=== PATIENT | male | born 1960 | race Caucasian/White ===

== ENCOUNTER 2018-03-21 20:40 | Emergency (ER) | payer OTHER ==
[2018-03-21 20:50] VITALS: TEMP 97.9
[2018-03-21] MEDS ORDERED: SODIUM CHLORIDE 0.9% 1,000 ML IV STA (20:59)
[2018-03-21] MEDS ORDERED: DILTIAZEM DRIP BOLUS FROM BAG 1 MG SOLN IV ONE ×3 (21:00→23:59)
[2018-03-21] MEDS ORDERED: DILTIAZEM 50 MG in SODIUM CHLORIDE 0.9% 40 ML IV SCH (21:00)
--- NOTE | 2018-03-21 21:02 | ED ---
Dizziness HPI - General Chief Complaint: Dizziness Stated Complaint: syncope Time Seen by Provider: 03/21/18 20:58 Source: patient, RN notes reviewed, old records reviewed Mode of arrival: wheelchair Limitations: no limitations - History of Present Illness Initial Comments: This is a 57-year-old male to the ER for evaluation with syncopal event. Syncopal event occurred around lunch today. Patient states he has no history of A. fib and has heart rate uncontrolled for the most part every day. Patient is on blood thinners, warfarin. He's been taking all medications as prescribed. Patient states he was walking into the grocery store on the ground did hit left-sided his head. He denies significant headache, patient states falls weakness by bystander he is refusing occasionally felt fine continued to stay becomes the ER for evaluation currently. Denies any other trauma or injury MD Complaint: dizziness, lightheadedness -: hour(s) (7) Timing: sudden onset History of Same: Yes History of Trauma: Yes (Patient did land on left side of his body, also left side of his had) Improves With: medication Worsens With: nothing Associated Symptoms: denies other symptoms - Related Data Home Medications Medication Instructions Recorded Confirmed Acetaminophen Tab [Tylenol] 1,000 mg PO DAILY 03/21/18 03/21/18 Oz Pure(Unknown) 1 tab PO DAILY 03/21/18 03/21/18 Aspirin [[place] Aspirin EC] 81 mg PO DAILY 03/21/18 03/21/18 Digoxin (Unknown) 1 tab PO DAILY 03/21/18 03/21/18 Magnesium (Unknown) 1 tab PO DAILY 03/21/18 03/21/18 Vitamin C (Unknown) 1 tab PO DAILY 03/21/18 03/21/18 Warfarin [Coumadin] 1.25 mg PO DAILY 03/21/18 03/21/18 Allergies Allergy/AdvReac Type Severity Reaction Status Date / Time Iodinated Contrast- Oral and AdvReac Unknown Unknown Verified 03/21/18 21:15 IV Dye Review of Systems ROS Statement: Those systems with pertinent positive or pertinent negative responses have been documented in the HPI. ROS Other: All systems not noted in ROS Statement are negative. Past Medical History Past Medical History: Atrial Fibrillation, Hypertension History of Any Multi-Drug Resistant Organisms: None Reported Past Surgical History: AICD Past Psychological History: No Psychological Hx Reported Smoking Status: Former smoker Past Alcohol Use History: None Reported Past Drug Use History: None Reported General Exam Limitations: no limitations General appearance: alert, in no apparent distress Head exam: Present: atraumatic, normocephalic, normal inspection Eye exam: Present: normal appearance, PERRL, EOMI. Absent: scleral icterus, conjunctival injection, periorbital swelling ENT exam: Present: normal exam, mucous membranes moist Neck exam: Present: normal inspection. Absent: tenderness, meningismus, lymphadenopathy Respiratory exam: Present: normal lung sounds bilaterally. Absent: respiratory distress, wheezes, rales, rhonchi, stridor Cardiovascular Exam: Present: normal rhythm, tachycardia, irregular rhythm, normal heart sounds. Absent: systolic murmur, diastolic murmur, rubs, gallop, clicks GI/Abdominal exam: Present: soft, normal bowel sounds. Absent: distended, tenderness, guarding, rebound, rigid Extremities exam: Present: normal inspection, full ROM, normal capillary refill. Absent: tenderness, pedal edema, joint swelling, calf tenderness Back exam: Present: normal inspection Neurological exam: Present: alert, oriented X3, CN II-XII intact Psychiatric exam: Present: normal affect, normal mood Skin exam: Present: warm, dry, intact, normal color. Absent: rash Course Vital Signs 03/21/18 03/21/18 03/21/18 20:47 21:03 21:10 Temperature 97.9 F Pulse Rate 94 142 H 135 H Respiratory 18 30 H 8 L Rate Blood Pressure 124/68 125/96 O2 Sat by Pulse 98 93 L Oximetry 03/21/18 03/21/18 03/21/18 21:20 21:30 21:40 Temperature Pulse Rate 134 H 123 H 122 H Respiratory 31 H 32 H 30 H Rate Blood Pressure 125/96 125/96 106/80 O2 Sat by Pulse 92 L 94 L 95 Oximetry 03/21/18 03/21/18 21:50 23:19 Temperature Pulse Rate 112 H 105 H Respiratory 18 Rate Blood Pressure 100/89 O2 Sat by Pulse 93 L Oximetry - Reevaluation(s) Reevaluation #1: 03/21/18 23:31 Medical record is reviewed Reevaluation #2: 03/21/18 23:31 Patient showing improvement heart rate, no significant shortness of breath or chest pain. No bowel pain no headaches EKG Findings - EKG Comments: EKG Findings:: EKG shows A. fib with RVR rate 134, QRS 108, QTc 492 Medical Decision Making - Medical Decision Making 57 male the ER for evaluation is presented today for evaluation regards to syncopal event, uncontrolled A. fib with RVR, patient's heart rate well controlled here in the ER patient able to ambulate without didn't difficulty or syncope. CAT scans are negative chest x-ray is normal patient can be discharged home - Lab Data Result diagrams: 03/21/18 20:59 03/21/18 20:59 Lab Results 03/21/18 03/21/18 03/21/18 Range/Units 20:59 20:59 20:59 WBC 9.4 (3.8-10.6) k/uL RBC 4.33 (4.30-5.90) m/uL Hgb 12.7 L (13.0-17.5) gm/dL Hct 41.2 (39.0-53.0) % MCV 94.9 (80.0-100.0) fL MCH 29.3 (25.0-35.0) pg MCHC 30.9 L (31.0-37.0) g/dL RDW 13.6 (11.5-15.5) % Plt Count 362 (150-450) k/uL Neutrophils % 73 % Lymphocytes % 17 % Monocytes % 8 % Eosinophils % 0 % Basophils % 1 % Neutrophils # 6.9 (1.3-7.7) k/uL Lymphocytes # 1.6 (1.0-4.8) k/uL Monocytes # 0.7 (0-1.0) k/uL Eosinophils # 0.0 (0-0.7) k/uL Basophils # 0.0 (0-0.2) k/uL Hypochromasia Moderate PT (9.0-12.0) sec INR (<1.2) APTT (22.0-30.0) sec D-Dimer (<0.60) mg/L FEU Sodium 137 (137-145) mmol/L Potassium 4.6 (3.5-5.1) mmol/L Chloride 105 (98-107) mmol/L Carbon Dioxide 24 (22-30) mmol/L Anion Gap 8 mmol/L BUN 22 H (9-20) mg/dL Creatinine 1.05 (0.66-1.25) mg/dL Est GFR (CKD-EPI)AfAm >90 (>60 ml/min/1.73 sqM) Est GFR (CKD-EPI)NonAf 78 (>60 ml/min/1.73 sqM) Glucose 100 H (74-99) mg/dL Plasma Lactic Acid Kunal (0.7-2.0) mmol/L Calcium 8.8 (8.4-10.2) mg/dL Phosphorus 5.0 H (2.5-4.5) mg/dL Magnesium 2.0 (1.6-2.3) mg/dL Total Bilirubin 1.1 (0.2-1.3) mg/dL AST 33 (17-59) U/L ALT 44 (21-72) U/L Alkaline Phosphatase 58 (38-126) U/L Total Creatine Kinase 149 (55-170) U/L CK-MB (CK-2) 3.0 H (0.0-2.4) ng/mL CK-MB (CK-2) Rel Index 2.0 Troponin I 0.018 (0.000-0.034) ng/mL Total Protein 5.9 L (6.3-8.2) g/dL Albumin 3.3 L (3.5-5.0) g/dL 03/21/18 03/21/18 Range/Units 20:59 20:59 WBC (3.8-10.6) k/uL RBC (4.30-5.90) m/uL Hgb (13.0-17.5) gm/dL Hct (39.0-53.0) % MCV (80.0-100.0) fL MCH (25.0-35.0) pg MCHC (31.0-37.0) g/dL RDW (11.5-15.5) % Plt Count (150-450) k/uL Neutrophils % % Lymphocytes % % Monocytes % % Eosinophils % % Basophils % % Neutrophils # (1.3-7.7) k/uL Lymphocytes # (1.0-4.8) k/uL Monocytes # (0-1.0) k/uL Eosinophils # (0-0.7) k/uL Basophils # (0-0.2) k/uL Hypochromasia PT 16.7 H (9.0-12.0) sec INR 1.8 H (<1.2) APTT 25.7 (22.0-30.0) sec D-Dimer 0.42 (<0.60) mg/L FEU Sodium (137-145) mmol/L Potassium (3.5-5.1) mmol/L Chloride (98-107) mmol/L Carbon Dioxide (22-30) mmol/L Anion Gap mmol/L BUN (9-20) mg/dL Creatinine (0.66-1.25) mg/dL Est GFR (CKD-EPI)AfAm (>60 ml/min/1.73 sqM) Est GFR (CKD-EPI)NonAf (>60 ml/min/1.73 sqM) Glucose (74-99) mg/dL Plasma Lactic Acid Kunal 1.4 (0.7-2.0) mmol/L Calcium (8.4-10.2) mg/dL Phosphorus (2.5-4.5) mg/dL Magnesium (1.6-2.3) mg/dL Total Bilirubin (0.2-1.3) mg/dL AST (17-59) U/L ALT (21-72) U/L Alkaline Phosphatase (38-126) U/L Total Creatine Kinase (55-170) U/L CK-MB (CK-2) (0.0-2.4) ng/mL CK-MB (CK-2) Rel Index Troponin I (0.000-0.034) ng/mL Total Protein (6.3-8.2) g/dL Albumin (3.5-5.0) g/dL - Radiology Data Radiology results: report reviewed (CT brain C-spine patient was negative for acute disease chest x-ray is negative), image reviewed Critical Care Time Critical Care Time: Yes Total Critical Care Time: 31 Disposition Clinical Impression: Atrial fibrillation with RVR, URI (upper respiratory infection), Syncope Disposition: HOME SELF-CARE Condition: Good Instructions: A-fib (Atrial Fibrillation) (ED), Syncope (ED) Is patient prescribed a controlled substance at d/c from ED?: No Referrals: Bob Doe DO [Primary Care Provider] - 1-2 days
[2018-03-21 21:25] LABS: Basophils % (A) 1 %; Eosinophils % (A) 0 %; HCT 41.2 % (39.0-53.0); HGB 12.7 gm/dL (13.0-17.5); Hypochromasia Moderate; Lymphocytes # (A) 1.6 k/uL (1.0-4.8); Lymphocytes % (A) 17 %; MCH 29.3 pg (25.0-35.0); MCHC 30.9 g/dL (31.0-37.0); MCV 94.9 fL (80.0-100.0); Monocytes # (A) 0.7 k/uL (0-1.0); Monocytes % (A) 8 %; Neutrophils # (A) 6.9 k/uL (1.3-7.7); Neutrophils % (A) 73 %; Platelet Count 362 k/uL (150-450); RBC 4.33 m/uL (4.30-5.90); RDW 13.6 % (11.5-15.5); WBC 9.4 k/uL (3.8-10.6)
[2018-03-21 21:36] LABS: ALT 44 U/L (21-72); AST 33 U/L (17-59); Albumin 3.3 g/dL (3.5-5.0); Alkaline Phosphatase 58 U/L (38-126); Anion Gap 8 mmol/L; Blood Urea Nitrogen 22 mg/dL (9-20); Calcium 8.8 mg/dL (8.4-10.2); Carbon Dioxide 24 mmol/L (22-30); Chloride 105 mmol/L (98-107); Glucose 100 mg/dL (74-99); Potassium 4.6 mmol/L (3.5-5.1); Sodium 137 mmol/L (137-145); Total Bilirubin 1.1 mg/dL (0.2-1.3); Total Protein 5.9 g/dL (6.3-8.2)
[2018-03-21 21:40] LABS: D-Dimer 0.42 mg/L FEU (<0.60); INR 1.8 (<1.2); Partial Thromboplastin Time 25.7 sec (22.0-30.0); Prothrombin Time 16.7 sec (9.0-12.0)
[2018-03-21 21:59] LABS: Troponin I 0.018 ng/mL (0.000-0.034)
--- NOTE | 2018-03-21 22:27 | CT ---
EXAMINATION TYPE: CT facial bones wo con DATE OF EXAM: 03/21/2018 COMPARISON: None HISTORY: Syncope. Left orbit swelling and bruising. CT DLP: 2832.3 mGycm Automated exposure control for dose reduction was used. TECHNIQUE: CT scan of the sinuses is performed without contrast, axial images are obtained, coronal r eformatted images are also reviewed. FINDINGS: The orbital margins are intact. There is bilateral patency of the ostiomeatal complex. Ther e is no evidence of a blowout fracture. There is no evidence of retro-orbital mass. There is mucosal thickening with fluid levels in the maxillary sinuses. The mandibular ring is intact. Temporomandibular joints appear normal. Zygomatic arches appear normal . The maxilla is intact. Nasal bone appears intact. There are dilated facial veins. There is 3 mm air bubble in the soft tissues in the right submandibul ar region that could be within a dilated vein. IMPRESSION: Maxillary sinusitis. No evidence of a fracture. Dilated veins raises the possibility of s uperior vena cava syndrome. Clinical correlation recommended.
--- NOTE | 2018-03-21 22:31 | CT ---
EXAMINATION TYPE: CT brain savi mac DATE OF EXAM: 03/21/2018 COMPARISON: None HISTORY: Syncope. CT DLP: 2832.3 mGycm Automated exposure control for dose reduction was used. TECHNIQUE: CT scan of the head and cervical spine are performed without contrast. FINDINGS: Ventricles of normal size. There is no mass effect nor midline shift. There is no sign of intracranial hemorrhage. There is mild cerebral atrophy. Calvarium is intact. Cervical vertebra have normal alignment. There is some spurring and slight narrowing at C3-4 and C6-7 . Posterior limbs are intact. There is hypertrophic facet arthropathy. Prevertebral soft tissues are not enlarged. The skull base is intact. There are dilated jugular veins. Right external jugular vein measures 2.3 cm. There is large aortic a rch and the ascending aorta measures 4.7 cm. IMPRESSION: Spondylotic changes. No fracture. Dilated veins in the neck could relate to superior vena cava obstru ction. Clinical correlation recommended. Aneurysm of the aortic arch. Mild cerebral atrophy. No acute intracranial abnormality.
[2018-03-21] MEDS ORDERED: IPRATROPIUM-ALBUTEROL 3 ML NEB INHALATION STA (22:49)
[2018-03-21] MEDS ORDERED: BENZONATATE 100 MG CAP PO STA (22:49)
--- NOTE | 2018-03-21 23:20 | XR ---
EXAMINATION TYPE: XR chest 2V DATE OF EXAM: 03/21/2018 COMPARISON: NONE HISTORY: Syncope TECHNIQUE: Frontal and lateral views of the chest are obtained. FINDINGS: Heart is enlarged. There is some coarsening of interstitial markings.. There is left axill elaina pacemaker with the lead tips in the right ventricle. There are chest leads. IMPRESSION: Cardiomegaly. No pleural effusion. Coarse lung markings without overt heart failure.
[2018-03-22 00:59] VITALS: BP 107/90; PULSE 87; RESP 18
== END 2018-03-22 01:06 | disposition home or self-care (01) ==
LOC: EC 20:40
DX: I48.91 Unspecified atrial fibrillation (principal); J06.9 Acute upper respiratory infection, unspecified; I10 Essential (primary) hypertension; Z87.891 Personal history of nicotine dependence; Z79.01 Long term (current) use of anticoagulants; Z79.82 Long term (current) use of aspirin; Z79.891 Long term (current) use of opiate analgesic; Z79.899 Other long term (current) drug therapy; Z91.041 Radiographic dye allergy status; Z95.810 Presence of automatic (implantable) cardiac defibrillator
CPT/HCPCS: 36415; 70450; 70486; 71046; 72125; 80053; 82550; 82553; 83605; 83735; 84100; 84484; 85025; 85379; 85610; 85730; 93005; 94640; 96365; 96376; 99285

== ENCOUNTER 2018-03-23 21:39 | Inpatient (IN) | payer OTHER ==
[2018-03-23] MEDS ORDERED: ASPIRIN 81 MG PO STA (22:13)
--- NOTE | 2018-03-23 22:25 | ED ---
General Adult HPI - General Chief complaint: Dizziness Stated complaint: Dizzy, Sweaty Time Seen by Provider: 03/23/18 21:57 Source: patient Mode of arrival: wheelchair Limitations: no limitations - History of Present Illness Initial comments: Sung is a 57-year-old with past medical history Most significant for recent visit orally load him to be in A. fib with RVR. IV fluids resolution of his currently discharged home with planned follow-up with his PCP and flight engineer helicopter. Patient contacted his physician, he has a follow-up visit with his flight engineer helicopter tomorrow. Patient reports that throughout the day today is progressively getting weaker and had multiple episodes of lightheadedness. Patient reports upon getting his vehicle today felt very lightheaded and like he was passed out. His friends visiting look like he wasn't doing well. He rested. He felt better. Patient also describes feeling as though he can't catch his breath when he has these episodes. - Related Data Home Medications Medication Instructions Recorded Confirmed Acetaminophen Tab [Tylenol] 1,000 mg PO DAILY PRN 03/21/18 03/23/18 Aspirin [[place] Aspirin EC] 81 mg PO DAILY 03/21/18 03/23/18 Magnesium (Unknown) 1 tab PO DAILY 03/21/18 03/23/18 Vitamin C (Unknown) 1 tab PO DAILY 03/21/18 03/23/18 Warfarin [Coumadin] 1.25 mg PO DAILY 03/21/18 03/23/18 Digoxin [Lanoxin] 125 mcg PO DAILY 03/23/18 03/23/18 Ramírez-Pure 1 tab PO DAILY 03/23/18 03/23/18 Multivitamin [Multivitamins Adult 2 tab PO DAILY 03/24/18 03/24/18 Gummies] Ubidecarenone [Co Q-10] 300 mg PO DAILY 03/24/18 03/24/18 Allergies Allergy/AdvReac Type Severity Reaction Status Date / Time Iodinated Contrast- Oral and AdvReac Unknown Unknown Verified 03/24/18 02:16 IV Dye Review of Systems ROS Statement: Those systems with pertinent positive or pertinent negative responses have been documented in the HPI. ROS Other: All systems not noted in ROS Statement are negative. Past Medical History Past Medical History: Atrial Fibrillation, Hypertension History of Any Multi-Drug Resistant Organisms: None Reported Past Surgical History: AICD Past Psychological History: No Psychological Hx Reported Smoking Status: Former smoker Past Alcohol Use History: None Reported Past Drug Use History: None Reported - Past Family History Father Family Medical History: No Reported History Mother Family Medical History: No Reported History General Exam - General Exam Comments Initial Comments: Physical Exam GENERAL: Patient is well-developed and well-nourished. Patient is nontoxic and well- hydrated and is in no distress. HENT: Normocephalic, well-healing contusion to left face EYES: PERRL, EOMI PULMONARY: Unlabored respirations. No audible rales rhonchi or wheezing was noted. CARDIOVASCULAR: Irregularly irregular tachycardic rhythm, warm and well perfused extremities ABDOMEN: Soft and nontender with normal bowel sounds. SKIN: Skin is clear with no lesions or rashes and otherwise unremarkable. : Deferred NEUROLOGIC: Patient is alert and oriented x3. Moving all extremities spontaneously MUSCULOSKELETAL: Normal extremities with adequate strength and full range of motion. No lower extremity swelling or edema. No calf tenderness. PSYCHIATRIC: Normal psychiatric evaluation. Limitations: no limitations Limitations: no limitations Course Vital Signs 03/23/18 03/24/18 21:45 00:45 Temperature 97.8 F Pulse Rate 72 110 H Respiratory 18 16 Rate Blood Pressure 115/66 113/89 O2 Sat by Pulse 97 98 Oximetry EKG Findings - EKG Comments: EKG Findings:: EKG obtained at 9:53 PM, rate is 101, narrow complex irregularly irregular tachycardia consistent with atrial fibrillation. PVCs noted. There are no acute ST elevations or depressions no evidence of acute ischemia or infarction. Medical Decision Making - Medical Decision Making The patient was seen and evaluated history was obtained from the patient and review of medical record. Patient recently seen and evaluated noted to be in A. fib with RVR but responded to treatment in the emergency department. Patient reports he's been compliant with his usual doses of digoxin and metoprolol since that time. Patient continues to have episodes of lightheadedness and feeling as though he can't catch his breath. Patient noted to be mildly tachycardic on initial evaluation. Full cardiac workup was ordered. EKG with no ischemic changes Chest x-ray was reviewed Labs were reviewed, primarily at baseline for the patient aside from an undetectable digoxin level Considering the patient's persistent tachycardia, symptomatic A. fib with RVR resulting in syncope with facial injury earlier in the week, near syncope today I will plan to admit the patient for further evaluation by cardiology. Admission orders and a consult to cardiology were placed - Lab Data Result diagrams: 03/23/18 22:06 03/23/18 22:06 Lab Results 03/23/18 03/23/18 03/23/18 Range/Units 22:06 22:06 22:06 WBC (3.8-10.6) k/uL RBC (4.30-5.90) m/uL Hgb (13.0-17.5) gm/dL Hct (39.0-53.0) % MCV (80.0-100.0) fL MCH (25.0-35.0) pg MCHC (31.0-37.0) g/dL RDW (11.5-15.5) % Plt Count (150-450) k/uL Neutrophils % % Lymphocytes % % Monocytes % % Eosinophils % % Basophils % % Neutrophils # (1.3-7.7) k/uL Lymphocytes # (1.0-4.8) k/uL Monocytes # (0-1.0) k/uL Eosinophils # (0-0.7) k/uL Basophils # (0-0.2) k/uL Hypochromasia PT 35.4 H (9.0-12.0) sec INR 3.9 H (<1.2) APTT 27.5 (22.0-30.0) sec D-Dimer 0.98 H (<0.60) mg/L FEU Sodium 135 L (137-145) mmol/L Potassium 5.0 (3.5-5.1) mmol/L Chloride 105 (98-107) mmol/L Carbon Dioxide 23 (22-30) mmol/L Anion Gap 7 mmol/L BUN 26 H (9-20) mg/dL Creatinine 1.17 (0.66-1.25) mg/dL Est GFR (CKD-EPI)AfAm 78 (>60 ml/min/1.73 sqM) Est GFR (CKD-EPI)NonAf 68 (>60 ml/min/1.73 sqM) Glucose 116 H (74-99) mg/dL Calcium 8.6 (8.4-10.2) mg/dL Magnesium 2.0 (1.6-2.3) mg/dL Total Bilirubin 1.5 H (0.2-1.3) mg/dL AST 49 (17-59) U/L ALT 56 (21-72) U/L Alkaline Phosphatase 61 (38-126) U/L Total Creatine Kinase (55-170) U/L CK-MB (CK-2) (0.0-2.4) ng/mL CK-MB (CK-2) Rel Index Troponin I (0.000-0.034) ng/mL NT-Pro-B Natriuret Pep 7930 pg/mL Total Protein 5.5 L (6.3-8.2) g/dL Albumin 3.0 L (3.5-5.0) g/dL Digoxin <0.4 ng/mL 03/23/18 03/23/18 Range/Units 22:06 22:06 WBC 9.3 (3.8-10.6) k/uL RBC 4.33 (4.30-5.90) m/uL Hgb 12.8 L (13.0-17.5) gm/dL Hct 40.8 (39.0-53.0) % MCV 94.1 (80.0-100.0) fL MCH 29.6 (25.0-35.0) pg MCHC 31.5 (31.0-37.0) g/dL RDW 14.0 (11.5-15.5) % Plt Count 352 (150-450) k/uL Neutrophils % 80 % Lymphocytes % 12 % Monocytes % 6 % Eosinophils % 0 % Basophils % 0 % Neutrophils # 7.4 (1.3-7.7) k/uL Lymphocytes # 1.1 (1.0-4.8) k/uL Monocytes # 0.6 (0-1.0) k/uL Eosinophils # 0.0 (0-0.7) k/uL Basophils # 0.0 (0-0.2) k/uL Hypochromasia Moderate PT (9.0-12.0) sec INR (<1.2) APTT (22.0-30.0) sec D-Dimer (<0.60) mg/L FEU Sodium (137-145) mmol/L Potassium (3.5-5.1) mmol/L Chloride (98-107) mmol/L Carbon Dioxide (22-30) mmol/L Anion Gap mmol/L BUN (9-20) mg/dL Creatinine (0.66-1.25) mg/dL Est GFR (CKD-EPI)AfAm (>60 ml/min/1.73 sqM) Est GFR (CKD-EPI)NonAf (>60 ml/min/1.73 sqM) Glucose (74-99) mg/dL Calcium (8.4-10.2) mg/dL Magnesium (1.6-2.3) mg/dL Total Bilirubin (0.2-1.3) mg/dL AST (17-59) U/L ALT (21-72) U/L Alkaline Phosphatase (38-126) U/L Total Creatine Kinase 283 H (55-170) U/L CK-MB (CK-2) 3.7 H (0.0-2.4) ng/mL CK-MB (CK-2) Rel Index 1.3 Troponin I 0.021 (0.000-0.034) ng/mL NT-Pro-B Natriuret Pep pg/mL Total Protein (6.3-8.2) g/dL Albumin (3.5-5.0) g/dL Digoxin ng/mL Disposition Clinical Impression: Atrial fibrillation with RVR Disposition: ADMITTED IP TO THIS HOSP
[2018-03-23 22:30] LABS: Basophils % (A) 0 %; Eosinophils % (A) 0 %; HCT 40.8 % (39.0-53.0); HGB 12.8 gm/dL (13.0-17.5); Hypochromasia Moderate; Lymphocytes # (A) 1.1 k/uL (1.0-4.8); Lymphocytes % (A) 12 %; MCH 29.6 pg (25.0-35.0); MCHC 31.5 g/dL (31.0-37.0); MCV 94.1 fL (80.0-100.0); Mean Platelet Volume 7.1; Monocytes # (A) 0.6 k/uL (0-1.0); Monocytes % (A) 6 %; Neutrophils # (A) 7.4 k/uL (1.3-7.7); Neutrophils % (A) 80 %; Platelet Count 352 k/uL (150-450); RBC 4.33 m/uL (4.30-5.90); WBC 9.3 k/uL (3.8-10.6)
--- NOTE | 2018-03-23 22:38 | XR ---
EXAMINATION TYPE: XR chest 2V DATE OF EXAM: 03/23/2018 COMPARISON: 03/21/2018 HISTORY: Atrial fibrillation TECHNIQUE: Frontal and lateral views of the chest are obtained. FINDINGS: Heart is enlarged. There is no heart failure. Lungs are clear of consolidation. There is s ome patchy mild infiltrate in the right lower lobe. There is left axillary pacemaker with the lead ti ps in the right ventricle. Bony thorax is intact. IMPRESSION: There is some minimal coarse infiltrate in the right lower lobe that is unchanged. There is improved aeration of the left lung compared to last exam. No heart failure.
[2018-03-23 22:45] LABS: INR 3.9 (<1.2); Partial Thromboplastin Time 27.5 sec (22.0-30.0); Prothrombin Time 35.4 sec (9.0-12.0)
[2018-03-23 22:47] LABS: D-Dimer 0.98 mg/L FEU (<0.60)
[2018-03-23 22:54] LABS: ALT 56 U/L (21-72); AST 49 U/L (17-59); Alkaline Phosphatase 61 U/L (38-126); Anion Gap 7 mmol/L; Blood Urea Nitrogen 26 mg/dL (9-20); Calcium 8.6 mg/dL (8.4-10.2); Carbon Dioxide 23 mmol/L (22-30); Chloride 105 mmol/L (98-107); Digoxin <0.4 ng/mL; Glucose 116 mg/dL (74-99); Sodium 135 mmol/L (137-145); Total Bilirubin 1.5 mg/dL (0.2-1.3); Total Protein 5.5 g/dL (6.3-8.2)
[2018-03-23 23:08] LABS: Creatine Kinase MB 3.7 ng/mL (0.0-2.4); Troponin I 0.021 ng/mL (0.000-0.034)
[2018-03-23] MEDS ORDERED: FAMOTIDINE 20 MG/2 ML VIAL IV STA (23:15)
[2018-03-23] MEDS ORDERED: diphenhydrAMINE 50 MG/ML 1 ML VIAL IVP STA (23:15)
[2018-03-23] MEDS ORDERED: methylPREDNISolone SOD SUCCI 125 MG/2 ML VIAL IV STA (23:15)
[2018-03-23] MEDS ORDERED: MORPHINE SULFATE 4 MG/ML SYRINGE IVP STA (23:55)
--- NOTE | 2018-03-24 00:10 | CT ---
EXAMINATION TYPE: CT chest angio for PE DATE OF EXAM: 03/24/2018 COMPARISON: None HISTORY: dizziness CT DLP: 459.7 mGycm Automated exposure control for dose reduction was used. CONTRAST: CT Chest for pulmonary embolism performed with with IV Contrast, patient injected with 85 mL of Isovu e 370. FINDINGS: There are 3-D post processed images. There is normal contrast opacification of the pulmonary arteries. I see no filling defect. There is n o mediastinal adenopathy. There are few paratracheal and mediastinal lymph nodes that measure up to 1 cm. There are no hilar masses. There is no pericardial effusion. Heart appears slightly enlarged. Th ere is small right pleural effusion. There is no evidence of aortic aneurysm. There is mild groundgla ss interstitial infiltrate in the lower lung kelly. There is mild spurring in the thoracic spine. Th ere is 30% anterior wedging of T3 vertebra. IMPRESSION: There is T3 compression fracture. This is probably old. No evidence of pulmonary embolism. Mild cardi omegaly. Small right pleural effusion. Mild interstitial pulmonary infiltrates could relate to fibrosis.
[2018-03-24] MEDS ORDERED: NALOXONE 0.4 MG/ML 1 ML VIAL IV PRN (00:45)
[2018-03-24 02:52] VITALS: BMI 30.1
[2018-03-24] MEDS ORDERED: ASPIRIN 81 MG PO SCH (09:00)
[2018-03-24] MEDS ORDERED: METOPROLOL SUCCINATE (ER) 25 MG TAB.ER.24H PO SCH (09:00)
[2018-03-24] MEDS ORDERED: DIGOXIN 125 MCG TAB PO SCH (09:00)
--- NOTE | 2018-03-24 09:58 | ECHOF ---
Referral Reason:syncope MEASUREMENTS -------- HEIGHT: 182.9 cm WEIGHT: 95.3 kg BP: 105/79 IVSd: 1.6 cm (0.6 - 1.1) LVIDd: 5.2 cm (3.9 - 5.3) LVPWd: 1.6 cm (0.6 - 1.1) IVSs: 1.7 cm LVIDs: 5.1 cm LVPWs: 1.5 cm LAESV Index (A-L): 38.31 ml/m Ao Diam: 3.4 cm (2.0 - 3.7) AV Cusp: 2.0 cm (1.5 - 2.6) MV EXCURSION: 15.965 mm (> 18.000) MV EF SLOPE: 241 mm/s (70 - 150) EPSS: 2.1 cm MV E Jaime: 0.94 m/s MV DecT: 227 ms MV A Jaime: 0.53 m/s MV E/A Ratio: 1.77 AR PHT: 262 ms RAP: 5.00 mmHg RVSP: 48.47 mmHg FINDINGS -------- Atrial fibrillation. AICD This was a technically good study. The left ventricular size is normal. There is moderate concentric left ventricular hypertrophy. T here is severe global hypokinesis of LV . Overall left ventricular systolic function is severely im paired with, an EF < 20%. The right ventricle is normal in size and function. LA is moderately dilated 34-39 ml/m2 The right atrium is normal in size. The aortic valve is trileaflet and appears structurally normal. Mild mitral regurgitation is present. Mild tricuspid regurgitation present. There is mild pulmonary hypertension. The right ventricular systolic pressure, as measured by Doppler, is 48.47mmHg. Pulmonic valve appears structurally normal. The aortic root size is normal. Normal inferior vena cava with normal inspiratory collapse consistent with estimated right atrial pre ssure of 5 mmHg. The pericardium is normal. CONCLUSIONS -------- 1. Atrial fibrillation. 2. AICD 3. This was a technically good study. 4. The left ventricular size is normal. 5. There is moderate concentric left ventricular hypertrophy. 6. There is severe global hypokinesis of LV . 7. Overall left ventricular systolic function is severely impaired with, an EF < 20%. 8. The right ventricle is normal in size and function. 9. LA is moderately dilated 34-39 ml/m2 10. The right atrium is normal in size. 11. The aortic valve is trileaflet and appears structurally normal. 12. Mild mitral regurgitation is present. 13. Mild tricuspid regurgitation present. 14. There is mild pulmonary hypertension. 15. The right ventricular systolic pressure, as measured by Doppler, is 48.47mmHg. 16. Pulmonic valve appears structurally normal. 17. The aortic root size is normal. 18. Normal inferior vena cava with normal inspiratory collapse consistent with estimated right atrial pressure of 5 mmHg. 19. The pericardium is normal. [employer]: Valentina Nuno RDCS
--- NOTE | 2018-03-24 12:00 | CONS ---
CONSULTATION CHIEF COMPLAINT: Near syncope. Sung is a 57-year-old gentleman with history of nonischemic cardiomyopathy, status post AICD, chronic atrial fibrillation, who follows with a display fabricator out of town, comes in complaining of feeling weak, lightheaded and having a near syncopal event. The patient was in the emergency room 2 days ago, having had a fall and having mild facial contusions. Patient has known chronic Afib and at last visit, his heart rate was poorly controlled. He is currently on Coumadin. INR is around 3.5. The patient has an AICD. I do not have any of his records from the other display fabricator. PAST MEDICAL HISTORY: Significant for nonischemic cardiomyopathy, status post prophylactic AICD and chronic Afib. CURRENT MEDICATIONS: Include Coumadin, Lanoxin, aspirin, Co-Q10. ALLERGIES: To IV DYE. FAMILY HISTORY: Negative for premature coronary artery disease. SOCIAL HISTORY: Negative for EtOH abuse or drug abuse. REVIEW OF SYSTEMS: HEENT: Significant for recent fall. CARDIAC: As described above. RESPIRATORY: Negative. GI: Negative. GENITOURINARY: Negative. ALLERGY: Negative. SKIN: Negative. MUSCULOSKELETAL: Negative. ENDOCRINE: Negative. DERM: Negative. CONSTITUTIONAL: Negative. ONCOLOGICAL: Negative. The rest of the system review is not relevant. PHYSICAL EXAM: Patient is comfortable at rest. Heart rate is 60 beats per minute. Blood pressure is 112/70, respiratory rate is 18. Chest exam reveals good air entry bilaterally. Heart exam reveals first and second heart sounds. No gallop. Abdomen is soft. Exam of extremities did not reveal any edema. Peripheral pulses are felt. LABS: Show that the hemoglobin is 12.8, platelet count is 350, INR is 3.9, potassium is 5, creatinine is 1. Troponin is negative at 0.021 and BNP is elevated at 7930. Digoxin is 0.4. ASSESSMENT: 1. Near syncope. 2. Atrial fibrillation with poorly controlled ventricular rate. 3. History of cardiomyopathy, status post AICD. PLAN: 1. I am going to have his device checked to make sure that patient does not have any episodes of ventricular tachycardia. 2. I am going to add a beta-shane to his current medical regimen for more optimal control of his heart rate. 3. Obtain a 2D echo to document his LV function and obtain records from his primary care physician. MMODL / IJN: [id number] /
[2018-03-24 15:02] LABS: T4, Free (Free Thyroxine) 2.15 ng/dL (0.78-2.19)
[2018-03-24] MEDS: AMIODARONE 200 MG TAB PO SCH ×2 (15:41→20:47)
--- NOTE | 2018-03-24 17:49 | P.HPIM ---
History of Present Illness This is a pleasant 57 years old male with past medical history of, atrial fibrillation status post AICD, hypertension. No presents because of dizziness and syncope. Patient passed out 2 days ago and he fell in his head to his left side of the eye. Patient kept emergency room his been evaluated and discharged home. However after discharge he felt lightheadedness and dizzy cancer who presented to the hospital. Patient has been evaluated by chemistry lab instructor already and interrogation for his AICD shows possible arrhythmia cardiology decided to monitor him overnight. On admission patient has high d-dimer. CTPA was negative for PE, mostly old T3 compression of fracture and small right pleural effusion, there is mild infiltrates in the right lower lung area but no fever no leukocytosis. On admission also his bilirubin is slightly elevated at 1.5. An third function tests are within normal limits. Sodium monthly low at 135, potassium 5. Creatinine is 1.17 Past Medical History Past Medical History: Atrial Fibrillation, Hypertension History of Any Multi-Drug Resistant Organisms: None Reported Past Surgical History: AICD Past Anesthesia/Blood Transfusion Reactions: No Reported Reaction Type of Cardiac Device: AICD Device Placement Date:: 2016 Past Psychological History: No Psychological Hx Reported Smoking Status: Former smoker Past Alcohol Use History: None Reported Past Drug Use History: None Reported - Past Family History Father Family Medical History: No Reported History Mother Family Medical History: No Reported History Medications and Allergies Home Medications Medication Instructions Recorded Confirmed Type Acetaminophen Tab [Tylenol] 1,000 mg PO DAILY PRN 03/21/18 03/23/18 History Aspirin [[place] Aspirin EC] 81 mg PO DAILY 03/21/18 03/23/18 History Magnesium (Unknown) 1 tab PO DAILY 03/21/18 03/23/18 History Vitamin C (Unknown) 1 tab PO DAILY 03/21/18 03/23/18 History Warfarin [Coumadin] 1.25 mg PO DAILY 03/21/18 03/23/18 History Digoxin [Lanoxin] 125 mcg PO DAILY 03/23/18 03/23/18 History Ramírez-Pure 1 tab PO DAILY 03/23/18 03/23/18 History Multivitamin [Multivitamins Adult 2 tab PO DAILY 03/24/18 03/24/18 History Gummies] Ubidecarenone [Co Q-10] 300 mg PO DAILY 03/24/18 03/24/18 History Allergies Allergy/AdvReac Type Severity Reaction Status Date / Time Iodinated Contrast- Oral and AdvReac Unknown Unknown Verified 03/24/18 02:16 IV Dye Physical Exam Vitals: Vital Signs Temp Pulse Pulse Resp BP BP Pulse Ox 03/24/18 15:57 98.0 F 81 18 112/69 97 03/24/18 11:25 97.7 F 58 L 18 115/83 95 03/24/18 07:00 97.6 F 57 L 18 105/79 95 03/24/18 03:14 18 03/24/18 02:18 98.1 F 68 18 124/66 94 L 03/24/18 00:45 110 H 16 113/89 98 03/23/18 21:45 97.8 F 72 18 115/66 97 Intake and Output 03/24/18 03/24/18 03/24/18 06:59 14:59 22:59 Intake Total 118 240 Balance 118 240 Intake: Oral 118 240 Other: Voiding Method Toilet # Voids 1 1 Weight 95.3 kg Results CBC & Chem 7: 03/23/18 22:06 03/23/18 22:06 Labs: Abnormal Lab Results - Last 24 Hours (Table) 03/23/18 03/23/18 03/23/18 Range/Units 22:06 22:06 22:06 Hgb (13.0-17.5) gm/dL PT 35.4 H (9.0-12.0) sec INR 3.9 H (<1.2) D-Dimer 0.98 H (<0.60) mg/L FEU Sodium 135 L (137-145) mmol/L BUN 26 H (9-20) mg/dL Glucose 116 H (74-99) mg/dL Total Bilirubin 1.5 H (0.2-1.3) mg/dL Total Creatine Kinase 283 H (55-170) U/L CK-MB (CK-2) 3.7 H (0.0-2.4) ng/mL Total Protein 5.5 L (6.3-8.2) g/dL Albumin 3.0 L (3.5-5.0) g/dL 03/23/18 Range/Units 22:06 Hgb 12.8 L (13.0-17.5) gm/dL PT (9.0-12.0) sec INR (<1.2) D-Dimer (<0.60) mg/L FEU Sodium (137-145) mmol/L BUN (9-20) mg/dL Glucose (74-99) mg/dL Total Bilirubin (0.2-1.3) mg/dL Total Creatine Kinase (55-170) U/L CK-MB (CK-2) (0.0-2.4) ng/mL Total Protein (6.3-8.2) g/dL Albumin (3.5-5.0) g/dL Thrombosis Risk Factor Assmnt - Choose All That Apply Each Factor Represents 1 point: Age 41-60 years Thrombosis Risk Factor Assessment Total Risk Factor Score: 1 Thrombosis Risk Factor Assessment Level: Low Risk Assessment and Plan Assessment: Syncope Cardiac arrhythmia noticed on AICD interrogation Mildly elevated bilirubin atrial fibrillation status post AICD Essential hypertension Plan: This is a pleasant 57 years old male who presents because of syncope. Possible arrhythmia of the heart. Patient has been evaluated by chemistry lab instructor and added amiodarone and Toprol medication adjusted. The abdomen is markedly elevated with stents monitoring. Labs and medication were resumed. Continue same treatment. Continue with symptomatic treatment. Resume home medication. Monitor lytes and vitals. DVT and GI prophylaxis. Further recommendationsof the clinical course of the patient DVT prophylaxis: Subcutaneous heparin GI Prophylaxis: Pepcid Prognosis is guarded
--- NOTE | 2018-03-24 19:26 | CT ---
EXAMINATION TYPE: CT brain savi villaseñor con DATE OF EXAM: 03/24/2018 COMPARISON: 03/21/2018 HISTORY: Syncopal episode, head injury. Neck pain No adverse change compared to last exam. CT DLP: 1339.9 mGycm Automated exposure control for dose reduction was used. TECHNIQUE: CT scan of the head and cervical spine are performed without contrast. FINDINGS: There is some cerebral cortical atrophy. There is no mass effect nor midline shift. There is no sign of intracranial hemorrhage. There is small mucus retention cyst in the posterior left max illary sinus. Calvarium appears intact. The cervical vertebra have fairly normal alignment. There is mild narrowing of the disc spaces at C3- 4 and C6-7 with spur formation. There is minor facet arthropathy in the cervical spine. The skull bas e is intact. IMPRESSION: Mild cerebral atrophy. No acute intracranial abnormality. Mild spondylotic changes in the cervical spine. No fracture seen.
[2018-03-24] MEDS: HEPARIN SODIUM,PORCINE 5,000 UNIT/ML 1 ML VIAL SQ SCH (20:12)
[2018-03-24] MEDS: FAMOTIDINE 20 MG/2 ML VIAL IV SCH (20:12)
[2018-03-24 23:06] LABS: Glucose,Whole Blood 118 mg/dL (75-99)
[2018-03-24 23:55] LABS: ALT 72 U/L (21-72); AST 51 U/L (17-59); Alkaline Phosphatase 56 U/L (38-126); Anion Gap 7 mmol/L; Blood Urea Nitrogen 32 mg/dL (9-20); Calcium 8.9 mg/dL (8.4-10.2); Carbon Dioxide 23 mmol/L (22-30); Chloride 104 mmol/L (98-107); Glucose 113 mg/dL (74-99); Phosphorus 4.5 mg/dL (2.5-4.5); Potassium 5.1 mmol/L (3.5-5.1); Sodium 134 mmol/L (137-145); Total Bilirubin 0.9 mg/dL (0.2-1.3); Total Protein 5.4 g/dL (6.3-8.2)
[2018-03-24 23:58] LABS: Basophils % (A) 0 %; Eosinophils % (A) 0 %; HCT 40.5 % (39.0-53.0); HGB 12.7 gm/dL (13.0-17.5); Hypochromasia Slight; Lymphocytes # (A) 1.5 k/uL (1.0-4.8); Lymphocytes % (A) 10 %; MCH 29.3 pg (25.0-35.0); MCHC 31.2 g/dL (31.0-37.0); MCV 93.7 fL (80.0-100.0); Mean Platelet Volume 7.2; Monocytes % (A) 7 %; Neutrophils # (A) 11.5 k/uL (1.3-7.7); Neutrophils % (A) 81 %; Platelet Count 349 k/uL (150-450); RBC 4.32 m/uL (4.30-5.90); RDW 14.1 % (11.5-15.5); WBC 14.3 k/uL (3.8-10.6)
[2018-03-25 00:03] LABS: INR 4.3 (<1.2)
[2018-03-25] MEDS: MAGNESIUM SULFATE-D5W PMX 1 GM in DEXTROSE/WATER 1 100ML.BAG IVPB SCH ×2 (02:08→03:11)
[2018-03-25 05:17] LABS: Basophils % (A) 0 %; Eosinophils # (A) 0.1 k/uL (0-0.7); Eosinophils % (A) 0 %; HCT 42.9 % (39.0-53.0); HGB 12.9 gm/dL (13.0-17.5); Hypochromasia Moderate; Lymphocytes # (A) 2.1 k/uL (1.0-4.8); Lymphocytes % (A) 16 %; MCH 28.9 pg (25.0-35.0); MCV 96.3 fL (80.0-100.0); Mean Platelet Volume 6.9; Monocytes # (A) 0.9 k/uL (0-1.0); Monocytes % (A) 7 %; Neutrophils # (A) 10.2 k/uL (1.3-7.7); Neutrophils % (A) 76 %; Platelet Count 380 k/uL (150-450); RBC 4.46 m/uL (4.30-5.90); RDW 14.2 % (11.5-15.5); WBC 13.5 k/uL (3.8-10.6)
[2018-03-25 05:33] LABS: Albumin 3.1 g/dL (3.5-5.0); Calcium 8.7 mg/dL (8.4-10.2); Magnesium 2.6 mg/dL (1.6-2.3); Phosphorus 4.8 mg/dL (2.5-4.5); Potassium 5.5 mmol/L (3.5-5.1); Total Bilirubin 1.1 mg/dL (0.2-1.3); Total Protein 5.6 g/dL (6.3-8.2)
[2018-03-25 05:42] LABS: INR 4.9 (<1.2); Prothrombin Time 44.2 sec (9.0-12.0)
--- NOTE | 2018-03-25 07:46 | PN ---
PROGRESS NOTE Mr. Valero is a 57-year-old male with known history of chronic persistent atrial fibrillation, history of severe nonischemic cardiomyopathy, status post ICD implantation who presented with symptoms of dizziness and was seen by Dr. Self yesterday and late that night had an episode of ventricular tachycardia and syncopal episode with laceration of his scalp. Reviewing the records from [facility] in August 2017, he was admitted with a super therapeutic INR and the notes documented the chi has been noncompliant. Patient had a syncopal episode recently and another one yesterday and before the admission, he felt quite weak and tired but did not have full syncope. He is in atrial fibrillation with rapid ventricular response. On presentation, he is on medication included digoxin and Coumadin. It is unclear to me if he was on other medication, although as noted his medical records report noncompliance. Patient denies any chest pain. He has dyspnea on exertion. He has some peripheral edema. He has been having cough. He denies any nausea or vomiting. He did not feel any discharge from the device yet. Interrogation of the device yesterday prior to the event revealed ventricular tachycardia. MEDICATION: At this time included aspirin, Coumadin was on hold, 0.15 mg daily, and he was started yesterday on metoprolol succinate 25 mg daily. PHYSICAL EXAMINATION: Blood pressure 115/90 with a heart rate in the 120s. Lungs with crackles bilaterally. Heart irregular regular, S1, S2. No S3 with systolic murmur, no diastolic murmur, no rub. ABDOMEN: Soft, obese, nontender. EXTREMITIES: +1 edema bilaterally. LAB DATA: Revealed an INR of 4.9, hemoglobin 12.9, potassium 5.5, BUN and creatinine of 34 and 1.08. Chest x-ray showed no overt infiltrate. He had an echocardiogram which showed severely impaired left ventricle systolic function with no significant valvular disease and a PA pressure of 48 mmHg. IMPRESSION: 1. Syncopal episode with recurrent ventricular tachycardia. 2. Atrial fibrillation with rapid ventricular response. 3. Supratherapeutic INR. 4. Severe nonischemic cardiomyopathy. 5. History of noncompliance according to the records. RECOMMENDATION: From the cardiac standpoint, I have discussed with the patient the importance of taking his amiodarone which he declined earlier. He will be taking amiodarone 40 mg twice a day. I will increase the dose of his beta shane to 50 mg twice a day. I will add lisinopril, IV, Lasix and Aldactone. Will follow his renal function. Depending on his progress, further recommendation will be made. KHAI / GAMAL: [id number] /
[2018-03-25] MEDS: HEPARIN SODIUM,PORCINE 5,000 UNIT/ML 1 ML VIAL SQ SCH ×2 (08:52→21:27)
[2018-03-25] MEDS: AMIODARONE 200 MG TAB PO SCH ×2 (08:52→21:21)
[2018-03-25] MEDS: FAMOTIDINE 20 MG/2 ML VIAL IV SCH (08:53)
[2018-03-25] MEDS: FUROSEMIDE 10 MG/ML 2 ML VIAL IV SCH ×2 (08:53→21:28)
[2018-03-25] MEDS: METOPROLOL SUCCINATE (ER) 50 MG TAB.ER.24H PO SCH ×2 (08:53→22:22)
[2018-03-25] MEDS ORDERED: SPIRONOLACTONE 25 MG TAB PO SCH (09:00)
[2018-03-25] MEDS: LISINOPRIL 2.5 MG TAB PO SCH ×2 (09:34→21:21)
[2018-03-25] MEDS: ALPRAZolam 0.25 MG TAB PO SCH ×3 (10:33→22:23)
[2018-03-25] MEDS ORDERED: METOPROLOL TARTRATE 50 MG TAB PO STA (11:10)
--- NOTE | 2018-03-25 12:43 | XR ---
EXAMINATION TYPE: XR chest 1V DATE OF EXAM: 03/25/2018 COMPARISON: 03/23/2018 HISTORY: Chest pain TECHNIQUE: Single frontal view of the chest is obtained. FINDINGS: Heart is enlarged. There is no pneumothorax. No definite pleural effusion. Mild prominence of the central interstitium. There is reduced inspiration. Cardiac device noted. IMPRESSION: 1. Cardiomegaly 2. Interstitial prominence suggests interstitial pneumonitis or mild venous congestion correlate clin ically.
--- NOTE | 2018-03-25 13:53 | P.CNPUL ---
History of Present Illness Consult date: 03/25/18 Requesting physician: Shelton E Therese Reason for consult: other Chief complaint: Weak and lightheadedness almost passing out. 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 Patient was admitted this time with multiple constitutional symptoms including weakness, fatigue, lightheadedness, and near syncopal episode. Patient was seen by cardiology on consultation, and his AICD was interrogated, felt that the patient may be having episodes of ventricular tachycardia. Actually the patient was admitted to a monitor bed last night, and at one point early last evening, patient had an episode of ventricular tachycardia, and syncopal episode sustained a scalp laceration. Patient felt very weak, transferred to the ICU, already seen by cardiology again , and his medications for chronic atrial fibrillation is being adjusted, patient is extremely reluctant to follow the specific recommendation of taking amiodarone. Apparently he was noncompliant with amiodarone while he was at home. At any rate during my evaluation, patient had no pulmonary symptoms whatsoever. No cough no wheezing no shortness of breath. No chest pain no nausea no vomiting no abdominal pain no melena no hematemesis. No dysuria and no frequency no urgency. Review of Systems 14 point review of systems were obtained, please refer to pertinent positives in HPI, otherwise remaining systems are negative. Past Medical History Past Medical History: Atrial Fibrillation, Hypertension History of Any Multi-Drug Resistant Organisms: None Reported Past Surgical History: AICD Past Anesthesia/Blood Transfusion Reactions: No Reported Reaction Type of Cardiac Device: AICD Device Placement Date:: 2016 Past Psychological History: No Psychological Hx Reported Smoking Status: Former smoker Past Alcohol Use History: None Reported Past Drug Use History: None Reported - Past Family History Father Family Medical History: No Reported History Mother Family Medical History: No Reported History Medications and Allergies Home Medications Medication Instructions Recorded Confirmed Type Acetaminophen Tab [Tylenol] 1,000 mg PO DAILY PRN 03/21/18 03/23/18 History Aspirin [[place] Aspirin EC] 81 mg PO DAILY 03/21/18 03/23/18 History Magnesium (Unknown) 1 tab PO DAILY 03/21/18 03/23/18 History Vitamin C (Unknown) 1 tab PO DAILY 03/21/18 03/23/18 History Warfarin [Coumadin] 1.25 mg PO DAILY 03/21/18 03/23/18 History Digoxin [Lanoxin] 125 mcg PO DAILY 03/23/18 03/23/18 History Ramírez-Pure 1 tab PO DAILY 03/23/18 03/23/18 History Multivitamin [Multivitamins Adult 2 tab PO DAILY 03/24/18 03/24/18 History Gummies] Ubidecarenone [Co Q-10] 300 mg PO DAILY 03/24/18 03/24/18 History Allergies Allergy/AdvReac Type Severity Reaction Status Date / Time Iodinated Contrast- Oral and AdvReac Unknown Unknown Verified 03/24/18 02:16 IV Dye Physical Exam Vitals: Vital Signs Temp Pulse Pulse Pulse Resp BP BP 03/25/18 10:00 120 H 30 H 120/81 03/25/18 09:00 97.5 F L 144 H 29 H 108/80 03/25/18 08:00 123 H 22 109/97 03/25/18 07:00 146 H 20 104/93 03/25/18 06:40 123 H 20 112/97 03/25/18 06:00 120 H 20 104/83 03/25/18 05:00 123 H 9 L 115/99 03/25/18 04:00 97.0 F L 107 H 11 L 114/38 03/25/18 03:00 118 H 14 114/38 03/25/18 02:30 121 H 18 112/99 03/25/18 02:16 107 H 16 101/85 03/25/18 01:00 93 17 101/85 03/25/18 00:00 97.5 F L 126 H 18 132/115 03/24/18 23:00 97.1 F L 111 H 16 108/85 03/24/18 20:00 98.3 F 115 H 22 113/77 03/24/18 19:02 120/90 03/24/18 15:57 98.0 F 81 18 112/69 Pulse Ox 03/25/18 10:00 91 L 03/25/18 09:00 91 L 03/25/18 08:00 96 03/25/18 07:00 96 03/25/18 06:40 96 03/25/18 06:00 96 03/25/18 05:00 97 03/25/18 04:00 96 03/25/18 03:00 97 03/25/18 02:30 96 03/25/18 02:16 97 03/25/18 01:00 97 03/25/18 00:00 98 03/24/18 23:00 96 03/24/18 20:00 95 03/24/18 19:02 03/24/18 15:57 97 Intake and Output 03/24/18 03/25/18 03/25/18 22:59 06:59 14:59 Intake Total 240 200 20 Output Total 300 575 Balance 240 -100 -555 Intake: IV 200 Magnesium Sulfate-D5w Pmx 200 1 gm In Dextrose/Water 1 100ml.bag @ 100 mls/hr IVPB Q1H [facility] Rx#: [id number] Oral 240 20 Output: Urine 300 575 Other: Voiding Method Toilet Urinal Urinal Weight 110.1 kg Physical Exam: Revealed a 57-year-old white male, anxious, in no distress. Head: Atraumatic, normocephalic. HEENT:[Neck is supple.] [No neck masses.] [No thyromegaly.] [No JVD.] Chest: [Clear throughout, no crackles, no rhonchi, no wheezes.] Cardiac Exam: [Tachycardic, irregular irregular rhythm, no rubs, no murmur. No gallop. Abdomen: [Soft, nontender, no megaly, no rebound, no guarding, normal bowel sounds.] Extremities: [No clubbing, no edema, no cyanosis.] Neurological Exam: [No focal neurologic deficit.] Psychiatric: Anxious, normal mental status examination. Results - Laboratory Findings CBC and BMP: 03/25/18 04:56 03/25/18 04:56 PT/INR, D-dimer PT 44.2 sec (9.0-12.0) H 03/25/18 04:56 INR 4.9 (<1.2) H 03/25/18 04:56 D-Dimer 0.98 mg/L FEU (<0.60) H 03/23/18 22:06 Abnormal lab findings: Abnormal Labs 03/23/18 03/23/18 03/23/18 22:06 22:06 22:06 WBC Hgb MCHC Neutrophils # PT 35.4 H INR 3.9 H D-Dimer 0.98 H Sodium 135 L Potassium BUN 26 H Glucose 116 H POC Glucose (mg/dL) Phosphorus Magnesium Total Bilirubin 1.5 H AST ALT Total Creatine Kinase 283 H CK-MB (CK-2) 3.7 H Total Protein 5.5 L Albumin 3.0 L 03/23/18 03/24/18 03/24/18 22:06 22:54 22:55 WBC Hgb 12.8 L MCHC Neutrophils # PT 39.0 H INR 4.3 H D-Dimer Sodium Potassium BUN Glucose POC Glucose (mg/dL) 118 H Phosphorus Magnesium Total Bilirubin AST ALT Total Creatine Kinase CK-MB (CK-2) Total Protein Albumin 03/24/18 03/24/18 03/25/18 22:55 22:55 04:56 WBC 14.3 H Hgb 12.7 L MCHC Neutrophils # 11.5 H PT INR D-Dimer Sodium 134 L 135 L Potassium 5.5 H BUN 32 H 34 H Glucose 113 H 125 H POC Glucose (mg/dL) Phosphorus 4.8 H Magnesium 2.6 H Total Bilirubin AST 63 H ALT 84 H Total Creatine Kinase CK-MB (CK-2) Total Protein 5.4 L 5.6 L Albumin 3.0 L 3.1 L 03/25/18 03/25/18 04:56 04:56 WBC 13.5 H Hgb 12.9 L MCHC 30.0 L Neutrophils # 10.2 H PT 44.2 H INR 4.9 H D-Dimer Sodium Potassium BUN Glucose POC Glucose (mg/dL) Phosphorus Magnesium Total Bilirubin AST ALT Total Creatine Kinase CK-MB (CK-2) Total Protein Albumin - Diagnostic Findings Chest x-ray: image reviewed (Minimal interstitial prominence suggestive of mild edema.) Assessment and Plan Assessment: Impression: 1 acute syncopal episode secondary to cardiac arrhythmia, more specific secondary to ventricular tachycardia. 2 chronic ischemic cardiomyopathy and LV dysfunction, history of AICD placement. 3 mild interstitial edema 4 chronic atrial fibrillation 5 essential hypertension 6 suspect noncompliance with medications, patient is extremely reluctant to take amiodarone. Recommendation: Fully agree with the present treatment plan, not much to be added from our perspective, patient is on multiple cardiac meds is also on diuretics, will continue to follow on an as-needed basis. Time with Patient: Greater than 30
--- NOTE | 2018-03-25 18:57 | P.PN ---
Subjective Progress Note Date: 03/25/18 Principal diagnosis: Syncope Mr. Valero is a pleasant 57 years old male with past medical history of, atrial fibrillation status post AICD, hypertension. He presents because of dizziness and syncope. Patient passed out 2 days ago and he fell in his head to his left side of the eye. Patient kept emergency room his been evaluated and discharged home. However after discharge he felt lightheadedness and dizzy cancer who presented to the hospital. Patient has been evaluated by skin piler already and interrogation for his AICD shows possible arrhythmia cardiology decided to monitor him overnight. On admission patient has high d-dimer. CTPA was negative for PE, mostly old T3 compression of fracture and small right pleural effusion, there is mild infiltrates in the right lower lung area but no fever no leukocytosis. Early last evening patient had an episode of ventricular tachycardia and syncopal episode in the observation unit with a scalp laceration. Has the patient was transferred to the ICU. Patient is currently in the ICU being monitored. He is lying in bed appears to be in no acute distress. Patient states that he does not have any chest pain or palpitations. Denies having any more syncopal episodes. Denies having about pain nausea vomiting or diarrhea. No dysuria or hematuria. Objective - Vital Signs Vital signs: Vital Signs Temp 97.7 F 03/25/18 16:00 Pulse 101 H 03/25/18 17:00 Resp 25 H 03/25/18 17:00 BP 90/76 03/25/18 17:00 Pulse Ox 94 L 03/25/18 17:00 Intake & Output 03/24/18 03/25/18 03/25/18 18:59 06:59 18:59 Intake Total 358 200 20 Output Total 300 750 Balance 358 -100 -730 Weight 110.1 kg Intake: IV 200 Magnesium Sulfate-D5w Pmx 200 1 gm In Dextrose/Water 1 100ml.bag @ 100 mls/hr IVPB Q1H [facility] Rx#: [id number] Oral 358 20 Output: Urine 300 750 Other: Voiding Method Toilet Urinal Urinal # Voids 1 - Exam GENERAL EXAM GEN. APPEARANCE: alert, in no apparent distress HEAD EXAM: atraumatic, normocephalic, normal inspection EYE EXAM: No pallor or icterus ENT EXAM: normal exam, mucous membranes moist NECK EXAM: No thyromegaly or lymphadenopathy RESPIRATORY EXAM: Bilateral breath sounds positive , diminished at the lung bases CARDIOVASCULAR EXAM: Irregularly irregular GI/ABDOMINAL EXAM: soft, normal bowel sounds. Absent: distended, tenderness, guarding, rebound, rigid EXTREMITIES EXAM: normal inspection, full ROM, normal capillary refill. Absent : tenderness, pedal edema, joint swelling, calf tenderness NEUROLOGICAL EXAM: alert, oriented X3, no focal neurological deficits PSYCHIATRIC EXAM: normal affect, normal mood SKIN EXAM: warm, dry, intact, normal color. Absent: rash - Labs CBC & Chem 7: 03/25/18 04:56 03/25/18 14:17 Labs: Abnormal Lab Results - Last 24 Hours (Table) 03/24/18 03/24/18 03/24/18 Range/Units 22:54 22:55 22:55 WBC 14.3 H (3.8-10.6) k/uL Hgb 12.7 L (13.0-17.5) gm/dL MCHC (31.0-37.0) g/dL Neutrophils # 11.5 H (1.3-7.7) k/uL PT 39.0 H (9.0-12.0) sec INR 4.3 H (<1.2) Sodium (137-145) mmol/L Potassium (3.5-5.1) mmol/L BUN (9-20) mg/dL Glucose (74-99) mg/dL POC Glucose (mg/dL) 118 H (75-99) mg/dL Phosphorus (2.5-4.5) mg/dL Magnesium (1.6-2.3) mg/dL AST (17-59) U/L ALT (21-72) U/L Total Protein (6.3-8.2) g/dL Albumin (3.5-5.0) g/dL 03/24/18 03/25/18 03/25/18 Range/Units 22:55 04:56 04:56 WBC (3.8-10.6) k/uL Hgb (13.0-17.5) gm/dL MCHC (31.0-37.0) g/dL Neutrophils # (1.3-7.7) k/uL PT 44.2 H (9.0-12.0) sec INR 4.9 H (<1.2) Sodium 134 L 135 L (137-145) mmol/L Potassium 5.5 H (3.5-5.1) mmol/L BUN 32 H 34 H (9-20) mg/dL Glucose 113 H 125 H (74-99) mg/dL POC Glucose (mg/dL) (75-99) mg/dL Phosphorus 4.8 H (2.5-4.5) mg/dL Magnesium 2.6 H (1.6-2.3) mg/dL AST 63 H (17-59) U/L ALT 84 H (21-72) U/L Total Protein 5.4 L 5.6 L (6.3-8.2) g/dL Albumin 3.0 L 3.1 L (3.5-5.0) g/dL 03/25/18 03/25/18 Range/Units 04:56 14:17 WBC 13.5 H (3.8-10.6) k/uL Hgb 12.9 L (13.0-17.5) gm/dL MCHC 30.0 L (31.0-37.0) g/dL Neutrophils # 10.2 H (1.3-7.7) k/uL PT (9.0-12.0) sec INR (<1.2) Sodium (137-145) mmol/L Potassium 5.7 H (3.5-5.1) mmol/L BUN (9-20) mg/dL Glucose (74-99) mg/dL POC Glucose (mg/dL) (75-99) mg/dL Phosphorus (2.5-4.5) mg/dL Magnesium (1.6-2.3) mg/dL AST (17-59) U/L ALT (21-72) U/L Total Protein (6.3-8.2) g/dL Albumin (3.5-5.0) g/dL Assessment and Plan Assessment: ASSESSMENT Syncope continue to cardiac arrhythmia Cardiac arrhythmia noticed on AICD interrogation Mildly elevated bilirubin atrial fibrillation status post AICD Essential hypertension Plan: Patient has been restarted on amiodarone. Metoprolol dose has been increased today. His heart rate is under much better control currently. Continue the current medication regimen. Further recommendations to follow depending on the progress of the patient.
[2018-03-25] MEDS: FAMOTIDINE 20 MG TAB PO SCH (21:22)
[2018-03-26 04:54] LABS: Basophils % (A) 0 %; Eosinophils % (A) 0 %; HCT 37.2 % (39.0-53.0); HGB 11.2 gm/dL (13.0-17.5); Hypochromasia Moderate; Lymphocytes # (A) 1.7 k/uL (1.0-4.8); Lymphocytes % (A) 16 %; MCHC 30.2 g/dL (31.0-37.0); Mean Platelet Volume 6.9; Monocytes % (A) 9 %; Neutrophils # (A) 8.1 k/uL (1.3-7.7); Neutrophils % (A) 73 %; Platelet Count 300 k/uL (150-450); RBC 3.87 m/uL (4.30-5.90); RDW 14.2 % (11.5-15.5); WBC 11.1 k/uL (3.8-10.6)
[2018-03-26 05:02] LABS: INR 4.3 (<1.2); Prothrombin Time 38.2 sec (9.0-12.0)
[2018-03-26 05:09] LABS: Calcium 7.9 mg/dL (8.4-10.2); Phosphorus 4.6 mg/dL (2.5-4.5); Potassium 4.8 mmol/L (3.5-5.1)
--- NOTE | 2018-03-26 06:51 | XR ---
EXAMINATION TYPE: XR chest 1V DATE OF EXAM: 03/26/2018 HISTORY: SOB. REFERENCE: Previous study dated 03/25/2018. FINDINGS: There is a bipolar pacemaker in place on the left. There is multichamber cardiac enlargement. There is vascular congestion and mild interstitial change. I cannot exclude small, bilateral effusions. IMPRESSION: CONTINUING CHANGES OF MILD HEART FAILURE.
[2018-03-26] MEDS: HEPARIN SODIUM,PORCINE 5,000 UNIT/ML 1 ML VIAL SQ SCH (09:56)
[2018-03-26] MEDS: FAMOTIDINE 20 MG TAB PO SCH ×2 (09:57→20:24)
[2018-03-26] MEDS: ALPRAZolam 0.25 MG TAB PO SCH ×2 (10:33→18:31)
[2018-03-26] MEDS: AMIODARONE 200 MG TAB PO SCH ×2 (10:34→20:23)
[2018-03-26] MEDS: METOPROLOL SUCCINATE (ER) 50 MG TAB.ER.24H PO SCH ×2 (10:35→20:24)
--- NOTE | 2018-03-26 10:40 | P.PN ---
Subjective Progress Note Date: 03/26/18 Principal diagnosis: Recurrent episodes of ventricular tachycardia This is a 57-year-old white male with history of nonischemic cardiomyopathy, chronic atrial fibrillation, previous AICD placement, normally sees a groundsman at [facility] in [place]. Patient was admitted this time with multiple constitutional symptoms including weakness, fatigue, lightheadedness, and near syncopal episode. Patient was seen by cardiology on consultation, and his AICD was interrogated, felt that the patient may be having episodes of ventricular tachycardia. Actually the patient was admitted to a monitor bed last night, and at one point early last evening, patient had an episode of ventricular tachycardia, and syncopal episode sustained a scalp laceration. Patient felt very weak, transferred to the ICU, already seen by cardiology again , and his medications for chronic atrial fibrillation is being adjusted, patient is extremely reluctant to follow the specific recommendation of taking amiodarone. Apparently he was noncompliant with amiodarone while he was at home. At any rate during my evaluation, patient had no pulmonary symptoms whatsoever. No cough no wheezing no shortness of breath. No chest pain no nausea no vomiting no abdominal pain no melena no hematemesis. No dysuria and no frequency no urgency. Patient was reevaluated today on 03/26/2018, remains in the ICU, no major issues overnight, his blood pressure seems to be a bit low marginal, and that being addressed by cardiology. Remains in atrial fibrillation with poorly controlled rate, but no episodes of ventricular tachycardia last night. Patient feels well clinically, denies any lightheadedness, no shortness of breath, no cough, no wheezing. Labs were reviewed his INR is 4.3 CBC is relatively normal, hemoglobin is 11.2. Electrolytes and renal profile were noted BUN however is elevated and creatinine is 1.25 his baseline is around 1. Patient may have developed a mild acute kidney injury from his episode of hypotension/acute tubular necrosis. Chest x-ray continues to show cardiomegaly, and mild interstitial edema. Patient is on Lasix 20 mg by mouth twice a day. Objective - Vital Signs Vital signs: Vital Signs Temp 97.3 F L 03/26/18 08:00 Pulse 95 03/26/18 10:00 Resp 22 03/26/18 10:00 BP 82/63 03/26/18 10:00 Pulse Ox 98 03/26/18 10:00 Intake & Output 03/25/18 03/26/18 03/26/18 18:59 06:59 18:59 Intake Total 20 450 Output Total 1050 925 475 Balance -9776 -575 -041 Weight 110 kg Intake: Oral 20 450 Output: Urine 1050 925 475 Other: Voiding Method Urinal Urinal - Exam Physical Exam: Revealed a 57-year-old white male, pleasant, not anxious today, in no distress.. Head: Atraumatic, normocephalic. HEENT:[Neck is supple.] [No neck masses.] [No thyromegaly.] [No JVD.] Chest: [Minimal fine crackles at the bases, no rhonchi and no wheezes. Symmetrical chest expansion is noted. No chest wall tenderness] Cardiac Exam: [Tachycardic, irregular irregular rhythm, no rubs, no murmur. No gallop. Abdomen: [Soft, nontender, no megaly, no rebound, no guarding, normal bowel sounds.] Extremities: [No clubbing, no edema, no cyanosis.] Neurological Exam: [No focal neurologic deficit.] Psychiatric: Anxious, normal mental status examination. - Labs CBC & Chem 7: 03/26/18 04:24 03/26/18 04:20 Labs: Abnormal Lab Results - Last 24 Hours (Table) 03/25/18 03/26/18 03/26/18 Range/Units 14:17 04:20 04:20 WBC (3.8-10.6) k/uL RBC (4.30-5.90) m/uL Hgb (13.0-17.5) gm/dL Hct (39.0-53.0) % MCHC (31.0-37.0) g/dL Neutrophils # (1.3-7.7) k/uL PT 38.2 H (9.0-12.0) sec INR 4.3 H (<1.2) Sodium 134 L (137-145) mmol/L Potassium 5.7 H (3.5-5.1) mmol/L Carbon Dioxide 31 H (22-30) mmol/L BUN 34 H (9-20) mg/dL Calcium 7.9 L (8.4-10.2) mg/dL Phosphorus 4.6 H (2.5-4.5) mg/dL 03/26/18 Range/Units 04:24 WBC 11.1 H (3.8-10.6) k/uL RBC 3.87 L (4.30-5.90) m/uL Hgb 11.2 L (13.0-17.5) gm/dL Hct 37.2 L (39.0-53.0) % MCHC 30.2 L (31.0-37.0) g/dL Neutrophils # 8.1 H (1.3-7.7) k/uL PT (9.0-12.0) sec INR (<1.2) Sodium (137-145) mmol/L Potassium (3.5-5.1) mmol/L Carbon Dioxide (22-30) mmol/L BUN (9-20) mg/dL Calcium (8.4-10.2) mg/dL Phosphorus (2.5-4.5) mg/dL Assessment and Plan Assessment: Impression: 1 recurrent episodes of ventricular tachycardia in a patient with known history of chronic atrial fibrillation, and nonischemic cardiomyopathy. 2 chronic ischemic cardiomyopathy and LV dysfunction, history of AICD placement. 3 mild interstitial edema, remains on Lasix 20 mg by mouth twice a day, dose may have to be considered. 4 chronic atrial fibrillation 5 essential hypertension 6 suspect noncompliance with medications, patient is extremely reluctant to take amiodarone. 7 acute kidney injury, could be cardiorenal or could be acute tumor necrosis from hypotension at the time when he had ventricular tachycardia and syncope. Recommendation: Continue present treatment plan as per cardiology, consider transferring the patient to a monitor bed on selective today. Patient is clearly not quite ready for any discharge planning at this point. Time with Patient: Less than 30
--- NOTE | 2018-03-26 10:44 | PN ---
PROGRESS NOTE Mr. Valero is a 57-year-old male with known history of chronic persistent atrial fibrillation, history of severe nonischemic cardiomyopathy, status post ICD implant who presented with syncope and recurrent ventricular tachycardia. He is feeling much better today. His breathing is better. He is denying any chest pain. His ventricular response is under better control. He had episode of hypotension. He has no evidence of ventricular tachyarrhythmia. His urine output has been good. He has continued to be on amiodarone 400 mg twice a day, Lasix 40 mg IV twice a day. Lisinopril 2.5 mg twice a day, metoprolol succinate 50 mg twice a day. PHYSICAL EXAMINATION: Blood pressure running in the 90s with a heart rate in the 90s. Lungs with mild decrease in breath sounds. No wheezes. Heart irregularly irregularly S1, S2. No S3 with systolic murmur. No rub. ABDOMEN: Soft, nontender. Extremities with trace to 1+ edema improved compared to yesterday. Hemoglobin of 11.2, INR of 4.3, BUN and creatinine 34 and 1.25. His urine output has been good. His chest x-ray revealed improvement in his congestion. IMPRESSION: 1. Recurrent ventricular tachycardia with syncope related to ventricular tachycardia. 2. Severe nonischemic cardiomyopathy. 3. History of ICD. 4. Chronic persistent atrial fibrillation. 5. Noncompliance. 6. Episode of hypotension. RECOMMENDATIONS: At this time, I will cut down his diuretics to oral. I will decrease the dose of his ROSALVA inhibitor. We will follow his blood pressure and renal function and see if he is a candidate to add Aldactone. We will continue to hold his Coumadin at this time. I am hopeful that he will be compliant with his medical regimen. MMODL / IJN: [id number] /
--- NOTE | 2018-03-26 11:51 | P.PN ---
Subjective Progress Note Date: 03/26/18 Principal diagnosis: Syncope Mr. Valero is a pleasant 57 years old male with past medical history of, atrial fibrillation status post AICD, hypertension. He presents because of dizziness and syncope. Patient passed out 2 days ago and he fell in his head to his left side of the eye. Patient kept emergency room his been evaluated and discharged home. However after discharge he felt lightheadedness and dizzy cancer who presented to the hospital. Patient has been evaluated by customer energy specialist already and interrogation for his AICD shows possible arrhythmia cardiology decided to monitor him overnight. On admission patient has high d-dimer. CTPA was negative for PE, mostly old T3 compression of fracture and small right pleural effusion, there is mild infiltrates in the right lower lung area but no fever no leukocytosis. on 03/25/18 -Early last evening patient had an episode of ventricular tachycardia and syncopal episode in the observation unit with a scalp laceration. Has the patient was transferred to the ICU. Patient is currently in the ICU being monitored. He is lying in bed appears to be in no acute distress. Patient states that he does not have any chest pain or palpitations. Denies having any more syncopal episodes. Denies having about pain nausea vomiting or diarrhea. No dysuria or hematuria. On 03/26/18 - patient's heart rate is under better control for the past 24 hours. He had a run of 9 beats of V. tach. Patient's blood pressure has been running low. Patient denies having any dizziness or loss of consciousness or syncopal episodes. Patient denies having any chest pain or palpitations. No cough or difficulty in breathing. No abdominal pain nausea vomiting or diarrhea. No dysuria or hematuria. But he has been not able to get out of the bed as he has been feeling tired and fatigued. Objective - Vital Signs Vital signs: Vital Signs Temp 97.3 F L 03/26/18 08:00 Pulse 75 03/26/18 11:00 Resp 24 03/26/18 11:00 BP 91/74 03/26/18 11:00 Pulse Ox 98 03/26/18 11:00 Intake & Output 03/25/18 03/26/18 03/26/18 18:59 06:59 18:59 Intake Total 20 450 200 Output Total 1050 925 150 Balance -1540 -475 -275 Weight 110 kg Intake: Oral 20 450 200 Output: Urine 1050 925 475 Other: Voiding Method Urinal Urinal - Exam GENERAL EXAM GEN. APPEARANCE: alert, in no apparent distress HEAD EXAM: atraumatic, normocephalic, normal inspection EYE EXAM: No pallor or icterus ENT EXAM: normal exam, mucous membranes moist NECK EXAM: No thyromegaly or lymphadenopathy RESPIRATORY EXAM: Bilateral breath sounds positive , diminished at the lung bases CARDIOVASCULAR EXAM: Irregularly irregular GI/ABDOMINAL EXAM: soft, normal bowel sounds. Absent: distended, tenderness, guarding, rebound, rigid EXTREMITIES EXAM: normal inspection, full ROM, normal capillary refill. Absent : tenderness, pedal edema, joint swelling, calf tenderness NEUROLOGICAL EXAM: alert, oriented X3, no focal neurological deficits PSYCHIATRIC EXAM: normal affect, normal mood SKIN EXAM: warm, dry, intact, normal color. Absent: rash - Labs CBC & Chem 7: 03/26/18 04:24 03/26/18 04:20 Labs: Abnormal Lab Results - Last 24 Hours (Table) 03/25/18 03/26/18 03/26/18 Range/Units 14:17 04:20 04:20 WBC (3.8-10.6) k/uL RBC (4.30-5.90) m/uL Hgb (13.0-17.5) gm/dL Hct (39.0-53.0) % MCHC (31.0-37.0) g/dL Neutrophils # (1.3-7.7) k/uL PT 38.2 H (9.0-12.0) sec INR 4.3 H (<1.2) Sodium 134 L (137-145) mmol/L Potassium 5.7 H (3.5-5.1) mmol/L Carbon Dioxide 31 H (22-30) mmol/L BUN 34 H (9-20) mg/dL Calcium 7.9 L (8.4-10.2) mg/dL Phosphorus 4.6 H (2.5-4.5) mg/dL 03/26/18 Range/Units 04:24 WBC 11.1 H (3.8-10.6) k/uL RBC 3.87 L (4.30-5.90) m/uL Hgb 11.2 L (13.0-17.5) gm/dL Hct 37.2 L (39.0-53.0) % MCHC 30.2 L (31.0-37.0) g/dL Neutrophils # 8.1 H (1.3-7.7) k/uL PT (9.0-12.0) sec INR (<1.2) Sodium (137-145) mmol/L Potassium (3.5-5.1) mmol/L Carbon Dioxide (22-30) mmol/L BUN (9-20) mg/dL Calcium (8.4-10.2) mg/dL Phosphorus (2.5-4.5) mg/dL Assessment and Plan Assessment: ASSESSMENT Syncope continue to cardiac arrhythmia Cardiac arrhythmia noticed on AICD interrogation Mildly elevated bilirubin atrial fibrillation status post AICD Essential hypertension Plan: Patient has been restarted on amiodarone. Metoprolol dose has been increased yesterday. His heart rate is under much better control currently. Patient's blood pressure has been running on the lower side so his IV Lasix has been changed to by mouth Lasix by cardiology today. Case was discussed with Dr. Armas at the bedside - mentions that the patient has issues with compliance and has multiple admissions to other hospitals. Continue the current medication regimen. Further recommendations to follow depending on the progress of the patient.
[2018-03-26] MEDS: FUROSEMIDE 10 MG/ML 2 ML VIAL IV SCH (18:32)
[2018-03-26] MEDS: ALPRAZolam 0.25 MG TAB PO PRN (19:18)
[2018-03-26] MEDS: FUROSEMIDE 20 MG TAB PO SCH (21:10)
[2018-03-27 05:13] LABS: Basophils % (A) 0 %; Eosinophils % (A) 0 %; HCT 39.5 % (39.0-53.0); HGB 12.4 gm/dL (13.0-17.5); Hypochromasia Moderate; Lymphocytes # (A) 1.5 k/uL (1.0-4.8); Lymphocytes % (A) 14 %; MCH 29.6 pg (25.0-35.0); MCHC 31.4 g/dL (31.0-37.0); MCV 94.2 fL (80.0-100.0); Mean Platelet Volume 7.2; Monocytes # (A) 1.2 k/uL (0-1.0); Monocytes % (A) 11 %; Neutrophils % (A) 72 %; Platelet Count 287 k/uL (150-450); RBC 4.19 m/uL (4.30-5.90)
[2018-03-27 05:26] LABS: INR 3.4 (<1.2); Prothrombin Time 30.2 sec (9.0-12.0)
[2018-03-27 05:28] LABS: Phosphorus 4.1 mg/dL (2.5-4.5); Potassium 4.9 mmol/L (3.5-5.1)
--- NOTE | 2018-03-27 06:08 | XR ---
EXAMINATION TYPE: XR chest 1V DATE OF EXAM: 03/27/2018 HISTORY: SOB. REFERENCE: Previous study dated 03/26/2018. FINDINGS: There is a bipolar pacemaker in place on the left. The heart is enlarged. There continues to be some vascular congestion. There is subtle interstitial c hange. Pleural spaces appear clear. IMPRESSION: IMPROVING CHANGES OF PULMONARY EDEMA.
--- NOTE | 2018-03-27 08:56 | PN ---
PROGRESS NOTE Mr. Valero is a 57-year-old male with severe nonischemic cardiomyopathy, history of persistent chronic atrial fibrillation, who has an ICD and presented with syncope and recurrent ventricular tachycardia. He is feeling better. He is ambulating without difficulty. He is denying any chest pain. His breathing has been stable. He denies any dizziness. He continues to be on amiodarone 40 mg twice a day, Lasix 20 mg twice a day, lisinopril 2.5 mg daily, metoprolol succinate 50 mg twice a day. He ambulated yesterday and he felt well. PHYSICAL EXAMINATION: Blood pressure 117/80 with a heart rate in the 90s. LUNGS: Clear. Heart irregularly irregular, S1, S2. No S3. No rub with a systolic murmur. ABDOMEN: Soft, nontender. Extremities 1+ edema. LAB DATA: BUN and creatinine 31, 1.14. INR of 3.4. Hemoglobin 12.4. IMPRESSION: 1. Severe cardiomyopathy status post ICD implantation with recurrent ventricular tachycardia. 2. Atrial fibrillation, rate controlled. 3. History of noncompliance. RECOMMENDATION: I will increase his level of activity. We will follow his blood pressure. He will be transferred to telemetry floor. I will hold on adding the spironolactone at this time because of the prior elevation of his potassium. Follow his INR. If he remains stable, I am hoping that he will be able to be discharged home in the next 24 to 48 hours. The dose of the amiodarone can be decreased and he will follow up with his primary environmental compliance manager. MMODL / IJN: [id number] /
[2018-03-27] MEDS: AMIODARONE 200 MG TAB PO SCH ×2 (09:04→20:43)
[2018-03-27] MEDS: FAMOTIDINE 20 MG TAB PO SCH ×2 (09:04→20:43)
[2018-03-27] MEDS: FUROSEMIDE 20 MG TAB PO SCH ×2 (09:05→20:43)
[2018-03-27] MEDS: METOPROLOL SUCCINATE (ER) 50 MG TAB.ER.24H PO SCH ×2 (09:06→20:44)
[2018-03-27] MEDS: LISINOPRIL 2.5 MG TAB PO SCH ×2 (09:07→13:15)
[2018-03-27] MEDS ORDERED: POTASSIUM CHLORIDE 20 MEQ in WATER FOR INJECTION 1 100ML.BAG IVPB SCH (10:00)
[2018-03-27] MEDS: ALPRAZolam 0.25 MG TAB PO PRN ×2 (14:32→22:04)
--- NOTE | 2018-03-27 14:39 | P.PN ---
Subjective Progress Note Date: 03/27/18 Principal diagnosis: Syncope Mr. Valero is a pleasant 57 years old male with past medical history of, atrial fibrillation status post AICD, hypertension. He presents because of dizziness and syncope. Patient passed out 2 days ago and he fell in his head to his left side of the eye. Patient kept emergency room his been evaluated and discharged home. However after discharge he felt lightheadedness and dizzy cancer who presented to the hospital. Patient has been evaluated by product assembler already and interrogation for his AICD shows possible arrhythmia cardiology decided to monitor him overnight. On admission patient has high d-dimer. CTPA was negative for PE, mostly old T3 compression of fracture and small right pleural effusion, there is mild infiltrates in the right lower lung area but no fever no leukocytosis. on 03/25/18 -Early last evening patient had an episode of ventricular tachycardia and syncopal episode in the observation unit with a scalp laceration. Has the patient was transferred to the ICU. Patient is currently in the ICU being monitored. He is lying in bed appears to be in no acute distress. Patient states that he does not have any chest pain or palpitations. Denies having any more syncopal episodes. Denies having about pain nausea vomiting or diarrhea. No dysuria or hematuria. On 03/26/18 - patient's heart rate is under better control for the past 24 hours. He had a run of 9 beats of V. tach. Patient's blood pressure has been running low. Patient denies having any dizziness or loss of consciousness or syncopal episodes. Patient denies having any chest pain or palpitations. No cough or difficulty in breathing. No abdominal pain nausea vomiting or diarrhea. No dysuria or hematuria. But he has been not able to get out of the bed as he has been feeling tired and fatigued. On 03/27/2018- overnight active issues are as reported per nursing staff. Patient denies having any chest pain or dizziness. He was seen by cardiology, and is being shifted out of the ICU. Patient denies having any fevers chills or rigors. No abdominal pain nausea vomiting or diarrhea. No dysuria or hematuria. Patient's blood pressure is slowly trending up. Objective - Vital Signs Vital signs: Vital Signs Temp 98.0 F 03/27/18 10:57 Pulse 73 03/27/18 10:57 Resp 18 03/27/18 10:57 BP 118/66 03/27/18 10:57 Pulse Ox 95 03/27/18 10:57 Intake & Output 03/26/18 03/27/18 03/27/18 19:59 06:59 18:59 Intake Total 180 Output Total 225 Balance -45 Weight 107.7 kg Intake: Oral 180 Tube Feeding Output: Urine 225 Other: Voiding Method Urinal - Exam GENERAL EXAM GEN. APPEARANCE: alert, in no apparent distress HEAD EXAM: atraumatic, normocephalic, normal inspection EYE EXAM: No pallor or icterus ENT EXAM: normal exam, mucous membranes moist NECK EXAM: No thyromegaly or lymphadenopathy RESPIRATORY EXAM: Bilateral breath sounds positive , diminished at the lung bases CARDIOVASCULAR EXAM: Irregularly irregular GI/ABDOMINAL EXAM: soft, normal bowel sounds. Absent: distended, tenderness, guarding, rebound, rigid EXTREMITIES EXAM: normal inspection, full ROM, normal capillary refill. Absent : tenderness, pedal edema, joint swelling, calf tenderness NEUROLOGICAL EXAM: alert, oriented X3, no focal neurological deficits - Labs CBC & Chem 7: 03/27/18 04:24 03/27/18 04:24 Labs: Abnormal Lab Results - Last 24 Hours (Table) 03/27/18 03/27/18 03/27/18 Range/Units 04:24 04:24 04:24 WBC 11.0 H (3.8-10.6) k/uL RBC 4.19 L (4.30-5.90) m/uL Hgb 12.4 L (13.0-17.5) gm/dL Neutrophils # 8.0 H (1.3-7.7) k/uL Monocytes # 1.2 H (0-1.0) k/uL PT 30.2 H (9.0-12.0) sec INR 3.4 H (<1.2) Sodium 133 L (137-145) mmol/L BUN 31 H (9-20) mg/dL Calcium 8.0 L (8.4-10.2) mg/dL Assessment and Plan Assessment: ASSESSMENT Syncope continue to cardiac arrhythmia Cardiac arrhythmia noticed on AICD interrogation Mildly elevated bilirubin atrial fibrillation status post AICD Essential hypertension Plan: Patient has been restarted on amiodarone. Metoprolol dose has been increased Couple of days back . His heart rate is under much better control currently. Patient's blood pressure trending up slowly, better than yesterday after his IV Lasix has been changed to by mouth. He had issues with medication compliance and has multiple admissions to other hospitals. Continue the current medication regimen. Patient is being transferred out of the ICU to general medical floors today. Further recommendations to follow depending on the progress of the patient.
[2018-03-27 20:39] LABS: Glucose,Whole Blood 93 mg/dL (75-99)
[2018-03-28 07:09] LABS: Basophils % (A) 0 %; Eosinophils % (A) 0 %; HCT 38.2 % (39.0-53.0); HGB 11.9 gm/dL (13.0-17.5); Hypochromasia Moderate; Lymphocytes # (A) 1.3 k/uL (1.0-4.8); Lymphocytes % (A) 13 %; MCH 29.2 pg (25.0-35.0); MCHC 31.3 g/dL (31.0-37.0); MCV 93.4 fL (80.0-100.0); Mean Platelet Volume 6.7; Monocytes % (A) 10 %; Neutrophils # (A) 7.3 k/uL (1.3-7.7); Neutrophils % (A) 73 %; Platelet Count 262 k/uL (150-450); RBC 4.09 m/uL (4.30-5.90)
[2018-03-28 07:28] LABS: ALT 239 U/L (21-72); AST 86 U/L (17-59); Albumin 2.4 g/dL (3.5-5.0); Alkaline Phosphatase 50 U/L (38-126); Anion Gap 5 mmol/L; Blood Urea Nitrogen 26 mg/dL (9-20); Calcium 7.6 mg/dL (8.4-10.2); Carbon Dioxide 30 mmol/L (22-30); Chloride 99 mmol/L (98-107); Glucose 89 mg/dL (74-99); Potassium 4.6 mmol/L (3.5-5.1); Sodium 134 mmol/L (137-145); Total Bilirubin 1.9 mg/dL (0.2-1.3); Total Protein 4.8 g/dL (6.3-8.2)
[2018-03-28 07:30] LABS: Anion Gap 6 mmol/L; Blood Urea Nitrogen 26 mg/dL (9-20); Calcium 7.8 mg/dL (8.4-10.2); Carbon Dioxide 29 mmol/L (22-30); Chloride 98 mmol/L (98-107); Glucose 88 mg/dL (74-99); Magnesium 1.9 mg/dL (1.6-2.3); Phosphorus 3.5 mg/dL (2.5-4.5); Potassium 4.5 mmol/L (3.5-5.1); Sodium 133 mmol/L (137-145)
[2018-03-28] MEDS: METOPROLOL SUCCINATE (ER) 50 MG TAB.ER.24H PO SCH ×2 (08:32→20:10)
[2018-03-28] MEDS: FUROSEMIDE 20 MG TAB PO SCH ×2 (08:33→20:10)
[2018-03-28] MEDS: LISINOPRIL 2.5 MG TAB PO SCH (08:33)
[2018-03-28] MEDS: AMIODARONE 200 MG TAB PO SCH ×2 (08:33→20:10)
[2018-03-28] MEDS: FAMOTIDINE 20 MG TAB PO SCH ×2 (08:33→20:10)
[2018-03-28] MEDS: SPIRONOLACTONE 25 MG TAB PO SCH (08:35)
--- NOTE | 2018-03-28 08:53 | PN ---
PROGRESS NOTE Mr. Valero is a 57-year-old male who has a history of severe nonischemic cardiomyopathy, history of atrial fibrillation, who presented with syncope and episode of atrial fibrillation and ventricular tachycardia. He is feeling better today. His rate is under control. He denies any dyspnea. He denies any chest pain. He denies any palpitation. He is ambulating in the room and feeling better. His ventricular response is under better control. He is on amiodarone 400 mg twice a day, metoprolol tartrate 50 mg twice a day, Lasix 20 mg twice a day, lisinopril 2.5 mg daily. PHYSICAL EXAMINATION: Blood pressure 117/70 with the heart rate in the 80s. LUNGS: No wheezes. HEART: Irregular, irregular. S1, S2. No S3 with systolic murmur. No diastolic murmur. ABDOMEN: Soft, nontender. EXTREMITIES: No edema. LAB DATA: Lab data revealed an ALT of 239, AST of 86. BUN and creatinine 26 and 1.03, potassium 4.6. Hemoglobin of 11.9. IMPRESSION: 1. Severe nonischemic cardiomyopathy with syncope and episode of ventricular tachycardia. 2. Status post ICD implant. 3. Chronic persistent atrial fibrillation. 4. Elevation of liver function tests could be related to the amiodarone. RECOMMENDATION: I will cut down the dose of the amiodarone. I will initiate treatment with Aldactone. Increase his level of activity. Follow his INR. If his liver function tests are stable by tomorrow, I would expect he should be able to be discharged home and follow up with his primary station cleaning porter. KHAI / ELINAN: [id number] /
[2018-03-28 09:27] LABS: Prothrombin Time 26.6 sec (9.0-12.0)
--- NOTE | 2018-03-28 09:50 | P.PN ---
Subjective 57 years old male with past medical history of, atrial fibrillation status post AICD, hypertension. He presents because of dizziness and syncope. Patient passed out 2 days ago and he fell in his head to his left side of the eye. Patient kept emergency room his been evaluated and discharged home. However after discharge he felt lightheadedness and dizzy cancer who presented to the hospital. Patient has been evaluated by senior java ui developer already and interrogation for his AICD shows possible arrhythmia cardiology decided to monitor him overnight. On admission patient has high d-dimer. CTPA was negative for PE, mostly old T3 compression of fracture and small right pleural effusion, there is mild infiltrates in the right lower lung area but no fever no leukocytosis. on 03/25/18 -Early last evening patient had an episode of ventricular tachycardia and syncopal episode in the observation unit with a scalp laceration. Has the patient was transferred to the ICU. Patient is currently in the ICU being monitored. He is lying in bed appears to be in no acute distress. Patient states that he does not have any chest pain or palpitations. Denies having any more syncopal episodes. Denies having about pain nausea vomiting or diarrhea. No dysuria or hematuria. On 03/26/18 - patient's heart rate is under better control for the past 24 hours. He had a run of 9 beats of V. tach. Patient's blood pressure has been running low. Patient denies having any dizziness or loss of consciousness or syncopal episodes. Patient denies having any chest pain or palpitations. No cough or difficulty in breathing. No abdominal pain nausea vomiting or diarrhea. No dysuria or hematuria. But he has been not able to get out of the bed as he has been feeling tired and fatigued. On 03/27/2018- overnight active issues are as reported per nursing staff. Patient denies having any chest pain or dizziness. He was seen by cardiology, and is being shifted out of the ICU. Patient denies having any fevers chills or rigors. No abdominal pain nausea vomiting or diarrhea. No dysuria or hematuria. Patient's blood pressure is slowly trending up. 03/28/2018 Patient is presently on 2 L of onset will try to wean it off. Patient is presently on oral Lasix. No significant overnight events. Patient was started on Aldactone. Patient is on low-dose of lisinopril borderline blood pressure at this time. Pending chest x-ray from today Constitutional: Denied any fatigue denied any fever. Cardio vascular: denied any chest pain, palpitations Gastrointestinal denied any nausea vomiting Pulmonary: Denied any shortness of breath cough Neurologic denied any new focal deficits Objective - Vital Signs Vital signs: Vital Signs Temp 98.2 F 03/28/18 08:00 Pulse 80 03/28/18 08:00 Resp 18 03/28/18 08:00 BP 97/73 03/28/18 08:00 Pulse Ox 94 L 03/28/18 08:00 Intake & Output 03/27/18 03/28/18 03/28/18 18:59 06:59 18:59 Intake Total 180 240 240 Output Total 525 900 Balance -345 -660 240 Weight 107.7 kg 110 kg Intake: Oral 180 240 240 Output: Urine 525 900 Other: Voiding Method Urinal Urinal Urinal # Voids 1 - Exam GEN. APPEARANCE: alert, in no apparent distress HEAD EXAM: atraumatic, normocephalic, normal inspection EYE EXAM: No pallor or icterus ENT EXAM: normal exam, mucous membranes moist NECK EXAM: No thyromegaly or lymphadenopathy RESPIRATORY EXAM: Bilateral breath sounds positive , diminished at the lung bases CARDIOVASCULAR EXAM: Irregularly irregular GI/ABDOMINAL EXAM: soft, normal bowel sounds. Absent: distended, tenderness, guarding, rebound, rigid EXTREMITIES EXAM: normal inspection, full ROM, normal capillary refill. Absent : tenderness, pedal edema, joint swelling, calf tenderness NEUROLOGICAL EXAM: alert, oriented X3, no focal neurological deficits - Labs CBC & Chem 7: 03/28/18 06:32 03/28/18 06:32 Labs: Abnormal Lab Results - Last 24 Hours (Table) 03/28/18 03/28/18 03/28/18 Range/Units 06:32 06:32 06:32 RBC 4.09 L (4.30-5.90) m/uL Hgb 11.9 L (13.0-17.5) gm/dL Hct 38.2 L (39.0-53.0) % PT (9.0-12.0) sec INR (<1.2) Sodium 133 L 134 L (137-145) mmol/L BUN 26 H 26 H (9-20) mg/dL Calcium 7.8 L 7.6 L (8.4-10.2) mg/dL Total Bilirubin 1.9 H (0.2-1.3) mg/dL AST 86 H (17-59) U/L ALT 239 H (21-72) U/L Total Protein 4.8 L (6.3-8.2) g/dL Albumin 2.4 L (3.5-5.0) g/dL 03/28/18 Range/Units 08:51 RBC (4.30-5.90) m/uL Hgb (13.0-17.5) gm/dL Hct (39.0-53.0) % PT 26.6 H (9.0-12.0) sec INR 3.0 H (<1.2) Sodium (137-145) mmol/L BUN (9-20) mg/dL Calcium (8.4-10.2) mg/dL Total Bilirubin (0.2-1.3) mg/dL AST (17-59) U/L ALT (21-72) U/L Total Protein (6.3-8.2) g/dL Albumin (3.5-5.0) g/dL Assessment and Plan Plan: Syncope secondary to possible nonsustained VT patient mostly was in A. fib. Patient has an AICD in place patient is presently on amiodarone. -Congestive heart failure chronic systolic dysfunction with acute exacerbation patient is close to euvolemic and patient was switched to oral Lasix was started on lisinopril and Aldactone. Patient's ejection fraction is around 25% nonischemic cardio myopathy Cardiac arrhythmia status post AICD and frog mostly in A. fib had nonsustained VT. -Elevated liver enzymes secondary to hepatic congestion versus amiodarone affect we'll repeat liver enzymes tomorrow. atrial fibrillation presently rate controlled on amiodarone and metoprolol, patient is on Coumadin therapy can Coumadin off Coumadin yesterday. Will hold Coumadin for one more day and possibly resume it tomorrow Essential hypertension
--- NOTE | 2018-03-28 10:44 | XR ---
EXAMINATION TYPE: XR chest 1V DATE OF EXAM: 03/28/2018 COMPARISON: Prior chest x-ray 03/27/2018 HISTORY: Shortness of breath TECHNIQUE: Single frontal view of the chest is obtained. FINDINGS: Patient is rotated. Intracardiac defibrillator leads are stable, generator is in the left pectoral region. There is no evident pneumothorax or pleural effusion. Airspace disease is present in the right lower lung possibly right upper lung. Heart remains enlarged. IMPRESSION: Correlate for pneumonia versus congestive heart failure. Follow-up recommended.
[2018-03-29 05:46] LABS: Basophils % (A) 0 %; Eosinophils # (A) 0.1 k/uL (0-0.7); Eosinophils % (A) 1 %; HGB 12.3 gm/dL (13.0-17.5); Hypochromasia Moderate; Lymphocytes # (A) 1.9 k/uL (1.0-4.8); Lymphocytes % (A) 20 %; MCH 28.7 pg (25.0-35.0); MCHC 30.8 g/dL (31.0-37.0); MCV 93.2 fL (80.0-100.0); Mean Platelet Volume 6.7; Monocytes # (A) 1.1 k/uL (0-1.0); Monocytes % (A) 11 %; Neutrophils # (A) 6.5 k/uL (1.3-7.7); Neutrophils % (A) 66 %; Platelet Count 294 k/uL (150-450); RBC 4.29 m/uL (4.30-5.90); RDW 14.1 % (11.5-15.5); WBC 9.7 k/uL (3.8-10.6)
[2018-03-29 06:01] LABS: ALT 207 U/L (21-72); AST 68 U/L (17-59); Albumin 2.6 g/dL (3.5-5.0); Alkaline Phosphatase 52 U/L (38-126); Anion Gap 6 mmol/L; Blood Urea Nitrogen 27 mg/dL (9-20); Calcium 7.9 mg/dL (8.4-10.2); Carbon Dioxide 30 mmol/L (22-30); Chloride 98 mmol/L (98-107); Glucose 95 mg/dL (74-99); Phosphorus 3.3 mg/dL (2.5-4.5); Potassium 4.2 mmol/L (3.5-5.1); Sodium 134 mmol/L (137-145); Total Bilirubin 1.8 mg/dL (0.2-1.3); Total Protein 5.1 g/dL (6.3-8.2)
[2018-03-29] MEDS: METOPROLOL SUCCINATE (ER) 50 MG TAB.ER.24H PO SCH ×2 (09:01→20:54)
[2018-03-29] MEDS: FUROSEMIDE 20 MG TAB PO SCH ×2 (09:01→20:54)
[2018-03-29] MEDS: AMIODARONE 200 MG TAB PO SCH ×2 (09:01→21:00)
[2018-03-29] MEDS: LISINOPRIL 2.5 MG TAB PO SCH (09:01)
[2018-03-29] MEDS: SPIRONOLACTONE 25 MG TAB PO SCH (09:01)
[2018-03-29] MEDS: FAMOTIDINE 20 MG TAB PO SCH ×2 (09:01→20:55)
--- NOTE | 2018-03-29 09:14 | XR ---
EXAMINATION TYPE: XR chest 1V DATE OF EXAM: 03/29/2018 COMPARISON: Prior chest x-ray 03/28/2018 HISTORY: Shortness of breath TECHNIQUE: Single frontal view of the chest is obtained. FINDINGS: Heart remains enlarged, patient is rotated. Pacemaker leads are stable. No evident pneumot horax or pleural effusion. Patchy increased density present in the right lung. IMPRESSION: Correlate for pneumonia or edema, aeration appears improved.
--- NOTE | 2018-03-29 11:12 | PN ---
PROGRESS NOTE Mr. Valero is a 57-year-old male with a known history of severe nonischemic cardiomyopathy who presented with symptoms of dizziness and syncope and had ventricular tachycardia and atrial fibrillation with rapid ventricular response with symptoms of congestive heart failure. He is feeling much better at this time. He is ambulating without difficulty. He has short bursts of ventricular tachycardia. His ventricular response is controlled. He denies any nausea. He continued to be on metoprolol succinate 50 mg twice a day, spironolactone 25 mg daily, lisinopril 2.5 mg daily, furosemide 20 mg twice a day, amiodarone 200 mg twice a day. PHYSICAL EXAMINATION: Blood pressure 122/70 with the heart rate in the 60s. LUNGS: Clear. HEART: Irregular, irregular. S1, S2. No S3. No rub. ABDOMEN: Soft, nontender. EXTREMITIES: No significant edema. LAB DATA: Lab data revealed BUN and creatinine 27 and 1.04. INR of 3.0. Hemoglobin of 12.3. His AST 68, ALT of 207, trending down. IMPRESSION: 1. Severe nonischemic cardiomyopathy with episode of progressive dyspnea on presentation, improved. 2. Atrial fibrillation with rapid ventricular response, under better control. 3. Ventricular tachycardia and syncope. 4. Status post ICD implant. 5. Prior history of noncompliance. RECOMMENDATION: I will re-initiate Coumadin at 1 mg daily. Continue the rest of his medical regimen. From the cardiac standpoint, he may be able to be discharged home today. I will initiate Coumadin at 1 mg daily, but he will need to have an INR done in 48 hours. He will also need to have a re-evaluation of his liver function test next week. I have encouraged him to follow up with his primary life science taxonomist very soon. MMODL / IJN: [id number] /
[2018-03-29] MEDS: WARFARIN 1 MG TAB PO SCH (17:37)
[2018-03-29] MEDS: ALPRAZolam 0.25 MG TAB PO PRN (20:55)
[2018-03-30 06:35] LABS: INR 1.9 (<1.2); Prothrombin Time 17.1 sec (9.0-12.0)
[2018-03-30 06:47] LABS: Anion Gap 7 mmol/L; Blood Urea Nitrogen 23 mg/dL (9-20); Calcium 7.8 mg/dL (8.4-10.2); Carbon Dioxide 30 mmol/L (22-30); Chloride 99 mmol/L (98-107); Glucose 92 mg/dL (74-99); Potassium 4.2 mmol/L (3.5-5.1); Sodium 136 mmol/L (137-145)
[2018-03-30] MEDS: AMIODARONE 200 MG TAB PO SCH (08:49)
[2018-03-30] MEDS: LISINOPRIL 2.5 MG TAB PO SCH (08:50)
[2018-03-30] MEDS: SPIRONOLACTONE 25 MG TAB PO SCH (08:50)
[2018-03-30] MEDS: FUROSEMIDE 20 MG TAB PO SCH (08:50)
[2018-03-30] MEDS: METOPROLOL SUCCINATE (ER) 50 MG TAB.ER.24H PO SCH (08:50)
[2018-03-30] MEDS: FAMOTIDINE 20 MG TAB PO SCH (08:50)
--- NOTE | 2018-03-30 10:49 | PN ---
PROGRESS NOTE Mr. Valero is a 57-year-old male with history of severe nonischemic cardiomyopathy. He had persistent chronic atrial fibrillation, status post ICD implant who presented with discharge from his device and syncope. He is feeling better today. His breathing is stable. He is ambulating without difficulty. He is denying chest pain. No dizziness. No palpitation. He denies any nausea. He continued to be in atrial fibrillation with controlled ventricular response. He continues to be on amiodarone 200 mg twice a day, furosemide 20 mg twice a day, Zestril 2.5 mg daily, metoprolol succinate 50 mg twice a day, spironolactone 25 mg daily and Coumadin. PHYSICAL EXAMINATION: Blood pressure 113/70 with the heart rate in the 70s. LUNGS: No wheezes. HEART: Irregular, irregular. S1, S2. No S3 with systolic murmur. No rub. ABDOMEN: Soft, nontender. EXTREMITIES: No edema. LAB DATA: Lab data revealed an INR 1.9. BUN and creatinine 23 and 1.04. Potassium 4.2. IMPRESSION: 1. Atrial fibrillation, persistent, rate control, anticoagulated. 2. Severe nonischemic cardiomyopathy. 3. Syncope related to ventricular tachycardia. 4. Elevated liver function test, improving. 5. Status post ICD implant. 6. Prior history of noncompliance. RECOMMENDATION: From the cardiac standpoint, he is stable. I would expect he should be able to be discharged home soon and follow on a regular basis by his primary abrasive mixer helper. KHAI / GAMAL: [id number] /
[2018-03-30 15:09] VITALS: BP 97/72; RESP 16; TEMP 98
[2018-03-30 15:13] VITALS: PULSE 101
[2018-03-30] MEDS: WARFARIN 1 MG TAB PO SCH (17:43)
[2018-03-30] MEDS ORDERED: METOPROLOL SUCCINATE (ER) 25 MG TAB.ER.24H PO SCH (21:00)
--- NOTE | 2018-04-01 00:24 | P.DS ---
Providers Date of admission: 03/24/18 21:33 Expected date of discharge: 03/30/18 Attending physician: Portia Pemberton Consults: 03/24/18 00:45 Consult Physician Urgent Consulting Provider: [facility] Consult Reason/Comments: afib RVR, syncope Do you want consulting provider notified?: Yes, Notify in am 03/24/18 18:31 Consult Physician Stat Consulting Provider: Yasir Almanza Consult Reason/Comments: critical care Do you want consulting provider notified?: Yes Primary care physician: [facility] Hospital Course: Final Diagnoses: Syncope secondary to possible nonsustained VT, A. fib. Patient has an AICD, on amiodarone. -Congestive heart failure chronic systolic dysfunction with acute exacerbation , ejection fraction is around 25% ,nonischemic cardio myopathy Cardiac arrhythmia status post AICD , A. fib with RVR , nonsustained VT. -Elevated liver enzymes secondary to hepatic congestion versus amiodarone affect atrial fibrillation presently rate controlled on amiodarone and metoprolol, patient is on Coumadin therapy, dosing as per cardiology Essential hypertension Hospital course:57 years old male with past medical history of, atrial fibrillation status post AICD, hypertension. He presents because of dizziness and syncope. Patient passed out 2 days ago and he fell in his head to his left side of the eye. Patient kept emergency room his been evaluated and discharged home. However after discharge he felt lightheadedness and dizzy cancer who presented to the hospital. Patient has been evaluated by lounge car attendant already and interrogation for his AICD shows possible arrhythmia cardiology decided to monitor him overnight. On admission patient has high d-dimer. CTPA was negative for PE, mostly old T3 compression of fracture and small right pleural effusion, there is mild infiltrates in the right lower lung area but no fever no leukocytosis. on 03/25/18 -Early last evening patient had an episode of ventricular tachycardia and syncopal episode in the observation unit with a scalp laceration. Has the patient was transferred to the ICU. Patient is currently in the ICU being monitored. He is lying in bed appears to be in no acute distress. Patient states that he does not have any chest pain or palpitations. Denies having any more syncopal episodes. Denies having about pain nausea vomiting or diarrhea. No dysuria or hematuria. On 03/26/18 - patient's heart rate is under better control for the past 24 hours. He had a run of 9 beats of V. tach. Patient's blood pressure has been running low. Patient denies having any dizziness or loss of consciousness or syncopal episodes. Patient denies having any chest pain or palpitations. No cough or difficulty in breathing. No abdominal pain nausea vomiting or diarrhea. No dysuria or hematuria. But he has been not able to get out of the bed as he has been feeling tired and fatigued. On 03/27/2018- overnight active issues are as reported per nursing staff. Patient denies having any chest pain or dizziness. He was seen by cardiology, and is being shifted out of the ICU. Patient denies having any fevers chills or rigors. No abdominal pain nausea vomiting or diarrhea. No dysuria or hematuria. Patient's blood pressure is slowly trending up. 03/28/2018 Patient is presently on 2 L of onset will try to wean it off. Patient is presently on oral Lasix. No significant overnight events. Patient was started on Aldactone. Patient is on low-dose of lisinopril borderline blood pressure at this time. Pending chest x-ray from today 03/29/2018 E reports atrial fibrillation, controlled ventricular rate. he ambulated in the hallway, heart rate jumped up into the 150s, her run 6 beats of V. tach. Medications further adjusted as per cardiology. Denies chest pain , palpitations or increased shortness of breath. INR 1.9. 03/30/2018 . P cardiology for discharge. Significant clinical improvement. Patient declining home care. Patient is being discharged home in a stable condition with guarded prognosis. - Exam GEN. APPEARANCE: alert, in no apparent distress RESPIRATORY EXAM: Bilateral breath sounds positive , diminished at the lung bases CARDIOVASCULAR EXAM: Irregularly irregular GI/ABDOMINAL EXAM: soft, normal bowel sounds. Absent: distended, tenderness, guarding, rebound, rigid EXTREMITIES EXAM: normal inspection, full ROM, normal capillary refill. Absent : tenderness, pedal edema, joint swelling, calf tenderness NEUROLOGICAL EXAM: alert, oriented X3, no focal neurological deficits The impression and plan of care has been dictated as directed. : I performed a history and examination of this patient, discussed the same with the dictator. I agree with the dictator's note ,documented as a scribe. Any additional findings or plans will be noted. Time taken: 35 minutes Patient Condition at Discharge: Stable Plan - Discharge Summary New Discharge Prescriptions: New Famotidine [Pepcid] 20 mg PO Q12HR #60 tab Furosemide [Lasix] 20 mg PO BID #60 tab Lisinopril [Zestril] 2.5 mg PO DAILY #30 tab Metoprolol Succinate (ER) [Toprol XL] 75 mg PO BID #180 tab.er.24h Spironolactone [Aldactone] 25 mg PO DAILY #30 tab Warfarin [Coumadin] 1 mg PO DAILY@1800 #5 tab Amiodarone [Cordarone] 200 mg PO BID #180 tab Continue Acetaminophen Tab [Tylenol] 1,000 mg PO DAILY PRN PRN Reason: Pain Aspirin [[place] Aspirin EC] 81 mg PO DAILY Vitamin C (Unknown) 1 tab PO DAILY Magnesium (Unknown) 1 tab PO DAILY Ramírez-Pure 1 tab PO DAILY Ubidecarenone [Co Q-10] 300 mg PO DAILY Multivitamin [Multivitamins Adult Gummies] 2 tab PO DAILY Discontinued Warfarin [Coumadin] 1.25 mg PO DAILY Digoxin [Lanoxin] 125 mcg PO DAILY Discharge Medication List Acetaminophen Tab [Tylenol] 1,000 mg PO DAILY PRN 03/21/18 [History] Aspirin [[place] Aspirin EC] 81 mg PO DAILY 03/21/18 [History] Magnesium (Unknown) 1 tab PO DAILY 03/21/18 [History] Vitamin C (Unknown) 1 tab PO DAILY 03/21/18 [History] Ramírez-Pure 1 tab PO DAILY 03/23/18 [History] Multivitamin [Multivitamins Adult Gummies] 2 tab PO DAILY 03/24/18 [History] Ubidecarenone [Co Q-10] 300 mg PO DAILY 03/24/18 [History] Amiodarone [Cordarone] 200 mg PO BID #180 tab 03/30/18 [Rx] Famotidine [Pepcid] 20 mg PO Q12HR #60 tab 03/30/18 [Rx] Furosemide [Lasix] 20 mg PO BID #60 tab 03/30/18 [Rx] Lisinopril [Zestril] 2.5 mg PO DAILY #30 tab 03/30/18 [Rx] Metoprolol Succinate (ER) [Toprol XL] 75 mg PO BID #180 tab.er.24h 03/30/18 [Rx] Spironolactone [Aldactone] 25 mg PO DAILY #30 tab 03/30/18 [Rx] Warfarin [Coumadin] 1 mg PO DAILY@1800 #5 tab 03/30/18 [Rx] Follow up Appointment(s)/Referral(s): Cardiology, primary [Other] - 1 Week (Please call to schedule appointment with your primary lounge car attendant) Bob Doe DO [Primary Care Provider] - 3 Days (Spoke to utility bill collection clerk. Office will call with appointment time) Ambulatory/Diagnostic Orders: Prothrombin Time INR [LAB.AMB] Time Frame: 04/01/18, Location: None Selected Patient Instructions/Handouts: Syncope (DC) Activity/Diet/Wound Care/Special Instructions: labs-LFT's and INR in 2 days amiodarone taper RX as per Cardiology Discharge Disposition: HOME SELF-CARE
--- NOTE | 2018-04-01 00:28 | P.PN ---
Subjective Progress Note Date: 03/29/18 Progress note being dictated for Dr. Pemberton. Interval history:57 years old male with past medical history of, atrial fibrillation status post AICD, hypertension. He presents because of dizziness and syncope. Patient passed out 2 days ago and he fell in his head to his left side of the eye. Patient kept emergency room his been evaluated and discharged home. However after discharge he felt lightheadedness and dizzy cancer who presented to the hospital. Patient has been evaluated by electrical and instrument technician already and interrogation for his AICD shows possible arrhythmia cardiology decided to monitor him overnight. On admission patient has high d-dimer. CTPA was negative for PE, mostly old T3 compression of fracture and small right pleural effusion, there is mild infiltrates in the right lower lung area but no fever no leukocytosis. on 03/25/18 -Early last evening patient had an episode of ventricular tachycardia and syncopal episode in the observation unit with a scalp laceration. Has the patient was transferred to the ICU. Patient is currently in the ICU being monitored. He is lying in bed appears to be in no acute distress. Patient states that he does not have any chest pain or palpitations. Denies having any more syncopal episodes. Denies having about pain nausea vomiting or diarrhea. No dysuria or hematuria. On 03/26/18 - patient's heart rate is under better control for the past 24 hours. He had a run of 9 beats of V. tach. Patient's blood pressure has been running low. Patient denies having any dizziness or loss of consciousness or syncopal episodes. Patient denies having any chest pain or palpitations. No cough or difficulty in breathing. No abdominal pain nausea vomiting or diarrhea. No dysuria or hematuria. But he has been not able to get out of the bed as he has been feeling tired and fatigued. On 03/27/2018- overnight active issues are as reported per nursing staff. Patient denies having any chest pain or dizziness. He was seen by cardiology, and is being shifted out of the ICU. Patient denies having any fevers chills or rigors. No abdominal pain nausea vomiting or diarrhea. No dysuria or hematuria. Patient's blood pressure is slowly trending up. 03/28/2018 Patient is presently on 2 L of onset will try to wean it off. Patient is presently on oral Lasix. No significant overnight events. Patient was started on Aldactone. Patient is on low-dose of lisinopril borderline blood pressure at this time. Pending chest x-ray from today 03/29/2018 E reports atrial fibrillation, controlled ventricular rate. he ambulated in the hallway, heart rate jumped up into the 150s, her run 6 beats of V. tach. Medications further adjusted as per cardiology. Denies chest pain , palpitations or increased shortness of breath. INR 1.9. Objective - Vital Signs Vital signs: Vital Signs Temp 98.0 F 03/29/18 12:00 Pulse 94 03/29/18 12:00 Resp 18 03/29/18 12:00 BP 100/80 03/29/18 08:00 Pulse Ox 92 L 03/29/18 12:00 Intake & Output 03/28/18 03/29/18 03/29/18 18:59 06:59 18:59 Intake Total 1240 20 218 Output Total 250 300 350 Balance 990 -280 -132 Weight 108.3 kg Intake: IV 20 0.9 20 Oral 1240 218 Output: Urine 250 300 350 Other: Voiding Method Urinal Urinal Urinal # Voids 1 - Exam GEN. APPEARANCE: alert, in no apparent distress HEAD EXAM: atraumatic, normocephalic, normal inspection EYE EXAM: No pallor or icterus ENT EXAM: normal exam, mucous membranes moist NECK EXAM: No thyromegaly or lymphadenopathy RESPIRATORY EXAM: Bilateral breath sounds positive , diminished at the lung bases CARDIOVASCULAR EXAM: Irregularly irregular GI/ABDOMINAL EXAM: soft, normal bowel sounds. Absent: distended, tenderness, guarding, rebound, rigid EXTREMITIES EXAM: normal inspection, full ROM, normal capillary refill. Absent : tenderness, pedal edema, joint swelling, calf tenderness NEUROLOGICAL EXAM: alert, oriented X3, no focal neurological deficits - Labs CBC & Chem 7: 03/29/18 05:28 03/30/18 05:29 Labs: Abnormal Lab Results - Last 24 Hours (Table) 03/29/18 03/29/18 Range/Units 05:28 05:28 RBC 4.29 L (4.30-5.90) m/uL Hgb 12.3 L (13.0-17.5) gm/dL MCHC 30.8 L (31.0-37.0) g/dL Monocytes # 1.1 H (0-1.0) k/uL Sodium 134 L (137-145) mmol/L BUN 27 H (9-20) mg/dL Calcium 7.9 L (8.4-10.2) mg/dL Total Bilirubin 1.8 H (0.2-1.3) mg/dL AST 68 H (17-59) U/L ALT 207 H (21-72) U/L Total Protein 5.1 L (6.3-8.2) g/dL Albumin 2.6 L (3.5-5.0) g/dL Assessment and Plan Assessment: Syncope secondary to possible nonsustained VT, A. fib. Patient has an AICD, on amiodarone. -Congestive heart failure chronic systolic dysfunction with acute exacerbation , ejection fraction is around 25% ,nonischemic cardio myopathy Cardiac arrhythmia status post AICD , A. fib with RVR , nonsustained VT. -Elevated liver enzymes secondary to hepatic congestion versus amiodarone affect atrial fibrillation presently rate controlled on amiodarone and metoprolol, patient is on Coumadin therapy, dosing as per cardiology Essential hypertension Plan: Continue current medication regime ,monitoring and symptomatic treatment. Medication regimen further adjusted as per cardiology. Monitor overnight with discharge planning in progress for tomorrow once cleared by cardiology.. Prognosis guarded given multiple complex medical issues. The impression and plan of care has been dictated as directed. : I performed a history and examination of this patient, discussed the same with the dictator. I agree with the dictator's note ,documented as a scribe. Any additional findings or plans will be noted. Time taken: 35 minutes
== END 2018-03-30 18:54 | disposition home or self-care (01) | DRG 308 ==
LOC: EC 21:39 → 1SOBS 03-24 00:48 → OBSVTOIN 03-24 21:33 → 2SICU 03-24 21:56 → 3SCARD 03-27 10:35
PROVIDERS: ADMIT Hospitalist; ATTEND Hospitalist
PROC: 4B02XTZ Measurement of Cardiac Defibrillator, External Approach (ICD-10-PCS; principal; 2018-03-24)
DX: I47.2 Ventricular tachycardia (principal); I50.23 Acute on chronic systolic (congestive) heart failure; I42.8 Other cardiomyopathies; N17.9 Acute kidney failure, unspecified; I48.2 Chronic atrial fibrillation; I11.0 Hypertensive heart disease with heart failure; I95.9 Hypotension, unspecified; K76.1 Chronic passive congestion of liver; R55 Syncope and collapse; R79.1 Abnormal coagulation profile; S01.01XA Laceration without foreign body of scalp, initial encounter; R74.8 Abnormal levels of other serum enzymes; T46.2X5A Adverse effect of other antidysrhythmic drugs, initial encounter; Z79.01 Long term (current) use of anticoagulants; Z79.82 Long term (current) use of aspirin; Z79.899 Other long term (current) drug therapy; Z87.891 Personal history of nicotine dependence; Z95.810 Presence of automatic (implantable) cardiac defibrillator; Z91.041 Radiographic dye allergy status; Z91.128 Patient's intentional underdosing of medication regimen for other reason
CPT/HCPCS: 36415; 70450; 71045; 71046; 71275; 72125; 80048; 80053; 80162; 82550; 82553; 83735; 83880; 84100; 84132; 84439; 84443; 84484; 85025; 85379; 85610; 85730; 87070; 87205; 93005; 93306; 96374; 96375; 99285

== ENCOUNTER 2018-04-16 00:30 | Inpatient (IN) | payer OTHER ==
[2018-04-16] MEDS ORDERED: DILTIAZEM DRIP BOLUS FROM BAG 1 MG SOLN IV ONE (00:51)
[2018-04-16] MEDS ORDERED: SODIUM CHLORIDE 0.9% 1,000 ML IV ONE ×3 (00:51→08:44)
--- NOTE | 2018-04-16 01:03 | ED ---
Syncope HPI - General Chief Complaint: Syncope Stated Complaint: Syncope Time Seen by Provider: 04/16/18 00:42 Source: patient Mode of arrival: wheelchair Limitations: no limitations - History of Present Illness Initial Comments: This is a 57-year-old male with a history of atrial fibrillation, AICD who presents emergent department for a single episode at home. The patient states that he was sitting at his computer when he suddenly passed out. He states he woke up on the floor. He states he does not think that he hit his head area he denied any preceding chest pain or shortness of breath. He states he did not feel dizzy prior to the episode. He denies any nausea, vomiting, or diarrhea. No dark or bloody stools. The patient was recently admitted the hospital for syncope and found to have runs of V. tach while in the hospital. The patient was monitored and discharged home with changes to his medication. The patient has been compliant with his meds and states that he has taken them this evening. He currently denies any complaints. - Related Data Home Medications Medication Instructions Recorded Confirmed Acetaminophen Tab [Tylenol] 1,000 mg PO DAILY PRN 03/21/18 03/23/18 Aspirin [[place] Aspirin EC] 81 mg PO DAILY 03/21/18 03/23/18 Magnesium (Unknown) 1 tab PO DAILY 03/21/18 03/23/18 Vitamin C (Unknown) 1 tab PO DAILY 03/21/18 03/23/18 Ramírez-Pure 1 tab PO DAILY 03/23/18 03/23/18 Multivitamin [Multivitamins Adult 2 tab PO DAILY 03/24/18 03/24/18 Gummies] Ubidecarenone [Co Q-10] 300 mg PO DAILY 03/24/18 03/24/18 Previous Rx's Medication Instructions Recorded Amiodarone [Cordarone] 200 mg PO BID #180 tab 03/30/18 Famotidine [Pepcid] 20 mg PO Q12HR #60 tab 03/30/18 Furosemide [Lasix] 20 mg PO BID #60 tab 03/30/18 Lisinopril [Zestril] 2.5 mg PO DAILY #30 tab 03/30/18 Metoprolol Succinate (ER) [Toprol 75 mg PO BID #180 tab.er.24h 03/30/18 XL] Spironolactone [Aldactone] 25 mg PO DAILY #30 tab 03/30/18 Warfarin [Coumadin] 1 mg PO DAILY@1800 #5 tab 03/30/18 Allergies Allergy/AdvReac Type Severity Reaction Status Date / Time Iodinated Contrast- Oral and AdvReac Unknown Unknown Verified 04/16/18 00:37 IV Dye Review of Systems ROS Statement: Those systems with pertinent positive or pertinent negative responses have been documented in the HPI. ROS Other: All systems not noted in ROS Statement are negative. Past Medical History Past Medical History: Atrial Fibrillation, Hypertension History of Any Multi-Drug Resistant Organisms: None Reported Past Surgical History: AICD Past Anesthesia/Blood Transfusion Reactions: No Reported Reaction Type of Cardiac Device: AICD Device Placement Date:: 2016 Past Psychological History: No Psychological Hx Reported Smoking Status: Former smoker Past Alcohol Use History: None Reported Past Drug Use History: None Reported - Past Family History Father Family Medical History: No Reported History Mother Family Medical History: No Reported History General Exam - General Exam Comments Initial Comments: Constitutional: Awake alert Appears comfortable Head: Normocephalic, there is a very small abrasion to the forehead with dried blood adjacent to it Eyes: no conjunctival injection No scleral icterus EOMI Neck: No JVD Supple Heart: Tachycardia with irregularly irregular rhythm normal S1-S2 no murmurs Lungs: Clear to auscultation bilaterally No wheezing No rales Abdomen: Soft nondistended nontender Extremities: Mild edema to bilateral lower extremities DP pulses intact Radial pulses intact Neuro: A&Ox3 No focal neurologic deficits Psych: Appropriate mood and affect Limitations: no limitations Course Vital Signs 04/16/18 04/16/18 04/16/18 00:32 00:37 01:37 Temperature 97.7 F Pulse Rate 181 H 126 H 125 H Pulse Rate [ Loft Rigger ] Respiratory 16 20 20 Rate Blood Pressure 94/43 93/73 93/73 O2 Sat by Pulse 99 97 97 Oximetry 04/16/18 01:49 Temperature Pulse Rate Pulse Rate [ 127 H Loft Rigger ] Respiratory Rate Blood Pressure O2 Sat by Pulse Oximetry EKG Findings - EKG Comments: EKG Findings:: EKG showing atrophy relation with a rate of 143. There are some T-wave flattening laterally. Otherwise no ST segment changes. QTC is 500. Other intervals normal. There are a few PVCs.. Medical Decision Making - Medical Decision Making This is a 57-year-old male who presented for a syncopal episode. The patient was found to be in atrial fibrillation with rapid rate. He was started on Cardizem. Initially the Cardizem bolus did bring his heart rate down to the low 100s however his heart rate then increased again. He was given Lopressor with improvement. The patient will be admitted for further monitoring and workup. He did have a mild elevation in his troponin however I suspect this is secondary to his tachycardia. The patient did not complain of any chest pain emergency department. EKG did not show evidence for acute myocardial infarction. Of note the patient does have a weeping right lower extremity that is erythematous however is not warm to touch. Do not suspect infection at this time. The patient is afebrile with no leukocytosis. Dr. Harrison accepts the admission. - Lab Data Result diagrams: 04/16/18 00:13 04/16/18 00:13 Lab Results 04/16/18 04/16/18 04/16/18 Range/Units 00:13 00:13 00:13 WBC 9.2 (3.8-10.6) k/uL RBC 4.49 (4.30-5.90) m/uL Hgb 12.7 L (13.0-17.5) gm/dL Hct 42.2 (39.0-53.0) % MCV 94.0 (80.0-100.0) fL MCH 28.3 (25.0-35.0) pg MCHC 30.1 L (31.0-37.0) g/dL RDW 14.7 (11.5-15.5) % Plt Count 331 (150-450) k/uL Neutrophils % 78 % Lymphocytes % 12 % Monocytes % 8 % Eosinophils % 1 % Basophils % 0 % Neutrophils # 7.1 (1.3-7.7) k/uL Lymphocytes # 1.1 (1.0-4.8) k/uL Monocytes # 0.7 (0-1.0) k/uL Eosinophils # 0.1 (0-0.7) k/uL Basophils # 0.0 (0-0.2) k/uL Hypochromasia Moderate PT (9.0-12.0) sec INR (<1.2) APTT (22.0-30.0) sec Sodium 133 L (137-145) mmol/L Potassium 4.7 (3.5-5.1) mmol/L Chloride 98 (98-107) mmol/L Carbon Dioxide 28 (22-30) mmol/L Anion Gap 7 mmol/L BUN 25 H (9-20) mg/dL Creatinine 1.28 H (0.66-1.25) mg/dL Est GFR (CKD-EPI)AfAm 70 (>60 ml/min/1.73 sqM) Est GFR (CKD-EPI)NonAf 61 (>60 ml/min/1.73 sqM) Glucose 121 H (74-99) mg/dL Calcium 8.8 (8.4-10.2) mg/dL Magnesium 1.9 (1.6-2.3) mg/dL Total Bilirubin 2.1 H (0.2-1.3) mg/dL AST 25 (17-59) U/L ALT 41 (21-72) U/L Alkaline Phosphatase 70 (38-126) U/L CK-MB (CK-2) 2.0 (0.0-2.4) ng/mL Troponin I 0.068 H* (0.000-0.034) ng/mL NT-Pro-B Natriuret Pep pg/mL Total Protein 6.0 L (6.3-8.2) g/dL Albumin 3.3 L (3.5-5.0) g/dL TSH 6.220 H (0.465-4.680) mIU/L Free T4 2.74 H (0.78-2.19) ng/dL 04/16/18 04/16/18 Range/Units 00:13 00:13 WBC (3.8-10.6) k/uL RBC (4.30-5.90) m/uL Hgb (13.0-17.5) gm/dL Hct (39.0-53.0) % MCV (80.0-100.0) fL MCH (25.0-35.0) pg MCHC (31.0-37.0) g/dL RDW (11.5-15.5) % Plt Count (150-450) k/uL Neutrophils % % Lymphocytes % % Monocytes % % Eosinophils % % Basophils % % Neutrophils # (1.3-7.7) k/uL Lymphocytes # (1.0-4.8) k/uL Monocytes # (0-1.0) k/uL Eosinophils # (0-0.7) k/uL Basophils # (0-0.2) k/uL Hypochromasia PT 16.6 H (9.0-12.0) sec INR 1.8 H (<1.2) APTT 25.4 (22.0-30.0) sec Sodium (137-145) mmol/L Potassium (3.5-5.1) mmol/L Chloride (98-107) mmol/L Carbon Dioxide (22-30) mmol/L Anion Gap mmol/L BUN (9-20) mg/dL Creatinine (0.66-1.25) mg/dL Est GFR (CKD-EPI)AfAm (>60 ml/min/1.73 sqM) Est GFR (CKD-EPI)NonAf (>60 ml/min/1.73 sqM) Glucose (74-99) mg/dL Calcium (8.4-10.2) mg/dL Magnesium (1.6-2.3) mg/dL Total Bilirubin (0.2-1.3) mg/dL AST (17-59) U/L ALT (21-72) U/L Alkaline Phosphatase (38-126) U/L CK-MB (CK-2) (0.0-2.4) ng/mL Troponin I (0.000-0.034) ng/mL NT-Pro-B Natriuret Pep 75550 pg/mL Total Protein (6.3-8.2) g/dL Albumin (3.5-5.0) g/dL TSH (0.465-4.680) mIU/L Free T4 (0.78-2.19) ng/dL Critical Care Time Critical Care Time: Yes Total Critical Care Time: 35 Critical Care Time: Critical care time spent reviewing the patient's chart and examining the patient , coming up with the treatment plan and evaluation plan with the patient. Starting Cardizem drip and monitoring patient's heart rate improved with, intervening with other medications if necessary. Reviewing lab work and radiologic studies. Disposition Clinical Impression: Atrial fibrillation, Syncope Disposition: ADMITTED IP TO THIS HOSP Condition: Critical Referrals: Bob Doe DO [Primary Care Provider] - 1-2 days
[2018-04-16] MEDS: DILTIAZEM 50 MG in SODIUM CHLORIDE 0.9% 40 ML IV SCH ×3 (01:04→21:05)
[2018-04-16 01:07] LABS: Basophils % (A) 0 %; Eosinophils # (A) 0.1 k/uL (0-0.7); Eosinophils % (A) 1 %; HCT 42.2 % (39.0-53.0); HGB 12.7 gm/dL (13.0-17.5); Hypochromasia Moderate; Lymphocytes # (A) 1.1 k/uL (1.0-4.8); Lymphocytes % (A) 12 %; MCH 28.3 pg (25.0-35.0); MCHC 30.1 g/dL (31.0-37.0); Mean Platelet Volume 6.8; Monocytes # (A) 0.7 k/uL (0-1.0); Monocytes % (A) 8 %; Neutrophils # (A) 7.1 k/uL (1.3-7.7); Neutrophils % (A) 78 %; Platelet Count 331 k/uL (150-450); RBC 4.49 m/uL (4.30-5.90); RDW 14.7 % (11.5-15.5); WBC 9.2 k/uL (3.8-10.6)
[2018-04-16 01:15] LABS: INR 1.8 (<1.2); Partial Thromboplastin Time 25.4 sec (22.0-30.0); Prothrombin Time 16.6 sec (9.0-12.0)
[2018-04-16 01:17] LABS: Albumin 3.3 g/dL (3.5-5.0); Calcium 8.8 mg/dL (8.4-10.2); Magnesium 1.9 mg/dL (1.6-2.3); Total Bilirubin 2.1 mg/dL (0.2-1.3)
--- NOTE | 2018-04-16 01:29 | CT ---
EXAMINATION TYPE: CT brain wo con DATE OF EXAM: 04/16/2018 COMPARISON: 03/24/2018 HISTORY: fall headache CT DLP: 1079.40 mGycm Automated exposure control for dose reduction was used. FINDINGS: There is cerebral cortical atrophy. There is no mass effect nor midline shift. There is no sign of in tracranial hemorrhage. Calvarium is intact. IMPRESSION: MILD ATROPHY. NO ACUTE INTRACRANIAL ABNORMALITY. NO ADVERSE CHANGE COMPARED TO OLD EXAM.
[2018-04-16 01:41] LABS: Potassium 4.7 mmol/L (3.5-5.1)
[2018-04-16 01:43] LABS: Troponin I 0.068 ng/mL (0.000-0.034)
--- NOTE | 2018-04-16 02:11 | XR ---
EXAMINATION TYPE: XR chest 2V DATE OF EXAM: 04/16/2018 COMPARISON: 03/29/2018 HISTORY: Atrial fibrillation. Fall. TECHNIQUE: Frontal and lateral views of the chest are obtained. FINDINGS: Heart is enlarged. There is a mild patchy infiltrate in the right lower lobe. There is no heart failure. The other lung kelly are clear. There is left axillary pacemaker with the lead tips i n the right ventricle. There is no pleural effusion. Bony thorax is intact. IMPRESSION: There is new right lower lobe pneumonia compared to old exam. No heart failure. Moderate cardiomegaly.
[2018-04-16 02:20] LABS: T4, Free (Free Thyroxine) 2.74 ng/dL (0.78-2.19)
[2018-04-16] MEDS ORDERED: NALOXONE 0.4 MG/ML 1 ML VIAL IV PRN (02:33)
[2018-04-16] MEDS ORDERED: METOPROLOL TARTRATE 5 MG/5 ML VIAL IVP STA (02:37)
[2018-04-16] MEDS ORDERED: CEFEPIME 1 GM in SODIUM CHLORIDE 0.9% 50 ML IVPB STA (04:02)
[2018-04-16] MEDS ORDERED: VANCOMYCIN IV PER PHARMACY 1 EACH MISC MISCELLANE PRN (04:02)
[2018-04-16] MEDS ORDERED: SODIUM CHLORIDE 0.9% 500 ML 500 ML IV STA (04:03)
[2018-04-16] MEDS ORDERED: VANCOMYCIN 1,500 MG in SODIUM CHLORIDE 0.9% 250 ML IVPB STA (04:05)
[2018-04-16] MEDS: METOPROLOL SUCCINATE (ER) 25 MG TAB.ER.24H PO SCH ×2 (05:59→20:59)
[2018-04-16] MEDS: SODIUM CHLORIDE 0.9% 1,000 ML IV SCH ×3 (06:42→23:51)
[2018-04-16] MEDS ORDERED: SODIUM CHLORIDE 0.9% 500 ML 500 ML IV ONE (08:24)
[2018-04-16 08:37] LABS: Creatine Kinase MB 1.8 ng/mL (0.0-2.4)
[2018-04-16 08:46] LABS: Troponin I 0.084 ng/mL (0.000-0.034)
[2018-04-16] MEDS ORDERED: ASPIRIN 81 MG PO SCH (09:00)
[2018-04-16] MEDS ORDERED: AMIODARONE 200 MG TAB PO SCH (09:00)
[2018-04-16] MEDS ORDERED: DEXTROSE 50%-WATER 50 ML SYRINGE IVP ONE ×2 (11:32→23:25)
[2018-04-16 11:47] LABS: Glucose,Whole Blood 34 mg/dL (75-99)
[2018-04-16 11:47] LABS: Glucose,Whole Blood 70 mg/dL (75-99)
[2018-04-16 11:47] LABS: Glucose,Whole Blood 39 mg/dL (75-99)
[2018-04-16 12:12] LABS: Glucose,Whole Blood 72 mg/dL (75-99)
--- NOTE | 2018-04-16 12:20 | CONS ---
CONSULTATION Mr. Valero is a 57-year-old male with known history of severe nonischemic cardiomyopathy, ICD implantation, atrial fibrillation, who was recently discharged from the hospital. He presented with syncopal episode. The patient according to him was working on his computer when he passed out. He is not quite sure if he has any discharge from the devise. He has been followed at [facility] in the past and reviewing the records from prior admission, the patient has been noncompliant. He has underwent an echocardiogram on the 24 of March and that showed a severely impaired left ventricular systolic function with mild mitral and tricuspid regurgitation. An ICD wire was noted at that time. During the last visit, the patient had episode of ventricular tachycardia and documented sustained VT. In the past, he has not been compliant with his medical regimen, but according to him since his discharge, he has been taking his medication regularly. He was started on amiodarone to control his ventricular response as well as to prevent the ventricular tachycardia. The patient denies any PND or orthopnea. He has peripheral edema. He has no chest pain. He did not feel any pounding in the chest on this present admission. His coronary risk factors negative for smoking. He is a nondiabetic. His lipid profile is not available. On presentation, his medications included Lasix 20 mg twice a day, lisinopril 2.5 mg daily, spironolactone 25 mg daily, amiodarone 200 mg twice a day, Coumadin, metoprolol succinate 75 mg twice a day, and aspirin 81 mg daily. REVIEW OF SYSTEMS: RESPIRATORY SYSTEM: He had dyspnea on exertion. No recent cough or fever. GI SYSTEM: No recent GI bleeding. No peptic ulcer disease, SYSTEM: No dysuria or hematuria. NERVOUS SYSTEM: No seizure. PHYSICAL EXAMINATION: He is a 57-year-old male, alert, oriented, in no apparent distress. His blood pressure is running in the 90s and was down to the 70s earlier. HEAD: Normocephalic. EYES: Sclerae anicteric. NECK: No bruit. LUNGS: With few crackles at the bases. HEART: Irregular, irregular. S1, S2. No S3 with systolic murmur. No diastolic murmur. No rub. ABDOMEN: Soft, obese, nontender. EXTREMITIES: With edema noted and chronic skin changes and the edema is more noted on the right side. Of note, during his last admission at the time of discharge, he had no edema. LAB DATA: His lab data revealed a hemoglobin of 12.7. INR of 1.8. BUN and creatinine 25 1.28. His NT proBNP is 15,100. His TSH is 6.2 with a free T4 of 2.7. Potassium 4.7. Lactic acid of 8.4. Troponin 0.068 and 0.084. EKG revealed atrial fibrillation with left axis deviation, poor R progression, nonspecific ST-T wave changes. His chest x-ray shows possible right lower lobe pneumonia. CT scan of the head revealed mild atrophy. IMPRESSION: 1. Symptoms of syncope could be discharge from the device. The patient had prior history of ventricular tachycardia. We will interrogate the device. 2. History of severe nonischemic cardiomyopathy. 3. History of atrial fibrillation, persistent, anticoagulated. 4. Abnormal thyroid function tests could be related to the amiodarone. 5. Congestive heart failure in a patient with severe systolic dysfunction, acute on chronic. 6. Possible pneumonia. 7. Elevation of troponin representing a type 2 myocardial infarction. RECOMMENDATION: From the cardiac standpoint, I will stop the amiodarone. We will obtain echocardiogram with Doppler. Patient has been started on antibiotics. We will continue the anticoagulation. Depending on his progress, further recommendations will be made. Unfortunately, the prognosis is guarded. If he has evidence of recurrent ventricular tachycardia on the interrogation of the device, he may be a candidate for VT ablation. KHAI / GAMAL: [id number] /
[2018-04-16] MEDS: NOREPINEPHRINE 4 MG in SODIUM CHLORIDE 0.9% 250 ML IV SCH (13:00)
[2018-04-16 13:39] LABS: Appearance,Urine Cloudy (Clear); Bacteria,Urine Rare /hpf; Bilirubin,Urine 1+ (Negative); Blood,Urine Negative (Negative); Color,Urine Orange; Glucose,Urine (UA) Negative (Negative); Hyaline Casts,Urine 12 /lpf (0-2); Ketones,Urine Negative (Negative); Leukocyte Esterase,Urine Negative (Negative); Mucus,Urine Rare /hpf; Nitrite,Urine Negative (Negative); PH, Urine 5.5 (5.0-8.0); Protein,Urine 2+ (Negative); RBC,Urine 1 /hpf (0-5); Specific Gravity,Urine 1.025 (1.001-1.035); Squamous Epithelial Cell,Urine <1 /hpf (0-4); WBC,Urine 1 /hpf (0-5)
[2018-04-16 13:42] LABS: Glucose,Whole Blood 77 mg/dL (75-99)
[2018-04-16 14:14] LABS: Creatine Kinase MB 2.7 ng/mL (0.0-2.4)
[2018-04-16 14:17] LABS: Troponin I 0.107 ng/mL (0.000-0.034)
--- NOTE | 2018-04-16 15:41 | P.CNPUL ---
History of Present Illness Consult date: 04/16/18 Requesting physician: Portia Harrison Reason for consult: other (Critical care management) Chief complaint: Syncopal episode History of present illness: This is a very pleasant 57-year-old gentleman who follows with Dr. Doe as his primary care physician. He has a history of severe nonischemic cardiomyopathy with an ejection fraction less than 20% status post AICD placement, atrial fibrillation, hypertension. He follows with pricing specialist Dr. Monroe at [facility]. He had recently been admitted here earlier this same month for an episode of near syncope. He did have syncope and ventricular tachycardia while here and was seen in the intensive care unit for the same. He presented here again early this morning after waking up on the floor. He states he was sitting up at his computer and suddenly passed out. He has no idea how long he was down for. He is unsure whether he hit his head or had any other injuries. He denied any preceding chest pain, shortness breath, dizziness or lightheadedness. No pre-warning. He denies any loss of urine. Computed tomography scan of the brain revealed no acute intracranial abnormality. Chest x-ray shows some chronic changes in the right lower lobe improved compared to previous. Moderate cardiomegaly. No acute heart failure. Troponin 0.068, 0.084, 0.107. ProBNP 15,100 area TSH 6.22, T4 2 0.74. White count 9.2. Hemoglobin 12.7. INR 1.8. Creatinine 1.28. Lactic acid up from 3.0-11.6. He does have lower extremity edema with redness and weeping and possible cellulitis. He is hypotensive currently on norepinephrine at 15 mcg/ m. He's been initiated on vancomycin and cefepime. He is seen today in consultation in the intensive care unit. He is currently resting comfortably in bed. He is awake and alert in no acute distress. He denies any chest pain, palpitations lightheadedness or dizziness. He remains in atrial fibrillation with a controlled ventricular response. He is currently on a Cardizem drip at 10 mg per hour. Previously the patient had refused amiodarone based on potential side effects. He also does have a history of noncompliance prior to his previous admission. He denies any recent fever, chills or night sweats. No cough or congestion. He is maintaining good O2 saturations in the high 90s on 2 L/m per nasal cannula. He's been afebrile since admission. Review of Systems 14 point review of system was conducted. All negative other than as mentioned in the HPI. Past Medical History Past Medical History: Atrial Fibrillation, Hypertension History of Any Multi-Drug Resistant Organisms: None Reported Past Surgical History: AICD, Heart Catheterization Past Anesthesia/Blood Transfusion Reactions: No Reported Reaction Type of Cardiac Device: AICD Device Placement Date:: 2016 Past Psychological History: No Psychological Hx Reported Smoking Status: Former smoker Past Alcohol Use History: None Reported Past Drug Use History: None Reported - Past Family History Father Family Medical History: No Reported History Mother Family Medical History: No Reported History Medications and Allergies Home Medications Medication Instructions Recorded Confirmed Type Lisinopril [Zestril] 2.5 mg PO DAILY #30 tab 03/30/18 04/16/18 Rx Spironolactone [Aldactone] 25 mg PO DAILY #30 tab 03/30/18 04/16/18 Rx Warfarin [Coumadin] 1 mg PO DAILY@1800 #5 tab 03/30/18 04/16/18 Rx Amiodarone [Cordarone] 200 mg PO DIRECTED 04/16/18 04/16/18 History Digoxin [Digitek] 125 mcg PO DIRECTED 04/16/18 04/16/18 History Furosemide [Lasix] 40 mg PO DIRECTED 04/16/18 04/16/18 History Metoprolol Succinate [Toprol XL] 25 mg PO DAILY 04/16/18 04/16/18 History Metoprolol Tartrate [Lopressor] 100 mg PO DIRECTED 04/16/18 04/16/18 History Allergies Allergy/AdvReac Type Severity Reaction Status Date / Time Iodinated Contrast- Oral and AdvReac Unknown Unknown Verified 04/16/18 11:17 IV Dye Physical Exam Vitals: Vital Signs Temp Pulse Pulse Resp BP BP Pulse Ox 04/16/18 14:15 87 31 H 130/102 100 04/16/18 14:00 116 H 35 H 107/64 98 04/16/18 13:45 89 12 93/69 98 04/16/18 13:30 93 24 97/87 96 04/16/18 13:15 107 H 22 103/49 95 04/16/18 13:00 93 18 96/72 96 04/16/18 12:45 92 30 H 97/81 96 04/16/18 12:30 105 H 36 H 95/70 97 04/16/18 12:15 98 32 H 91/53 98 04/16/18 12:00 98 30 H 95/68 96 04/16/18 11:45 98 31 H 88/76 96 04/16/18 11:30 98 32 H 97 04/16/18 11:29 96.7 F L 96 18 77/42 96 04/16/18 11:26 97.9 F 117 H 40 H 04/16/18 10:50 89 18 88/70 99 04/16/18 10:40 93 26 H 51/25 99 04/16/18 10:37 96.9 F L 96 18 86/56 96 04/16/18 10:30 100 26 H 81/22 97 04/16/18 10:20 98 32 H 70/54 90 L 04/16/18 10:10 85 25 H 72/57 92 L 04/16/18 10:04 106 H 18 72/57 97 04/16/18 10:00 87 21 61/26 97 04/16/18 09:50 95 26 H 62/24 95 04/16/18 09:40 84 25 H 62/24 97 04/16/18 09:30 105 H 39 H 78/57 04/16/18 09:20 77 28 H 78/57 04/16/18 09:17 93 24 78/57 04/16/18 09:10 84 30 H 86/67 100 04/16/18 09:00 90 26 H 65/46 100 04/16/18 08:50 84 30 H 81/63 100 04/16/18 08:40 100 30 H 77/53 88 L 04/16/18 08:30 71 29 H 79/66 100 04/16/18 08:20 92 26 H 79/66 97 04/16/18 08:10 107 H 26 H 75/62 98 04/16/18 08:06 97.1 F L 87 16 63/21 04/16/18 08:00 90 92 32 H 78/27 81/63 97 04/16/18 07:50 106 H 27 H 75/30 99 04/16/18 07:40 109 H 29 H 75/30 100 04/16/18 07:30 103 H 34 H 88/75 100 04/16/18 07:20 96 30 H 88/75 99 04/16/18 07:10 101 H 28 H 80/67 80 L 04/16/18 07:00 97.8 F 114 H 32 H 83/57 98 04/16/18 06:50 105 H 26 H 83/57 99 04/16/18 06:40 116 H 13 83/57 100 04/16/18 06:30 117 H 39 H 96/26 99 18 06:20 113 H 25 H 96/26 99 04/16/18 06:10 102 H 20 78/68 99 04/16/18 06:00 98.7 F 116 H 12 99/77 100 04/16/18 05:50 103 H 17 99/77 100 04/16/18 05:40 116 H 0 L 99 04/16/18 05:30 122 H 9 L 104/79 100 04/16/18 05:20 130 H 9 L 98 04/16/18 05:10 133 H 20 104/79 100 04/16/18 05:00 128 H 32 H 96/75 96 04/16/18 04:50 122 H 22 98/66 95 04/16/18 04:42 129 H 20 98/66 96 04/16/18 04:40 133 H 37 H 98/66 82 L 04/16/18 04:30 131 H 27 H 97/74 99 04/16/18 04:20 131 H 31 H 97/74 97 04/16/18 04:10 135 H 23 97/74 96 04/16/18 04:00 122 H 0 L 50/39 96 04/16/18 03:50 131 H 23 99/61 87 L 04/16/18 03:40 134 H 36 H 81/60 94 L 04/16/18 03:30 142 H 38 H 81/60 94 L 04/16/18 03:20 135 H 20 97 04/16/18 03:10 121 H 17 108/77 95 04/16/18 03:00 133 H 22 108/77 99 04/16/18 02:50 137 H 18 108/77 90 L 04/16/18 02:40 149 H 18 108/77 99 11/24/18 02:30 147 H 30 H 108/77 04/16/18 01:49 127 H 04/16/18 01:37 125 H 20 93/73 97 04/16/18 00:37 126 H 20 93/73 97 04/16/18 00:32 97.7 F 181 H 16 94/43 99 Intake and Output 04/16/18 04/16/18 04/16/18 06:59 14:59 22:59 Intake Total 50.000 7293.75 Output Total 70 Balance 50.000 7223.75 Intake: IV 700 Sodium Chloride 0.9% 1, 700 000 ml @ 150 mls/hr IV . Q6H40M [facility] Rx#:[id number] Amount of Fluid Infused ( 4500 ml) Intake, IV Titration 50.000 2093.75 Amount Diltiazem 50 mg In Sodium 50.000 Chloride 0.9% 40 ml @ 5 MG/HR 5 mls/hr IV .Q10H [facility] Rx#:[id number] Norepinephrine 4 mg In 93.75 Sodium Chloride 0.9% 250 ml @ Titrate IV .Q0M [facility] Rx#:[id number] Sodium Chloride 0.9% 1, 1000 000 ml @ 999 mls/hr IV . Q1H1M [facility] Rx#:[id number] Sodium Chloride 0.9% 500 500 ml 500 ml @ 999 mls/hr IV .Q31M [facility] Rx#:[id number] Sodium Chloride 0.9% 500 500 ml 500 ml @ 999 mls/hr IV .Q31M [facility] Rx#:[id number] Output: Urine 70 Other: Weight 96.615 kg 96.615 kg GENERAL EXAM: Alert, comfortable in no apparent distress. On 2 L nasal cannula HEAD: Normocephalic. EYES: Normal reaction of pupils, equal size. NOSE: Clear with pink turbinates. THROAT: No erythema or exudates. NECK: No masses, no JVD. CHEST: No chest wall deformity. LUNGS: Equal air entry with crackles in the posterior bases more so on the right. Diminished. CVS: S1 and S2 normal with a systolic murmur. Irregular rhythm. ABDOMEN: No hepatosplenomegaly, normal bowel sounds, no guarding or rigidity. SPINE: No scoliosis or deformity SKIN: Redness edema and weeping of the lower extremities CENTRAL NERVOUS SYSTEM: No focal deficits, tone is normal in all 4 extremities. EXTREMITIES: There is 2-3+ peripheral edema. Chronic changes of chronic venous stasis. Redness and weeping. Results - Laboratory Findings CBC and BMP: 04/16/18 00:13 04/16/18 00:13 PT/INR, D-dimer PT 16.6 sec (9.0-12.0) H 04/16/18 00:13 INR 1.8 (<1.2) H 04/16/18 00:13 Abnormal lab findings: Abnormal Labs 04/16/18 04/16/18 04/16/18 00:13 00:13 00:13 Hgb 12.7 L MCHC 30.1 L PT INR Sodium 133 L BUN 25 H Creatinine 1.28 H Glucose 121 H POC Glucose (mg/dL) Plasma Lactic Acid Kunal Total Bilirubin 2.1 H CK-MB (CK-2) Troponin I 0.068 H* Total Protein 6.0 L Albumin 3.3 L TSH 6.220 H Free T4 2.74 H Urine Protein Urine Bilirubin Urine Bacteria Hyaline Casts Urine Mucus 04/16/18 04/16/18 04/16/18 00:13 00:15 07:35 Hgb MCHC PT 16.6 H INR 1.8 H Sodium BUN Creatinine Glucose POC Glucose (mg/dL) Plasma Lactic Acid Kunal 3.0 H* Total Bilirubin CK-MB (CK-2) Troponin I 0.084 H* Total Protein Albumin TSH Free T4 Urine Protein Urine Bilirubin Urine Bacteria Hyaline Casts Urine Mucus 04/16/18 04/16/18 04/16/18 07:35 11:30 11:31 Hgb MCHC PT INR Sodium BUN Creatinine Glucose POC Glucose (mg/dL) 34 L 39 L Plasma Lactic Acid Kunal 8.4 H* Total Bilirubin CK-MB (CK-2) Troponin I Total Protein Albumin TSH Free T4 Urine Protein Urine Bilirubin Urine Bacteria Hyaline Casts Urine Mucus 04/16/18 04/16/18 04/16/18 11:44 12:00 12:30 Hgb MCHC PT INR Sodium BUN Creatinine Glucose POC Glucose (mg/dL) 70 L 72 L Plasma Lactic Acid Kunal Total Bilirubin CK-MB (CK-2) Troponin I Total Protein Albumin TSH Free T4 Urine Protein 2+ H Urine Bilirubin 1+ H Urine Bacteria Rare H Hyaline Casts 12 H Urine Mucus Rare H 04/16/18 04/16/18 13:17 13:17 Hgb MCHC PT INR Sodium BUN Creatinine Glucose POC Glucose (mg/dL) Plasma Lactic Acid Kunal 11.6 H* Total Bilirubin CK-MB (CK-2) 2.7 H Troponin I 0.107 H* Total Protein Albumin TSH Free T4 Urine Protein Urine Bilirubin Urine Bacteria Hyaline Casts Urine Mucus - Diagnostic Findings Chest x-ray: image reviewed Assessment and Plan Assessment: Impression: #1 Syncopal episode of unclear etiology, suspect ventricular tachycardia with recent admission for the same. The patient does have severe nonischemic cardiomyopathy with ejection fraction less than 20%. Status post AICD placement. Interrogation in progress. #2 Hypotension requiring pressor support with elevated lactic acid and probable sepsis secondary to suspected lower extremity cellulitis. No clear evidence of pneumonia on the chest x-ray. No leukocytosis. #3 Mild acute renal failure, creatinine 1.25 with proteinuria. #4 Troponin leak. #5 Abnormal thyroid levels. #6 Atrial fibrillation with a rapid ventricular response. Currently on a Cardizem drip. Anticoagulant with warfarin. Current INR 1.8. #7 History of hypertension. #8 History of chronic tobacco dependence. Plan: The patient was seen and evaluated by Dr. Almanza. Chest x-ray and labs were reviewed. The patient does have some chronic changes in the right lower lobe. Doubt pneumonia. The patient may have sepsis secondary to cellulitis of the lower extremities. He is currently on vancomycin and cefepime. Infectious diseases been consulted. We'll continue with IV fluids 0.9 normal saline at 250 MLS per hour. We will attempt to wean off the norepinephrine. Blood cultures are pending. Echocardiogram pending. AICD is being interrogated. He is currently on a Cardizem drip for the atrial fibrillation with RVR. We will continue to monitor him here in the intensive care unit. We'll continue to follow and make further recommendations based on his clinical status. I, the cosigning physician, performed a history & physical examination of the patient. Lungs sounds with faint crackles in the posterior bases. Maintaining good O2 saturations in the 90s on 2 L/m per nasal cannula. I discussed the assessment and plan of care with my nurse practitioner, Makeda Nunez. I attest to the above consultation as dictated by her. Time with Patient: Greater than 30
--- NOTE | 2018-04-16 15:48 | ECHOF ---
Referral Reason:elevated trops MEASUREMENTS -------- HEIGHT: 165.1 cm WEIGHT: 81.7 kg BP: RVIDd: 3.5 cm (< 3.3) IVSd: 1.1 cm (0.6 - 1.1) LVIDd: 6.1 cm (3.9 - 5.3) LVPWd: 1.1 cm (0.6 - 1.1) IVSs: 1.1 cm LVIDs: 5.9 cm LVPWs: 1.3 cm LA Diam: 5.0 cm (2.7 - 3.8) Ao Diam: 3.0 cm (2.0 - 3.7) AV Cusp: 1.9 cm (1.5 - 2.6) LA Diam: 4.2 cm (2.7 - 3.8) MV EXCURSION: 19.566 mm (> 18.000) MV EF SLOPE: 112 mm/s (70 - 150) EPSS: 2.2 cm MV E Jaime: 0.52 m/s MV DecT: 124 ms MV A Jaime: 0.23 m/s MV E/A Ratio: 2.23 RAP: 5.00 mmHg RVSP: 25.42 mmHg FINDINGS -------- Atrial fibrillation. Pacerwire seen in RV and RA. This was a technically adequate study. The left ventricle is mildly dilated. Left ventricular wall thickness is normal. There is severe global hypokinesis of LV . Overall left ventricular systolic function is severely impaired with, an EF < 20%. The right ventricle is mildly enlarged. The right ventricular systolic function is moderately impai red. The left atrium is moderately dilated. The right atrial size is normal. There is mild aortic valve sclerosis. There is no evidence of aortic regurgitation. Mild mitral annular calcification present. Mild mitral regurgitation is present. [id number] tricuspid regurgitation present. There is no evidence of pulmonary hypertension. The right ventricular systolic pressure, as measured by Doppler, is 25.42mmHg. Trace/mild (physiologic) pulmonic regurgitation. Possible Thrombus in LV [place] Tumor/Mass/Thrombus seen in the RA. Definitively can't rule out Thro mbus, RIVERA Recommended. The aortic root size is normal. There is no pericardial effusion. CONCLUSIONS -------- 1. Atrial fibrillation. 2. Pacerwire seen in RV and RA. 3. This was a technically adequate study. 4. The left ventricle is mildly dilated. 5. There is severe global hypokinesis of LV . 6. Overall left ventricular systolic function is severely impaired with, an EF < 20%. 7. The right ventricle is mildly enlarged. 8. The right ventricular systolic function is moderately impaired. 9. The left atrium is moderately dilated. 10. The right atrial size is normal. 11. There is mild aortic valve sclerosis. 12. Mild mitral annular calcification present. 13. Mild mitral regurgitation is present. 14. Gqoa-[id number] tricuspid regurgitation present. 15. There is no evidence of pulmonary hypertension. 16. Trace/mild (physiologic) pulmonic regurgitation. 17. Possible Thrombus in LV [place] 18. Tumor/Mass/Thrombus seen in the RA. 19. Definitively can't rule out Thrombus, RIVERA Recommended. 20. The aortic root size is normal. 21. There is no pericardial effusion. SOLID TIRE TUBER MACHINE OPERATOR: Genesis Sotelo RDCS
[2018-04-16] MEDS: METHIMAZOLE 5 MG TAB PO SCH ×2 (16:21→21:00)
--- NOTE | 2018-04-16 16:56 | HP ---
HISTORY AND PHYSICAL CHIEF COMPLAINT: Passing out. HISTORY OF PRESENT ILLNESS: This 57-year-old gentleman with a past history atrial fibrillation, hypertension , AICD, history of nonischemic cardiomyopathy, being followed by in the outpatient setting, recently was admitted with syncope related to cardiac arrhythmia. The patient was medically treated. The patient improved significantly and the patient went home. Currently patient is working on the computer. Patient passed out apparently. The patient was not sure whether AICD device had discharge or not, but after admission the patient was found to have hypotension. Multiple cardiac arrhythmias were noted. The patient admitted for further evaluation and treatment. The right lower pneumonia suspected. The patient also had a TSH of 6.22 and free T4 is 2.7, indicating hyperthyroidism, possibly secondary to amiodarone. Troponin 0.107. Cardiology and pulmonology consultation in progress. Lactic acid 11.6. PAST MEDICAL HISTORY: History of atrial fibrillation, hypertension, history AICD, cardiac catheterization. MEDICATIONS: Home medications are: 1. Coumadin 1 mg. 2. Aldactone 25 mg. 3. Lopressor 100 mg p.r.n. 4. Toprol-XL 25 mg daily. 5. Zestril 2.5 mg daily. 6. Lasix 40 mg p.r.n. 7. Digitek 0.125 mg p.o. daily. 8. Cordarone 200 mg p.r.n. ALLERGIES: IODINE. FAMILY HISTORY: No history of heart disease or strokes in the family. SOCIAL HISTORY: No history of current smoking. Previous smoker. REVIEW OF SYSTEMS: ENT: No diminished hearing or vision. CARDIOVASCULAR: As mentioned earlier. RESPIRATORY: As mentioned earlier. GI: No nausea. : No dysuria. NERVOUS SYSTEM: No numbness or weakness. ALLERGY/IMMUNOLOGY: No asthma or hay fever. MUSCULOSKELETAL: As mentioned earlier. HEMATOLOGY: No history of anemia. ENDOCRINE: No history of diabetes or hypothyroidism. CONSTITUTIONAL: As mentioned earlier. DERMATOLOGY: Negative. RHEUMATOLOGY: Negative. PSYCHIATRY: As mentioned earlier. PHYSICAL EXAMINATION: Alert and oriented x3. Pulse is 116, blood pressure is 106/74, respiration 30, temperature normal, pulse ox 98 percent on nasal cannula. HEENT: Conjunctivae normal. Oral mucosa moist. Neck is no jugular venous distention. No carotid bruit. No lymph node enlargement. CARDIOVASCULAR: S1, S2 muffled. RESPIRATORY: Breath sounds diminished in the bases. A few scattered rhonchi. No crackles. ABDOMEN: Soft, nontender. No mass palpable. LEGS: No edema, no swelling. NERVOUS SYSTEM: Higher functions as mentioned. Moves all 4 limbs. No focal motor defects. LYMPHATICS: No lymphadenopathy in the neck, axillae, groin. SKIN: No ulcer, rash. LAB STUDIES: WBC 9, hemoglobin 12.7. INR is 1.8. Sodium 133, creatinine is 1.28, plasma lactic acid 11.6, troponin 0.107. ASSESSMENT: 1. Acute sepsis with possible right lower lobe pneumonia possibly gram-negative. 2. Right lower leg cellulitis. 3. Syncope possibly secondary to cardiac arrhythmia. 4. History of ventricular tachycardia and atrial fibrillation. 5. Nonischemic cardiomyopathy, ejection fraction 25% with chronic systolic dysfunction. 6. History AICD. 7. Troponin 0.107 indeterminate. 8. Hyperthyroidism could be related to amiodarone. 9. Elevated plasma lactic acid. 10.Elevated creatinine, possibly acute renal failure multifactorial. 11.Hyponatremia. 12.History of hypertension. 13.Remote history of nicotine dependence. RECOMMENDATIONS AND DISCUSSION: This 57-year-old gentleman who presented with multiple complex medical issues, will monitor the patient closely. Continue the current management and symptomatic treatment. We will monitor the patient in ICU. Continue with Levophed drip. Continue with broad- spectrum IV antibiotics. Continue the rest of medications. Cardiology consultation. Recommend cefepime and vancomycin. Follow the cultures. Will initiate home medications once the blood pressure is stabilized. Otherwise, we will continue to monitor. Prognosis guarded. further recommendations to follow. MMODL / IJN: [id number] / DILSHAD
[2018-04-16 17:09] LABS: Glucose,Whole Blood 101 mg/dL (75-99)
[2018-04-16] MEDS: WARFARIN 1 MG TAB PO SCH (18:12)
[2018-04-16 20:45] LABS: Albumin 2.8 g/dL (3.5-5.0); Calcium 7.7 mg/dL (8.4-10.2); Total Bilirubin 4.6 mg/dL (0.2-1.3); Total Protein 5.4 g/dL (6.3-8.2)
[2018-04-16] MEDS: CEFEPIME 1 GM in SODIUM CHLORIDE 0.9% 50 ML IVPB SCH (20:59)
[2018-04-16] MEDS ORDERED: VANCOMYCIN 1,500 MG in SODIUM CHLORIDE 0.9% 250 ML IVPB SCH (21:00)
[2018-04-16 21:12] LABS: Glucose,Whole Blood 151 mg/dL (75-99)
[2018-04-16 21:21] LABS: Potassium 6.1 mmol/L (3.5-5.1)
[2018-04-16 22:30] LABS: Magnesium 1.7 mg/dL (1.6-2.3); Phosphorus 7.3 mg/dL (2.5-4.5)
[2018-04-16 22:31] LABS: Potassium 6.3 mmol/L (3.5-5.1)
[2018-04-16] MEDS ORDERED: INSULIN REGULAR 100 UNIT/ML VIAL IV ONE (23:25)
[2018-04-16] MEDS ORDERED: MAGNESIUM SULFATE-D5W PMX 1 GM in DEXTROSE/WATER 1 100ML.BAG IVPB ONE (23:25)
[2018-04-17 01:43] LABS: Glucose,Whole Blood 193 mg/dL (75-99)
[2018-04-17] MEDS: NOREPINEPHRINE 4 MG in SODIUM CHLORIDE 0.9% 250 ML IV SCH ×2 (02:35→17:39)
[2018-04-17 03:24] LABS: Basophils % (A) 0 %; Eosinophils # (A) 0.1 k/uL (0-0.7); Eosinophils % (A) 1 %; HCT 41.4 % (39.0-53.0); HGB 12.2 gm/dL (13.0-17.5); Hypochromasia Marked; Lymphocytes # (A) 1.4 k/uL (1.0-4.8); Lymphocytes % (A) 9 %; MCHC 29.3 g/dL (31.0-37.0); MCV 95.6 fL (80.0-100.0); Mean Platelet Volume 7.3; Monocytes # (A) 0.6 k/uL (0-1.0); Monocytes % (A) 4 %; Neutrophils # (A) 13.1 k/uL (1.3-7.7); Neutrophils % (A) 86 %; Platelet Count 253 k/uL (150-450); RBC 4.34 m/uL (4.30-5.90); RDW 14.5 % (11.5-15.5); WBC 15.3 k/uL (3.8-10.6)
[2018-04-17 03:32] LABS: Prothrombin Time 35.8 sec (9.0-12.0)
[2018-04-17 03:36] LABS: Calcium 7.8 mg/dL (8.4-10.2); Magnesium 2.1 mg/dL (1.6-2.3); Phosphorus 6.4 mg/dL (2.5-4.5); Potassium 5.7 mmol/L (3.5-5.1)
[2018-04-17] MEDS: SODIUM CHLORIDE 0.9% 1,000 ML IV SCH ×3 (05:08→14:49)
[2018-04-17] MEDS ORDERED: SODIUM POLYSTYRENE SULFONATE 15 GM/60 ML BOTTLE PO ONE (06:58)
[2018-04-17] MEDS ORDERED: INSULIN REGULAR 100 UNIT/ML VIAL IV ONE (06:58)
[2018-04-17] MEDS ORDERED: DEXTROSE 50%-WATER 50 ML SYRINGE IVP ONE (06:58)
[2018-04-17] MEDS: DILTIAZEM 50 MG in SODIUM CHLORIDE 0.9% 40 ML IV SCH (07:05)
[2018-04-17 07:14] LABS: Glucose,Whole Blood 119 mg/dL (75-99)
--- NOTE | 2018-04-17 07:30 | XR ---
EXAMINATION TYPE: XR chest 1V portable DATE OF EXAM: 04/17/2018 HISTORY: Shortness of breath. COMPARISON: 04/16/2018 TECHNIQUE: Single view of the chest is submitted. FINDINGS: Demonstrated are scattered senescent parenchymal change. Basilar infiltrates persist. The heart is stable. Hilar and mediastinal structures are within normal limits. Degenerative changes are seen of the dorsal spine. IMPRESSION: 1. Nasal or infiltrates and/or atelectasis. Continued progress studies are advised.
--- NOTE | 2018-04-17 08:08 | CONS ---
CONSULTATION DATE OF SERVICE: 04/16/2018. REASON FOR CONSULTATION: Sepsis. HISTORY OF PRESENT ILLNESS: The patient is a 57-year-old male with a past medical history significant for ischemic cardiomyopathy with an EF of 20%. The patient was brought into the ER after apparently the patient did have a syncopal episode this morning. The patient said he was on his computer and the next thing he noticed he was on the floor. He is not aware what happened. The patient denies hitting his head or having any issues. The patient denies having any chest pain, shortness of breath, dizziness or any coughing or any fever. No incontinence of urine or stool. With the symptoms, the patient was brought to the ER, the patient was evaluated by the ER physician. He did have a CT of the brain that was negative for any bleed. Chest x-ray showed chronic changes including right lower lobe infiltrate, concern for possible pneumonia. The patient did have elevated lactic acid as well and did repeat BNP. The patient has been hypotensive requiring pressor support and has been in the ICU. The patient has been treated with cefepime and vancomycin. Infectious Disease was consulted for further recommendation regarding antibiotic therapy. The patient currently denies having any headache. Denies having any chest pain. He did have some mild cough, not bringing up sputum. The patient denies any nausea, vomiting, or any choking on the food. No abdominal pain. He did have some swelling in both in his legs with minimal redness noted to the legs currently with no blister formation or any drainage: He was started on vancomycin. Infectious Disease was consulted for further recommendation regarding antibiotic therapy. REVIEW OF SYSTEMS: Positive points have been mentioned in HPI. The rest of systems has been negative. PAST MEDICAL HISTORY: Atrial fibrillation, hypertension, ischemic cardiomyopathy with an EF of 20%, episodes of ventricular tachycardia. PAST SURGICAL HISTORY: AICD placement, heart catheterization. SOCIAL HISTORY: Remote history of smoking. No drinking or drug use. FAMILY HISTORY: No pertinent findings noticed. ALLERGIES: IODINE, IV CONTRAST DYE. MEDICATIONS: 1. Cefepime 1 g every 24 hours. 2. Diltiazem. 3. Magnesium oxide. 4. Tapazole. 5. Toprol-XL. 6. Narcan. 7. Norepinephrine. 8. Vancomycin pharmacy to dose. 9. Coumadin. EXAMINATION: Blood pressure is 99/60 with a pulse of 70, temperature 98, he is 97% on 2 L nasal cannula. GENERAL DESCRIPTION: A middle-aged male lying in bed in no distress. HEENT: Shows no pallor or scleral icterus. Oral mucosa is dry. No pharyngeal erythema or thrush. NECK: Trachea central, no thyromegaly. LUNGS: Unlabored breathing with decreased breath sounds at the bases. No wheeze or crackles. HEART: S1 and S2 regular. Regular rate and rhythm. No chest pain. ABDOMEN: No tenderness, guarding or rigidity. EXTREMITIES: Diffuse swelling and redness, more on the right leg in suprapubic area. No drainage. NEUROLOGIC: The patient is awake, alert, oriented and affect normal. LABS: Hemoglobin is 12.7, white count 8.2 with a BUN of 27, creatinine is 2.44. Admission creatinine was 1.28. DIAGNOSTIC IMPRESSION AND PLAN: Patient with hypertension, likely source is multifactorial in this patient who did have underlying ischemic cardiomyopathy with low EF. The patient's currently likely source of infection is lower extremity cellulitis. Pneumonia less likely but not entirely excluded. UA has been negative. Abdomen was soft. This patient has been admitted to the hospital with concern for possible resistant or gram-negative pathogen. PLAN: 1. Patient to be treated with antibiotic while waiting for the condition to stabilize. Cefepime 1 g every 12 in addition to the vancomycin, however, watching his kidney function closely. 2. Toni the redness on the leg. Seferino wrap from just above to below the knee. 3. We will follow on his clinical condition and culture to further adjust medication if needed. Thank you for this consultation. Will follow this patient along with you. MMODL / IJN: [id number] /
[2018-04-17] MEDS: METHIMAZOLE 5 MG TAB PO SCH ×3 (08:27→21:39)
[2018-04-17] MEDS: CEFEPIME 1 GM in SODIUM CHLORIDE 0.9% 50 ML IVPB SCH (08:27)
[2018-04-17] MEDS: METOPROLOL SUCCINATE (ER) 25 MG TAB.ER.24H PO SCH ×2 (08:44→21:39)
[2018-04-17] MEDS ORDERED: FUROSEMIDE 10 MG/ML 4 ML VIAL IV STA (09:16)
[2018-04-17 09:57] LABS: Calcium 7.8 mg/dL (8.4-10.2); Potassium 5.7 mmol/L (3.5-5.1)
--- NOTE | 2018-04-17 10:06 | PN ---
PROGRESS NOTE Mr. Valero is a 57-year-old male with known history of severe nonischemic cardiomyopathy, history of atrial fibrillation, ICD implantation who presented with a syncopal episode. He is in sinus mechanism at this time. He denies any symptoms of chest discomfort. He denies any dizziness or palpitation. He still feels weak. He is off the pressors. He has been anticoagulated. Transthoracic echocardiogram that was performed yesterday has shown an apical thrombus with a question of a mass in the right atrium. He continues to be at this time on Tapazole 5 mg 3 times a day, metoprolol succinate 50 mg twice a day, Coumadin, and he was on Cardizem drip. PHYSICAL EXAMINATION: Blood pressure running in the high 90s with a heart rate in the 70s. Lungs with decreased breath sounds bilaterally. No wheezes. HEART: Regular rate and rhythm S1, S2. No S3. No rub or gallop appreciated with a systolic murmur. ABDOMEN: Soft, nontender. Extremities: With Seferino wrapping in place with chronic skin changes and mild edema. LAB DATA: Hemoglobin 12.2, white blood cell 15.3, BUN creatinine 36 and 2.65. Plasma lactic acid down to 4.4. His INR is 4.0. His chest x-ray shows no acute infiltrate. His EKG revealed sinus mechanism. The interrogation of his device revealed episode of nonsustained ventricular tachycardia as well as atrial fibrillation with rapid ventricular response. IMPRESSION: 1. Hypertension with elevated lactic acid. The possibility of septic shock could not be excluded. 2. Known history of severe nonischemic cardiomyopathy. 3. Syncopal episode, could be related to ventricular tachycardia, although there was no shock from the device. 4. Renal failure. 5. Atrial fibrillation, back in sinus mechanism. 6. History of chronic tobacco use. 7. Status post ICD implantation. RECOMMENDATION: From the cardiac standpoint, I will continue on the present therapy. We will follow his renal function. Because of the finding on the transthoracic echocardiogram, the patient will benefit from a RIVERA. I will re-evaluate him tomorrow and depending on his breathing status, then we will proceed. I have discussed with him the rationale as well as the risks and complications. The patient is in full understanding and agreement. MMODL / IJN: [id number] /
[2018-04-17] MEDS ORDERED: FUROSEMIDE 10 MG/ML 10 ML VIAL IV STA (11:23)
[2018-04-17 11:59] LABS: Glucose,Whole Blood 87 mg/dL (75-99)
--- NOTE | 2018-04-17 13:45 | P.NPCON ---
History of Present Illness - Reason for Consult Consult date: 04/17/18 acute renal failure, hyperkalemia - Chief Complaint Syncope - History of Present Illness 57-year-old gentleman admitted to the hospital with syncope. He has an ejection fraction of 20% with AICD. Baseline creatinine is around 1.0 MG per DL. When he presented to the hospital his creatinine was 1.2 MG per DL and creeping to 2.4-2.7 MG per DL today. He was also hyperkalemic with a potassium of 6.2-6.3 and was treated medically and to dates 5.7. He was oliguric as well. Denies any nausea vomiting diarrhea no recent contrast studies. No NSAID use. He was hypotensive and admitted to ICU requiring levo fed drip. Currently on a minimal dose of levophed. Review of Systems Constitutional: Reports as per HPI Past Medical History Past Medical History: Atrial Fibrillation, Hypertension History of Any Multi-Drug Resistant Organisms: None Reported Past Surgical History: AICD, Heart Catheterization Past Anesthesia/Blood Transfusion Reactions: No Reported Reaction Type of Cardiac Device: AICD Device Placement Date:: 2016 Past Psychological History: No Psychological Hx Reported Smoking Status: Former smoker Past Alcohol Use History: None Reported Past Drug Use History: None Reported - Past Family History Father Family Medical History: No Reported History Mother Family Medical History: No Reported History Medications and Allergies Home Medications Medication Instructions Recorded Confirmed Type Lisinopril [Zestril] 2.5 mg PO DAILY #30 tab 03/30/18 04/16/18 Rx Spironolactone [Aldactone] 25 mg PO DAILY #30 tab 03/30/18 04/16/18 Rx Warfarin [Coumadin] 1 mg PO DAILY@1800 #5 tab 03/30/18 04/16/18 Rx Amiodarone [Cordarone] 200 mg PO DIRECTED 04/16/18 04/16/18 History Digoxin [Digitek] 125 mcg PO DIRECTED 04/16/18 04/16/18 History Furosemide [Lasix] 40 mg PO DIRECTED 04/16/18 04/16/18 History Metoprolol Succinate [Toprol XL] 25 mg PO DAILY 04/16/18 04/16/18 History Metoprolol Tartrate [Lopressor] 100 mg PO DIRECTED 04/16/18 04/16/18 History Allergies Allergy/AdvReac Type Severity Reaction Status Date / Time Iodinated Contrast- Oral and AdvReac Unknown Unknown Verified 04/16/18 11:17 IV Dye Physical Exam Vitals: Vital Signs Temp Pulse Pulse Resp BP Pulse Ox 04/17/18 13:15 80 17 94/67 98 04/17/18 13:00 77 19 89/66 95 04/17/18 12:45 77 19 95/62 97 04/17/18 12:30 79 22 97/67 96 04/17/18 12:15 77 19 96/74 96 04/17/18 12:00 97.5 F L 79 22 91/70 96 04/17/18 11:45 78 22 94/71 97 04/17/18 11:30 79 24 97/85 97 04/17/18 11:15 79 23 92/68 97 04/17/18 11:00 79 23 93/70 98 04/17/18 10:45 79 30 H 89/71 98 04/17/18 10:30 79 30 H 91/64 97 04/17/18 10:15 77 25 H 88/65 98 04/17/18 10:00 77 22 90/64 97 04/17/18 09:45 76 24 92/65 97 04/17/18 09:30 76 29 H 98/66 98 04/17/18 09:15 78 29 H 88/58 96 04/17/18 09:00 75 27 H 96 04/17/18 08:45 79 22 93/71 04/17/18 08:30 79 16 97/68 97 04/17/18 08:15 79 23 93/66 97 04/17/18 08:00 98.3 F 78 25 H 91/67 98 04/17/18 07:45 77 24 93/66 97 04/17/18 07:30 78 28 H 92/68 97 04/17/18 07:15 78 30 H 92/67 95 04/17/18 07:00 78 33 H 91/68 95 04/17/18 06:45 78 28 H 91/67 97 04/17/18 06:30 79 28 H 99/58 97 04/17/18 06:15 79 31 H 104/66 97 04/17/18 06:00 79 25 H 99/71 96 04/17/18 05:45 80 18 104/76 97 04/17/18 05:30 81 28 H 104/65 97 04/17/18 05:15 79 9 L 94/61 97 04/17/18 05:00 77 19 100/71 96 04/17/18 04:45 80 28 H 92/62 96 04/17/18 04:30 80 30 H 103/72 96 04/17/18 04:15 80 31 H 100/71 97 04/17/18 04:00 97.6 F 81 29 H 97/72 97 04/17/18 03:45 80 30 H 99/72 97 04/17/18 03:30 80 27 H 85/60 96 04/17/18 03:15 79 28 H 101/64 97 04/17/18 03:00 79 24 87/61 96 04/17/18 02:45 77 22 95/68 96 04/17/18 02:30 80 26 H 89/60 96 04/17/18 02:15 76 21 94/63 96 04/17/18 02:00 77 21 102/67 95 04/17/18 01:45 81 31 H 112/76 98 04/17/18 01:30 82 29 H 100/72 97 04/17/18 01:15 82 26 H 102/73 96 04/17/18 01:00 82 26 H 89/75 98 04/17/18 00:45 80 25 H 102/73 98 04/17/18 00:30 79 22 96/66 98 04/17/18 00:15 79 29 H 98/68 95 04/17/18 00:00 97.8 F 80 33 H 94/62 96 04/16/18 23:45 80 24 95/69 97 04/16/18 23:30 80 30 H 93/67 98 04/16/18 23:15 80 27 H 93/68 96 04/16/18 23:07 81 33 H 93/68 98 04/16/18 23:00 80 27 H 91/67 97 04/16/18 22:45 78 31 H 99/68 96 04/16/18 22:30 80 30 H 96/65 96 04/16/18 22:15 79 25 H 92/66 97 04/16/18 22:00 80 22 86/62 98 04/16/18 21:45 79 28 H 99/66 97 04/16/18 21:30 79 25 H 93/63 97 04/16/18 21:15 78 31 H 93/61 98 04/16/18 21:00 77 25 H 101/69 95 04/16/18 20:45 80 27 H 96/62 96 04/16/18 20:30 78 30 H 95/61 95 04/16/18 20:15 76 31 H 94/63 96 04/16/18 20:00 97.6 F 77 27 H 80/57 98 04/16/18 19:45 70 20 78/51 97 04/16/18 19:30 71 21 99/62 98 04/16/18 19:15 75 18 90/58 96 04/16/18 19:00 75 20 87/67 96 04/16/18 18:45 76 31 H 96/43 96 04/16/18 18:30 76 26 H 83/69 97 04/16/18 18:15 74 20 82/66 99 04/16/18 18:00 76 25 H 83/37 96 04/16/18 17:45 76 35 H 87/65 94 L 04/16/18 17:30 75 20 81/58 97 04/16/18 17:15 69 22 87/42 99 04/16/18 17:00 78 21 86/61 98 04/16/18 16:45 85 19 102/88 97 04/16/18 16:30 82 24 106/66 97 04/16/18 16:15 73 22 98 04/16/18 16:00 97.9 F 95 93 21 129/44 97 04/16/18 15:45 101 H 24 170/75 98 04/16/18 15:30 89 29 H 158/125 96 04/16/18 15:25 93 31 H 04/16/18 15:15 102 H 27 H 169/111 97 04/16/18 15:00 107 H 26 H 173/131 94 L 04/16/18 14:45 105 H 29 H 147/96 98 04/16/18 14:30 101 H 28 H 126/75 98 04/16/18 14:15 87 31 H 130/102 100 04/16/18 14:00 116 H 35 H 107/64 98 04/16/18 13:45 89 12 93/69 98 Intake and Output 04/16/18 04/17/18 04/17/18 22:59 06:59 14:59 Intake Total 2046.188 4894.732 9533 Output Total 42 88 290 Balance 2004.188 1285.062 965 Intake: IV 1675 1300 675 Cefepime 1 gm In Sodium 100 Chloride 0.9% 50 ml @ 100 mls/hr IVPB ONCE STA Rx# :[id number] Magnesium Sulfate-D5w Pmx 100 1 gm In Dextrose/Water 1 100ml.bag @ 100 mls/hr IVPB ONCE ONE Rx#: [id number] Sodium Chloride 0.9% 1, 1450 1200 675 000 ml @ 75 mls/hr IV . [id number] [facility] Rx#:[id number] Vancomycin 1,500 mg In 125 Sodium Chloride 0.9% 250 ml @ 125 mls/hr IVPB ONCE STA Rx#:[id number] Intake, IV Titration 132.188 73.062 100 Amount Cefepime 1 gm In Sodium 100 Chloride 0.9% 50 ml @ 100 mls/hr IVPB Q12HR [facility] Rx #:[id number] Norepinephrine 4 mg In 132.188 73.062 0 Sodium Chloride 0.9% 250 ml @ Titrate IV .Q0M [facility] Rx#:[id number] Oral 480 Tube Feeding 240 Output: Urine 42 88 290 Other: Voiding Method Indwelling Catheter Indwelling Catheter Indwelling Catheter Weight 113.5 kg Sitting in the chair no acute distress S1-S2 heard Decreased breath sounds in the bases Sacral and pedal edema Results - Lab Results Most recent lab results Calcium 7.8 mg/dL (8.4-10.2) L 04/17/18 09:29 Phosphorus 6.4 mg/dL (2.5-4.5) H 04/17/18 03:09 Magnesium 2.1 mg/dL (1.6-2.3) 04/17/18 03:09 04/17/18 03:09 04/17/18 09:29 Assessment and Plan Assessment: #1 oliguric acute kidney injury secondary to hemodynamic ATN with suspected cardiogenic shock. #2 shock on levophed #3 cardiomyopathy with the EF of 20% #4 hyperkalemia secondary to acute kidney injury and also on Aldactone and lisinopril at home #5 lactic acidosis #6 edema Plan: #1 responded to Lasix challenge of 80 mg IV push. Continue with Lasix drip of 10 ML's an hour. #2 hold janie inhibitors/Aldactone/potassium supplements. #3 treat hyperkalemia medically for now. #4 anticipate potassium and renal function to improve as his urine output is picking up. If renal function doesn't improve he might need dialysis. #5 stop IV fluids #6 wean off levophed.
--- NOTE | 2018-04-17 14:24 | P.PN ---
Subjective Progress Note Date: 04/17/18 Principal diagnosis: Recurrent episodes of syncope secondary to ventricular tachycardia and cardiomyopathy with LV dysfunction. This is a very pleasant 57-year-old gentleman who follows with Dr. Doe as his primary care physician. He has a history of severe nonischemic cardiomyopathy with an ejection fraction less than 20% status post AICD placement, atrial fibrillation, hypertension. 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 He had recently been admitted here earlier this same month for an episode of near syncope. He did have syncope and ventricular tachycardia while here and was seen in the intensive care unit for the same. He presented here again early this morning after waking up on the floor. He states he was sitting up at his computer and suddenly passed out. He has no idea how long he was down for. He is unsure whether he hit his head or had any other injuries. He denied any preceding chest pain, shortness breath, dizziness or lightheadedness. No pre-warning. He denies any loss of urine. Computed tomography scan of the brain revealed no acute intracranial abnormality. Chest x-ray shows some chronic changes in the right lower lobe improved compared to previous. Moderate cardiomegaly. No acute heart failure. Troponin 0.068, 0.084, 0.107. ProBNP 15,100 area TSH 6.22, T4 2 0.74. White count 9.2. Hemoglobin 12.7. INR 1.8. Creatinine 1.28. Lactic acid up from 3.0-11.6. He does have lower extremity edema with redness and weeping and possible cellulitis. He is hypotensive currently on norepinephrine at 15 mcg/ m. He's been initiated on vancomycin and cefepime. He is seen today in consultation in the intensive care unit. He is currently resting comfortably in bed. He is awake and alert in no acute distress. He denies any chest pain, palpitations lightheadedness or dizziness. He remains in atrial fibrillation with a controlled ventricular response. He is currently on a Cardizem drip at 10 mg per hour. Previously the patient had refused amiodarone based on potential side effects. He also does have a history of noncompliance prior to his previous admission. He denies any recent fever, chills or night sweats. No cough or congestion. He is maintaining good O2 saturations in the high 90s on 2 L/m per nasal cannula. He's been afebrile since admission. Patient was reevaluated today on 04/17/2018, remains in the intensive care unit , asymptomatic, however his labs were noted to be quite abnormal today including leukocytosis with WBC count of 15.3, INR of 4.0, potassium was 6.2 earlier and it is now 5.7, patient received Kayexalate. Renal functioning is worsening, BUN is 40 creatinine is 2.78. He was seen by nephrology for his acute kidney injury, felt to be most likely cardiorenal in nature. His BNP level was noted to be elevated. And his troponins 0.107 on presentation. Chest x-ray which I reviewed is suggestive of mild pulmonary edema, with left pleural effusion, and right basilar atelectasis. Hence I recommended a dose of Lasix to be given 1 today. Patient again has very poor LV function ejection fraction is no more than 20%. Patient is now on 4 L nasal cannula, his respiratory rate is between 16 and 24, O2 saturation is 97% on 4 L. Objective - Vital Signs Vital signs: Vital Signs Temp 97.5 F L 04/17/18 12:00 Pulse 101 H 04/17/18 14:00 Resp 21 04/17/18 14:00 BP 96/70 04/17/18 14:00 Pulse Ox 97 04/17/18 14:00 Intake & Output 04/16/18 04/17/18 04/17/18 18:59 06:59 18:59 Intake Total 8114.063 2599.937 1330 Output Total 95 110 515 Balance 8019.063 2489.937 815 Weight 96.615 kg 113.5 kg Intake: IV 1450 2225 750 Cefepime 1 gm In Sodium 100 Chloride 0.9% 50 ml @ 100 mls/hr IVPB ONCE STA Rx# :[id number] Magnesium Sulfate-D5w Pmx 100 1 gm In Dextrose/Water 1 100ml.bag @ 100 mls/hr IVPB ONCE ONE Rx#: [id number] Sodium Chloride 0.9% 1, 1450 1900 750 000 ml @ 75 mls/hr IV . [id number] [facility] Rx#:[id number] Vancomycin 1,500 mg In 125 Sodium Chloride 0.9% 250 ml @ 125 mls/hr IVPB ONCE STA Rx#:[id number] Amount of Fluid Infused ( 4500 ml) Intake, IV Titration 2164.063 134.937 100 Amount Cefepime 1 gm In Sodium 100 Chloride 0.9% 50 ml @ 100 mls/hr IVPB Q12HR [facility] Rx #:[id number] Norepinephrine 4 mg In 164.063 134.937 0 Sodium Chloride 0.9% 250 ml @ Titrate IV .Q0M [facility] Rx#:[id number] Sodium Chloride 0.9% 1, 1000 000 ml @ 999 mls/hr IV . Q1H1M [facility] Rx#:[id number] Sodium Chloride 0.9% 500 500 ml 500 ml @ 999 mls/hr IV .Q31M [facility] Rx#:[id number] Sodium Chloride 0.9% 500 500 ml 500 ml @ 999 mls/hr IV .Q31M [facility] Rx#:[id number] Oral 480 Tube Feeding 240 Output: Urine 95 110 515 Other: Voiding Method Indwelling Catheter Indwelling Catheter Indwelling Catheter - Exam GENERAL EXAM: Alert, comfortable in no apparent distress. On 2 L nasal cannula HEAD: Normocephalic. EYES: Normal reaction of pupils, equal size. NOSE: Clear with pink turbinates. THROAT: No erythema or exudates. NECK: No masses, no JVD. CHEST: No chest wall deformity. LUNGS: Equal air entry with crackles in the posterior bases more so on the right. Diminished. CVS: S1 and S2 normal with a systolic murmur. Irregular rhythm. ABDOMEN: No hepatosplenomegaly, normal bowel sounds, no guarding or rigidity. SPINE: No scoliosis or deformity SKIN: Redness edema and weeping of the lower extremities CENTRAL NERVOUS SYSTEM: No focal deficits, tone is normal in all 4 extremities. EXTREMITIES: There is 2-3+ peripheral edema. Chronic changes of chronic venous stasis. Redness and weeping. - Labs CBC & Chem 7: 04/17/18 03:09 04/17/18 09:29 Labs: Abnormal Lab Results - Last 24 Hours (Table) 04/16/18 04/16/18 04/16/18 Range/Units 13:17 17:07 17:49 WBC (3.8-10.6) k/uL Hgb (13.0-17.5) gm/dL MCHC (31.0-37.0) g/dL Neutrophils # (1.3-7.7) k/uL PT (9.0-12.0) sec INR (<1.2) Sodium (137-145) mmol/L Potassium (3.5-5.1) mmol/L Carbon Dioxide (22-30) mmol/L BUN (9-20) mg/dL Creatinine (0.66-1.25) mg/dL Glucose (74-99) mg/dL POC Glucose (mg/dL) 101 H (75-99) mg/dL Plasma Lactic Acid Kunal 10.9 H* (0.7-2.0) mmol/L Calcium (8.4-10.2) mg/dL Phosphorus (2.5-4.5) mg/dL Total Bilirubin (0.2-1.3) mg/dL AST (17-59) U/L ALT (21-72) U/L CK-MB (CK-2) 2.7 H (0.0-2.4) ng/mL Troponin I 0.107 H* (0.000-0.034) ng/mL Total Protein (6.3-8.2) g/dL Albumin (3.5-5.0) g/dL 04/16/18 04/16/18 04/16/18 Range/Units 20:12 21:10 21:59 WBC (3.8-10.6) k/uL Hgb (13.0-17.5) gm/dL MCHC (31.0-37.0) g/dL Neutrophils # (1.3-7.7) k/uL PT (9.0-12.0) sec INR (<1.2) Sodium 135 L (137-145) mmol/L Potassium 6.1 H* 6.3 H* (3.5-5.1) mmol/L Carbon Dioxide 14 L (22-30) mmol/L BUN 27 H (9-20) mg/dL Creatinine 2.44 H (0.66-1.25) mg/dL Glucose 137 H (74-99) mg/dL POC Glucose (mg/dL) 151 H (75-99) mg/dL Plasma Lactic Acid Kunal (0.7-2.0) mmol/L Calcium 7.7 L (8.4-10.2) mg/dL Phosphorus 7.3 H (2.5-4.5) mg/dL Total Bilirubin 4.6 H (0.2-1.3) mg/dL AST 5366 H (17-59) U/L ALT 3565 H (21-72) U/L CK-MB (CK-2) (0.0-2.4) ng/mL Troponin I (0.000-0.034) ng/mL Total Protein 5.4 L (6.3-8.2) g/dL Albumin 2.8 L (3.5-5.0) g/dL 04/16/18 04/16/18 04/17/18 Range/Units 23:38 23:38 01:41 WBC (3.8-10.6) k/uL Hgb (13.0-17.5) gm/dL MCHC (31.0-37.0) g/dL Neutrophils # (1.3-7.7) k/uL PT (9.0-12.0) sec INR (<1.2) Sodium (137-145) mmol/L Potassium 6.2 H* (3.5-5.1) mmol/L Carbon Dioxide (22-30) mmol/L BUN (9-20) mg/dL Creatinine (0.66-1.25) mg/dL Glucose (74-99) mg/dL POC Glucose (mg/dL) 193 H (75-99) mg/dL Plasma Lactic Acid Kunal 6.3 H* (0.7-2.0) mmol/L Calcium (8.4-10.2) mg/dL Phosphorus (2.5-4.5) mg/dL Total Bilirubin (0.2-1.3) mg/dL AST (17-59) U/L ALT (21-72) U/L CK-MB (CK-2) (0.0-2.4) ng/mL Troponin I (0.000-0.034) ng/mL Total Protein (6.3-8.2) g/dL Albumin (3.5-5.0) g/dL 04/17/18 04/17/18 04/17/18 Range/Units 03:09 03:09 03:09 WBC 15.3 H (3.8-10.6) k/uL Hgb 12.2 L (13.0-17.5) gm/dL MCHC 29.3 L (31.0-37.0) g/dL Neutrophils # 13.1 H (1.3-7.7) k/uL PT 35.8 H (9.0-12.0) sec INR 4.0 H (<1.2) Sodium 133 L (137-145) mmol/L Potassium 5.7 H (3.5-5.1) mmol/L Carbon Dioxide 18 L (22-30) mmol/L BUN 36 H (9-20) mg/dL Creatinine 2.65 H (0.66-1.25) mg/dL Glucose 152 H (74-99) mg/dL POC Glucose (mg/dL) (75-99) mg/dL Plasma Lactic Acid Kunal (0.7-2.0) mmol/L Calcium 7.8 L (8.4-10.2) mg/dL Phosphorus 6.4 H (2.5-4.5) mg/dL Total Bilirubin (0.2-1.3) mg/dL AST (17-59) U/L ALT (21-72) U/L CK-MB (CK-2) (0.0-2.4) ng/mL Troponin I (0.000-0.034) ng/mL Total Protein (6.3-8.2) g/dL Albumin (3.5-5.0) g/dL 04/17/18 04/17/18 04/17/18 Range/Units 03:09 07:13 09:29 WBC (3.8-10.6) k/uL Hgb (13.0-17.5) gm/dL MCHC (31.0-37.0) g/dL Neutrophils # (1.3-7.7) k/uL PT (9.0-12.0) sec INR (<1.2) Sodium 134 L (137-145) mmol/L Potassium 5.7 H (3.5-5.1) mmol/L Carbon Dioxide 17 L (22-30) mmol/L BUN 40 H (9-20) mg/dL Creatinine 2.78 H (0.66-1.25) mg/dL Glucose (74-99) mg/dL POC Glucose (mg/dL) 119 H (75-99) mg/dL Plasma Lactic Acid Kunal 4.4 H* (0.7-2.0) mmol/L Calcium 7.8 L (8.4-10.2) mg/dL Phosphorus (2.5-4.5) mg/dL Total Bilirubin (0.2-1.3) mg/dL AST (17-59) U/L ALT (21-72) U/L CK-MB (CK-2) (0.0-2.4) ng/mL Troponin I (0.000-0.034) ng/mL Total Protein (6.3-8.2) g/dL Albumin (3.5-5.0) g/dL 04/17/18 04/17/18 Range/Units 09:29 13:30 WBC (3.8-10.6) k/uL Hgb (13.0-17.5) gm/dL MCHC (31.0-37.0) g/dL Neutrophils # (1.3-7.7) k/uL PT (9.0-12.0) sec INR (<1.2) Sodium (137-145) mmol/L Potassium (3.5-5.1) mmol/L Carbon Dioxide (22-30) mmol/L BUN (9-20) mg/dL Creatinine (0.66-1.25) mg/dL Glucose (74-99) mg/dL POC Glucose (mg/dL) (75-99) mg/dL Plasma Lactic Acid Kunal 3.5 H* 2.6 H* (0.7-2.0) mmol/L Calcium (8.4-10.2) mg/dL Phosphorus (2.5-4.5) mg/dL Total Bilirubin (0.2-1.3) mg/dL AST (17-59) U/L ALT (21-72) U/L CK-MB (CK-2) (0.0-2.4) ng/mL Troponin I (0.000-0.034) ng/mL Total Protein (6.3-8.2) g/dL Albumin (3.5-5.0) g/dL Microbiology - Last 24 Hours (Table) 04/16/18 04:24 Blood Culture - Preliminary Blood No Growth after 24 hours 04/16/18 12:30 Urine Culture - Preliminary Urine,Catheterized Assessment and Plan Assessment: #1 Syncopal episode of unclear etiology, suspect ventricular tachycardia with recent admission for the same. The patient does have severe nonischemic cardiomyopathy with ejection fraction less than 20%. Status post AICD placement. #2 Hypotension requiring pressor support with elevated lactic acid and probable sepsis secondary to suspected lower extremity cellulitis. No clear evidence of pneumonia on the chest x-ray. No leukocytosis. Blood cultures remain negative so far, and urine cultures are pending. Remains on vancomycin and cefepime. #3 acute kidney injury, could be related to his hypotension could also be cardiorenal in nature. Exact etiology is not clear at this point. Being followed by nephrology. #4 Troponin leak. #5 Abnormal thyroid levels. #6 Atrial fibrillation with a rapid ventricular response. Currently on a Cardizem drip. Anticoagulant with warfarin. Current INR 1.8. #7 History of hypertension. #8 History of chronic tobacco dependence. Plan: Continue to monitor the patient in the ICU, continue antibiotics, monitor renal profile, levo fed if necessary, relatively is not on norepinephrine. Patient was given 1 dose of Lasix 40 mg IV push 1, and we will continue to follow. Long-term prognosis remains poor and guarded considering his recurrent episodes of ventricular tachycardia and poor LV function. Time with Patient: Less than 30
[2018-04-17] MEDS: FUROSEMIDE 250 MG in SODIUM CHLORIDE 0.9% 225 ML IVP SCH (14:44)
[2018-04-17] MEDS: WARFARIN 1 MG TAB PO SCH (17:25)
[2018-04-17 17:37] LABS: Glucose,Whole Blood 111 mg/dL (75-99)
--- NOTE | 2018-04-17 23:00 | PN ---
PROGRESS NOTE DATE OF SERVICE: 04/17/2018. HISTORY: This 57-year-old gentleman who was admitted to [facility] with complaints and features of hypotension and shortness of breath after a syncopal event, is being closely monitored. At this time the patient had features of cardiac arrhythmia as well as possible sepsis also. The patient is on pressor support at this time. The patient has nonischemic cardiomyopathy with ejection fraction less than 20T. The patient also had a AICD and also AICD interrogation. Transthoracic echo showed apical thrombosis and a questionable mass in the right atrium. The patient also had features of hypothyroidism as well. The patient also had cardiac arrhythmia on presentation. Ventricular tachycardia is a possibility. The cultures are negative so far. The patient is on IV empiric antibiotics. Nephrology and infectious are also following the patient closely. Patient is being closely monitored in the ICU at this time. The patient also had a possible leg cellulitis also. PAST MEDICAL HISTORY: Reviewed. REVIEW OF SYSTEMS: CARDIOVASCULAR: No angina. RESPIRATORY: As mentioned. GI: As mentioned. : As mentioned. NERVOUS SYSTEM: No focal deficits. CURRENT MEDICATIONS: 1. Cefepime 1 g daily. 2. Lasix drip. 3. Tapazole 5 mg p.o. t.i.d. 4. Toprol-XL 50 mg b.i.d. 5. Narcan 0.2 every 2 h p.r.n. 6. Vancomycin 2 g IV every 30 minutes. 7. Coumadin 1 mg p.o. daily. PHYSICAL EXAM: Patient is alert, oriented x3. Pulse 79, blood pressure 100/70, respirations 20, temperature normal, pulse ox 98% on 4 L. HEENT: Conjunctivae normal. Oral mucosa moist. NECK: No jugular venous distention. No lymph node enlargement. CARDIOVASCULAR: S1 and S2 muffled. LUNGS: Bilateral scattered rhonchi and crackles. ABDOMEN: Soft, obese, nontender. LEGS: Left leg cellulitis and erythema. NERVOUS SYSTEM: Diffusely weak. LABS: Sodium 132, potassium 5.7, creatinine is 2.78, otherwise WBC 15.3. Plasma lactic acid 2.6. AST 5366 and ALT is 3565 and TSH is 6.22. Other labs are noted. ASSESSMENT: 1. Acute severe sepsis with possible right lower lobe pneumonia, possibly gram- negative, with septic shock. 2. Possible right lower leg cellulitis with possible sepsis. 3. Syncope possibly secondary to cardiac arrhythmia and ventricular tachycardia. 4. Left ventricular apical thrombosis. 5. 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 6. History of ventricular tachycardia and atrial fibrillation. 7. Hyperthyroidism, possibly drug induced. 8. Nonischemic cardiomyopathy, ejection fraction 25% with chronic systolic dysfunction. 9. History of automatic implantable cardioverter defibrillator. 10.Troponin 0.106, indeterminate. 11.Elevated plasma lactic acid. 12.Elevated creatinine, possible acute renal failure multifactorial cardiorenal syndrome. 13.Hyponatremia. 14.History of hypertension. 15.Remote history of nicotine dependence. 16.Elevated LFTs, AST and ALT, possibly hepatitis multifactorial, possibly due to sepsis and hypotension. 17.Coumadin coagulopathy. RECOMMENDATIONS: This 57-year-old gentleman who presented with multiple complex medical issues, we will monitor the patient closely, continue the current management and symptomatic treatment. Otherwise continue the broad-spectrum IV antibiotics. Cultures are negative so far. Closely follow with Cardiology as well as Pulmonology. Monitor blood sugars closely. The patient is anticoagulated with INR of 4. We will continue to monitor. Overall prognosis guarded because of multiple complex medical issues. Repeat labs will be ordered. Further recommendations to follow. Once again, we will repeat the CMP as well. Acute hepatitis panel also will be sought. Further recommendations to follow. MMJASONL / ELINAN: [id number] /
[2018-04-17 23:45] LABS: Glucose,Whole Blood 94 mg/dL (75-99)
[2018-04-18] MEDS ORDERED: VANCOMYCIN 2,000 MG in SODIUM CHLORIDE 0.9% 500 ML 500 ML IVPB SCH ×2
--- NOTE | 2018-04-18 00:15 | PN ---
PROGRESS NOTE DATE OF SERVICE: 04/17/2018. REASON FOR FOLLOWUP: Sepsis with lower extremity cellulitis. INTERVAL HISTORY: The patient is currently afebrile, has been breathing comfortably. Denies significant chest pain. Occasional cough. No abdominal pain or pain to the neck area. He has more drainage on his right leg. EXAMINATION: Blood pressure is 96/84 with a pulse of 80, temperature 98, he is 98% on 3 L nasal cannula. GENERAL DESCRIPTION: A middle-aged male lying in bed in no distress. RESPIRATORY SYSTEM: Unlabored breathing. Decreased breath sounds at bases. No wheeze. HEART: S1, S2. Regular rate and rhythm. EXTREMITIES: Bilateral leg with swelling and redness, mostly marked on the right leg with some superficial ulceration but no foul smelling drainage. LABS: BUN of 14, creatinine 2.78. Blood culture has been negative so far. DIAGNOSTIC IMPRESSION AND PLAN: Patient with admission to the hospital after a syncopal episode. The patient did have significant hypotension, which is likely multifactorial in this patient who did have ischemic cardiomyopathy with low ejection fraction. Also has evidence of bilateral lower extremity cellulitis, possibly clinically MRSA. The patient did have borderline kidney function and high risk of nephrotoxicity. We will keep the patient on cefepime. Discontinue the vancomycin. Local care with Aquacel Silver dressing and an Seferino wrap to keep the swelling down. MMODL / IJN: [id number] /
[2018-04-18 05:40] LABS: Basophils % (A) 0 %; Eosinophils # (A) 0.1 k/uL (0-0.7); Eosinophils % (A) 0 %; HCT 40.9 % (39.0-53.0); HGB 12.2 gm/dL (13.0-17.5); Hypochromasia Marked; Lymphocytes % (A) 6 %; MCH 27.5 pg (25.0-35.0); MCHC 29.7 g/dL (31.0-37.0); MCV 92.4 fL (80.0-100.0); Mean Platelet Volume 7.5; Monocytes # (A) 0.9 k/uL (0-1.0); Monocytes % (A) 5 %; Neutrophils # (A) 15.4 k/uL (1.3-7.7); Neutrophils % (A) 88 %; Platelet Count 215 k/uL (150-450); RBC 4.43 m/uL (4.30-5.90); RDW 14.8 % (11.5-15.5); WBC 17.5 k/uL (3.8-10.6)
[2018-04-18 05:44] LABS: Prothrombin Time 35.5 sec (9.0-12.0)
[2018-04-18 05:54] LABS: Albumin 2.4 g/dL (3.5-5.0); Calcium 7.6 mg/dL (8.4-10.2); Magnesium 2.1 mg/dL (1.6-2.3); Potassium 4.5 mmol/L (3.5-5.1); Total Bilirubin 2.4 mg/dL (0.2-1.3); Total Protein 4.9 g/dL (6.3-8.2)
[2018-04-18 07:29] LABS: Glucose,Whole Blood 99 mg/dL (75-99)
[2018-04-18] MEDS: CEFEPIME 1 GM in SODIUM CHLORIDE 0.9% 50 ML IVPB SCH (08:14)
[2018-04-18] MEDS: METHIMAZOLE 5 MG TAB PO SCH ×3 (08:15→22:07)
[2018-04-18] MEDS: METOPROLOL SUCCINATE (ER) 25 MG TAB.ER.24H PO SCH ×2 (09:30→20:25)
--- NOTE | 2018-04-18 09:34 | P.PN ---
Subjective Progress Note Date: 04/18/18 Principal diagnosis: Recurrent episodes of syncope secondary to ventricular tachycardia and cardiomyopathy with LV dysfunction. This is a very pleasant 57-year-old gentleman who follows with Dr. Doe as his primary care physician. He has a history of severe nonischemic cardiomyopathy with an ejection fraction less than 20% status post AICD placement, atrial fibrillation, hypertension. 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 He had recently been admitted here earlier this same month for an episode of near syncope. He did have syncope and ventricular tachycardia while here and was seen in the intensive care unit for the same. He presented here again early this morning after waking up on the floor. He states he was sitting up at his computer and suddenly passed out. He has no idea how long he was down for. He is unsure whether he hit his head or had any other injuries. He denied any preceding chest pain, shortness breath, dizziness or lightheadedness. No pre-warning. He denies any loss of urine. Computed tomography scan of the brain revealed no acute intracranial abnormality. Chest x-ray shows some chronic changes in the right lower lobe improved compared to previous. Moderate cardiomegaly. No acute heart failure. Troponin 0.068, 0.084, 0.107. ProBNP 15,100 area TSH 6.22, T4 2 0.74. White count 9.2. Hemoglobin 12.7. INR 1.8. Creatinine 1.28. Lactic acid up from 3.0-11.6. He does have lower extremity edema with redness and weeping and possible cellulitis. He is hypotensive currently on norepinephrine at 15 mcg/ m. He's been initiated on vancomycin and cefepime. He is seen today in consultation in the intensive care unit. He is currently resting comfortably in bed. He is awake and alert in no acute distress. He denies any chest pain, palpitations lightheadedness or dizziness. He remains in atrial fibrillation with a controlled ventricular response. He is currently on a Cardizem drip at 10 mg per hour. Previously the patient had refused amiodarone based on potential side effects. He also does have a history of noncompliance prior to his previous admission. He denies any recent fever, chills or night sweats. No cough or congestion. He is maintaining good O2 saturations in the high 90s on 2 L/m per nasal cannula. He's been afebrile since admission. Patient was reevaluated today on 04/17/2018, remains in the intensive care unit , asymptomatic, however his labs were noted to be quite abnormal today including leukocytosis with WBC count of 15.3, INR of 4.0, potassium was 6.2 earlier and it is now 5.7, patient received Kayexalate. Renal functioning is worsening, BUN is 40 creatinine is 2.78. He was seen by nephrology for his acute kidney injury, felt to be most likely cardiorenal in nature. His BNP level was noted to be elevated. And his troponins 0.107 on presentation. Chest x-ray which I reviewed is suggestive of mild pulmonary edema, with left pleural effusion, and right basilar atelectasis. Hence I recommended a dose of Lasix to be given 1 today. Patient again has very poor LV function ejection fraction is no more than 20%. Patient is now on 4 L nasal cannula, his respiratory rate is between 16 and 24, O2 saturation is 97% on 4 L. The patient is seen today 04/18/2018 in follow-up in the intensive care unit. He is awake and alert in no acute distress. He is currently sitting up in a chair at the bedside. He denies any worsening shortness of breath, cough or congestion. No chest pain, palpitations lightheadedness or dizziness. He is maintaining O2 saturations in the upper 90s on 4 L/m nasal cannula. He is afebrile. Back in sinus rhythm. Borderline hypotension. Echocardiogram revealed severely impaired left ventricular systolic function with ejection fraction less than 20%. There is also moderately impaired right ventricular systolic function. There is a possible tumor/mass/thrombus seen in the right atrium. RIVERA is being considered. Blood and urine cultures reveal no growth to date. White count 17.5. Hemoglobin 12.2. INR 4.0. Creatinine 2.67. Lactic 1.7. AST 3559, ALT 4406. He is currently on cefepime. Remains on norepinephrine at 6 mcg/m. He is also on a Lasix drip at 10 mg per hour. Currently in a -1500 ML balance. Objective - Vital Signs Vital signs: Vital Signs Temp 98 F 04/18/18 08:00 Pulse 88 04/18/18 08:00 Resp 16 04/18/18 08:00 BP 93/78 04/18/18 08:00 Pulse Ox 98 04/18/18 08:00 Intake & Output 04/17/18 04/18/18 04/18/18 18:59 06:59 18:59 Intake Total 1482.375 550.625 127.5 Output Total 1365 1960 500 Balance 117.375 -1409.375 -372.5 Intake: IV 750 220 40 Sodium Chloride 0.9% 1, 220 40 000 ml @ 20 mls/hr IV . Q24H ANA Rx#:[id number] Sodium Chloride 0.9% 1, 750 000 ml @ 75 mls/hr IV . [id number] ANA Rx#:[id number] Intake, IV Titration 252.375 110.625 87.5 Amount Cefepime 1 gm In Sodium 100 Chloride 0.9% 50 ml @ 100 mls/hr IVPB Q12HR ANA Rx #:[id number] Furosemide 250 mg In 40 20 10 Sodium Chloride 0.9% 225 ml @ 10 MG/HR 10 mls/hr IVP .Q24H ANA Rx#: [id number] Norepinephrine 4 mg In 32.375 70.625 77.5 Sodium Chloride 0.9% 250 ml @ Titrate IV .Q0M ANA Rx#:[id number] Sodium Chloride 0.9% 1, 80 20 000 ml @ 20 mls/hr IV . Q24H ANA Rx#:[id number] Oral 480 220 Output: Urine 1365 1960 500 Other: Voiding Method Indwelling Catheter Indwelling Catheter Indwelling Catheter - Exam GENERAL EXAM: Alert, comfortable in no apparent distress. On 4 L nasal cannula HEAD: Normocephalic. EYES: Normal reaction of pupils, equal size. NOSE: Clear with pink turbinates. THROAT: No erythema or exudates. NECK: No masses, no JVD. CHEST: No chest wall deformity. LUNGS: Equal air entry with crackles in the posterior bases more so on the right. Diminished. CVS: S1 and S2 normal with a systolic murmur. Irregular rhythm. ABDOMEN: No hepatosplenomegaly, normal bowel sounds, no guarding or rigidity. SPINE: No scoliosis or deformity SKIN: Redness edema and weeping of the lower extremities CENTRAL NERVOUS SYSTEM: No focal deficits, tone is normal in all 4 extremities. EXTREMITIES: There is 2-3+ peripheral edema. Chronic changes of chronic venous stasis. Redness and weeping. - Labs CBC & Chem 7: 04/18/18 05:04 04/18/18 05:04 Labs: Abnormal Lab Results - Last 24 Hours (Table) 04/17/18 04/17/18 04/17/18 Range/Units 09:29 09:29 13:30 WBC (3.8-10.6) k/uL Hgb (13.0-17.5) gm/dL MCHC (31.0-37.0) g/dL Neutrophils # (1.3-7.7) k/uL PT (9.0-12.0) sec INR (<1.2) Sodium 134 L (137-145) mmol/L Potassium 5.7 H (3.5-5.1) mmol/L Carbon Dioxide 17 L (22-30) mmol/L BUN 40 H (9-20) mg/dL Creatinine 2.78 H (0.66-1.25) mg/dL POC Glucose (mg/dL) (75-99) mg/dL Plasma Lactic Acid Kunal 3.5 H* 2.6 H* (0.7-2.0) mmol/L Calcium 7.8 L (8.4-10.2) mg/dL Phosphorus (2.5-4.5) mg/dL Total Bilirubin (0.2-1.3) mg/dL AST (17-59) U/L ALT (21-72) U/L Total Protein (6.3-8.2) g/dL Albumin (3.5-5.0) g/dL 04/17/18 04/18/18 04/18/18 Range/Units 17:30 05:04 05:04 WBC 17.5 H (3.8-10.6) k/uL Hgb 12.2 L (13.0-17.5) gm/dL MCHC 29.7 L (31.0-37.0) g/dL Neutrophils # 15.4 H (1.3-7.7) k/uL PT (9.0-12.0) sec INR (<1.2) Sodium 134 L (137-145) mmol/L Potassium (3.5-5.1) mmol/L Carbon Dioxide (22-30) mmol/L BUN 52 H (9-20) mg/dL Creatinine 2.67 H (0.66-1.25) mg/dL POC Glucose (mg/dL) 111 H (75-99) mg/dL Plasma Lactic Acid Kunal (0.7-2.0) mmol/L Calcium 7.6 L (8.4-10.2) mg/dL Phosphorus 6.0 H (2.5-4.5) mg/dL Total Bilirubin 2.4 H (0.2-1.3) mg/dL AST 3559 H (17-59) U/L ALT 4406 H (21-72) U/L Total Protein 4.9 L (6.3-8.2) g/dL Albumin 2.4 L (3.5-5.0) g/dL 04/18/18 Range/Units 05:04 WBC (3.8-10.6) k/uL Hgb (13.0-17.5) gm/dL MCHC (31.0-37.0) g/dL Neutrophils # (1.3-7.7) k/uL PT 35.5 H (9.0-12.0) sec INR 4.0 H (<1.2) Sodium (137-145) mmol/L Potassium (3.5-5.1) mmol/L Carbon Dioxide (22-30) mmol/L BUN (9-20) mg/dL Creatinine (0.66-1.25) mg/dL POC Glucose (mg/dL) (75-99) mg/dL Plasma Lactic Acid Kunal (0.7-2.0) mmol/L Calcium (8.4-10.2) mg/dL Phosphorus (2.5-4.5) mg/dL Total Bilirubin (0.2-1.3) mg/dL AST (17-59) U/L ALT (21-72) U/L Total Protein (6.3-8.2) g/dL Albumin (3.5-5.0) g/dL Microbiology - Last 24 Hours (Table) 04/16/18 04:24 Blood Culture - Preliminary Blood No Growth after 48 hours 04/16/18 12:30 Urine Culture - Final Urine,Catheterized Assessment and Plan Assessment: Impression: #1 Syncopal episode of unclear etiology, secondary to ventricular tachycardia, no shock from device. The patient does have severe nonischemic cardiomyopathy with ejection fraction less than 20%. Status post AICD placement. #2 Hypotension requiring pressor support with elevated lactic acid and sepsis secondary to suspected lower extremity cellulitis. No clear evidence of pneumonia on the chest x-ray. No leukocytosis. #3 Mild acute renal failure, creatinine 1.25 with proteinuria. #4 Shock liver secondary to above. #5 Abnormal thyroid levels. #6 Atrial fibrillation with a rapid ventricular response. Anticoagulated with warfarin. Current INR 4.0. #7 History of hypertension. #8 History of chronic tobacco dependence. Plan: The patient was seen and evaluated by Dr. Cespedes. The patient is continued on antibiotics in the form of cefepime. The patient is continued on norepinephrine for pressor support. Currently on a Lasix drip. Remains in a negative balance. Warfarin on hold. The plan is for probable RIVERA to further investigate the right atrial thrombus/mass. We will continue to monitor him here in the intensive care unit. We'll continue to follow and make further recommendations based on his clinical status. Critical care time 36 minutes. I, the cosigning physician, performed a history & physical examination of the patient. Lungs sounds with faint crackles in the posterior bases. Maintaining good O2 saturations in the 90s on 4 L/m per nasal cannula. I discussed the assessment and plan of care with my nurse practitioner, Makeda Nunez. I attest to the above consultation as dictated by her.
--- NOTE | 2018-04-18 09:35 | P.PN ---
Subjective Patient is seen in follow-up for acute kidney injury. Renal function slightly better with creatinine at 2.67 today. Potassium level normal. Patient's currently maintained on Lasix drip at 10 mL an hour. He is currently sitting up in a chair. Denies any active chest pain or shortness of breath. Patient has systolic CHF with ejection fraction of less than 20% with mild to moderate tricuspid regurgitation. He is nonoliguric. Vital signs are stable. General: The patient appeared well nourished and normally developed. HEENT: Head exam is unremarkable. Neck is without jugular venous distension. LUNGS: Breath sounds decreased. HEART: Rate and Rhythm are regular. First and second heart sounds normal. No murmurs, rubs or gallops. ABDOMEN: Abdominal exam reveals normal bowel sounds. Non-tender and non- distended. No evidence of peritonitis. EXTREMITITES: Trace edema. Objective - Vital Signs Vital signs: Vital Signs Temp 98 F 04/18/18 08:00 Pulse 88 04/18/18 08:00 Resp 16 04/18/18 08:00 BP 93/78 04/18/18 08:00 Pulse Ox 98 04/18/18 08:00 Intake & Output 04/17/18 04/18/18 04/18/18 18:59 06:59 18:59 Intake Total 1482.375 550.625 127.5 Output Total 1365 1960 500 Balance 117.375 -1409.375 -372.5 Intake: IV 750 220 40 Sodium Chloride 0.9% 1, 220 40 000 ml @ 20 mls/hr IV . Q24H ANA Rx#:[id number] Sodium Chloride 0.9% 1, 750 000 ml @ 75 mls/hr IV . [id number] ANA Rx#:[id number] Intake, IV Titration 252.375 110.625 87.5 Amount Cefepime 1 gm In Sodium 100 Chloride 0.9% 50 ml @ 100 mls/hr IVPB Q12HR ANA Rx #:[id number] Furosemide 250 mg In 40 20 10 Sodium Chloride 0.9% 225 ml @ 10 MG/HR 10 mls/hr IVP .Q24H ANA Rx#: [id number] Norepinephrine 4 mg In 32.375 70.625 77.5 Sodium Chloride 0.9% 250 ml @ Titrate IV .Q0M ANA Rx#:[id number] Sodium Chloride 0.9% 1, 80 20 000 ml @ 20 mls/hr IV . Q24H [facility] Rx#:[id number] Oral 480 220 Output: Urine 1365 1960 500 Other: Voiding Method Indwelling Catheter Indwelling Catheter Indwelling Catheter - Labs CBC & Chem 7: 04/18/18 05:04 04/18/18 05:04 Labs: Abnormal Lab Results - Last 24 Hours (Table) 04/17/18 04/17/18 04/17/18 Range/Units 09:29 09:29 13:30 WBC (3.8-10.6) k/uL Hgb (13.0-17.5) gm/dL MCHC (31.0-37.0) g/dL Neutrophils # (1.3-7.7) k/uL PT (9.0-12.0) sec INR (<1.2) Sodium 134 L (137-145) mmol/L Potassium 5.7 H (3.5-5.1) mmol/L Carbon Dioxide 17 L (22-30) mmol/L BUN 40 H (9-20) mg/dL Creatinine 2.78 H (0.66-1.25) mg/dL POC Glucose (mg/dL) (75-99) mg/dL Plasma Lactic Acid Kunal 3.5 H* 2.6 H* (0.7-2.0) mmol/L Calcium 7.8 L (8.4-10.2) mg/dL Phosphorus (2.5-4.5) mg/dL Total Bilirubin (0.2-1.3) mg/dL AST (17-59) U/L ALT (21-72) U/L Total Protein (6.3-8.2) g/dL Albumin (3.5-5.0) g/dL 04/17/18 04/18/18 04/18/18 Range/Units 17:30 05:04 05:04 WBC 17.5 H (3.8-10.6) k/uL Hgb 12.2 L (13.0-17.5) gm/dL MCHC 29.7 L (31.0-37.0) g/dL Neutrophils # 15.4 H (1.3-7.7) k/uL PT (9.0-12.0) sec INR (<1.2) Sodium 134 L (137-145) mmol/L Potassium (3.5-5.1) mmol/L Carbon Dioxide (22-30) mmol/L BUN 52 H (9-20) mg/dL Creatinine 2.67 H (0.66-1.25) mg/dL POC Glucose (mg/dL) 111 H (75-99) mg/dL Plasma Lactic Acid Kunal (0.7-2.0) mmol/L Calcium 7.6 L (8.4-10.2) mg/dL Phosphorus 6.0 H (2.5-4.5) mg/dL Total Bilirubin 2.4 H (0.2-1.3) mg/dL AST 3559 H (17-59) U/L ALT 4406 H (21-72) U/L Total Protein 4.9 L (6.3-8.2) g/dL Albumin 2.4 L (3.5-5.0) g/dL 04/18/18 Range/Units 05:04 WBC (3.8-10.6) k/uL Hgb (13.0-17.5) gm/dL MCHC (31.0-37.0) g/dL Neutrophils # (1.3-7.7) k/uL PT 35.5 H (9.0-12.0) sec INR 4.0 H (<1.2) Sodium (137-145) mmol/L Potassium (3.5-5.1) mmol/L Carbon Dioxide (22-30) mmol/L BUN (9-20) mg/dL Creatinine (0.66-1.25) mg/dL POC Glucose (mg/dL) (75-99) mg/dL Plasma Lactic Acid Kunal (0.7-2.0) mmol/L Calcium (8.4-10.2) mg/dL Phosphorus (2.5-4.5) mg/dL Total Bilirubin (0.2-1.3) mg/dL AST (17-59) U/L ALT (21-72) U/L Total Protein (6.3-8.2) g/dL Albumin (3.5-5.0) g/dL Microbiology - Last 24 Hours (Table) 04/16/18 04:24 Blood Culture - Preliminary Blood No Growth after 48 hours 04/16/18 12:30 Urine Culture - Final Urine,Catheterized Assessment and Plan Plan: Assessment: 1. Nonoliguric acute kidney injury secondary to ATN secondary to cardiorenal syndrome. Creatinine slightly better at 2.67 today. Baseline creatinine near 1. 2. Volume overload. Improving. 3. Hypotension related to underlying cardiac status currently on 6 mics of Levophed. 4. Systolic CHF with ejection fraction of less than 20% with mild to moderate tricuspid regurgitation. 5. Hypervolemic hyponatremia. 6. Hyperkalemia secondary to acute kidney injury as well as from Aldactone and lisinopril. Improved. Plan: Maintain Lasix drip at 10 mL an hour for the next 24 hours. Add midodrine. Wean Levophed. Avoid nephrotoxins. Repeat electrolytes in the morning.
--- NOTE | 2018-04-18 10:25 | P.PN ---
Subjective Progress Note Date: 04/18/18 This is a 57-year-old gentleman with history of ischemic cardiac myopathy, status post AICD implantation who is admitted to the hospital with an episode of syncope. He had an episode of ventricular tachycardia at a rate of 210. Patient was programmed to monitor only and did not receive any therapy. Since admission patient is noted to have significant cellulitis of the legs and possible sepsis. Patient is hypotensive on Levophed. He is going in and out of flutter sinus rhythm and also fibrillation and having brief episodes of ventricular tachycardia which are nonsustained. Patient does seem to be frail and weak and mildly short of breath. His lab work showed severe elevation of the liver enzymes which are coming down. His troponin is mildly elevated. He is also has acute renal failure and is being followed by member of parliament. He is also being seen by ID specialist. Patient's echocardiogram apparently also showed a thrombus at the apex and also mass in the right atrium. Dr. Armas is planning to do RIVERA examination tomorrow. Meanwhile, we'll continue with current medical therapy. I will also discuss with [facility] to see why he was not programmed for any therapy. Objective - Vital Signs Vital signs: Vital Signs Temp 98 F 04/18/18 08:00 Pulse 78 04/18/18 10:00 Resp 14 04/18/18 10:00 BP 78/63 04/18/18 10:00 Pulse Ox 96 04/18/18 10:00 Intake & Output 04/17/18 04/18/18 04/18/18 18:59 06:59 18:59 Intake Total 1482.375 550.625 326.875 Output Total 1365 1960 1000 Balance 117.375 -1409.375 -673.125 Intake: IV 750 220 80 Sodium Chloride 0.9% 1, 220 80 000 ml @ 20 mls/hr IV . Q24H ANA Rx#:[id number] Sodium Chloride 0.9% 1, 750 000 ml @ 75 mls/hr IV . [id number] ANA Rx#:[id number] Intake, IV Titration 252.375 110.625 246.875 Amount Cefepime 1 gm In Sodium 100 Chloride 0.9% 50 ml @ 100 mls/hr IVPB DAILY ANA Rx #:[id number] Cefepime 1 gm In Sodium 100 Chloride 0.9% 50 ml @ 100 mls/hr IVPB Q12HR ANA Rx #:[id number] Furosemide 250 mg In 40 20 30 Sodium Chloride 0.9% 225 ml @ 10 MG/HR 10 mls/hr IVP .Q24H ANA Rx#: [id number] Norepinephrine 4 mg In 32.375 70.625 116.875 Sodium Chloride 0.9% 250 ml @ Titrate IV .Q0M ANA Rx#:[id number] Sodium Chloride 0.9% 1, 80 20 000 ml @ 20 mls/hr IV . Q24H ANA Rx#:[id number] Oral 480 220 Output: Urine 1365 1960 1000 Other: Voiding Method Indwelling Catheter Indwelling Catheter Indwelling Catheter - Exam GENERAL EXAM: Patient is alert and oriented and doesn't appear to be in any acute distress HEENT: Normocephalic. Normal reaction of pupils, equal size, normal range of extraocular motion. No erythema or exudates in the throat. NECK: No masses, no nuchal rigidity. CHEST: No chest wall deformity. LUNGS: Diminished breath sounds. HEART: S1 and S2 normal with no audible mumurs or gallops. Regular rhythm, femorals equal on both sides.. ABDOMEN: No hepatosplenomegaly, normal bowel sounds, no guarding or rigidity. SKIN: No rashes CENTRAL NERVOUS SYSTEM: No focal deficits. EXTREMITIES: Significant edema and signs of cellulitis involving both legs. - Labs CBC & Chem 7: 04/18/18 05:04 04/18/18 05:04 Labs: Abnormal Lab Results - Last 24 Hours (Table) 04/17/18 04/17/18 04/18/18 Range/Units 13:30 17:30 05:04 WBC 17.5 H (3.8-10.6) k/uL Hgb 12.2 L (13.0-17.5) gm/dL MCHC 29.7 L (31.0-37.0) g/dL Neutrophils # 15.4 H (1.3-7.7) k/uL PT (9.0-12.0) sec INR (<1.2) Sodium (137-145) mmol/L BUN (9-20) mg/dL Creatinine (0.66-1.25) mg/dL POC Glucose (mg/dL) 111 H (75-99) mg/dL Plasma Lactic Acid Kunal 2.6 H* (0.7-2.0) mmol/L Calcium (8.4-10.2) mg/dL Phosphorus (2.5-4.5) mg/dL Total Bilirubin (0.2-1.3) mg/dL AST (17-59) U/L ALT (21-72) U/L Total Protein (6.3-8.2) g/dL Albumin (3.5-5.0) g/dL 04/18/18 04/18/18 Range/Units 05:04 05:04 WBC (3.8-10.6) k/uL Hgb (13.0-17.5) gm/dL MCHC (31.0-37.0) g/dL Neutrophils # (1.3-7.7) k/uL PT 35.5 H (9.0-12.0) sec INR 4.0 H (<1.2) Sodium 134 L (137-145) mmol/L BUN 52 H (9-20) mg/dL Creatinine 2.67 H (0.66-1.25) mg/dL POC Glucose (mg/dL) (75-99) mg/dL Plasma Lactic Acid Kunal (0.7-2.0) mmol/L Calcium 7.6 L (8.4-10.2) mg/dL Phosphorus 6.0 H (2.5-4.5) mg/dL Total Bilirubin 2.4 H (0.2-1.3) mg/dL AST 3559 H (17-59) U/L ALT 4406 H (21-72) U/L Total Protein 4.9 L (6.3-8.2) g/dL Albumin 2.4 L (3.5-5.0) g/dL Microbiology - Last 24 Hours (Table) 04/16/18 04:24 Blood Culture - Preliminary Blood No Growth after 48 hours 04/16/18 12:30 Urine Culture - Final Urine,Catheterized Assessment and Plan (1) Ventricular tachycardia Current Visit: Yes Status: Acute Code(s): I47.2 - VENTRICULAR TACHYCARDIA SNOMED Code(s): 13986092 (2) Ischemic cardiomyopathy Current Visit: Yes Status: Acute Code(s): I25.5 - ISCHEMIC CARDIOMYOPATHY SNOMED Code(s): 192139345 (3) Sepsis Current Visit: Yes Status: Acute Code(s): A41.9 - SEPSIS, UNSPECIFIED ORGANISM SNOMED Code(s): 41611523 (4) Atrial fibrillation Current Visit: Yes Status: Acute Code(s): I48.91 - UNSPECIFIED ATRIAL FIBRILLATION SNOMED Code(s): 52760904 (5) Syncope Current Visit: Yes Status: Acute Code(s): R55 - SYNCOPE AND COLLAPSE SNOMED Code(s): 172081849 Plan: Continue supportive care, antibiotics and also vasopressors in the form of Levophed. Patient may have RIVERA examination tomorrow. We'll follow his liver enzymes and kidney function studies. Prognosis is guarded
[2018-04-18 10:58] LABS: Creatine Kinase MB 3.7 ng/mL (0.0-2.4)
[2018-04-18 11:12] LABS: Troponin I 0.046 ng/mL (0.000-0.034)
[2018-04-18] MEDS: NOREPINEPHRINE 4 MG in SODIUM CHLORIDE 0.9% 250 ML IV SCH ×2 (11:20→17:23)
[2018-04-18 11:37] LABS: Glucose,Whole Blood 93 mg/dL (75-99)
[2018-04-18] MEDS: MIDODRINE 5 MG TAB PO SCH ×2 (12:21→17:19)
[2018-04-18] MEDS: FUROSEMIDE 250 MG in SODIUM CHLORIDE 0.9% 225 ML IVP SCH (12:22)
[2018-04-18 12:34] LABS: Hepatitis A Antibody IgM Non-Reactive (Non-Reactive); Hepatitis B Core IgM Non-Reactive (Non-Reactive)
[2018-04-18] MEDS: SODIUM CHLORIDE 0.9% 1,000 ML IV SCH (15:21)
--- NOTE | 2018-04-18 16:58 | PN ---
PROGRESS NOTE DATE OF SERVICE: 04/18/2018 This 57-year-old gentleman admitted with acute severe sepsis and acute hypotension is being closely monitored. The patient is on broad-spectrum IV antibiotics. The patient also has significant right lower limb cellulitis. The patient also had cardiac arrhythmias. Patient also had possible nonischemic cardiomyopathy as well as possible left ventricular apical thrombosis and right atrial thrombosis/tumor. The patient is closely monitored in the ICU. Past medical history reviewed. REVIEW OF SYSTEMS: CARDIOVASCULAR SYSTEM: No angina, palpitations. RESPIRATORY SYSTEM: As mentioned earlier. GI: As mentioned earlier. : No dysuria or retention. NERVOUS SYSTEM: No numbness, weakness. CURRENT MEDICATIONS: Reviewed. They include: 1. Cefepime 1 gram IV daily. 2. Lasix 250 mg IV daily. 3. Tapazole 5 mg daily. 4. Toprol XL 50 mg b.i.d. 5. ProAmatine 5 mg t.i.d. 6. Narcan 0.2 p.r.n. 7. Levophed drip. PHYSICAL EXAMINATION: Patient is alert, oriented x3. Pulse is 89, blood pressure 90/60, respirations 16, temperature normal, pulse ox 97% on 4 L. HEENT: Conjunctivae normal. NECK: No jugular venous distention. CARDIOVASCULAR SYSTEM: S1, S2 muffled. RESPIRATORY SYSTEM: Breath sounds diminished at the bases. A few scattered rhonchi and crackles. ABDOMEN: Soft, obese, non-tender. LEGS: Significant cellulitis of the right leg. NERVOUS SYSTEM: Diffusely weak. LABS: WBC 17.5. INR is 4. Sodium 134, creatinine 2.67. AST is 3559, ALT is 4406. Troponin 0.046. Acute hepatitis panel is negative. ASSESSMENT: 1. Acute severe sepsis with possible right lower lobe pneumonia, possibly gram- negative, possibly with septic shock. 2. Possible right lower leg cellulitis with possible sepsis. 3. Syncope, possibly secondary to cardiac arrhythmia and ventricular tachycardia. 4. Left ventricular apical thrombus. 5. 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 6. History of ventricular tachycardia and atrial fibrillation. 7. 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 8. Nonischemic cardiomyopathy, ejection fraction 24%, with chronic systolic dysfunction. 9. History of automated implantable cardioverter defibrillator. 10.Troponin 0.106, indeterminate. 11.Elevated plasma lactic acid. 12.Increased creatinine, possibly renal failure, multifactorial cardiorenal syndrome. 13.Hyponatremia. 14.History of hypertension. 15.Remote history of nicotine dependence. 16.Elevated liver function tests, AST, ALT, possibly hepatitis, multifactorial, possibly related to sepsis and hypotension. 17.Coumadin coagulopathy. RECOMMENDATIONS AND DISCUSSION: I recommend to continue current medication, continue with the monitoring, symptomatic treatment. Otherwise, hold the Coumadin for now. Cardiology is planning a RIVERA. Continue the rest of the medications. Continue with broad-spectrum antibiotics. Guarded prognosis because of multiple complex medical issues. Further recommendations to follow. Continue with Tapazole. Closely follow with multiple consultants. The cultures are negative so far. Further recommendations to follow. MMODL / IJN: [id number] /
[2018-04-18 17:13] LABS: Glucose,Whole Blood 119 mg/dL (75-99)
[2018-04-18 18:43] LABS: Magnesium 1.9 mg/dL (1.6-2.3); Potassium 3.7 mmol/L (3.5-5.1)
[2018-04-18] MEDS: MAGNESIUM SULFATE-D5W PMX 1 GM in DEXTROSE/WATER 1 100ML.BAG IVPB SCH ×2 (18:58→20:24)
[2018-04-18] MEDS: POTASSIUM CHLORIDE ER 20 MEQ TAB.ER PO SCH ×3 (19:06→22:07)
[2018-04-18 20:31] LABS: Glucose,Whole Blood 139 mg/dL (75-99)
[2018-04-19] MEDS: NOREPINEPHRINE 4 MG in SODIUM CHLORIDE 0.9% 250 ML IV SCH ×2 (00:28→05:51)
--- NOTE | 2018-04-19 01:43 | PN ---
PROGRESS NOTE DATE OF SERVICE: 04/18/2018 REASON FOR FOLLOW UP: Bilateral lower extremity cellulitis. INTERVAL HISTORY: The patient is currently afebrile. He seems to be breathing more comfortably. Denies significant chest pain. Occasional cough. No abdominal pain. No pain to the leg area. EXAMINATION: Blood pressure 132/70 with a pulse of 90, temperature 98.4. He is 96% on 3 L nasal cannula. General description is a middle-aged male lying in bed in no distress. Respiratory system unlabored breathing with decreased breath sounds in the bases. No wheeze. Heart S1, S2. Regular rate and rhythm. ABDOMEN: Soft, no tenderness. Her legs are currently dressed up. No obvious drainage on the dressing. LABS: Hemoglobin is 12.8 with white count 17.5, BUN 52, creatinine 2.67. DIAGNOSTIC IMPRESSION AND PLAN: Patient with bilateral lower extremity cellulitis, right greater than the left with diffuse swelling and redness, possible gram-positive and gram-negative infection. Patient is currently covered with cefepime that should continue along with Aquacel silver dressing to the open wound and monitor his clinical course closely. Continue supportive care. MMODL / IJN: [id number] /
[2018-04-19 05:05] LABS: Prothrombin Time 26.5 sec (9.0-12.0)
[2018-04-19 05:06] LABS: Basophils % (A) 0 %; Eosinophils # (A) 0.1 k/uL (0-0.7); Eosinophils % (A) 1 %; HCT 42.3 % (39.0-53.0); HGB 13.4 gm/dL (13.0-17.5); Hypochromasia Moderate; Lymphocytes # (A) 1.2 k/uL (1.0-4.8); Lymphocytes % (A) 9 %; MCH 28.5 pg (25.0-35.0); MCHC 31.7 g/dL (31.0-37.0); Mean Platelet Volume 7.6; Monocytes # (A) 1.1 k/uL (0-1.0); Monocytes % (A) 9 %; Neutrophils # (A) 10.2 k/uL (1.3-7.7); Neutrophils % (A) 79 %; Platelet Count 192 k/uL (150-450); RDW 14.8 % (11.5-15.5); WBC 12.8 k/uL (3.8-10.6)
[2018-04-19 05:10] LABS: Albumin 2.5 g/dL (3.5-5.0); Calcium 7.7 mg/dL (8.4-10.2); Magnesium 2.1 mg/dL (1.6-2.3); Phosphorus 3.9 mg/dL (2.5-4.5); Total Bilirubin 2.8 mg/dL (0.2-1.3); Total Protein 5.1 g/dL (6.3-8.2)
[2018-04-19 07:03] LABS: Glucose,Whole Blood 102 mg/dL (75-99)
[2018-04-19 07:46] LABS: Glucose,Whole Blood 117 mg/dL (75-99)
[2018-04-19] MEDS: METOPROLOL SUCCINATE (ER) 25 MG TAB.ER.24H PO SCH ×2 (08:06→21:35)
[2018-04-19] MEDS: MIDODRINE 5 MG TAB PO SCH ×3 (08:06→17:27)
[2018-04-19] MEDS: METHIMAZOLE 5 MG TAB PO SCH ×3 (08:07→22:08)
[2018-04-19] MEDS: CEFEPIME 1 GM in SODIUM CHLORIDE 0.9% 50 ML IVPB SCH (08:30)
--- NOTE | 2018-04-19 08:45 | P.PN ---
Subjective Progress Note Date: 04/19/18 This is a 57-year-old gentleman with history of ischemic cardiac myopathy, status post AICD implantation who is admitted to the hospital with an episode of syncope. He had an episode of ventricular tachycardia at a rate of 210. Patient was programmed to monitor only and did not receive any therapy. Since admission patient is noted to have significant cellulitis of the legs and possible sepsis. Patient is hypotensive on Levophed. He is going in and out of flutter sinus rhythm and also fibrillation and having brief episodes of ventricular tachycardia which are nonsustained. Patient does seem to be frail and weak and mildly short of breath. His lab work showed severe elevation of the liver enzymes which are coming down. His troponin is mildly elevated. He is also has acute renal failure and is being followed by [facility] [employer]. He is also being seen by ID specialist. Patient's echocardiogram apparently also showed a thrombus at the apex and also mass in the right atrium. Dr. Armas is planning to do RIVERA examination tomorrow. Meanwhile, we'll continue with current medical therapy. I will also discuss with [facility] to see why he was not programmed for any therapy. 04/19/2018: This patient's seems to be much more stable. Denies any chest pain. Denies any shortness of breath. His urine output is good. His creatinine is improving. His liver functions are improving. He is going to have a RIVERA examination today. He still on Levophed and IV Lasix drip. Hasn't had any sustained arrhythmias. Having episodes of atrial fibrillation, short runs of nonsustained V. tach. Lungs appeared to be clear. We'll continue his current medical therapy. I will speak with a [facility] and see if he can program therapies for V. tach. That may be reasonable why that was are not programmed before. We'll may talk to his numerologist also. We'll may discontinue IV Lasix drip and start him on Lasix IV push. Objective - Vital Signs Vital signs: Vital Signs Temp 98.2 F 04/19/18 04:00 Pulse 99 04/19/18 07:30 Resp 12 04/19/18 07:30 BP 99/69 04/19/18 07:30 Pulse Ox 96 04/19/18 07:30 Intake & Output 04/18/18 04/19/18 04/19/18 18:59 06:59 18:59 Intake Total 6289.080 5657.708 20 Output Total 3710 3410 320 Balance -1728.667 -2169.292 -300 Weight 106.3 kg Intake: IV 220 240 20 Sodium Chloride 0.9% 1, 220 240 20 000 ml @ 20 mls/hr IV . Q24H ANA Rx#:[id number] Intake, IV Titration 761.333 800.708 Amount Cefepime 1 gm In Sodium 100 Chloride 0.9% 50 ml @ 100 mls/hr IVPB DAILY ANA Rx #:[id number] Furosemide 250 mg In 266.333 148.833 Sodium Chloride 0.9% 225 ml @ 10 MG/HR 10 mls/hr IVP .Q24H ANA Rx#: [id number] Magnesium Sulfate-D5w Pmx 200 1 gm In Dextrose/Water 1 100ml.bag @ 100 mls/hr IVPB Q1H ANA Rx#: [id number] Norepinephrine 4 mg In 395.000 451.875 Sodium Chloride 0.9% 250 ml @ Titrate IV .Q0M ANA Rx#:[id number] Oral 1000 200 Output: Urine 3710 3410 320 Other: Voiding Method Indwelling Catheter Indwelling Catheter - Exam GENERAL EXAM: Patient is alert and oriented and doesn't appear to be in any acute distress HEENT: Normocephalic. Normal reaction of pupils, equal size, normal range of extraocular motion. No erythema or exudates in the throat. NECK: No masses, no nuchal rigidity. CHEST: No chest wall deformity. LUNGS: Diminished breath sounds. HEART: S1 and S2 normal with no audible mumurs or gallops. Regular rhythm, femorals equal on both sides.. ABDOMEN: No hepatosplenomegaly, normal bowel sounds, no guarding or rigidity. SKIN: No rashes CENTRAL NERVOUS SYSTEM: No focal deficits. EXTREMITIES: Significant edema and signs of cellulitis involving both legs. - Labs CBC & Chem 7: 04/19/18 04:15 04/19/18 04:15 Labs: Abnormal Lab Results - Last 24 Hours (Table) 04/18/18 04/18/18 04/18/18 Range/Units 05:04 17:11 20:30 WBC (3.8-10.6) k/uL Neutrophils # (1.3-7.7) k/uL Monocytes # (0-1.0) k/uL PT (9.0-12.0) sec INR (<1.2) BUN (9-20) mg/dL Creatinine (0.66-1.25) mg/dL POC Glucose (mg/dL) 119 H 139 H (75-99) mg/dL Calcium (8.4-10.2) mg/dL Total Bilirubin (0.2-1.3) mg/dL AST (17-59) U/L ALT (21-72) U/L CK-MB (CK-2) 3.7 H (0.0-2.4) ng/mL Troponin I 0.046 H* (0.000-0.034) ng/mL Total Protein (6.3-8.2) g/dL Albumin (3.5-5.0) g/dL 04/19/18 04/19/18 04/19/18 Range/Units 04:15 04:15 04:15 WBC 12.8 H (3.8-10.6) k/uL Neutrophils # 10.2 H (1.3-7.7) k/uL Monocytes # 1.1 H (0-1.0) k/uL PT 26.5 H (9.0-12.0) sec INR 3.0 H (<1.2) BUN 51 H (9-20) mg/dL Creatinine 1.98 H (0.66-1.25) mg/dL POC Glucose (mg/dL) (75-99) mg/dL Calcium 7.7 L (8.4-10.2) mg/dL Total Bilirubin 2.8 H (0.2-1.3) mg/dL AST 1219 H (17-59) U/L ALT 3206 H (21-72) U/L CK-MB (CK-2) (0.0-2.4) ng/mL Troponin I (0.000-0.034) ng/mL Total Protein 5.1 L (6.3-8.2) g/dL Albumin 2.5 L (3.5-5.0) g/dL 04/19/18 04/19/18 Range/Units 07:02 07:44 WBC (3.8-10.6) k/uL Neutrophils # (1.3-7.7) k/uL Monocytes # (0-1.0) k/uL PT (9.0-12.0) sec INR (<1.2) BUN (9-20) mg/dL Creatinine (0.66-1.25) mg/dL POC Glucose (mg/dL) 102 H 117 H (75-99) mg/dL Calcium (8.4-10.2) mg/dL Total Bilirubin (0.2-1.3) mg/dL AST (17-59) U/L ALT (21-72) U/L CK-MB (CK-2) (0.0-2.4) ng/mL Troponin I (0.000-0.034) ng/mL Total Protein (6.3-8.2) g/dL Albumin (3.5-5.0) g/dL Microbiology - Last 24 Hours (Table) 04/16/18 04:24 Blood Culture - Preliminary Blood No Growth after 72 hours Assessment and Plan (1) Ventricular tachycardia Current Visit: Yes Status: Acute Code(s): I47.2 - VENTRICULAR TACHYCARDIA SNOMED Code(s): 85236556 (2) Ischemic cardiomyopathy Current Visit: Yes Status: Acute Code(s): I25.5 - ISCHEMIC CARDIOMYOPATHY SNOMED Code(s): 116619654 (3) Sepsis Current Visit: Yes Status: Acute Code(s): A41.9 - SEPSIS, UNSPECIFIED ORGANISM SNOMED Code(s): 05411923 (4) Atrial fibrillation Current Visit: Yes Status: Acute Code(s): I48.91 - UNSPECIFIED ATRIAL FIBRILLATION SNOMED Code(s): 29510524 (5) Syncope Current Visit: Yes Status: Acute Code(s): R55 - SYNCOPE AND COLLAPSE SNOMED Code(s): 586070258 Plan: Patient is more stable today. He is going to have a RIVERA examination. We will may speak with [facility] regarding programmed therapies for ventricular tachycardia episodes.
--- NOTE | 2018-04-19 10:07 | P.PN ---
Subjective Progress Note Date: 04/19/18 Principal diagnosis: Current episodes of syncope secondary to ventricular tachycardia and cardiomyopathy with LV dysfunction This is a very pleasant 57-year-old gentleman who follows with Dr. Doe as his primary care physician. He has a history of severe nonischemic cardiomyopathy with an ejection fraction less than 20% status post AICD placement, atrial fibrillation, hypertension. He follows with on call pharmacy technician Dr. Monroe at [facility]. He had recently been admitted here earlier this same month for an episode of near syncope. He did have syncope and ventricular tachycardia while here and was seen in the intensive care unit for the same. He presented here again early this morning after waking up on the floor. He states he was sitting up at his computer and suddenly passed out. He has no idea how long he was down for. He is unsure whether he hit his head or had any other injuries. He denied any preceding chest pain, shortness breath, dizziness or lightheadedness. No pre-warning. He denies any loss of urine. Computed tomography scan of the brain revealed no acute intracranial abnormality. Chest x-ray shows some chronic changes in the right lower lobe improved compared to previous. Moderate cardiomegaly. No acute heart failure. Troponin 0.068, 0.084, 0.107. ProBNP 15,100 area TSH 6.22, T4 2 0.74. White count 9.2. Hemoglobin 12.7. INR 1.8. Creatinine 1.28. Lactic acid up from 3.0-11.6. He does have lower extremity edema with redness and weeping and possible cellulitis. He is hypotensive currently on norepinephrine at 15 mcg/ m. He's been initiated on vancomycin and cefepime. He is seen today in consultation in the intensive care unit. He is currently resting comfortably in bed. He is awake and alert in no acute distress. He denies any chest pain, palpitations lightheadedness or dizziness. He remains in atrial fibrillation with a controlled ventricular response. He is currently on a Cardizem drip at 10 mg per hour. Previously the patient had refused amiodarone based on potential side effects. He also does have a history of noncompliance prior to his previous admission. He denies any recent fever, chills or night sweats. No cough or congestion. He is maintaining good O2 saturations in the high 90s on 2 L/m per nasal cannula. He's been afebrile since admission. Patient was reevaluated today on 04/17/2018, remains in the intensive care unit , asymptomatic, however his labs were noted to be quite abnormal today including leukocytosis with WBC count of 15.3, INR of 4.0, potassium was 6.2 earlier and it is now 5.7, patient received Kayexalate. Renal functioning is worsening, BUN is 40 creatinine is 2.78. He was seen by nephrology for his acute kidney injury, felt to be most likely cardiorenal in nature. His BNP level was noted to be elevated. And his troponins 0.107 on presentation. Chest x-ray which I reviewed is suggestive of mild pulmonary edema, with left pleural effusion, and right basilar atelectasis. Hence I recommended a dose of Lasix to be given 1 today. Patient again has very poor LV function ejection fraction is no more than 20%. Patient is now on 4 L nasal cannula, his respiratory rate is between 16 and 24, O2 saturation is 97% on 4 L. The patient is seen today 04/18/2018 in follow-up in the intensive care unit. He is awake and alert in no acute distress. He is currently sitting up in a chair at the bedside. He denies any worsening shortness of breath, cough or congestion. No chest pain, palpitations lightheadedness or dizziness. He is maintaining O2 saturations in the upper 90s on 4 L/m nasal cannula. He is afebrile. Back in sinus rhythm. Borderline hypotension. Echocardiogram revealed severely impaired left ventricular systolic function with ejection fraction less than 20%. There is also moderately impaired right ventricular systolic function. There is a possible tumor/mass/thrombus seen in the right atrium. RIVERA is being considered. Blood and urine cultures reveal no growth to date. White count 17.5. Hemoglobin 12.2. INR 4.0. Creatinine 2.67. Lactic 1.7. AST 3559, ALT 4406. He is currently on cefepime. Remains on norepinephrine at 6 mcg/m. He is also on a Lasix drip at 10 mg per hour. Currently in a -1500 ML balance. On 04/19/2018 patient seen in follow-up in the intensive care unit, he is awake and alert, sitting up in the recliner, in no acute distress. Denies any chest pain or dyspnea. Remains in Afib on monitor, a controlled rate. He is on 3 L per nasal cannula, pulse ox is 96%, maintenance IV is 0.9 at 10, Lasix at 10 mg per hour, liters if it is at 10 mics per minute. He is nonoliguric, he is producing large amount of urine, averaging 252 320 ML per hour. He is in -3800 mL fluid balance over the last 24 hours. Negative 7.2 kg in the last 48 hours. Lung sounds are positive for crackles over posterior bases. Is working on incentive spirometry. Bilateral lower extremities are covered with Seferino wrap's, and the swelling is decreasing. Afebrile. Urine and blood cultures remain negative. Objective - Vital Signs Vital signs: Vital Signs Temp 98.2 F 04/19/18 04:00 Pulse 99 04/19/18 07:30 Resp 12 04/19/18 07:30 BP 99/69 04/19/18 07:30 Pulse Ox 96 04/19/18 07:30 Intake & Output 04/18/18 04/19/18 04/19/18 18:59 06:59 18:59 Intake Total 9345.811 4226.708 20 Output Total 3710 3410 320 Balance -1728.667 -2169.292 -300 Weight 106.3 kg Intake: IV 220 240 20 Sodium Chloride 0.9% 1, 220 240 20 000 ml @ 20 mls/hr IV . Q24H [facility] Rx#:[id number] Intake, IV Titration 761.333 800.708 Amount Cefepime 1 gm In Sodium 100 Chloride 0.9% 50 ml @ 100 mls/hr IVPB DAILY [facility] Rx #:[id number] Furosemide 250 mg In 266.333 148.833 Sodium Chloride 0.9% 225 ml @ 10 MG/HR 10 mls/hr IVP .Q24H [facility] Rx#: [id number] Magnesium Sulfate-D5w Pmx 200 1 gm In Dextrose/Water 1 100ml.bag @ 100 mls/hr IVPB Q1H [facility] Rx#: [id number] Norepinephrine 4 mg In 395.000 451.875 Sodium Chloride 0.9% 250 ml @ Titrate IV .Q0M [facility] Rx#:[id number] Oral 1000 200 Output: Urine 3710 3410 320 Other: Voiding Method Indwelling Catheter Indwelling Catheter - Exam GENERAL EXAM: Alert, comfortable in no apparent distress. On 3 L nasal cannula HEAD: Normocephalic. EYES: Normal reaction of pupils, equal size. NOSE: Clear with pink turbinates. THROAT: No erythema or exudates. NECK: No masses, no JVD. CHEST: No chest wall deformity. LUNGS: Equal air entry with crackles in the posterior bases more so on the right. Diminished. CVS: S1 and S2 normal with a systolic murmur. Irregular rhythm. ABDOMEN: No hepatosplenomegaly, normal bowel sounds, no guarding or rigidity. SPINE: No scoliosis or deformity SKIN: Redness edema and weeping of the lower extremities CENTRAL NERVOUS SYSTEM: No focal deficits, tone is normal in all 4 extremities. EXTREMITIES: There is 1+ peripheral edema, bilateral lower extremities are covered with Seferino wrap's - Labs CBC & Chem 7: 04/19/18 04:15 04/19/18 04:15 Labs: Abnormal Lab Results - Last 24 Hours (Table) 04/18/18 04/18/18 04/18/18 Range/Units 05:04 17:11 20:30 WBC (3.8-10.6) k/uL Neutrophils # (1.3-7.7) k/uL Monocytes # (0-1.0) k/uL PT (9.0-12.0) sec INR (<1.2) BUN (9-20) mg/dL Creatinine (0.66-1.25) mg/dL POC Glucose (mg/dL) 119 H 139 H (75-99) mg/dL Calcium (8.4-10.2) mg/dL Total Bilirubin (0.2-1.3) mg/dL AST (17-59) U/L ALT (21-72) U/L CK-MB (CK-2) 3.7 H (0.0-2.4) ng/mL Troponin I 0.046 H* (0.000-0.034) ng/mL Total Protein (6.3-8.2) g/dL Albumin (3.5-5.0) g/dL 04/19/18 04/19/18 04/19/18 Range/Units 04:15 04:15 04:15 WBC 12.8 H (3.8-10.6) k/uL Neutrophils # 10.2 H (1.3-7.7) k/uL Monocytes # 1.1 H (0-1.0) k/uL PT 26.5 H (9.0-12.0) sec INR 3.0 H (<1.2) BUN 51 H (9-20) mg/dL Creatinine 1.98 H (0.66-1.25) mg/dL POC Glucose (mg/dL) (75-99) mg/dL Calcium 7.7 L (8.4-10.2) mg/dL Total Bilirubin 2.8 H (0.2-1.3) mg/dL AST 1219 H (17-59) U/L ALT 3206 H (21-72) U/L CK-MB (CK-2) (0.0-2.4) ng/mL Troponin I (0.000-0.034) ng/mL Total Protein 5.1 L (6.3-8.2) g/dL Albumin 2.5 L (3.5-5.0) g/dL 04/19/18 04/19/18 Range/Units 07:02 07:44 WBC (3.8-10.6) k/uL Neutrophils # (1.3-7.7) k/uL Monocytes # (0-1.0) k/uL PT (9.0-12.0) sec INR (<1.2) BUN (9-20) mg/dL Creatinine (0.66-1.25) mg/dL POC Glucose (mg/dL) 102 H 117 H (75-99) mg/dL Calcium (8.4-10.2) mg/dL Total Bilirubin (0.2-1.3) mg/dL AST (17-59) U/L ALT (21-72) U/L CK-MB (CK-2) (0.0-2.4) ng/mL Troponin I (0.000-0.034) ng/mL Total Protein (6.3-8.2) g/dL Albumin (3.5-5.0) g/dL Microbiology - Last 24 Hours (Table) 04/16/18 04:24 Blood Culture - Preliminary Blood No Growth after 72 hours Assessment and Plan Plan: Assessment: #1 Syncopal episode of unclear etiology, secondary to ventricular tachycardia, no shock from device. The patient does have severe nonischemic cardiomyopathy with ejection fraction less than 20%. Status post AICD placement. #2 Hypotension requiring pressor support with elevated lactic acid and sepsis secondary to suspected lower extremity cellulitis. No clear evidence of pneumonia on the chest x-ray. No leukocytosis. #3 Mild acute renal failure, creatinine 1.25 with proteinuria. #4 Shock liver secondary to above. #5 Abnormal thyroid levels. #6 Atrial fibrillation with a rapid ventricular response. Anticoagulated with warfarin. Current INR 4.0. #7 History of hypertension. #8 History of chronic tobacco dependence. Plan: We'll consult with nephrology whether the Lasix drip came in discontinued, renal profile is improving, patient is diuresing. Patient still remains on 10 mcg/min of Levophed, will wean that down. Denies any dyspnea or chest pain. No further recurrence of V. tach. No new chest x-ray today. Cortisol level was within normal limits. We'll continue to follow I performed a history & physical examination of the patient and discussed their management with my nurse practitioner, Svitlana Burgess. I reviewed the nurse practitioner's note and agree with the documented findings and plan of care. Lung sounds are crackles posterior bases. The findings and the impression was discussed with the patient. I attest to the documentation by the nurse practitioner. Time with Patient: Greater than 30
[2018-04-19] MEDS ORDERED: MIDAZOLAM 2 MG/2 ML VIAL ONE (10:12)
[2018-04-19] MEDS ORDERED: fentaNYL (PF) 50 MCG/ML 2 ML AMP ONE (10:13)
[2018-04-19] MEDS: AMIODARONE 200 MG TAB PO SCH ×2 (11:01→20:40)
[2018-04-19] MEDS ORDERED: BENZOCAINE SPRAY 1 CAN MUCOUS MEM ONE (11:25)
[2018-04-19] MEDS ORDERED: fentaNYL (PF) 50 MCG/ML 2 ML AMP IV ONE (11:25)
[2018-04-19] MEDS ORDERED: MIDAZOLAM 2 MG/2 ML VIAL IV ONE (11:25)
[2018-04-19 12:01] LABS: Glucose,Whole Blood 113 mg/dL (75-99)
--- NOTE | 2018-04-19 12:09 | P.PN ---
Subjective Patient is seen in follow-up for acute kidney injury. Renal function improved with creatinine of 1.98 today. Potassium level normal. Patient's currently maintained on Lasix drip at 10 mL an hour. He is currently undergoing a RIVERA. Patient has systolic CHF with ejection fraction of less than 20% with mild to moderate tricuspid regurgitation. He is nonoliguric. Vital signs are stable. General: The patient appeared well nourished and normally developed. HEENT: Head exam is unremarkable. Neck is without jugular venous distension. LUNGS: Breath sounds decreased. HEART: Rate and Rhythm are regular. First and second heart sounds normal. No murmurs, rubs or gallops. ABDOMEN: Abdominal exam reveals normal bowel sounds. Non-tender and non- distended. No evidence of peritonitis. EXTREMITITES: Trace edema. Objective - Vital Signs Vital signs: Vital Signs Temp 98.2 F 04/19/18 04:00 Pulse 108 H 04/19/18 11:35 Resp 19 04/19/18 11:35 BP 96/70 04/19/18 11:35 Pulse Ox 98 04/19/18 11:35 Intake & Output 04/18/18 04/19/18 04/19/18 18:59 06:59 18:59 Intake Total 3862.940 0185.708 130 Output Total 3710 3410 2011 Balance -1728.135 -7584.292 -1882 Weight 106.3 kg Intake: IV 220 240 130 Cefepime 1 gm In Sodium 50 Chloride 0.9% 50 ml @ 100 mls/hr IVPB ONCE STA Rx# :[id number] Sodium Chloride 0.9% 1, 220 240 80 000 ml @ 20 mls/hr IV . Q24H [facility] Rx#:[id number] Intake, IV Titration 761.333 800.708 Amount Cefepime 1 gm In Sodium 100 Chloride 0.9% 50 ml @ 100 mls/hr IVPB DAILY ANA Rx #:[id number] Furosemide 250 mg In 266.333 148.833 Sodium Chloride 0.9% 225 ml @ 10 MG/HR 10 mls/hr IVP .Q24H ANA Rx#: [id number] Magnesium Sulfate-D5w Pmx 200 1 gm In Dextrose/Water 1 100ml.bag @ 100 mls/hr IVPB Q1H A[facility] Rx#: [id number] Norepinephrine 4 mg In 395.000 451.875 Sodium Chloride 0.9% 250 ml @ Titrate IV .Q0M [facility] Rx#:[id number] Oral 1000 200 Output: Urine 3710 3410 2012 Other: Voiding Method Indwelling Catheter Indwelling Catheter Indwelling Catheter - Labs CBC & Chem 7: 04/19/18 04:15 04/19/18 04:15 Labs: Abnormal Lab Results - Last 24 Hours (Table) 04/18/18 04/18/18 04/19/18 Range/Units 17:11 20:30 04:15 WBC 12.8 H (3.8-10.6) k/uL Neutrophils # 10.2 H (1.3-7.7) k/uL Monocytes # 1.1 H (0-1.0) k/uL PT (9.0-12.0) sec INR (<1.2) BUN (9-20) mg/dL Creatinine (0.66-1.25) mg/dL POC Glucose (mg/dL) 119 H 139 H (75-99) mg/dL Calcium (8.4-10.2) mg/dL Total Bilirubin (0.2-1.3) mg/dL AST (17-59) U/L ALT (21-72) U/L Total Protein (6.3-8.2) g/dL Albumin (3.5-5.0) g/dL 04/19/18 04/19/18 04/19/18 Range/Units 04:15 04:15 07:02 WBC (3.8-10.6) k/uL Neutrophils # (1.3-7.7) k/uL Monocytes # (0-1.0) k/uL PT 26.5 H (9.0-12.0) sec INR 3.0 H (<1.2) BUN 51 H (9-20) mg/dL Creatinine 1.98 H (0.66-1.25) mg/dL POC Glucose (mg/dL) 102 H (75-99) mg/dL Calcium 7.7 L (8.4-10.2) mg/dL Total Bilirubin 2.8 H (0.2-1.3) mg/dL AST 1219 H (17-59) U/L ALT 3206 H (21-72) U/L Total Protein 5.1 L (6.3-8.2) g/dL Albumin 2.5 L (3.5-5.0) g/dL 04/19/18 04/19/18 Range/Units 07:44 11:58 WBC (3.8-10.6) k/uL Neutrophils # (1.3-7.7) k/uL Monocytes # (0-1.0) k/uL PT (9.0-12.0) sec INR (<1.2) BUN (9-20) mg/dL Creatinine (0.66-1.25) mg/dL POC Glucose (mg/dL) 117 H 113 H (75-99) mg/dL Calcium (8.4-10.2) mg/dL Total Bilirubin (0.2-1.3) mg/dL AST (17-59) U/L ALT (21-72) U/L Total Protein (6.3-8.2) g/dL Albumin (3.5-5.0) g/dL Microbiology - Last 24 Hours (Table) 04/16/18 04:24 Blood Culture - Preliminary Blood No Growth after 72 hours Assessment and Plan Plan: Assessment: 1. Nonoliguric acute kidney injury secondary to ATN secondary to cardiorenal syndrome. Creatinine down to 1.98 today. Baseline creatinine near 1. 2. Volume overload. Improving. 3. Hypotension related to underlying cardiac status. Currently on 3 mics of Levophed. 4. Systolic CHF with ejection fraction of less than 20% with mild to moderate tricuspid regurgitation. 5. Hypervolemic hyponatremia. Better. 6. Hyperkalemia secondary to acute kidney injury as well as from Aldactone and lisinopril. Improved. Plan: Discontinue Lasix drip. Start IV push Lasix 40 mg 3 times daily. Maintain midodrine. Wean Levophed. Avoid nephrotoxins. Repeat electrolytes in the morning. Follow-up RIVERA.
--- NOTE | 2018-04-19 12:53 | ECHOT ---
TRANSESOPHAGEAL ECHOCARDIOGRAM TRANSESOPHAGEAL ECHOCARDIOGRAM: INDICATION: Evaluation left atrium as well as the right atrium. PROCEDURE: After explaining the procedure to the patient, his blood pressure, heart rate, O2 saturation was monitored. His throat was sprayed with Cetacaine. He received 2 mg intravenous Versed, 25 mg intravenous fentanyl. The probe was introduced into the esophagus without difficulty. Images were obtained. Following that, the probe was removed. There was no immediate complication. FINDINGS: The left atrial size is dilated. Left ventricular size is dilated with severe global hypokinesis, estimated ejection fraction 20%. The aortic valve, mitral valve and tricuspid valve appears to be normal. Descending thoracic aorta appears to be normal wire was noted in the right ventricle. There was a question of an apical thrombus in the left ventricle. There was no evidence of mass in the right atrium. No pericardial effusion was noted. Doppler bubble study after a bubble study revealed no evidence of shunting across the interatrial septum. Doppler pulse wave and color Doppler obtained and revealed a mild to moderate mitral with mild tricuspid regurgitation. There was no shunting by color Doppler study. CONCLUSION: 1. Biatrial enlargement with spontaneous contrast in the left atrium with normal appearance of the left atrial appendage. 2. Dilated left ventricle with severe global hypokinesis. 3. Possible thrombus in the left ventricular apex. 4. Wire was noted in the right atrium and right ventricle. 5. Mild to moderate mitral with mild tricuspid regurgitation. 6. No evidence of shunting across the interatrial septum. 7. Normal appearance of the descending thoracic aorta. MMODL / IJN: [id number] /
[2018-04-19 17:15] LABS: Glucose,Whole Blood 157 mg/dL (75-99)
[2018-04-19] MEDS: FUROSEMIDE 250 MG in SODIUM CHLORIDE 0.9% 225 ML IVP SCH (17:21)
[2018-04-19] MEDS: SODIUM CHLORIDE 0.9% 1,000 ML IV SCH ×2 (17:27→17:28)
--- NOTE | 2018-04-19 19:29 | PN ---
PROGRESS NOTE DATE OF SERVICE: 04/19/2018 This 57-year-old gentleman was admitted with acute severe sepsis with possible right lower lobe pneumonia, possibly gram-negative, also had right leg cellulitis also. The patient is closely monitored. Patient continues to be hypotensive. Patient is on pressor support. Multiple consultants are following the patient closely including Infectious Disease and as well as Pulmonary also. No chest pain. No palpitations. No fever. A RIVERA was done because of concerns of thrombus which showed bilateral biatrial enlargement and dilated LV with severe global hypokinesia, possible thrombus in the left ventricular apex. The patient had patient being closely monitored at this time. PAST MEDICAL HISTORY: Reviewed. REVIEW OF SYSTEMS: CARDIOVASCULAR: No angina. RESPIRATORY: As mentioned. GI: As mentioned. : No dysuria. NERVOUS SYSTEM: No numbness and weakness. CURRENT MEDICATIONS: Reviewed and include: 1. Cordarone 200 mg p.o. b.i.d. 3. Lasix 20 mg. 4. Insulin drip at 10 mg/hour. 5. Tapazole 5 mg t.i.d. 6. Toprol-XL 50 mg b.i.d. 7. Midodrine 5 mg a.c. t.i.d. 8. Narcan 0.2 q.2h p.r.n. 9. Levophed drip at 30 mcg. 10.IV fluids. PHYSICAL EXAMINATION: Alert and oriented x3. Pulse is 106. Blood pressure 90/70, respirations 12, temperature is normal, pulse ox 96% on room air. HEENT: Conjunctivae normal. Oral mucosa moist. Neck is no jugular venous distention. No carotid bruit. No lymph node enlargement. CARDIOVASCULAR: S1, S2 muffled. RESPIRATORY: Breath sounds diminished at the bases. Scattered rhonchi and crackles. ABDOMEN: Soft, nontender. No mass palpable. LEGS: Bilateral leg edema. NERVOUS SYSTEM: No focal deficits. LAB STUDIES: WBC 6.8, hemoglobin 13.4, INR 3, creatinine is 1.98. Accu-Cheks are noted. Cultures are negative so far. ASSESSMENT: 1. History of severe sepsis with possible right lower lobe pneumonia or right lower leg cellulitis with gram-negative organisms with septic shock. 2. Syncope possibly secondary to cardiac arrhythmia and ventricular tachycardia. 3. Left ventricular apical thrombus, status post RIVERA. 4. Coumadin monitoring and mild coagulopathy. 5. History of ventricular tachycardia and atrial fibrillation previously. 6. Hyperthyroidism, possibly drug induced. 7. Nonischemic cardiomyopathy history with ejection fraction 25% with chronic systolic dysfunction. 8. History of AICD. 9. Troponin 0.016, indeterminate. 10.Elevated plasma lactic acid. 11.Increased creatinine with possible renal failure multifactorial cardiorenal syndrome. 12.Hyponatremia. 13.History of hypertension. 14.Remote history of nicotine dependence. 15.Elevated LFTs with AST and ALT, possibly hepatitis multifactorial, possibly related to sepsis and hypotension. 16.Coumadin coagulopathy, improved. 17.FULL CODE. RECOMMENDATIONS AND DISCUSSION: Continue current management, continue symptomatic treatment. Continue broad- spectrum IV antibiotics. Continue with support. Cardiology and Pulmonology input appreciated. Otherwise, prognosis guarded because of multiple complex medical issues and further recommendations to follow. MMODL / ELINAN: [id number] / DILSHAD
[2018-04-19] MEDS: FUROSEMIDE 10 MG/ML 4 ML VIAL IV SCH (20:40)
--- NOTE | 2018-04-20 00:02 | PN ---
PROGRESS NOTE DATE OF SERVICE: 04/19/2018. REASON FOR FOLLOW UP: Bilateral lower extremity cellulitis. INTERVAL HISTORY: The patient is afebrile. He was noted to be slightly hypertensive after RIVERA and did require to be started back on the Levophed. The patient denies having any chest pain or shortness of breath. Occasional cough. No abdominal pain and no pain to the leg area. EXAMINATION: Blood pressure 105/73, pulse 108, temperature 98. He is 95% on room air. General description is a middle-aged male lying in bed in no distress. Respiratory system: Unlabored breathing with decreased breath sounds in the bases. No wheeze. Heart S1, S2. Regular rate and rhythm. ABDOMEN: Soft, no tenderness. Legs are currently wrapped up. No obvious drainage on the dressing. LABS: Hemoglobin 13.4, white count of 12.8 with a BUN of 51, creatinine 1.98. Blood culture has been negative so far. Urine is negative. DIAGNOSTIC IMPRESSION AND PLAN: Patient with mild left lower extremity cellulitis. The patient is currently covered with cefepime, Rocephin, adjusted to his kidney function. We will continue to monitor the patient closely. Local care to continue with Aquacel Silver dressing. Continue supportive care. MMODL / IJN: [id number] /
[2018-04-20 05:19] LABS: INR 2.3 (<1.2)
[2018-04-20 05:25] LABS: Albumin 2.1 g/dL (3.5-5.0); Calcium 7.5 mg/dL (8.4-10.2); HCT 41.2 % (39.0-53.0); HGB 12.4 gm/dL (13.0-17.5); Hypochromasia Marked; MCH 27.3 pg (25.0-35.0); Magnesium 1.8 mg/dL (1.6-2.3); Mean Platelet Volume 7.3; Phosphorus 3.3 mg/dL (2.5-4.5); Platelet Count 152 k/uL (150-450); Potassium 3.6 mmol/L (3.5-5.1); RBC 4.53 m/uL (4.30-5.90); RDW 14.8 % (11.5-15.5); Total Bilirubin 2.6 mg/dL (0.2-1.3); Total Protein 4.4 g/dL (6.3-8.2); WBC 9.5 k/uL (3.8-10.6)
[2018-04-20] MEDS ORDERED: Magnesium Replacement Protocol 1 EACH MISC MISCELLANE PRN (05:44)
[2018-04-20] MEDS ORDERED: Potassium Replacement Protocol 1 EACH MISC MISCELLANE PRN (05:47)
[2018-04-20] MEDS: MAGNESIUM SULFATE-D5W PMX 1 GM in DEXTROSE/WATER 1 100ML.BAG IVPB SCH ×2 (05:57→07:15)
[2018-04-20] MEDS ORDERED: POTASSIUM CHLORIDE ER 20 MEQ TAB.ER PO SCH (06:00)
[2018-04-20] MEDS: NOREPINEPHRINE 4 MG in SODIUM CHLORIDE 0.9% 250 ML IV SCH (06:03)
[2018-04-20 07:17] LABS: Band Neutrophils % 4 %; Eosinophils # (M) 0.19 k/uL (0-0.7); Lymphocytes # (M) 1.43 k/uL (1.0-4.8); Monocytes # (M) 1.24 k/uL (0-1.0); Neutrophils % (M) 68 %; Nucleated Red Blood Cells 0 /100 WBC (0-0); Total Cells Counted 200
[2018-04-20 07:18] LABS: Polychromasia Present
[2018-04-20 07:19] LABS: Target Cells Present
[2018-04-20 07:20] LABS: Anisocytosis (M) Present; Large Platelets Present
[2018-04-20 07:21] LABS: Ovalocytes Present; Poikilocytosis (M) Present
[2018-04-20] MEDS ORDERED: BENZOCAINE/MENTHOL LOZENG 1 EACH LOZENGE MUCOUS MEM PRN (08:07)
--- NOTE | 2018-04-20 08:51 | P.PN ---
Subjective Progress Note Date: 04/20/18 Principal diagnosis: Sepsis, cellulitis, syncope Pulmonary/critical care progress note dated 04/20/2018 This is a 57-year-old male who was admitted with a diagnosis of syncope. The syncope was thought to be possibly related to ventricular tachycardia. He does have an AICD placed. It is not discharge. He has a history of cardiomyopathy with an ejection fraction of 20%. In addition, he had hypotension thought to be related to underlying sepsis from cellulitis. He did have an elevated lactic acid. In addition, he has a history of renal insufficiency, shock liver atrial fibrillation hypertension and chronic tobacco dependence. In addition, he has a history of hypothyroidism. His cortisol level was adequate. The patient was off of norepinephrine but was started back on 1 g of norepinephrine this morning by the nurse. It is running at 1 mcg/m. He is getting a saline IV at 20 mL an hour and is also on nasal O2 at 3 L. The patient feels okay. Still a little somnolent and lethargic but he does arouse appropriately. The patient obviously cannot leave the ICU still being on the norepinephrine. I did have the nurse increase the midodrine from 5 mg 3 times a day to 10 mg a times a day. Microbiologic studies remained negative. Objective - Vital Signs Vital signs: Vital Signs Temp 98.2 F 04/20/18 04:00 Pulse 102 H 04/20/18 07:00 Resp 12 04/20/18 07:00 BP 89/76 04/20/18 07:00 Pulse Ox 100 04/20/18 06:15 Intake & Output 04/19/18 04/20/18 04/20/18 18:59 06:59 18:59 Intake Total 659.926 3971.375 20 Output Total 3662 2495 110 Balance -3236.375 -70.625 -90 Weight 101.5 kg Intake: IV 270 240 20 Cefepime 1 gm In Sodium 50 Chloride 0.9% 50 ml @ 100 mls/hr IVPB ONCE [facility] Rx# :[id number] Sodium Chloride 0.9% 1, 220 240 20 000 ml @ 20 mls/hr IV . Q24H [facility] Rx#:[id number] Intake, IV Titration 155.625 194.375 Amount Magnesium Sulfate-D5w Pmx 100 1 gm In Dextrose/Water 1 100ml.bag @ 100 mls/hr IVPB Q1H [facility] Rx#: [id number] Norepinephrine 4 mg In 155.625 94.375 Sodium Chloride 0.9% 250 ml @ Titrate IV .Q0M [facility] Rx#:[id number] Oral 1989 Output: Urine 3662 2495 110 Other: Voiding Method Indwelling Catheter Indwelling Catheter - Exam No acute distress, oriented 3. The patient remains on nasal O2 at 3 L. HEENT examination is grossly unremarkable. Mucous membranes are moist. No oral lesions. Neck supple. Full range of motion. No adenopathy thyromegaly or neck vein distention. Cardiovascular examination reveals irregular rhythm and rate. S1-S2 normal. No S3 or S4. No discernible murmur noted. Heart sounds are distant. Lungs reveal mostly clear breath sounds. Breath sounds are equal bilaterally. A few scattered rhonchi and crackles are appreciated. No wheezes. Abdomen soft bowel sounds are heard. No masses or tenderness. Extremities are intact. The legs are wrapped and cannot be visualized. No cyanosis or clubbing. There is edema. Skin is without rash or lesion. Neurologic examination is brief but nonfocal. - Labs CBC & Chem 7: 04/20/18 04:46 04/20/18 04:46 Labs: Abnormal Lab Results - Last 24 Hours (Table) 04/19/18 04/19/18 04/20/18 Range/Units 11:58 17:14 04:46 Hgb 12.4 L (13.0-17.5) gm/dL MCHC 30.0 L (31.0-37.0) g/dL Monocytes # (Manual) 1.24 H (0-1.0) k/uL PT (9.0-12.0) sec INR (<1.2) Chloride (98-107) mmol/L Carbon Dioxide (22-30) mmol/L BUN (9-20) mg/dL Creatinine (0.66-1.25) mg/dL POC Glucose (mg/dL) 113 H 157 H (75-99) mg/dL Calcium (8.4-10.2) mg/dL Total Bilirubin (0.2-1.3) mg/dL AST (17-59) U/L ALT (21-72) U/L Total Protein (6.3-8.2) g/dL Albumin (3.5-5.0) g/dL 04/20/18 04/20/18 Range/Units 04:46 04:46 Hgb (13.0-17.5) gm/dL MCHC (31.0-37.0) g/dL Monocytes # (Manual) (0-1.0) k/uL PT 21.0 H (9.0-12.0) sec INR 2.3 H (<1.2) Chloride 97 L (98-107) mmol/L Carbon Dioxide 37 H (22-30) mmol/L BUN 44 H (9-20) mg/dL Creatinine 1.51 H (0.66-1.25) mg/dL POC Glucose (mg/dL) (75-99) mg/dL Calcium 7.5 L (8.4-10.2) mg/dL Total Bilirubin 2.6 H (0.2-1.3) mg/dL AST 365 H (17-59) U/L ALT 1775 H (21-72) U/L Total Protein 4.4 L (6.3-8.2) g/dL Albumin 2.1 L (3.5-5.0) g/dL Microbiology - Last 24 Hours (Table) 04/16/18 04:24 Blood Culture - Preliminary Blood No Growth after 96 hours Assessment and Plan Assessment: Assessment Syncope, of unclear etiology. It may relate to ventricular tachycardia although , his AICD did not discharge. History of nonischemic cardiomyopathy with ejection fraction of less than 20% Hypotension, thought to be related to underlying sepsis from cellulitis, resolved Renal failure Shock liver. Hypothyroidism Atrial fibrillation History of hypertension History of chronic tobacco dependence Plan: Plan dated 04/20/2018 The patient's Lasix drip was discontinued. The patient remains on norepinephrine at 1 mcg/m. Microbiologic studies are negative. The patient's midodrine was increased to 10 mg 3 times a day from 5 mg 3 times a day. Hopefully this will help with his persistent hypotension. His cortisol levels were adequate. I don't believe he has adrenal insufficiency. White count is 9.5, hemoglobin 12.4, hematocrit 41.2 and platelet count is 152,000. PT/INR were 21 and 2.3 respectively. Sodium and potassium are normal. CO2 97 with a CO2 of 37. Anion gap is normal. BUN is 44 and creatinine is 1.51 respectively. His calcium is 7.5, bilirubin 2.6, AST 365 and ALT 1775. The patient remains on cefepime for presumed cellulitis and sepsis. Again all cultures have been negative. Additional recommendations and suggestions are forthcoming. We'll continue to follow. Prognosis is guarded. Critical care time 33 minutes Time with Patient: Greater than 30
[2018-04-20] MEDS: METOPROLOL SUCCINATE (ER) 25 MG TAB.ER.24H PO SCH ×2 (09:43→20:14)
[2018-04-20] MEDS: CEFEPIME 1 GM in SODIUM CHLORIDE 0.9% 50 ML IVPB SCH (09:43)
[2018-04-20] MEDS: AMIODARONE 200 MG TAB PO SCH ×2 (09:43→20:14)
[2018-04-20] MEDS: MIDODRINE 5 MG TAB PO SCH ×3 (09:44→16:43)
[2018-04-20] MEDS: FUROSEMIDE 10 MG/ML 4 ML VIAL IV SCH ×2 (09:44→20:14)
[2018-04-20] MEDS: METHIMAZOLE 5 MG TAB PO SCH ×3 (09:44→20:14)
--- NOTE | 2018-04-20 10:07 | P.PN ---
Subjective Progress Note Date: 04/20/18 This is a 57-year-old gentleman with history of ischemic cardiac myopathy, status post AICD implantation who is admitted to the hospital with an episode of syncope. He had an episode of ventricular tachycardia at a rate of 210. Patient was programmed to monitor only and did not receive any therapy. Since admission patient is noted to have significant cellulitis of the legs and possible sepsis. Patient is hypotensive on Levophed. He is going in and out of flutter sinus rhythm and also fibrillation and having brief episodes of ventricular tachycardia which are nonsustained. Patient does seem to be frail and weak and mildly short of breath. His lab work showed severe elevation of the liver enzymes which are coming down. His troponin is mildly elevated. He is also has acute renal failure and is being followed by operations plant attendant. He is also being seen by ID specialist. Patient's echocardiogram apparently also showed a thrombus at the apex and also mass in the right atrium. Dr. Armas is planning to do RIVERA examination tomorrow. Meanwhile, we'll continue with current medical therapy. I will also discuss with [facility] to see why he was not programmed for any therapy. 04/19/2018: This patient's seems to be much more stable. Denies any chest pain. Denies any shortness of breath. His urine output is good. His creatinine is improving. His liver functions are improving. He is going to have a RIVERA examination today. He still on Levophed and IV Lasix drip. Hasn't had any sustained arrhythmias. Having episodes of atrial fibrillation, short runs of nonsustained V. tach. Lungs appeared to be clear. We'll continue his current medical therapy. I will speak with a [facility] [employer] and see if he can program therapies for V. tach. That may be reasonable why that was are not programmed before. We'll may talk to his lip and gate builder also. We'll may discontinue IV Lasix drip and start him on Lasix IV push. 04/20/2018: Patient is sitting up in the chair and seemed to be in no acute distress. However, his blood pressures running low and patient was initiated on Levophed. Patient continues to be atypical fibrillation with mildly rapid ventricular response. Patient is on amiodarone. Will his liver enzymes are coming down. His BUN/creatinine are improving and his urine output remains good. He is on Toprol-XL for rate control along with amiodarone. He used to be on digoxin. However, patient was having recurrent runs of V. tach. I will stay away from Lanoxin. We did reprogram the defibrillator and discussed with his lip and gate builder's office. Therapies were programmed for V. tach at 200. A new monitor done for V. tach at 160 was programmed. Patient will continue rest of the medication. Objective - Vital Signs Vital signs: Vital Signs Temp 98.2 F 04/20/18 04:00 Pulse 102 H 04/20/18 07:00 Resp 12 04/20/18 07:00 BP 89/76 04/20/18 07:00 Pulse Ox 100 04/20/18 06:15 Intake & Output 04/19/18 04/20/18 04/20/18 18:59 06:59 18:59 Intake Total 357.255 6169.375 110 Output Total 3662 2495 310 Balance -3236.375 -70.625 -200 Weight 101.5 kg Intake: IV 270 240 110 Cefepime 1 gm In Sodium 50 Chloride 0.9% 50 ml @ 100 mls/hr IVPB DAILY [facility] Rx #:[id number] Cefepime 1 gm In Sodium 50 Chloride 0.9% 50 ml @ 100 mls/hr IVPB ONCE [facility] Rx# :[id number] Sodium Chloride 0.9% 1, 220 240 60 000 ml @ 20 mls/hr IV . Q24H [facility] Rx#:[id number] Intake, IV Titration 155.625 194.375 Amount Magnesium Sulfate-D5w Pmx 100 1 gm In Dextrose/Water 1 100ml.bag @ 100 mls/hr IVPB Q1H [facility] Rx#: [id number] Norepinephrine 4 mg In 155.625 94.375 Sodium Chloride 0.9% 250 ml @ Titrate IV .Q0M [facility] Rx#:[id number] Oral 1990 Output: Urine 3662 2495 310 Other: Voiding Method Indwelling Catheter Indwelling Catheter - Exam GENERAL EXAM: Patient is alert and oriented and doesn't appear to be in any acute distress HEENT: Normocephalic. Normal reaction of pupils, equal size, normal range of extraocular motion. No erythema or exudates in the throat. NECK: No masses, no nuchal rigidity. CHEST: No chest wall deformity. LUNGS: Diminished breath sounds. HEART: S1 and S2 normal with no audible mumurs or gallops. Regular rhythm, femorals equal on both sides.. ABDOMEN: No hepatosplenomegaly, normal bowel sounds, no guarding or rigidity. SKIN: No rashes CENTRAL NERVOUS SYSTEM: No focal deficits. EXTREMITIES: Both legs are wrapped - Labs CBC & Chem 7: 04/20/18 04:46 04/20/18 04:46 Labs: Abnormal Lab Results - Last 24 Hours (Table) 04/19/18 04/19/18 04/20/18 Range/Units 11:58 17:14 04:46 Hgb 12.4 L (13.0-17.5) gm/dL MCHC 30.0 L (31.0-37.0) g/dL Monocytes # (Manual) 1.24 H (0-1.0) k/uL PT (9.0-12.0) sec INR (<1.2) Chloride (98-107) mmol/L Carbon Dioxide (22-30) mmol/L BUN (9-20) mg/dL Creatinine (0.66-1.25) mg/dL POC Glucose (mg/dL) 113 H 157 H (75-99) mg/dL Calcium (8.4-10.2) mg/dL Total Bilirubin (0.2-1.3) mg/dL AST (17-59) U/L ALT (21-72) U/L Total Protein (6.3-8.2) g/dL Albumin (3.5-5.0) g/dL 04/20/18 04/20/18 Range/Units 04:46 04:46 Hgb (13.0-17.5) gm/dL MCHC (31.0-37.0) g/dL Monocytes # (Manual) (0-1.0) k/uL PT 21.0 H (9.0-12.0) sec INR 2.3 H (<1.2) Chloride 97 L (98-107) mmol/L Carbon Dioxide 37 H (22-30) mmol/L BUN 44 H (9-20) mg/dL Creatinine 1.51 H (0.66-1.25) mg/dL POC Glucose (mg/dL) (75-99) mg/dL Calcium 7.5 L (8.4-10.2) mg/dL Total Bilirubin 2.6 H (0.2-1.3) mg/dL AST 365 H (17-59) U/L ALT 1775 H (21-72) U/L Total Protein 4.4 L (6.3-8.2) g/dL Albumin 2.1 L (3.5-5.0) g/dL Microbiology - Last 24 Hours (Table) 04/16/18 04:24 Blood Culture - Preliminary Blood No Growth after 96 hours Assessment and Plan (1) Ventricular tachycardia Current Visit: Yes Status: Acute Code(s): I47.2 - VENTRICULAR TACHYCARDIA SNOMED Code(s): 14102042 (2) Ischemic cardiomyopathy Current Visit: Yes Status: Acute Code(s): I25.5 - ISCHEMIC CARDIOMYOPATHY SNOMED Code(s): 376613222 (3) Sepsis Current Visit: Yes Status: Acute Code(s): A41.9 - SEPSIS, UNSPECIFIED ORGANISM SNOMED Code(s): 66012422 (4) Atrial fibrillation Current Visit: Yes Status: Acute Code(s): I48.91 - UNSPECIFIED ATRIAL FIBRILLATION SNOMED Code(s): 15482563 (5) Syncope Current Visit: Yes Status: Acute Code(s): R55 - SYNCOPE AND COLLAPSE SNOMED Code(s): 196839394 Plan: Patient will continue current medical therapy. We'll try to wean him off Levophed. Further recommendations depend upon the clinical course. RIVERA examination yesterday showed possible clot in the apex. No clots noted in the right atrium
--- NOTE | 2018-04-20 11:55 | P.PN ---
Subjective Patient is seen in follow-up for acute kidney injury. Renal function improved with creatinine at 1.51 today. Patient's currently maintained on Lasix 40 mg IV BID. Patient has systolic CHF with ejection fraction of less than 20% with mild to moderate tricuspid regurgitation. He is nonoliguric. Currently awake and alert. Denies chest pain or shortness of breath. Vital signs are stable. General: The patient appeared well nourished and normally developed. HEENT: Head exam is unremarkable. Neck is without jugular venous distension. LUNGS: Breath sounds decreased. HEART: Rate and Rhythm are regular. First and second heart sounds normal. No murmurs, rubs or gallops. ABDOMEN: Abdominal exam reveals normal bowel sounds. Non-tender and non- distended. No evidence of peritonitis. EXTREMITITES: Trace edema. Objective - Vital Signs Vital signs: Vital Signs Temp 98.3 F 04/20/18 08:00 Pulse 91 04/20/18 11:30 Resp 16 04/20/18 11:45 BP 87/76 04/20/18 11:30 Pulse Ox 95 04/20/18 11:30 Intake & Output 04/19/18 04/20/18 04/20/18 18:59 06:59 18:59 Intake Total 007.910 0535.375 130 Output Total 3662 2495 560 Balance -3236.375 -70.625 -430 Weight 101.5 kg Intake: IV 270 240 130 Cefepime 1 gm In Sodium 50 Chloride 0.9% 50 ml @ 100 mls/hr IVPB DAILY [facility] Rx #:[id number] Cefepime 1 gm In Sodium 50 Chloride 0.9% 50 ml @ 100 mls/hr IVPB ONCE [facility] Rx# :[id number] Sodium Chloride 0.9% 1, 220 240 80 000 ml @ 20 mls/hr IV . Q24H [facility] Rx#:[id number] Intake, IV Titration 155.625 194.375 Amount Magnesium Sulfate-D5w Pmx 100 1 gm In Dextrose/Water 1 100ml.bag @ 100 mls/hr IVPB Q1H [facility] Rx#: [id number] Norepinephrine 4 mg In 155.625 94.375 Sodium Chloride 0.9% 250 ml @ Titrate IV .Q0M [facility] Rx#:[id number] Oral 1990 Output: Urine 3662 2495 560 Other: Voiding Method Indwelling Catheter Indwelling Catheter Indwelling Catheter - Labs CBC & Chem 7: 04/20/18 04:46 04/20/18 04:46 Labs: Abnormal Lab Results - Last 24 Hours (Table) 04/19/18 04/19/18 04/20/18 Range/Units 11:58 17:14 04:46 Hgb 12.4 L (13.0-17.5) gm/dL MCHC 30.0 L (31.0-37.0) g/dL Monocytes # (Manual) 1.24 H (0-1.0) k/uL PT (9.0-12.0) sec INR (<1.2) Chloride (98-107) mmol/L Carbon Dioxide (22-30) mmol/L BUN (9-20) mg/dL Creatinine (0.66-1.25) mg/dL POC Glucose (mg/dL) 113 H 157 H (75-99) mg/dL Calcium (8.4-10.2) mg/dL Total Bilirubin (0.2-1.3) mg/dL AST (17-59) U/L ALT (21-72) U/L Total Protein (6.3-8.2) g/dL Albumin (3.5-5.0) g/dL 04/20/18 04/20/18 Range/Units 04:46 04:46 Hgb (13.0-17.5) gm/dL MCHC (31.0-37.0) g/dL Monocytes # (Manual) (0-1.0) k/uL PT 21.0 H (9.0-12.0) sec INR 2.3 H (<1.2) Chloride 97 L (98-107) mmol/L Carbon Dioxide 37 H (22-30) mmol/L BUN 44 H (9-20) mg/dL Creatinine 1.51 H (0.66-1.25) mg/dL POC Glucose (mg/dL) (75-99) mg/dL Calcium 7.5 L (8.4-10.2) mg/dL Total Bilirubin 2.6 H (0.2-1.3) mg/dL AST 365 H (17-59) U/L ALT 1775 H (21-72) U/L Total Protein 4.4 L (6.3-8.2) g/dL Albumin 2.1 L (3.5-5.0) g/dL Microbiology - Last 24 Hours (Table) 04/16/18 04:24 Blood Culture - Preliminary Blood No Growth after 96 hours Assessment and Plan Plan: Assessment: 1. Nonoliguric acute kidney injury secondary to ATN secondary to cardiorenal syndrome. Creatinine down to 1.51 today. Baseline creatinine near 1. 2. Volume overload. Improving. 3. Hypotension related to underlying cardiac status. Currently off Levophed. 4. Systolic CHF with ejection fraction of less than 20% with mild to moderate tricuspid regurgitation. 5. Hypervolemic hyponatremia. Stable. 6. Hyperkalemia secondary to acute kidney injury as well as from Aldactone and lisinopril. Improved. Now hypokalemic from diuresis. 7. Atrial fibrillation maintained on metoprolol and amiodarone. Cardiology following. 8. Possible thrombus in the left ventricular apex. Plan: Maintain Lasix 40 mg IV twice daily. Maintain midodrine. Avoid nephrotoxins. Repeat electrolytes in the morning. Potassium and magnesium replaced.
[2018-04-20] MEDS: SODIUM CHLORIDE 0.9% 1,000 ML IV SCH (12:17)
--- NOTE | 2018-04-20 22:45 | PN ---
PROGRESS NOTE DATE OF SERVICE: 04/12/2018 REASON FOR FOLLOWUP: Lower extremity cellulitis. INTERVAL HISTORY: The patient did have marginal blood pressure and has been off, now requiring low-dose pressor in the form of Levophed. The patient denies having any chest pain. Breathing has improved. Occasional cough. No abdominal pain and no pain to the leg wound. PHYSICAL EXAMINATION: Blood pressure is 91/70 with a pulse of 140, temperature 98.7. He is 100% on 2 L nasal cannula. General description is a middle-aged male up in the bed in no distress. RESPIRATORY SYSTEM: Unlabored breathing with decreased breath sounds at the base. No wheeze. HEART: S1, S2. Regular rate and rhythm. ABDOMEN: Soft. Legs are currently wrapped up. No obvious drainage on the dressing. LABS: Hemoglobin is 12.4, white count 9.5 with a BUN of 44, creatinine 1.51. DIAGNOSTIC IMPRESSION AND PLAN: Patient admitted to hospital with sepsis and did have bilateral lower extremity cellulitis, greater on the left. Patient currently is on Rocephin. That will be continued. White count has normalized. Local care to continue with an Aquacel Silver dressing along with Seferino wrap to keep the swelling down. Continue with supportive care. MMODL / IJN: [id number] /
[2018-04-21 06:05] LABS: HCT 41.7 % (39.0-53.0); HGB 12.5 gm/dL (13.0-17.5); Hypochromasia Moderate; MCH 26.9 pg (25.0-35.0); MCV 89.4 fL (80.0-100.0); Mean Platelet Volume 7.7; Platelet Count 139 k/uL (150-450); RBC 4.67 m/uL (4.30-5.90); RDW 14.9 % (11.5-15.5); WBC 10.4 k/uL (3.8-10.6)
[2018-04-21 06:06] LABS: INR 2.1 (<1.2); Prothrombin Time 19.4 sec (9.0-12.0)
[2018-04-21 06:24] LABS: Albumin 2.2 g/dL (3.5-5.0); Calcium 7.4 mg/dL (8.4-10.2); Magnesium 1.8 mg/dL (1.6-2.3); Potassium 3.7 mmol/L (3.5-5.1); Total Bilirubin 2.9 mg/dL (0.2-1.3); Total Protein 4.6 g/dL (6.3-8.2)
[2018-04-21] MEDS ORDERED: Potassium Replacement Protocol 1 EACH MISC MISCELLANE PRN (06:37)
[2018-04-21] MEDS: MAGNESIUM SULFATE-D5W PMX 1 GM in DEXTROSE/WATER 1 100ML.BAG IVPB SCH ×2 (06:47→08:48)
[2018-04-21] MEDS: MIDODRINE 5 MG TAB PO SCH ×3 (06:48→17:39)
[2018-04-21] MEDS ORDERED: POTASSIUM CHLORIDE ER 20 MEQ TAB.ER PO SCH (07:00)
[2018-04-21 07:09] LABS: Lymphocytes # (M) 0.73 k/uL (1.0-4.8); Monocytes # (M) 1.77 k/uL (0-1.0); Neutrophils % (M) 75 %; Nucleated Red Blood Cells 0 /100 WBC (0-0); Poikilocytosis (M) Present; Total Cells Counted 100
[2018-04-21] MEDS ORDERED: POTASSIUM BICARBONATE/CIT AC 20 MEQ TABLET.EFF NG-TUBE SCH (08:00)
[2018-04-21] MEDS: CEFEPIME 1 GM in SODIUM CHLORIDE 0.9% 50 ML IVPB SCH ×2 (08:49→21:19)
[2018-04-21] MEDS: METOPROLOL SUCCINATE (ER) 25 MG TAB.ER.24H PO SCH ×2 (08:49→21:28)
[2018-04-21] MEDS: FUROSEMIDE 10 MG/ML 4 ML VIAL IV SCH ×2 (08:49→21:20)
[2018-04-21] MEDS: AMIODARONE 200 MG TAB PO SCH ×2 (08:49→21:19)
[2018-04-21] MEDS: METHIMAZOLE 5 MG TAB PO SCH ×3 (08:50→21:28)
--- NOTE | 2018-04-21 09:35 | P.PN ---
Subjective Patient is seen in follow-up for acute kidney injury. Renal function improved with creatinine at 1.17 today. Patient's currently maintained on Lasix 40 mg IV BID. Patient has systolic CHF with ejection fraction of less than 20% with mild to moderate tricuspid regurgitation. He is nonoliguric. Currently awake and alert. Denies chest pain or shortness of breath. Oral intake is fair. Vital signs are stable. General: The patient appeared well nourished and normally developed. HEENT: Head exam is unremarkable. Neck is without jugular venous distension. LUNGS: Breath sounds decreased. HEART: Rate and Rhythm are regular. First and second heart sounds normal. No murmurs, rubs or gallops. ABDOMEN: Abdominal exam reveals normal bowel sounds. Non-tender and non- distended. No evidence of peritonitis. EXTREMITITES: Trace edema. Objective - Vital Signs Vital signs: Vital Signs Temp 98.2 F 04/21/18 04:00 Pulse 90 04/21/18 07:00 Resp 21 04/21/18 07:00 BP 76/64 04/21/18 07:00 Pulse Ox 100 04/21/18 07:00 Intake & Output 04/20/18 04/21/18 04/21/18 18:59 06:59 18:59 Intake Total 841.476 3092 Output Total 1270 1405 Balance -752.687 -115 Weight 104 kg Intake: IV 270 40 Cefepime 1 gm In Sodium 50 Chloride 0.9% 50 ml @ 100 mls/hr IVPB DAILY [facility] Rx #:[id number] Sodium Chloride 0.9% 1, 220 40 000 ml @ 20 mls/hr IV . Q24H [facility] Rx#:[id number] Intake, IV Titration 7.313 100 Amount Magnesium Sulfate-D5w Pmx 100 1 gm In Dextrose/Water 1 100ml.bag @ 100 mls/hr IVPB Q1H [facility] Rx#: [id number] Norepinephrine 4 mg In 7.313 Sodium Chloride 0.9% 250 ml @ Titrate IV .Q0M [facility] Rx#:[id number] Oral 240 1150 Output: Urine 1270 1405 Other: Voiding Method Indwelling Catheter Indwelling Catheter - Labs CBC & Chem 7: 04/21/18 05:10 04/21/18 05:10 Labs: Abnormal Lab Results - Last 24 Hours (Table) 11/04/21/18 04/21/18 Range/Units 05:10 05:10 05:10 Hgb 12.5 L (13.0-17.5) gm/dL MCHC 30.0 L (31.0-37.0) g/dL Plt Count 139 L (150-450) k/uL Neutrophils # (Manual) 7.80 H (1.3-7.7) k/uL Lymphocytes # (Manual) 0.73 L (1.0-4.8) k/uL Monocytes # (Manual) 1.77 H (0-1.0) k/uL PT 19.4 H (9.0-12.0) sec INR 2.1 H (<1.2) Sodium 135 L (137-145) mmol/L Chloride 97 L (98-107) mmol/L Carbon Dioxide 34 H (22-30) mmol/L BUN 39 H (9-20) mg/dL Calcium 7.4 L (8.4-10.2) mg/dL Total Bilirubin 2.9 H (0.2-1.3) mg/dL AST 165 H (17-59) U/L ALT 1238 H (21-72) U/L Total Protein 4.6 L (6.3-8.2) g/dL Albumin 2.2 L (3.5-5.0) g/dL Microbiology - Last 24 Hours (Table) 04/16/18 04:24 Blood Culture - Preliminary Blood No Growth after 120 hours Assessment and Plan Plan: Assessment: 1. Nonoliguric acute kidney injury secondary to ATN secondary to cardiorenal syndrome. Creatinine down to 1.17 today. Baseline creatinine near 1. 2. Volume overload. Improving. 3. Hypotension related to underlying cardiac status. Currently off Levophed. 4. Systolic CHF with ejection fraction of less than 20% with mild to moderate tricuspid regurgitation. 5. Hypervolemic hyponatremia. Stable. 6. Hyperkalemia secondary to acute kidney injury as well as from Aldactone and lisinopril. Improved. Now hypokalemic from diuresis. 7. Atrial fibrillation maintained on metoprolol and amiodarone. Cardiology following. 8. Possible thrombus in the left ventricular apex. Plan: Maintain Lasix 40 mg IV twice daily - can likely transition over to oral diuretics in the next 24-48 hours. Maintain midodrine. Avoid nephrotoxins. Repeat electrolytes in the morning. Potassium and magnesium replaced.
--- NOTE | 2018-04-21 09:47 | P.PN ---
Subjective Progress Note Date: 04/21/18 This is a 57-year-old gentleman with history of ischemic cardiac myopathy, status post AICD implantation who is admitted to the hospital with an episode of syncope. He had an episode of ventricular tachycardia at a rate of 210. Patient was programmed to monitor only and did not receive any therapy. Since admission patient is noted to have significant cellulitis of the legs and possible sepsis. Patient is hypotensive on Levophed. He is going in and out of flutter sinus rhythm and also fibrillation and having brief episodes of ventricular tachycardia which are nonsustained. Patient does seem to be frail and weak and mildly short of breath. His lab work showed severe elevation of the liver enzymes which are coming down. His troponin is mildly elevated. He is also has acute renal failure and is being followed by acid dumper. He is also being seen by ID specialist. Patient's echocardiogram apparently also showed a thrombus at the apex and also mass in the right atrium. Dr. Armas is planning to do RIVERA examination tomorrow. Meanwhile, we'll continue with current medical therapy. I will also discuss with [facility] to see why he was not programmed for any therapy. 04/19/2018: This patient's seems to be much more stable. Denies any chest pain. Denies any shortness of breath. His urine output is good. His creatinine is improving. His liver functions are improving. He is going to have a RIVERA examination today. He still on Levophed and IV Lasix drip. Hasn't had any sustained arrhythmias. Having episodes of atrial fibrillation, short runs of nonsustained V. tach. Lungs appeared to be clear. We'll continue his current medical therapy. I will speak with a [facility] and see if he can program therapies for V. tach. That may be reasonable why that was are not programmed before. We'll may talk to his house superintendent also. We'll may discontinue IV Lasix drip and start him on Lasix IV push. 04/20/2018: Patient is sitting up in the chair and seemed to be in no acute distress. However, his blood pressures running low and patient was initiated on Levophed. Patient continues to be atypical fibrillation with mildly rapid ventricular response. Patient is on amiodarone. Will his liver enzymes are coming down. His BUN/creatinine are improving and his urine output remains good. He is on Toprol-XL for rate control along with amiodarone. He used to be on digoxin. However, patient was having recurrent runs of V. tach. I will stay away from Lanoxin. We did reprogram the defibrillator and discussed with his house superintendent's office. Therapies were programmed for V. tach at 200. A new monitor done for V. tach at 160 was programmed. Patient will continue rest of the medication. 04/21/2018: The patient appears to more stable. In atrial fibrillation with moderately rapid ventricular response. His blood pressure is around 90 systolic. He is off Levophed. Having some difficulty with swallowing which is being evaluated. His renal functions have improved. Liver function tests are also showed improvement. Lungs appeared to be clear. Heart is irregular. We' ll continue current medical therapy and increase activity. Will transfer patient to telemetry unit. Objective - Vital Signs Vital signs: Vital Signs Temp 98.2 F 04/21/18 04:00 Pulse 90 04/21/18 07:00 Resp 21 04/21/18 07:00 BP 76/64 04/21/18 07:00 Pulse Ox 100 04/21/18 07:00 Intake & Output 04/20/18 04/21/18 04/21/18 18:59 06:59 18:59 Intake Total 340.822 0219 Output Total 1270 1405 Balance -752.687 -115 Weight 104 kg Intake: IV 270 40 Cefepime 1 gm In Sodium 50 Chloride 0.9% 50 ml @ 100 mls/hr IVPB DAILY [facility] Rx #:[id number] Sodium Chloride 0.9% 1, 220 40 000 ml @ 20 mls/hr IV . Q24H [facility] Rx#:[id number] Intake, IV Titration 7.313 100 Amount Magnesium Sulfate-D5w Pmx 100 1 gm In Dextrose/Water 1 100ml.bag @ 100 mls/hr IVPB Q1H [facility] Rx#: [id number] Norepinephrine 4 mg In 7.313 Sodium Chloride 0.9% 250 ml @ Titrate IV .Q0M [facility] Rx#:[id number] Oral 240 1150 Output: Urine 1270 1405 Other: Voiding Method Indwelling Catheter Indwelling Catheter - Exam GENERAL EXAM: Patient is alert and oriented and doesn't appear to be in any acute distress HEENT: Normocephalic. Normal reaction of pupils, equal size, normal range of extraocular motion. No erythema or exudates in the throat. NECK: No masses, no nuchal rigidity. CHEST: No chest wall deformity. LUNGS: Diminished breath sounds. HEART: S1 and S2 normal with no audible mumurs or gallops. Regular rhythm, femorals equal on both sides.. ABDOMEN: No hepatosplenomegaly, normal bowel sounds, no guarding or rigidity. SKIN: No rashes CENTRAL NERVOUS SYSTEM: No focal deficits. EXTREMITIES: Both legs are wrapped - Labs CBC & Chem 7: 04/21/18 05:10 04/21/18 05:10 Labs: Abnormal Lab Results - Last 24 Hours (Table) 04/21/18 04/21/18 04/21/18 Range/Units 05:10 05:10 05:10 Hgb 12.5 L (13.0-17.5) gm/dL MCHC 30.0 L (31.0-37.0) g/dL Plt Count 139 L (150-450) k/uL Neutrophils # (Manual) 7.80 H (1.3-7.7) k/uL Lymphocytes # (Manual) 0.73 L (1.0-4.8) k/uL Monocytes # (Manual) 1.77 H (0-1.0) k/uL PT 19.4 H (9.0-12.0) sec INR 2.1 H (<1.2) Sodium 135 L (137-145) mmol/L Chloride 97 L (98-107) mmol/L Carbon Dioxide 34 H (22-30) mmol/L BUN 39 H (9-20) mg/dL Calcium 7.4 L (8.4-10.2) mg/dL Total Bilirubin 2.9 H (0.2-1.3) mg/dL AST 165 H (17-59) U/L ALT 1238 H (21-72) U/L Total Protein 4.6 L (6.3-8.2) g/dL Albumin 2.2 L (3.5-5.0) g/dL Microbiology - Last 24 Hours (Table) 04/16/18 04:24 Blood Culture - Preliminary Blood No Growth after 120 hours Assessment and Plan (1) Ventricular tachycardia Current Visit: Yes Status: Acute Code(s): I47.2 - VENTRICULAR TACHYCARDIA SNOMED Code(s): 67790678 (2) Ischemic cardiomyopathy Current Visit: Yes Status: Acute Code(s): I25.5 - ISCHEMIC CARDIOMYOPATHY SNOMED Code(s): 837896685 (3) Sepsis Current Visit: Yes Status: Acute Code(s): A41.9 - SEPSIS, UNSPECIFIED ORGANISM SNOMED Code(s): 27863366 (4) Atrial fibrillation Current Visit: Yes Status: Acute Code(s): I48.91 - UNSPECIFIED ATRIAL FIBRILLATION SNOMED Code(s): 47291907 (5) Syncope Current Visit: Yes Status: Acute Code(s): R55 - SYNCOPE AND COLLAPSE SNOMED Code(s): 783634766 Plan: Patient shows improvement. His heart rate is in the 100s. We'll continue beta blockers and amiodarone. Blood pressure is about 80-90 systolic but patient is tolerating very well. Renal function is impaired showed improvement. Patient is being transferred to telemetry unit. Increase activity. Possible discharge within next 24-48 hours. Follow-up with his house superintendent as soon as possible.
--- NOTE | 2018-04-21 10:17 | P.PN ---
Subjective Progress Note Date: 04/21/18 Principal diagnosis: Recurrent episodes of syncope secondary to ventricular tachycardia and cardiomyopathy with LV dysfunction. This is a very pleasant 57-year-old gentleman who follows with Dr. Doe as his primary care physician. He has a history of severe nonischemic cardiomyopathy with an ejection fraction less than 20% status post AICD placement, atrial fibrillation, hypertension. He follows with apple packing header Dr. Monroe at [facility]. He had recently been admitted here earlier this same month for an episode of near syncope. He did have syncope and ventricular tachycardia while here and was seen in the intensive care unit for the same. He presented here again early this morning after waking up on the floor. He states he was sitting up at his computer and suddenly passed out. He has no idea how long he was down for. He is unsure whether he hit his head or had any other injuries. He denied any preceding chest pain, shortness breath, dizziness or lightheadedness. No pre-warning. He denies any loss of urine. Computed tomography scan of the brain revealed no acute intracranial abnormality. Chest x-ray shows some chronic changes in the right lower lobe improved compared to previous. Moderate cardiomegaly. No acute heart failure. Troponin 0.068, 0.084, 0.107. ProBNP 15,100 area TSH 6.22, T4 2 0.74. White count 9.2. Hemoglobin 12.7. INR 1.8. Creatinine 1.28. Lactic acid up from 3.0-11.6. He does have lower extremity edema with redness and weeping and possible cellulitis. He is hypotensive currently on norepinephrine at 15 mcg/ m. He's been initiated on vancomycin and cefepime. He is seen today in consultation in the intensive care unit. He is currently resting comfortably in bed. He is awake and alert in no acute distress. He denies any chest pain, palpitations lightheadedness or dizziness. He remains in atrial fibrillation with a controlled ventricular response. He is currently on a Cardizem drip at 10 mg per hour. Previously the patient had refused amiodarone based on potential side effects. He also does have a history of noncompliance prior to his previous admission. He denies any recent fever, chills or night sweats. No cough or congestion. He is maintaining good O2 saturations in the high 90s on 2 L/m per nasal cannula. He's been afebrile since admission. Patient was reevaluated today on 04/17/2018, remains in the intensive care unit , asymptomatic, however his labs were noted to be quite abnormal today including leukocytosis with WBC count of 15.3, INR of 4.0, potassium was 6.2 earlier and it is now 5.7, patient received Kayexalate. Renal functioning is worsening, BUN is 40 creatinine is 2.78. He was seen by nephrology for his acute kidney injury, felt to be most likely cardiorenal in nature. His BNP level was noted to be elevated. And his troponins 0.107 on presentation. Chest x-ray which I reviewed is suggestive of mild pulmonary edema, with left pleural effusion, and right basilar atelectasis. Hence I recommended a dose of Lasix to be given 1 today. Patient again has very poor LV function ejection fraction is no more than 20%. Patient is now on 4 L nasal cannula, his respiratory rate is between 16 and 24, O2 saturation is 97% on 4 L. The patient is seen today 04/18/2018 in follow-up in the intensive care unit. He is awake and alert in no acute distress. He is currently sitting up in a chair at the bedside. He denies any worsening shortness of breath, cough or congestion. No chest pain, palpitations lightheadedness or dizziness. He is maintaining O2 saturations in the upper 90s on 4 L/m nasal cannula. He is afebrile. Back in sinus rhythm. Borderline hypotension. Echocardiogram revealed severely impaired left ventricular systolic function with ejection fraction less than 20%. There is also moderately impaired right ventricular systolic function. There is a possible tumor/mass/thrombus seen in the right atrium. RIVERA is being considered. Blood and urine cultures reveal no growth to date. White count 17.5. Hemoglobin 12.2. INR 4.0. Creatinine 2.67. Lactic 1.7. AST 3559, ALT 4406. He is currently on cefepime. Remains on norepinephrine at 6 mcg/m. He is also on a Lasix drip at 10 mg per hour. Currently in a -1500 ML balance. On 04/19/2018 patient seen in follow-up in the intensive care unit, he is awake and alert, sitting up in the recliner, in no acute distress. Denies any chest pain or dyspnea. Remains in Afib on monitor, a controlled rate. He is on 3 L per nasal cannula, pulse ox is 96%, maintenance IV is 0.9 at 10, Lasix at 10 mg per hour, liters if it is at 10 mics per minute. He is nonoliguric, he is producing large amount of urine, averaging 252 320 ML per hour. He is in -3800 mL fluid balance over the last 24 hours. Negative 7.2 kg in the last 48 hours. Lung sounds are positive for crackles over posterior bases. Is working on incentive spirometry. Bilateral lower extremities are covered with Seferino wrap's, and the swelling is decreasing. Afebrile. Urine and blood cultures remain negative. Pulmonary/critical care progress note dated 04/20/2018 This is a 57-year-old male who was admitted with a diagnosis of syncope. The syncope was thought to be possibly related to ventricular tachycardia. He does have an AICD placed. It is not discharge. He has a history of cardiomyopathy with an ejection fraction of 20%. In addition, he had hypotension thought to be related to underlying sepsis from cellulitis. He did have an elevated lactic acid. In addition, he has a history of renal insufficiency, shock liver atrial fibrillation hypertension and chronic tobacco dependence. In addition, he has a history of hypothyroidism. His cortisol level was adequate. The patient was off of norepinephrine but was started back on 1 g of norepinephrine this morning by the nurse. It is running at 1 mcg/m. He is getting a saline IV at 20 mL an hour and is also on nasal O2 at 3 L. The patient feels okay. Still a little somnolent and lethargic but he does arouse appropriately. The patient obviously cannot leave the ICU still being on the norepinephrine. I did have the nurse increase the midodrine from 5 mg 3 times a day to 10 mg a times a day. Microbiologic studies remained negative. The patient is seen again today 04/21/2018 in follow-up in the intensive care unit. He is currently awake and alert in no acute distress. He is maintaining good O2 saturations in the 90s on 2 L/m per nasal cannula. His 0.9 normal saline at KVO 2 sites. His norepinephrine has been on for 24 hours now. Microbiology is negative. He remains in atrial fibrillation with a varying ventricular response. Remains on amiodarone and metoprolol. He denies any chest pain, palpitations lightheadedness or dizziness. White count 10.4. Hemoglobin 12.5. Platelet count 139,000. INR 2.1. Creatinine 1.17. AST 165, ALT 1238. Receiving Lasix 40 mg IV push every 12 hours. He remains in a negative balance. Objective - Vital Signs Vital signs: Vital Signs Temp 98.2 F 04/21/18 04:00 Pulse 90 04/21/18 07:00 Resp 21 04/21/18 07:00 BP 76/64 04/21/18 07:00 Pulse Ox 100 04/21/18 07:00 Intake & Output 04/20/18 04/21/18 04/21/18 18:59 06:59 18:59 Intake Total 866.128 7388 Output Total 1270 1405 Balance -752.687 -115 Weight 104 kg Intake: IV 270 40 Cefepime 1 gm In Sodium 50 Chloride 0.9% 50 ml @ 100 mls/hr IVPB DAILY ANA Rx #:[id number] Sodium Chloride 0.9% 1, 220 40 000 ml @ 20 mls/hr IV . Q24H ANA Rx#:[id number] Intake, IV Titration 7.313 100 Amount Magnesium Sulfate-D5w Pmx 100 1 gm In Dextrose/Water 1 100ml.bag @ 100 mls/hr IVPB Q1H ANA Rx#: [id number] Norepinephrine 4 mg In 7.313 Sodium Chloride 0.9% 250 ml @ Titrate IV .Q0M ANA Rx#:[id number] Oral 240 1150 Output: Urine 1270 1405 Other: Voiding Method Indwelling Catheter Indwelling Catheter - Exam GENERAL EXAM: Alert, comfortable in no apparent distress. On 2 L nasal cannula HEAD: Normocephalic. EYES: Normal reaction of pupils, equal size. NOSE: Clear with pink turbinates. THROAT: No erythema or exudates. NECK: No masses, no JVD. CHEST: No chest wall deformity. LUNGS: Equal air entry with crackles in the posterior bases more so on the right. Diminished. CVS: S1 and S2 normal with a systolic murmur. Irregular rhythm. ABDOMEN: No hepatosplenomegaly, normal bowel sounds, no guarding or rigidity. SPINE: No scoliosis or deformity SKIN: Redness edema and weeping of the lower extremities CENTRAL NERVOUS SYSTEM: No focal deficits, tone is normal in all 4 extremities. EXTREMITIES: There is 2-3+ peripheral edema. Chronic changes of chronic venous stasis. Redness and weeping. - Labs CBC & Chem 7: 04/21/18 05:10 04/21/18 05:10 Labs: Abnormal Lab Results - Last 24 Hours (Table) 04/21/18 04/21/18 04/21/18 Range/Units 05:10 05:10 05:10 Hgb 12.5 L (13.0-17.5) gm/dL MCHC 30.0 L (31.0-37.0) g/dL Plt Count 139 L (150-450) k/uL Neutrophils # (Manual) 7.80 H (1.3-7.7) k/uL Lymphocytes # (Manual) 0.73 L (1.0-4.8) k/uL Monocytes # (Manual) 1.77 H (0-1.0) k/uL PT 19.4 H (9.0-12.0) sec INR 2.1 H (<1.2) Sodium 135 L (137-145) mmol/L Chloride 97 L (98-107) mmol/L Carbon Dioxide 34 H (22-30) mmol/L BUN 39 H (9-20) mg/dL Calcium 7.4 L (8.4-10.2) mg/dL Total Bilirubin 2.9 H (0.2-1.3) mg/dL AST 165 H (17-59) U/L ALT 1238 H (21-72) U/L Total Protein 4.6 L (6.3-8.2) g/dL Albumin 2.2 L (3.5-5.0) g/dL Microbiology - Last 24 Hours (Table) 04/16/18 04:24 Blood Culture - Preliminary Blood No Growth after 120 hours Assessment and Plan Assessment: Impression: #1 Syncopal episode of unclear etiology, secondary to ventricular tachycardia, no shock from device. The patient does have severe nonischemic cardiomyopathy with ejection fraction less than 20%. Status post AICD placement. #2 Hypotension requiring pressor support with elevated lactic acid and sepsis secondary to suspected lower extremity cellulitis. No clear evidence of pneumonia on the chest x-ray. No leukocytosis. #3 Mild acute renal failure, creatinine improved to 1.17. . #4 Shock liver secondary to above. #5 Abnormal thyroid levels. #6 Atrial fibrillation with a rapid ventricular response. Anticoagulated with warfarin. Current INR 2.1. #7 History of hypertension. #8 History of chronic tobacco dependence. Plan: The patient was seen and evaluated by Dr. Cespedes. The patient is improving. Down to 2 L/m per nasal cannula. The patient is continued on antibiotics in the form of cefepime. Continue IV diuretics. Remains in a negative balance. Warfarin resumed. We will increase his activity as tolerated. We'll continue to follow and make further recommendations based on his clinical status. I, the cosigning physician, performed a history & physical examination of the patient. Lungs sounds with faint crackles in the posterior bases. Maintaining good O2 saturations in the 90s on 2 L/m per nasal cannula. I discussed the assessment and plan of care with my nurse practitioner, Makeda Nunez. I attest to the above progress note as dictated by her.
--- NOTE | 2018-04-21 12:08 | FL ---
EXAMINATION TYPE: FL barium swallow w video DATE OF EXAM: 04/21/2018 MODIFIED SWALLOW / DEGLUTITION STUDY CLINICAL HISTORY: Dysphagia. TECHNIQUE: Deglutition study is performed utilizing thin liquid barium, honey and nectar thick liqui d barium, barium thick applesauce, and barium coated cracker. A total of 1 minute 5 seconds of fluoro scopic time was utilized during procedure. 0 spot images are saved. COMPARISON: None. FINDINGS: The oral and pharyngeal phases show satisfactory initiation and propagation with all modali ties tested. Normal mastication is seen with solid modalities tested. There is no evidence of penet ration or aspiration with any modality tested. No significant pharyngeal residue was appreciated. IMPRESSION: Normal deglutition study. Please refer to speech therapist notes for further details if necessary.
[2018-04-21] MEDS: SODIUM CHLORIDE 0.9% 1,000 ML IV SCH (12:56)
[2018-04-21 14:36] LABS: Hemoglobin A1C 6.3 % (4.0-6.0)
[2018-04-21] MEDS: chlorproMAZINE 25 MG TAB PO PRN (15:48)
--- NOTE | 2018-04-21 17:53 | P.PN ---
Subjective Progress Note Date: 04/20/18 Progress note being dictated for Dr. Harrison. Interval history: This is a 57-year-old gentleman admitted with possible right lower lobe pneumonia, right lower leg cellulitis with gram-negative organisms, septic shock in a patient with history of severe sepsis, syncope, possibly secondary to cardiac arrhythmia and V. tach, left ventricular apical thrombus status post RIVERA and multiple other medical issues. Continues on midodrine. Lethargic but more alert today. Blood pressure better, Levophed weaned off. Maintained on amiodarone, Toprol-XL Telemetry atrial fibrillation with fast ventricular rate. AICD interrogated, recurrent runs of V. tach reported. Defibrillator reprogrammed/rate adjusted. LFTs, renal function improving. Maintained on cefepime and vancomycin. Cultures negative.Afebrile, normal WBC. INR 2.3. Diuresing on Lasix IV push with 24-hour I&O reflecting a negative fluid balance. Objective - Vital Signs Vital signs: Vital Signs Temp 98.3 F 04/20/18 12:00 Pulse 84 04/20/18 15:00 Resp 14 04/20/18 15:00 BP 80/68 04/20/18 15:00 Pulse Ox 100 04/20/18 15:00 Intake & Output 04/19/18 04/20/18 04/20/18 18:59 06:59 18:59 Intake Total 725.352 9708.375 457.313 Output Total 3662 2495 1035 Balance -3236.375 -70.625 -577.687 Weight 101.5 kg Intake: IV 270 240 210 Cefepime 1 gm In Sodium 50 Chloride 0.9% 50 ml @ 100 mls/hr IVPB DAILY [facility] Rx #:[id number] Cefepime 1 gm In Sodium 50 Chloride 0.9% 50 ml @ 100 mls/hr IVPB ONCE STA Rx# :[id number] Sodium Chloride 0.9% 1, 220 240 160 000 ml @ 20 mls/hr IV . Q24H ANA Rx#:[id number] Intake, IV Titration 155.625 194.375 7.313 Amount Magnesium Sulfate-D5w Pmx 100 1 gm In Dextrose/Water 1 100ml.bag @ 100 mls/hr IVPB Q1H ANA Rx#: [id number] Norepinephrine 4 mg In 155.625 94.375 7.313 Sodium Chloride 0.9% 250 ml @ Titrate IV .Q0M [facility] Rx#:[id number] Oral 1989 240 Output: Urine 3662 6495 1035 Other: Voiding Method Indwelling Catheter Indwelling Catheter Indwelling Catheter - Exam PHYSICAL EXAM: VITAL SIGNS: As above GENERAL: Sitting up in bed, no acute distress HEENT: Conjunctivae normal. eyes normal. Oral mucosa moist NECK: No JVD. No thyroid enlargement. No LNs CARDIOVASCULAR: Distant S1, S2 irregular. Tachycardic, No murmur RESPIRATION: Breath sounds diminished in the bases. Occasional scattered rhonchi and crackles. ABDOMEN: Soft, nontender . No guarding. no masses palpable. No hepatosplenomegaly.positive Bowel sounds. No guarding LEGS: Bilateral lower extremities janie-wrapped, positive edema PSYCHIATRY: Alert and oriented -3, mood and affect normal. NERVOUS SYSTEM: Cranial N 2-12 grossly normal. Moves all 4 limbs. Diffuse weakness ,No focal deficits. Skin: no rash , no lesions Joints: No active swelling. No inflammation. Lymphatic system. No LN neck axilla or groin. - Labs CBC & Chem 7: 04/21/18 05:10 04/21/18 05:10 Labs: Abnormal Lab Results - Last 24 Hours (Table) 04/19/18 04/20/18 04/20/18 Range/Units 17:14 04:46 04:46 Hgb 12.4 L (13.0-17.5) gm/dL MCHC 30.0 L (31.0-37.0) g/dL Monocytes # (Manual) 1.24 H (0-1.0) k/uL PT (9.0-12.0) sec INR (<1.2) Chloride 97 L (98-107) mmol/L Carbon Dioxide 37 H (22-30) mmol/L BUN 44 H (9-20) mg/dL Creatinine 1.51 H (0.66-1.25) mg/dL POC Glucose (mg/dL) 157 H (75-99) mg/dL Calcium 7.5 L (8.4-10.2) mg/dL Total Bilirubin 2.6 H (0.2-1.3) mg/dL AST 365 H (17-59) U/L ALT 1775 H (21-72) U/L Total Protein 4.4 L (6.3-8.2) g/dL Albumin 2.1 L (3.5-5.0) g/dL 04/20/18 Range/Units 04:46 Hgb (13.0-17.5) gm/dL MCHC (31.0-37.0) g/dL Monocytes # (Manual) (0-1.0) k/uL PT 21.0 H (9.0-12.0) sec INR 2.3 H (<1.2) Chloride (98-107) mmol/L Carbon Dioxide (22-30) mmol/L BUN (9-20) mg/dL Creatinine (0.66-1.25) mg/dL POC Glucose (mg/dL) (75-99) mg/dL Calcium (8.4-10.2) mg/dL Total Bilirubin (0.2-1.3) mg/dL AST (17-59) U/L ALT (21-72) U/L Total Protein (6.3-8.2) g/dL Albumin (3.5-5.0) g/dL Microbiology - Last 24 Hours (Table) 04/16/18 04:24 Blood Culture - Preliminary Blood No Growth after 96 hours Assessment and Plan Assessment: -Severe sepsis, possible right lower lobe pneumonia, right lower leg cellulitis with gram-negative organisms with septic shock -Syncope possibly secondary to cardiac arrhythmia, ventricular tachycardia -Left ventricular apical thrombus, status post RIVERA -Hypotension secondary to sepsis, infection, status post pressor support -Coumadin monitoring, mild coagulopathy -Hyperthyroidism, 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 Diuretics as per nephrology. Close monitoring of renal function, electrolytes with repeat labs ordered for a.m.. Follow closely with multiple consults. Prognosis guarded given multiple complex medical issues. The impression and plan of care has been dictated as directed. : I performed a history and examination of this patient, discussed the same with the dictator. I agree with the dictator's note ,documented as a scribe. Any additional findings or plans will be noted.
[2018-04-21] MEDS ORDERED: WARFARIN 1 MG TAB PO ONE (18:00)
--- NOTE | 2018-04-21 18:13 | P.PN ---
Subjective Progress Note Date: 04/21/18 Progress note being dictated for Dr. Harrison. Interval history: This is a 57-year-old gentleman admitted with possible right lower lobe pneumonia, right lower leg cellulitis with gram-negative organisms, septic shock in a patient with history of severe sepsis, syncope, possibly secondary to cardiac arrhythmia and V. tach, left ventricular apical thrombus status post RIVERA and multiple other medical issues. Continues on midodrine. Lethargic but more alert today. Blood pressure better, Levophed weaned off. Maintained on amiodarone, Toprol-XL Telemetry atrial fibrillation with fast ventricular rate. AICD interrogated, recurrent runs of V. tach reported. Defibrillator reprogrammed/rate adjusted. LFTs, renal function improving. Maintained on cefepime and vancomycin. Cultures negative.Afebrile, normal WBC. INR 2.3. Diuresing on Lasix IV push with 24-hour I&O reflecting a negative fluid balance. 04/21/18 sitting up in chair, much more alert today. Levophed remains off since yesterday. Patient now is a selective overflow. Difficulty swallowing, speech therapy consulted, and BS ordered. Complaining of hiccups. Telemetry atrial fibrillation with heart rates in the low 1 teens. Continues diuresing well on Lasix IV push with 24-hour I&O reflecting a negative fluid balance. Oxygen weaned down to 2 L nasal cannula, maintaining O2 sats in the high 90s. Maintained on IV antibiotics. Afebrile, urine and blood cultures negative. Bili 2.9, LFTs trending down. Renal function continues to improve. Review of Systems: Cardiovascular, no chest pain, no palpitations, no angina Respiratory: Short of breath, improved with 2 l nasal cannula GI: As mentioned : No dysuria Nervous system: Generalized weakness Active Medications Generic Name Dose Route Start Last Admin Trade Name Freq PRN Reason Stop Dose Admin Amiodarone HCl 200 mg 04/19/18 09:00 04/21/18 08:49 Cordarone PO 200 mg BID ANA Administration Benzocaine/Menthol 1 each 04/20/18 08:07 04/20/18 09:50 Cepacol Lozenge MUCOUS MEM 1 each Q4HR PRN Administration Sore Throat Chlorpromazine HCl 25 mg 04/21/18 15:01 11/29/18 15:48 Thorazine PO 25 mg Q6HR PRN Administration hiccups Furosemide 40 mg 04/19/18 21:00 04/21/18 08:49 Lasix IV 40 mg Q12HR ANA Administration Sodium Chloride 1,000 mls @ 20 mls/hr 04/19/18 11:45 04/21/18 12:56 Saline 0.9% IV Not Given .Q24H ANA Cefepime HCl 1 gm/ Sodium 50 mls @ 100 mls/hr 04/21/18 21:00 Chloride IVPB Q12HR ANA Methimazole 5 mg 04/16/18 16:00 04/21/18 15:48 Tapazole PO 5 mg TID ANA Administration Metoprolol Succinate 50 mg 04/17/18 09:00 04/21/18 08:49 Toprol Xl PO 50 mg BID ANA Administration Midodrine 10 mg 04/20/18 07:30 04/21/18 17:39 Proamatine PO 10 mg AC-TID ANA Administration Miscellaneous Information 1 each 04/20/18 05:44 Magnesium Per Protocol MISCELLANE DAILY PRN Per Protocol Protocol Miscellaneous Information 1 each 04/20/18 05:47 Potassium Per Protocol MISCELLANE DAILY PRN Per Protocol Protocol Naloxone HCl 0.2 mg 04/16/18 02:33 Narcan IV Q2M PRN Opioid Reversal Objective - Vital Signs Vital signs: Vital Signs Temp 98.1 F 04/21/18 16:01 Pulse 64 04/21/18 16:01 Resp 16 04/21/18 16:01 BP 90/77 04/21/18 16:01 Pulse Ox 97 04/21/18 12:04 Intake & Output 04/20/18 04/21/18 04/21/18 18:59 06:59 18:59 Intake Total 723.090 8353 910 Output Total 1270 1405 950 Balance -752.687 -115 -40 Weight 104 kg Intake: IV 270 40 50 Cefepime 1 gm In Sodium 50 50 Chloride 0.9% 50 ml @ 100 mls/hr IVPB DAILY [facility] Rx #:[id number] Sodium Chloride 0.9% 1, 220 40 000 ml @ 20 mls/hr IV . Q24H ANA Rx#:[id number] Intake, IV Titration 7.313 100 Amount Magnesium Sulfate-D5w Pmx 100 1 gm In Dextrose/Water 1 100ml.bag @ 100 mls/hr IVPB Q1H [facility] Rx#: [id number] Norepinephrine 4 mg In 7.313 Sodium Chloride 0.9% 250 ml @ Titrate IV .Q0M ANA Rx#:[id number] Oral 240 1150 860 Output: Urine 1270 1405 950 Other: Voiding Method Indwelling Catheter Indwelling Catheter Indwelling Catheter - Exam PHYSICAL EXAM: VITAL SIGNS: As above GENERAL: Sitting up in chair, no acute distress HEENT: Conjunctivae normal. eyes normal. Oral mucosa moist NECK: No JVD. No thyroid enlargement. No LNs CARDIOVASCULAR: Distant S1, S2 irregular. Tachycardic, No murmur RESPIRATION: Breath sounds diminished in the bases. Occasional scattered rhonchi and fine basilar crackles. ABDOMEN: Soft, nontender . No guarding. no masses palpable. No hepatosplenomegaly.positive Bowel sounds. No guarding LEGS: Bilateral lower extremities weeping, janie-wrapped, positive edema PSYCHIATRY: Alert and oriented -3, mood and affect normal. NERVOUS SYSTEM: Cranial N 2-12 grossly normal. Moves all 4 limbs. Diffuse weakness ,No focal deficits. Skin: no rash , no lesions - Labs CBC & Chem 7: 04/21/18 05:10 04/21/18 05:10 Labs: Abnormal Lab Results - Last 24 Hours (Table) 04/21/18 04/21/18 04/21/18 Range/Units 05:10 05:10 05:10 Hgb 12.5 L (13.0-17.5) gm/dL MCHC 30.0 L (31.0-37.0) g/dL Plt Count 139 L (150-450) k/uL Neutrophils # (Manual) 7.80 H (1.3-7.7) k/uL Lymphocytes # (Manual) 0.73 L (1.0-4.8) k/uL Monocytes # (Manual) 1.77 H (0-1.0) k/uL PT (9.0-12.0) sec INR (<1.2) Sodium 135 L (137-145) mmol/L Chloride 97 L (98-107) mmol/L Carbon Dioxide 34 H (22-30) mmol/L BUN 39 H (9-20) mg/dL Hemoglobin A1c 6.3 H (4.0-6.0) % Calcium 7.4 L (8.4-10.2) mg/dL Total Bilirubin 2.9 H (0.2-1.3) mg/dL AST 165 H (17-59) U/L ALT 1238 H (21-72) U/L Total Protein 4.6 L (6.3-8.2) g/dL Albumin 2.2 L (3.5-5.0) g/dL 04/21/18 Range/Units 05:10 Hgb (13.0-17.5) gm/dL MCHC (31.0-37.0) g/dL Plt Count (150-450) k/uL Neutrophils # (Manual) (1.3-7.7) k/uL Lymphocytes # (Manual) (1.0-4.8) k/uL Monocytes # (Manual) (0-1.0) k/uL PT 19.4 H (9.0-12.0) sec INR 2.1 H (<1.2) Sodium (137-145) mmol/L Chloride (98-107) mmol/L Carbon Dioxide (22-30) mmol/L BUN (9-20) mg/dL Hemoglobin A1c (4.0-6.0) % Calcium (8.4-10.2) mg/dL Total Bilirubin (0.2-1.3) mg/dL AST (17-59) U/L ALT (21-72) U/L Total Protein (6.3-8.2) g/dL Albumin (3.5-5.0) g/dL Microbiology - Last 24 Hours (Table) 04/16/18 04:24 Blood Culture - Preliminary Blood No Growth after 120 hours Assessment and Plan Assessment: -Severe sepsis, possible right lower lobe pneumonia, right lower leg cellulitis with gram-negative organisms with septic shock -Syncope possibly secondary to cardiac arrhythmia, ventricular tachycardia -Left ventricular apical thrombus, status post RIVERA -Hypotension secondary to sepsis, infection, status post pressor support -Coumadin monitoring, mild coagulopathy -Hyperthyroidism, 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 Continue on broad-spectrum IV antibiotics. Cleared for transfer out of ICU as per receptionist telephone operator Awaiting transfer to telemetry unit.Diuretics as per nephrology. Coumadin 1mg tonight.Close monitoring of PT/INR ,renal function , electrolytes with repeat labs ordered for a.m. Prognosis guarded given multiple complex medical issues. The impression and plan of care has been dictated as directed. : I performed a history and examination of this patient, discussed the same with the dictator. I agree with the dictator's note ,documented as a scribe. Any additional findings or plans will be noted.
--- NOTE | 2018-04-22 00:04 | PN ---
PROGRESS NOTE DATE OF SERVICE: 04/21/2018. REASON FOR FOLLOW UP: Lower extremity cellulitis. INTERVAL HISTORY: The patient is afebrile, has been breathing comfortably. Denies any chest pain or shortness of breath. Occasional cough. No abdominal pain, no diarrhea. EXAMINATION: Blood pressure is 88/66, pulse of 96, temperature 98.9. He is 97% on room air. GENERAL DESCRIPTION: A middle-aged male lying in bed in no distress. RESPIRATORY: Unlabored breathing. Clear to auscultation anteriorly. HEART: S1, S2. Regular rate and rhythm. ABDOMEN: Soft, no tenderness. The legs are currently wrapped. No obvious drainage on the dressing. DIAGNOSTIC IMPRESSION AND PLAN: Patient with bilateral lower extremity cellulitis, right greater than left. This patient will continue with cefepime. Local wound care with Aquacel Silver dressing. Continue supportive care. MMODL / IJN: [id number] /
[2018-04-22 05:57] LABS: HCT 39.2 % (39.0-53.0); HGB 12.6 gm/dL (13.0-17.5); Hypochromasia Moderate; MCH 28.8 pg (25.0-35.0); MCHC 32.1 g/dL (31.0-37.0); MCV 89.6 fL (80.0-100.0); Mean Platelet Volume 7.6; Platelet Count 123 k/uL (150-450); RBC 4.37 m/uL (4.30-5.90)
[2018-04-22 06:07] LABS: Albumin 2.2 g/dL (3.5-5.0); Calcium 7.4 mg/dL (8.4-10.2); Phosphorus 3.4 mg/dL (2.5-4.5); Potassium 3.7 mmol/L (3.5-5.1); Total Bilirubin 2.1 mg/dL (0.2-1.3); Total Protein 4.7 g/dL (6.3-8.2)
[2018-04-22 06:17] LABS: INR 1.7 (<1.2)
--- NOTE | 2018-04-22 07:13 | P.PN ---
Subjective Patient is seen in follow-up for acute kidney injury. Renal function improved since admission. Creatinine stable at 1.2 today. Patient's currently maintained on Lasix 40 mg IV BID. Patient has systolic CHF with ejection fraction of less than 20% with mild to moderate tricuspid regurgitation. He is nonoliguric. Currently awake and alert. Denies chest pain or shortness of breath. Oral intake is fair. Vital signs are stable. General: The patient appeared well nourished and normally developed. HEENT: Head exam is unremarkable. Neck is without jugular venous distension. LUNGS: Breath sounds decreased. HEART: Rate and Rhythm are regular. First and second heart sounds normal. No murmurs, rubs or gallops. ABDOMEN: Abdominal exam reveals normal bowel sounds. Non-tender and non- distended. No evidence of peritonitis. EXTREMITITES: Trace edema. Objective - Vital Signs Vital signs: Vital Signs Temp 98.4 F 04/22/18 04:00 Pulse 94 04/22/18 04:00 Resp 18 04/22/18 04:00 BP 89/67 04/22/18 04:00 Pulse Ox 97 04/22/18 04:00 Intake & Output 04/21/18 04/22/18 04/22/18 18:59 06:59 18:59 Intake Total 910 400 Output Total 950 880 Balance -40 -480 Weight 101 kg Intake: IV 50 50 Cefepime 1 gm In Sodium 50 50 Chloride 0.9% 50 ml @ 100 mls/hr IVPB DAILY [facility] Rx #:[id number] Oral 860 350 Output: Urine 950 880 Other: Voiding Method Indwelling Catheter Indwelling Catheter - Labs CBC & Chem 7: 04/22/18 05:22 04/22/18 05:22 Labs: Abnormal Lab Results - Last 24 Hours (Table) 04/21/18 04/22/18 04/22/18 Range/Units 05:10 05:22 05:22 Hgb (13.0-17.5) gm/dL Plt Count (150-450) k/uL PT 16.0 H (9.0-12.0) sec INR 1.7 H (<1.2) Sodium 133 L (137-145) mmol/L Chloride 94 L (98-107) mmol/L Carbon Dioxide 31 H (22-30) mmol/L BUN 41 H (9-20) mg/dL Glucose 102 H (74-99) mg/dL Hemoglobin A1c 6.3 H (4.0-6.0) % Calcium 7.4 L (8.4-10.2) mg/dL Total Bilirubin 2.1 H (0.2-1.3) mg/dL AST 101 H (17-59) U/L ALT 855 H (21-72) U/L Total Protein 4.7 L (6.3-8.2) g/dL Albumin 2.2 L (3.5-5.0) g/dL 04/22/18 Range/Units 05:22 Hgb 12.6 L (13.0-17.5) gm/dL Plt Count 123 L (150-450) k/uL PT (9.0-12.0) sec INR (<1.2) Sodium (137-145) mmol/L Chloride (98-107) mmol/L Carbon Dioxide (22-30) mmol/L BUN (9-20) mg/dL Glucose (74-99) mg/dL Hemoglobin A1c (4.0-6.0) % Calcium (8.4-10.2) mg/dL Total Bilirubin (0.2-1.3) mg/dL AST (17-59) U/L ALT (21-72) U/L Total Protein (6.3-8.2) g/dL Albumin (3.5-5.0) g/dL Microbiology - Last 24 Hours (Table) 04/16/18 04:24 Blood Culture - Preliminary Blood No Growth after 120 hours Assessment and Plan Plan: Assessment: 1. Nonoliguric acute kidney injury secondary to ATN secondary to cardiorenal syndrome. Creatinine improved. Creatinine stable at 1.2 today. Baseline creatinine near 1. 2. Volume overload. Improving. 3. Hypotension related to underlying cardiac status. Currently off Levophed. 4. Systolic CHF with ejection fraction of less than 20% with mild to moderate tricuspid regurgitation. 5. Hypervolemic hyponatremia. 6. Hyperkalemia secondary to acute kidney injury as well as from Aldactone and lisinopril. Improved. Now hypokalemic from diuresis. 7. Atrial fibrillation maintained on metoprolol and amiodarone. Cardiology following. 8. Possible thrombus in the left ventricular apex. Plan: Change Lasix to 40 mg orally twice daily. Maintain midodrine. Avoid nephrotoxins. Repeat electrolytes in the morning. Stable to be transferred out of the intensive care unit from nephrology standpoint. DC Wagoner catheter and monitor serial postvoid residuals for retention.
--- NOTE | 2018-04-22 08:02 | P.PN ---
Subjective Progress Note Date: 04/22/18 This is a 57-year-old gentleman with history of ischemic cardiac myopathy, status post AICD implantation who is admitted to the hospital with an episode of syncope. He had an episode of ventricular tachycardia at a rate of 210. Patient was programmed to monitor only and did not receive any therapy. Since admission patient is noted to have significant cellulitis of the legs and possible sepsis. Patient is hypotensive on Levophed. He is going in and out of flutter sinus rhythm and also fibrillation and having brief episodes of ventricular tachycardia which are nonsustained. Patient does seem to be frail and weak and mildly short of breath. His lab work showed severe elevation of the liver enzymes which are coming down. His troponin is mildly elevated. He is also has acute renal failure and is being followed by stationary equipment mechanic. He is also being seen by ID specialist. Patient's echocardiogram apparently also showed a thrombus at the apex and also mass in the right atrium. Dr. Armas is planning to do RIVERA examination tomorrow. Meanwhile, we'll continue with current medical therapy. I will also discuss with [facility] to see why he was not programmed for any therapy. 04/19/2018: This patient's seems to be much more stable. Denies any chest pain. Denies any shortness of breath. His urine output is good. His creatinine is improving. His liver functions are improving. He is going to have a RIVERA examination today. He still on Levophed and IV Lasix drip. Hasn't had any sustained arrhythmias. Having episodes of atrial fibrillation, short runs of nonsustained V. tach. Lungs appeared to be clear. We'll continue his current medical therapy. I will speak with a [facility] and see if he can program therapies for V. tach. That may be reasonable why that was are not programmed before. We'll may talk to his lockstitch front edge tape sewer also. We'll may discontinue IV Lasix drip and start him on Lasix IV push. 04/20/2018: Patient is sitting up in the chair and seemed to be in no acute distress. However, his blood pressures running low and patient was initiated on Levophed. Patient continues to be atypical fibrillation with mildly rapid ventricular response. Patient is on amiodarone. Will his liver enzymes are coming down. His BUN/creatinine are improving and his urine output remains good. He is on Toprol-XL for rate control along with amiodarone. He used to be on digoxin. However, patient was having recurrent runs of V. tach. I will stay away from Lanoxin. We did reprogram the defibrillator and discussed with his lockstitch front edge tape sewer's office. Therapies were programmed for V. tach at 200. A new monitor done for V. tach at 160 was programmed. Patient will continue rest of the medication. 04/21/2018: The patient appears to more stable. In atrial fibrillation with moderately rapid ventricular response. His blood pressure is around 90 systolic. He is off Levophed. Having some difficulty with swallowing which is being evaluated. His renal functions have improved. Liver function tests are also showed improvement. Lungs appeared to be clear. Heart is irregular. We' ll continue current medical therapy and increase activity. Will transfer patient to telemetry unit. 04/22/2018: This patient is clinically stable. He is in atrial fibrillation with the heart rate is in the 90 to 100 range. Denies any chest pain or shortness of breath. His liver function tests are improving. His kidney function test are improving. Lungs show few rales at the right base. Patient is afebrile. Patient could be transferred to telemetry unit. Possible discharge within next 24-48 hours Objective - Vital Signs Vital signs: Vital Signs Temp 98.4 F 04/22/18 04:00 Pulse 94 04/22/18 04:00 Resp 18 04/22/18 04:00 BP 89/67 04/22/18 04:00 Pulse Ox 97 04/22/18 04:00 Intake & Output 04/21/18 04/22/18 04/22/18 18:59 06:59 18:59 Intake Total 910 400 Output Total 950 880 220 Balance -40 -480 -220 Weight 101 kg Intake: IV 50 50 Cefepime 1 gm In Sodium 50 50 Chloride 0.9% 50 ml @ 100 mls/hr IVPB DAILY [facility] Rx #:[id number] Oral 860 350 Output: Urine 950 880 220 Other: Voiding Method Indwelling Catheter Indwelling Catheter - Exam GENERAL EXAM: Patient is alert and oriented and doesn't appear to be in any acute distress HEENT: Normocephalic. Normal reaction of pupils, equal size, normal range of extraocular motion. No erythema or exudates in the throat. NECK: No masses, no nuchal rigidity. CHEST: No chest wall deformity. LUNGS: Diminished breath sounds. HEART: S1 and S2 normal with no audible mumurs or gallops. Regular rhythm, femorals equal on both sides.. ABDOMEN: No hepatosplenomegaly, normal bowel sounds, no guarding or rigidity. SKIN: No rashes CENTRAL NERVOUS SYSTEM: No focal deficits. EXTREMITIES: Both legs are wrapped - Labs CBC & Chem 7: 04/22/18 05:22 04/22/18 05:22 Labs: Abnormal Lab Results - Last 24 Hours (Table) 04/21/18 04/22/18 04/22/18 Range/Units 05:10 05:22 05:22 Hgb (13.0-17.5) gm/dL Plt Count (150-450) k/uL PT 16.0 H (9.0-12.0) sec INR 1.7 H (<1.2) Sodium 133 L (137-145) mmol/L Chloride 94 L (98-107) mmol/L Carbon Dioxide 31 H (22-30) mmol/L BUN 41 H (9-20) mg/dL Glucose 102 H (74-99) mg/dL Hemoglobin A1c 6.3 H (4.0-6.0) % Calcium 7.4 L (8.4-10.2) mg/dL Total Bilirubin 2.1 H (0.2-1.3) mg/dL AST 101 H (17-59) U/L ALT 855 H (21-72) U/L Total Protein 4.7 L (6.3-8.2) g/dL Albumin 2.2 L (3.5-5.0) g/dL 04/22/18 Range/Units 05:22 Hgb 12.6 L (13.0-17.5) gm/dL Plt Count 123 L (150-450) k/uL PT (9.0-12.0) sec INR (<1.2) Sodium (137-145) mmol/L Chloride (98-107) mmol/L Carbon Dioxide (22-30) mmol/L BUN (9-20) mg/dL Glucose (74-99) mg/dL Hemoglobin A1c (4.0-6.0) % Calcium (8.4-10.2) mg/dL Total Bilirubin (0.2-1.3) mg/dL AST (17-59) U/L ALT (21-72) U/L Total Protein (6.3-8.2) g/dL Albumin (3.5-5.0) g/dL Microbiology - Last 24 Hours (Table) 04/16/18 04:24 Blood Culture - Final Blood No Growth after 144 hours Assessment and Plan (1) Ventricular tachycardia Current Visit: Yes Status: Acute Code(s): I47.2 - VENTRICULAR TACHYCARDIA SNOMED Code(s): 91779626 (2) Ischemic cardiomyopathy Current Visit: Yes Status: Acute Code(s): I25.5 - ISCHEMIC CARDIOMYOPATHY SNOMED Code(s): 814380298 (3) Sepsis Current Visit: Yes Status: Acute Code(s): A41.9 - SEPSIS, UNSPECIFIED ORGANISM SNOMED Code(s): 77121287 (4) Atrial fibrillation Current Visit: Yes Status: Acute Code(s): I48.91 - UNSPECIFIED ATRIAL FIBRILLATION SNOMED Code(s): 83172247 (5) Syncope Current Visit: Yes Status: Acute Code(s): R55 - SYNCOPE AND COLLAPSE SNOMED Code(s): 204840445 Plan: Continue current medical therapy. Discontinue Wagoner. Transferred to telemetry unit and increase activity as tolerated
[2018-04-22] MEDS: CEFEPIME 1 GM in SODIUM CHLORIDE 0.9% 50 ML IVPB SCH ×2 (09:29→21:51)
[2018-04-22] MEDS: FUROSEMIDE 40 MG TAB PO SCH ×2 (09:30→16:45)
[2018-04-22] MEDS: MIDODRINE 5 MG TAB PO SCH ×3 (09:30→16:45)
[2018-04-22] MEDS: METOPROLOL SUCCINATE (ER) 25 MG TAB.ER.24H PO SCH ×2 (09:30→21:51)
[2018-04-22] MEDS: AMIODARONE 200 MG TAB PO SCH ×2 (09:30→21:51)
[2018-04-22] MEDS: METHIMAZOLE 5 MG TAB PO SCH ×3 (09:30→22:13)
--- NOTE | 2018-04-22 09:37 | P.PN ---
Subjective Progress Note Date: 04/22/18 Principal diagnosis: Current episodes of syncope secondary to ventricular tachycardia and cardiomyopathy with LV dysfunction This is a very pleasant 57-year-old gentleman who follows with Dr. Doe as his primary care physician. He has a history of severe nonischemic cardiomyopathy with an ejection fraction less than 20% status post AICD placement, atrial fibrillation, hypertension. He follows with watch repair technician Dr. Monroe at [facility]. He had recently been admitted here earlier this same month for an episode of near syncope. He did have syncope and ventricular tachycardia while here and was seen in the intensive care unit for the same. He presented here again early this morning after waking up on the floor. He states he was sitting up at his computer and suddenly passed out. He has no idea how long he was down for. He is unsure whether he hit his head or had any other injuries. He denied any preceding chest pain, shortness breath, dizziness or lightheadedness. No pre-warning. He denies any loss of urine. Computed tomography scan of the brain revealed no acute intracranial abnormality. Chest x-ray shows some chronic changes in the right lower lobe improved compared to previous. Moderate cardiomegaly. No acute heart failure. Troponin 0.068, 0.084, 0.107. ProBNP 15,100 area TSH 6.22, T4 2 0.74. White count 9.2. Hemoglobin 12.7. INR 1.8. Creatinine 1.28. Lactic acid up from 3.0-11.6. He does have lower extremity edema with redness and weeping and possible cellulitis. He is hypotensive currently on norepinephrine at 15 mcg/ m. He's been initiated on vancomycin and cefepime. He is seen today in consultation in the intensive care unit. He is currently resting comfortably in bed. He is awake and alert in no acute distress. He denies any chest pain, palpitations lightheadedness or dizziness. He remains in atrial fibrillation with a controlled ventricular response. He is currently on a Cardizem drip at 10 mg per hour. Previously the patient had refused amiodarone based on potential side effects. He also does have a history of noncompliance prior to his previous admission. He denies any recent fever, chills or night sweats. No cough or congestion. He is maintaining good O2 saturations in the high 90s on 2 L/m per nasal cannula. He's been afebrile since admission. Patient was reevaluated today on 04/17/2018, remains in the intensive care unit , asymptomatic, however his labs were noted to be quite abnormal today including leukocytosis with WBC count of 15.3, INR of 4.0, potassium was 6.2 earlier and it is now 5.7, patient received Kayexalate. Renal functioning is worsening, BUN is 40 creatinine is 2.78. He was seen by nephrology for his acute kidney injury, felt to be most likely cardiorenal in nature. His BNP level was noted to be elevated. And his troponins 0.107 on presentation. Chest x-ray which I reviewed is suggestive of mild pulmonary edema, with left pleural effusion, and right basilar atelectasis. Hence I recommended a dose of Lasix to be given 1 today. Patient again has very poor LV function ejection fraction is no more than 20%. Patient is now on 4 L nasal cannula, his respiratory rate is between 16 and 24, O2 saturation is 97% on 4 L. The patient is seen today 04/18/2018 in follow-up in the intensive care unit. He is awake and alert in no acute distress. He is currently sitting up in a chair at the bedside. He denies any worsening shortness of breath, cough or congestion. No chest pain, palpitations lightheadedness or dizziness. He is maintaining O2 saturations in the upper 90s on 4 L/m nasal cannula. He is afebrile. Back in sinus rhythm. Borderline hypotension. Echocardiogram revealed severely impaired left ventricular systolic function with ejection fraction less than 20%. There is also moderately impaired right ventricular systolic function. There is a possible tumor/mass/thrombus seen in the right atrium. RIVERA is being considered. Blood and urine cultures reveal no growth to date. White count 17.5. Hemoglobin 12.2. INR 4.0. Creatinine 2.67. Lactic 1.7. AST 3559, ALT 4406. He is currently on cefepime. Remains on norepinephrine at 6 mcg/m. He is also on a Lasix drip at 10 mg per hour. Currently in a -1500 ML balance. On 04/19/2018 patient seen in follow-up in the intensive care unit, he is awake and alert, sitting up in the recliner, in no acute distress. Denies any chest pain or dyspnea. Remains in Afib on monitor, a controlled rate. He is on 3 L per nasal cannula, pulse ox is 96%, maintenance IV is 0.9 at 10, Lasix at 10 mg per hour, liters if it is at 10 mics per minute. He is nonoliguric, he is producing large amount of urine, averaging 252 320 ML per hour. He is in -3800 mL fluid balance over the last 24 hours. Negative 7.2 kg in the last 48 hours. Lung sounds are positive for crackles over posterior bases. Is working on incentive spirometry. Bilateral lower extremities are covered with Seferino wrap's, and the swelling is decreasing. Afebrile. Urine and blood cultures remain negative. On 04/22/2018 patient seen in follow-up in the intensive care unit. Awake and alert, oriented 3, no acute distress. Lung sounds are clear to auscultation, pulse ox on 3 L per nasal cannula is 97%, afebrile, hemodynamically stable. Patient is a selective care overflow. Remains in atrial fibrillation, with a controlled rate. Patient is are even and nonlabored, no specific complaints, patient is nonoliguric, he is tolerating oral diet, urine and blood cultures are negative. Chest x-rays today. Today's labs have been reviewed, the WBCs 10.0, hemoglobin is 12.6, INR is 1.7, sodium is 133, potassium 3.7, chloride is 94, CO2 is 31, BUN is 41 and creatinine 1.20. He continues on oral Lasix, he is on cefepime. No fever no chills. Objective - Vital Signs Vital signs: Vital Signs Temp 98.4 F 04/22/18 04:00 Pulse 94 04/22/18 04:00 Resp 18 04/22/18 04:00 BP 89/67 04/22/18 04:00 Pulse Ox 97 04/22/18 08:38 Intake & Output 04/21/18 04/22/18 04/22/18 18:59 06:59 18:59 Intake Total 910 400 Output Total 950 880 220 Balance -40 -480 -220 Weight 101 kg Intake: IV 50 50 Cefepime 1 gm In Sodium 50 50 Chloride 0.9% 50 ml @ 100 mls/hr IVPB DAILY [facility] Rx #:[id number] Oral 860 350 Output: Urine 950 880 220 Other: Voiding Method Indwelling Catheter Indwelling Catheter - Exam GENERAL EXAM: Alert, comfortable in no apparent distress. On 3 L nasal cannula HEAD: Normocephalic. EYES: Normal reaction of pupils, equal size. NOSE: Clear with pink turbinates. THROAT: No erythema or exudates. NECK: No masses, no JVD. CHEST: No chest wall deformity. LUNGS: Equal air entry with no crackles in the posterior bases more so on the right. Diminished. CVS: S1 and S2 normal with a systolic murmur. Irregular rhythm. ABDOMEN: No hepatosplenomegaly, normal bowel sounds, no guarding or rigidity. SPINE: No scoliosis or deformity SKIN: Redness edema and weeping of the lower extremities CENTRAL NERVOUS SYSTEM: No focal deficits, tone is normal in all 4 extremities. EXTREMITIES: There is 1+ peripheral edema, bilateral lower extremities are covered with Seferino wrap's. Patient is noted to have left upper extremity edema - Labs CBC & Chem 7: 04/22/18 05:22 04/22/18 05:22 Labs: Abnormal Lab Results - Last 24 Hours (Table) 04/21/18 04/22/18 04/22/18 Range/Units 05:10 05:22 05:22 Hgb (13.0-17.5) gm/dL Plt Count (150-450) k/uL PT 16.0 H (9.0-12.0) sec INR 1.7 H (<1.2) Sodium 133 L (137-145) mmol/L Chloride 94 L (98-107) mmol/L Carbon Dioxide 31 H (22-30) mmol/L BUN 41 H (9-20) mg/dL Glucose 102 H (74-99) mg/dL Hemoglobin A1c 6.3 H (4.0-6.0) % Calcium 7.4 L (8.4-10.2) mg/dL Total Bilirubin 2.1 H (0.2-1.3) mg/dL AST 101 H (17-59) U/L ALT 855 H (21-72) U/L Total Protein 4.7 L (6.3-8.2) g/dL Albumin 2.2 L (3.5-5.0) g/dL 04/22/18 Range/Units 05:22 Hgb 12.6 L (13.0-17.5) gm/dL Plt Count 123 L (150-450) k/uL PT (9.0-12.0) sec INR (<1.2) Sodium (137-145) mmol/L Chloride (98-107) mmol/L Carbon Dioxide (22-30) mmol/L BUN (9-20) mg/dL Glucose (74-99) mg/dL Hemoglobin A1c (4.0-6.0) % Calcium (8.4-10.2) mg/dL Total Bilirubin (0.2-1.3) mg/dL AST (17-59) U/L ALT (21-72) U/L Total Protein (6.3-8.2) g/dL Albumin (3.5-5.0) g/dL Microbiology - Last 24 Hours (Table) 04/16/18 04:24 Blood Culture - Final Blood No Growth after 144 hours Assessment and Plan Plan: Assessment: #1 Syncopal episode of unclear etiology, secondary to ventricular tachycardia, no shock from device. The patient does have severe nonischemic cardiomyopathy with ejection fraction less than 20%. Status post AICD placement. #2 Hypotension requiring pressor support with elevated lactic acid and sepsis secondary to suspected lower extremity cellulitis. No clear evidence of pneumonia on the chest x-ray. No leukocytosis. #3 Mild acute renal failure, creatinine 1.25 with proteinuria. #4 Shock liver secondary to above. #5 Abnormal thyroid levels. #6 Atrial fibrillation with a rapid ventricular response. Anticoagulated with warfarin. Current INR 4.0. #7 History of hypertension. #8 History of chronic tobacco dependence. #9 bilateral lower extremity cellulitis Plan: Continue with oral diuretics, no worsening dyspnea, no chest pain. HemoDynamically patient remains stable, he is nonoliguric, afebrile. Continue the cefepime for 1 more day for the cellulitis in bilateral lower extremities, cultures been negative, no difficulty breathing, no chest congestion, no cough, no wheezing. We'll obtain ultrasound of the left upper extremity to rule out DVT. Patient is a selective overflow I performed a history & physical examination of the patient and discussed their management with my nurse practitioner, Svitlana Burgess. I reviewed the nurse practitioner's note and agree with the documented findings and plan of care. Lung sounds are clear. The findings and the impression was discussed with the patient. I attest to the documentation by the nurse practitioner. Time with Patient: Less than 30
[2018-04-22] MEDS ORDERED: DIGOXIN 250 MCG/ML 2 ML AMP IVP ONE (12:29)
[2018-04-22] MEDS: SODIUM CHLORIDE 0.9% 1,000 ML IV SCH (12:45)
[2018-04-22] MEDS: chlorproMAZINE 25 MG TAB PO PRN (19:22)
--- NOTE | 2018-04-22 19:41 | PN ---
PROGRESS NOTE DATE OF SERVICE: 04/22/2018 This 57-year-old gentleman who was admitted with severe sepsis also had syncope. Patient also had left ventricular apical thrombus. The patient was hypotensive. Patient is on broad-spectrum IV antibiotics. He is also being treated for sepsis on an empiric basis. The patient is off pressor support at this time. Patient is being closely monitored at this time. Past medical history reviewed. REVIEW OF SYSTEMS: CARDIOVASCULAR SYSTEM: As mentioned earlier. RESPIRATORY SYSTEM: No cough, hemoptysis. GI: No nausea, vomiting. : No dysuria or retention. NERVOUS SYSTEM: No numbness, weakness.. ALLERGY/IMMUNOLOGY: As mentioned earlier. CURRENT MEDICATIONS: Reviewed. They include: 1. Cordarone 240 mg p.o. b.i.d. 2. Cepacol. 3. Cefepime 1 gram b.i.d. 4. Thorazine 25 mg q.6 p.r.n. 5. Lasix 40 mg b.i.d. 6. Tapazole 5 mg p.o. t.i.d. 7. Toprol-XL 50 mg b.i.d. 8. Midodrine 10 mg before meals t.i.d. 9. Replacement protocol. 10.Narcan p.r.n. PHYSICAL EXAMINATION: Patient is alert, oriented x3. Pulse is 94, blood pressure 89/67, respiration 18, temperature 98.4, pulse ox 97% on 3 L. HEENT: Conjunctivae normal. Oral mucosa moist. NECK: No jugular venous distention. No carotid bruit. No lymph node enlargement. CARDIOVASCULAR SYSTEM: S1, S2 muffled. RESPIRATORY SYSTEM: Breath sounds diminished at the bases. No rhonchi. No crackles. ABDOMEN: Soft, non-tender. No mass palpable. LEGS: No edema. No swelling. NERVOUS SYSTEM: Higher functions as mentioned earlier. Moves all 4 limbs. Labs at this time show WBC 10, hemoglobin 12.6. INR 1.7. ASSESSMENT: 1. Severe sepsis, possible right lower lobe pneumonia, lower leg cellulitis, status post gram-negative organisms with septic shock. Cultures are negative so far. 2. Syncope, possibly secondary to cardiac arrhythmia, possible ventricular tachycardia. 3. Left ventricular apical thrombus, status post transesophageal echocardiogram. 4. Hypotension secondary to sepsis infection, status post pressor support. 5. Coumadin monitoring, mild coagulopathy. 6. 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 7. Nonischemic cardiomyopathy with history of ejection fraction less than 20% with chronic systolic dysfunction. 8. Automated implantable cardioverter defibrillator reprogrammed. 9. Troponin 0.016, indeterminate. 10.Acute renal failure, multifactorial, secondary to acute tubular necrosis, cardiorenal syndrome. 11.Elevated liver function tests, possibly hepatitis, multifactorial, possibly related to both hypotension and sepsis. 12.Remote history of nicotine dependence. 13.Hypervolemic hyponatremia, stable. RECOMMENDATIONS AND DISCUSSION: I recommend to continue current medication, continue symptomatic treatment. Otherwise at this time I would recommend continuing the current medications. Continue symptomatic treatment. Repeat labs. LFTs are improving at this time. Blood pressure is still low. I would recommend 8 a.m. cortisol. Otherwise, I would follow the patient closely. Creatinine is much improved. Continue the rest of the medications. Closely follow with Cardiology. Guarded prognosis. Further recommendations to follow. KHAI / ELINAN: [id number] /
--- NOTE | 2018-04-22 23:32 | PN ---
PROGRESS NOTE DATE OF SERVICE: 04/22/2018. REASON FOR FOLLOWUP: Lower extremity cellulitis. INTERVAL HISTORY: The patient is afebrile. Has been breathing comfortably. Denies significant chest pain. Occasional cough. No abdominal pain. No no pain to the leg area. EXAMINATION: Blood pressure 90/81 with a pulse of 80, temperature 98.4. He is 98% on 3 L nasal cannula. GENERAL DESCRIPTION: A middle-aged male lying in bed in no distress. RESPIRATORY SYSTEM: Unlabored breathing. Clear to auscultation anteriorly. HEART: S1, S2. Regular rate and rhythm. ABDOMEN: Soft, no tenderness. EXTREMITIES: Legs are currently wrapped up with not much drainage on the dressing. LABS: Hemoglobin is 12.7, white count 10.0 with a BUN of 41, creatinine 1.20. DIAGNOSTIC IMPRESSION AND PLAN: Patient with bilateral lower extremity cellulitis, right greater than left. The patient is currently covered with cefepime. Local care to continue with Aquacel silver dressing. He is afebrile and white count has normalized. Continue supportive care. MMODL / IJN: [id number] /
[2018-04-23 06:35] LABS: Basophils % (A) 0 %; Eosinophils # (A) 0.2 k/uL (0-0.7); Eosinophils % (A) 2 %; HCT 39.2 % (39.0-53.0); HGB 12.5 gm/dL (13.0-17.5); Hypochromasia Moderate; INR 1.8 (<1.2); Lymphocytes # (A) 1.1 k/uL (1.0-4.8); Lymphocytes % (A) 12 %; MCH 28.4 pg (25.0-35.0); MCHC 31.9 g/dL (31.0-37.0); MCV 89.1 fL (80.0-100.0); Mean Platelet Volume 8.2; Monocytes # (A) 1.1 k/uL (0-1.0); Monocytes % (A) 12 %; Neutrophils # (A) 6.8 k/uL (1.3-7.7); Neutrophils % (A) 72 %; Platelet Count 121 k/uL (150-450); Prothrombin Time 16.3 sec (9.0-12.0); RDW 15.1 % (11.5-15.5); WBC 9.5 k/uL (3.8-10.6)
[2018-04-23 06:44] LABS: Albumin 2.3 g/dL (3.5-5.0); Calcium 7.1 mg/dL (8.4-10.2); Total Bilirubin 2.3 mg/dL (0.2-1.3); Total Protein 4.8 g/dL (6.3-8.2)
[2018-04-23 07:07] LABS: Magnesium 1.9 mg/dL (1.6-2.3); Phosphorus 3.6 mg/dL (2.5-4.5); Potassium 4.4 mmol/L (3.5-5.1)
[2018-04-23] MEDS: AMIODARONE 200 MG TAB PO SCH ×2 (09:58→20:32)
[2018-04-23] MEDS: CEFEPIME 1 GM in SODIUM CHLORIDE 0.9% 50 ML IVPB SCH ×2 (09:58→21:33)
[2018-04-23] MEDS: MIDODRINE 5 MG TAB PO SCH ×3 (09:58→18:13)
[2018-04-23] MEDS: METOPROLOL SUCCINATE (ER) 25 MG TAB.ER.24H PO SCH ×2 (09:59→20:31)
[2018-04-23] MEDS: FUROSEMIDE 40 MG TAB PO SCH (09:59)
[2018-04-23] MEDS: METHIMAZOLE 5 MG TAB PO SCH ×3 (09:59→21:33)
--- NOTE | 2018-04-23 10:42 | P.PN ---
Subjective Progress Note Date: 04/23/18 Principal diagnosis: Current episodes of syncope secondary to ventricular tachycardia and cardiomyopathy with LV dysfunction This is a very pleasant 57-year-old gentleman who follows with Dr. Doe as his primary care physician. He has a history of severe nonischemic cardiomyopathy with an ejection fraction less than 20% status post AICD placement, atrial fibrillation, hypertension. 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 He had recently been admitted here earlier this same month for an episode of near syncope. He did have syncope and ventricular tachycardia while here and was seen in the intensive care unit for the same. He presented here again early this morning after waking up on the floor. He states he was sitting up at his computer and suddenly passed out. He has no idea how long he was down for. He is unsure whether he hit his head or had any other injuries. He denied any preceding chest pain, shortness breath, dizziness or lightheadedness. No pre-warning. He denies any loss of urine. Computed tomography scan of the brain revealed no acute intracranial abnormality. Chest x-ray shows some chronic changes in the right lower lobe improved compared to previous. Moderate cardiomegaly. No acute heart failure. Troponin 0.068, 0.084, 0.107. ProBNP 15,100 area TSH 6.22, T4 2 0.74. White count 9.2. Hemoglobin 12.7. INR 1.8. Creatinine 1.28. Lactic acid up from 3.0-11.6. He does have lower extremity edema with redness and weeping and possible cellulitis. He is hypotensive currently on norepinephrine at 15 mcg/ m. He's been initiated on vancomycin and cefepime. He is seen today in consultation in the intensive care unit. He is currently resting comfortably in bed. He is awake and alert in no acute distress. He denies any chest pain, palpitations lightheadedness or dizziness. He remains in atrial fibrillation with a controlled ventricular response. He is currently on a Cardizem drip at 10 mg per hour. Previously the patient had refused amiodarone based on potential side effects. He also does have a history of noncompliance prior to his previous admission. He denies any recent fever, chills or night sweats. No cough or congestion. He is maintaining good O2 saturations in the high 90s on 2 L/m per nasal cannula. He's been afebrile since admission. Patient was reevaluated today on 04/17/2018, remains in the intensive care unit , asymptomatic, however his labs were noted to be quite abnormal today including leukocytosis with WBC count of 15.3, INR of 4.0, potassium was 6.2 earlier and it is now 5.7, patient received Kayexalate. Renal functioning is worsening, BUN is 40 creatinine is 2.78. He was seen by nephrology for his acute kidney injury, felt to be most likely cardiorenal in nature. His BNP level was noted to be elevated. And his troponins 0.107 on presentation. Chest x-ray which I reviewed is suggestive of mild pulmonary edema, with left pleural effusion, and right basilar atelectasis. Hence I recommended a dose of Lasix to be given 1 today. Patient again has very poor LV function ejection fraction is no more than 20%. Patient is now on 4 L nasal cannula, his respiratory rate is between 16 and 24, O2 saturation is 97% on 4 L. The patient is seen today 04/18/2018 in follow-up in the intensive care unit. He is awake and alert in no acute distress. He is currently sitting up in a chair at the bedside. He denies any worsening shortness of breath, cough or congestion. No chest pain, palpitations lightheadedness or dizziness. He is maintaining O2 saturations in the upper 90s on 4 L/m nasal cannula. He is afebrile. Back in sinus rhythm. Borderline hypotension. Echocardiogram revealed severely impaired left ventricular systolic function with ejection fraction less than 20%. There is also moderately impaired right ventricular systolic function. There is a possible tumor/mass/thrombus seen in the right atrium. RIVERA is being considered. Blood and urine cultures reveal no growth to date. White count 17.5. Hemoglobin 12.2. INR 4.0. Creatinine 2.67. Lactic 1.7. AST 3559, ALT 4406. He is currently on cefepime. Remains on norepinephrine at 6 mcg/m. He is also on a Lasix drip at 10 mg per hour. Currently in a -1500 ML balance. On 04/19/2018 patient seen in follow-up in the intensive care unit, he is awake and alert, sitting up in the recliner, in no acute distress. Denies any chest pain or dyspnea. Remains in Afib on monitor, a controlled rate. He is on 3 L per nasal cannula, pulse ox is 96%, maintenance IV is 0.9 at 10, Lasix at 10 mg per hour, liters if it is at 10 mics per minute. He is nonoliguric, he is producing large amount of urine, averaging 252 320 ML per hour. He is in -3800 mL fluid balance over the last 24 hours. Negative 7.2 kg in the last 48 hours. Lung sounds are positive for crackles over posterior bases. Is working on incentive spirometry. Bilateral lower extremities are covered with Seferino wrap's, and the swelling is decreasing. Afebrile. Urine and blood cultures remain negative. On 04/22/2018 patient seen in follow-up in the intensive care unit. Awake and alert, oriented 3, no acute distress. Lung sounds are clear to auscultation, pulse ox on 3 L per nasal cannula is 97%, afebrile, hemodynamically stable. Patient is a selective care overflow. Remains in atrial fibrillation, with a controlled rate. Patient is are even and nonlabored, no specific complaints, patient is nonoliguric, he is tolerating oral diet, urine and blood cultures are negative. Chest x-rays today. Today's labs have been reviewed, the WBCs 10.0, hemoglobin is 12.6, INR is 1.7, sodium is 133, potassium 3.7, chloride is 94, CO2 is 31, BUN is 41 and creatinine 1.20. He continues on oral Lasix, he is on cefepime. No fever no chills. On 04/23/2018 patient seen in follow-up in the intensive care unit, he is awaiting a bed for selective care unit. Overnight patient did not have any acute events, vital signs are stable, currently on 3 L per nasal cannula his pulse ox is 98%, no fever, no chills, A. fib with a controlled rate on the monitor. No IVs. Ultrasound remain negative. Lung sounds are clear to auscultation. Today's labs have been reviewed, WBCs 9.5, hemoglobin is 12.5, INR is 1.8, sodium is 131, potassium is 4.4, chloride is 93, CO2 is 31, B1 is 39 , creatinine is 1.18, liver enzymes are improving. Objective - Vital Signs Vital signs: Vital Signs Temp 98.2 F 04/23/18 04:00 Pulse 97 04/23/18 04:00 Resp 17 04/23/18 04:00 BP 89/78 04/23/18 04:00 Pulse Ox 98 04/23/18 04:00 Intake & Output 04/22/18 04/23/18 04/23/18 18:59 06:59 18:59 Intake Total 100 150 Output Total 1120 750 Balance -1020 -600 Weight 101 kg 102.6 kg Intake: IV 100 Cefepime 1 gm In Sodium 100 Chloride 0.9% 50 ml @ 100 mls/hr IVPB DAILY ANA Rx #:[id number] Intake, IV Titration 50 Amount Cefepime 1 gm In Sodium 50 Chloride 0.9% 50 ml @ 100 mls/hr IVPB Q12HR ANA Rx #:[id number] Oral 100 Output: Urine 1120 750 Other: Voiding Method Indwelling Catheter Indwelling Catheter - Exam GENERAL EXAM: Alert, comfortable in no apparent distress. On 3 L nasal cannula HEAD: Normocephalic. EYES: Normal reaction of pupils, equal size. NOSE: Clear with pink turbinates. THROAT: No erythema or exudates. NECK: No masses, no JVD. CHEST: No chest wall deformity. LUNGS: Equal air entry with no crackles in the posterior bases more so on the right. Diminished. CVS: S1 and S2 normal with a systolic murmur. Irregular rhythm. ABDOMEN: No hepatosplenomegaly, normal bowel sounds, no guarding or rigidity. SPINE: No scoliosis or deformity SKIN: Redness edema and weeping of the lower extremities CENTRAL NERVOUS SYSTEM: No focal deficits, tone is normal in all 4 extremities. EXTREMITIES: There is 1+ peripheral edema, bilateral lower extremities are covered with Seferino wrap's. Patient is noted to have left upper extremity edema - Labs CBC & Chem 7: 04/23/18 05:13 04/23/18 05:13 Labs: Abnormal Lab Results - Last 24 Hours (Table) 04/23/18 04/23/18 04/23/18 Range/Units 05:13 05:13 05:13 Hgb 12.5 L (13.0-17.5) gm/dL Plt Count 121 L (150-450) k/uL Monocytes # 1.1 H (0-1.0) k/uL PT 16.3 H (9.0-12.0) sec INR 1.8 H (<1.2) Sodium 131 L (137-145) mmol/L Chloride 93 L (98-107) mmol/L Carbon Dioxide 31 H (22-30) mmol/L BUN 39 H (9-20) mg/dL Calcium 7.1 L (8.4-10.2) mg/dL Total Bilirubin 2.3 H (0.2-1.3) mg/dL AST 79 H (17-59) U/L ALT 606 H (21-72) U/L Total Protein 4.8 L (6.3-8.2) g/dL Albumin 2.3 L (3.5-5.0) g/dL Microbiology - Last 24 Hours (Table) 04/16/18 04:24 Blood Culture - Final Blood No Growth after 144 hours Assessment and Plan Plan: Assessment: #1 Syncopal episode of unclear etiology, secondary to ventricular tachycardia, no shock from device. The patient does have severe nonischemic cardiomyopathy with ejection fraction less than 20%. Status post AICD placement. #2 Hypotension requiring pressor support with elevated lactic acid and sepsis secondary to suspected lower extremity cellulitis. No clear evidence of pneumonia on the chest x-ray. No leukocytosis. #3 Mild acute renal failure, creatinine 1.25 with proteinuria. #4 Shock liver secondary to above. #5 Abnormal thyroid levels. #6 Atrial fibrillation with a rapid ventricular response. Anticoagulated with warfarin. Current INR 4.0. #7 History of hypertension. #8 History of chronic tobacco dependence. #9 bilateral lower extremity cellulitis Plan: Patient remains afebrile, cultures are negative, patient has received 7 days of IV cefepime, and he service is following. From pulmonary perspective patient is not complaining of any dyspnea, no chest pain. There has been no recurrence of arrhythmia, patient is atrial fibrillation on the monitor with a controlled rate. His INR today is 1.8, patient is maintaining negative fluid balance, remains on oral diuretics. From SPECT patient can be downgraded to medical surgical floor with remote telemetry. I performed a history & physical examination of the patient and discussed their management with my nurse practitioner, Svitlana Burgess. I reviewed the nurse practitioner's note and agree with the documented findings and plan of care. Lung sounds are clear. The findings and the impression was discussed with the patient. I attest to the documentation by the nurse practitioner. Time with Patient: Less than 30
[2018-04-23] MEDS: chlorproMAZINE 25 MG TAB PO PRN ×2 (11:51→20:32)
[2018-04-23] MEDS: SODIUM CHLORIDE 0.9% 1,000 ML IV SCH (11:57)
--- NOTE | 2018-04-23 16:23 | P.PN ---
Subjective Progress Note Date: 04/23/18 Principal diagnosis: Patient is seen in follow-up for acute kidney injury. Renal function improved since admission. Creatinine stable at 1.18 today. Patient's currently maintained on Lasix 40 mg IV BID, urine output is 1800 mL. Patient has systolic CHF with ejection fraction of less than 20% with mild to moderate tricuspid regurgitation. He is nonoliguric. He remains on oxygen. Denies any dizziness chest pain. Appetite is good Currently awake and alert. Denies chest pain or shortness of breath. Oral intake is fair. . He is known with atrial fibrillation, cardiomyopathy, ejection fractions 20% on a recent echocardiogram on 04/19/2018 AICD, heart catheterization. Objective - Vital Signs Vital signs: Vital Signs Temp 98.7 F 04/23/18 15:00 Pulse 113 H 04/23/18 15:00 Resp 20 04/23/18 15:00 BP 95/74 04/23/18 15:00 Pulse Ox 98 04/23/18 04:00 Intake & Output 04/22/18 04/23/18 04/23/18 18:59 06:59 18:59 Intake Total 100 150 Output Total 1120 750 400 Balance -1020 -600 -400 Weight 101 kg 102.6 kg Intake: IV 100 Cefepime 1 gm In Sodium 100 Chloride 0.9% 50 ml @ 100 mls/hr IVPB DAILY ANA Rx #:[id number] Intake, IV Titration 50 Amount Cefepime 1 gm In Sodium 50 Chloride 0.9% 50 ml @ 100 mls/hr IVPB Q12HR ANA Rx #:[id number] Oral 100 Output: Urine 1120 750 400 Other: Voiding Method Indwelling Catheter Indwelling Catheter Vital signs are stable. General: The patient appeared well nourished and normally developed. HEENT: Head exam is unremarkable, he has jugular venous distension about 7 cm. LUNGS: Breath sounds decreased. Bilateral fine crackles HEART: Rate and Rhythm are irregular with atrial fibrillation No murmurs, rubs or gallops. ABDOMEN: Abdominal exam reveals normal bowel sounds. Non-tender and non- distended. No evidence of peritonitis. EXTREMITITES: Mild edema edema Neurologically awake alert oriented - Labs CBC & Chem 7: 04/23/18 05:13 04/23/18 05:13 Labs: Abnormal Lab Results - Last 24 Hours (Table) 04/23/18 04/23/18 04/23/18 Range/Units 05:13 05:13 05:13 Hgb 12.5 L (13.0-17.5) gm/dL Plt Count 121 L (150-450) k/uL Monocytes # 1.1 H (0-1.0) k/uL PT 16.3 H (9.0-12.0) sec INR 1.8 H (<1.2) Sodium 131 L (137-145) mmol/L Chloride 93 L (98-107) mmol/L Carbon Dioxide 31 H (22-30) mmol/L BUN 39 H (9-20) mg/dL Calcium 7.1 L (8.4-10.2) mg/dL Total Bilirubin 2.3 H (0.2-1.3) mg/dL AST 79 H (17-59) U/L ALT 606 H (21-72) U/L Total Protein 4.8 L (6.3-8.2) g/dL Albumin 2.3 L (3.5-5.0) g/dL Assessment and Plan Assessment: 1. Acute kidney injury, secondary to cardiorenal syndrome, cardiomyopathy ejection fraction 20%. Responding to IV Lasix 40 twice a day but urine output was 1800 mL. 2. Mild hyponatremia secondary to diuretics sodium is 131 down from 137. 3. Significant edema 3. Atrial fibrillation. 4. Mild anemia hemoglobin is 12.5. Plan- 1. Will increase Lasix to 80 twice a day and see how he responds with his sodium and his creatinine.
[2018-04-23] MEDS: FUROSEMIDE 10 MG/ML 10 ML VIAL IV SCH (20:32)
--- NOTE | 2018-04-24 00:14 | PN ---
PROGRESS NOTE DATE OF SERVICE: 04/23/2018 This 57-year-old gentleman who was admitted with severe sepsis and right lung pneumonia also had right leg cellulitis. The patient is being closely monitored. Patient has syncope. Patient has multiple cardiac arrhythmias also, left ventricular apical thrombus also noted. Multiple consultants are following the patient closely. PAST MEDICAL HISTORY: Reviewed. REVIEW OF SYSTEMS: Cardiovascular systems: S1, S2. Respirations: As mentioned earlier. GI mentioned: As mentioned earlier. : No dysuria. CURRENT MEDICATIONS ARE: Reviewed and include: 1. Cordarone 400 mg p.o. b.i.d. 2. Cepacol one application. 3. Cefepime 1 g IV b.i.d. 4. Thorazine 25 mcg q.6h. 5. Lasix 80 mg IV b.i.d. 6. Tapazole 5 mg a.c. t.i.d. 7. Toprol-XL 50 mg b.i.d. 8. Primatene 10 mg a.c. t.i.d. replacement protocol. PHYSICAL EXAMINATION: Alert and oriented x2. Pulse is 113, blood pressure 95/70, respiration 20, temperature 98.7, pulse ox 98% on 3 L. HEENT is conjunctivae normal. Oral mucosa moist. Neck is no jugular venous distention. No carotid bruit. No lymph node enlargement. CARDIOVASCULAR SYSTEM: S1, S2 muffled. RESPIRATORY SYSTEM: Breath sounds diminished at the bases. Scattered rhonchi and crackles. ABDOMEN: Soft, nontender. No mass palpable. Legs: No edema. No swelling. NERVOUS SYSTEM: Higher functions as mentioned earlier. Moves all four extremities. No focal motor or sensory deficits. Lymphatics: No lymph nodes palpable in the neck, axillae or groin. Skin: No ulcer, rash or bleeding. LABS: WBC 9.2, hemoglobin 12.5, and platelets 721. INR is 1.8. Sodium is 131. The calcium is 7.1. Total bilirubin is 2.3 and AST is 79, ALT is 606 and cortisol is 18. ASSESSMENT: 1. Severe sepsis, possible right pneumonia, right lower leg cellulitis, possibly gram- negative organs with septic shock. Cultures negative so far. 2. Syncope possibly secondary to cardiac arrhythmias, possible ventricular tachycardia. 3. Left ventricular thrombus, status post RIVERA. 4. Hypotension secondary to sepsis and infection status post pressor support. 5. Coumadin monitoring, mild coagulopathy. 6. Hyperthyroidism, possibly drug induced. 7. Nonischemic cardiomyopathy, ejection fraction less than 20% with chronic systolic dysfunction. 8. AICD reprogrammed. 9. Troponin 0.16 indeterminate. 10.Acute renal failure multifactorial secondary to acute tubular necrosis, cardiorenal syndrome. 11.Elevated liver functions, possibly acute hepatitis, multifactorial possibly related to both hypotension and sepsis. 12.Remote history of nicotine dependence. 13.Hypovolemic hypernatremia, stable. 14.FULL CODE. RECOMMENDATIONS AND DISCUSSION: This 57-year-old gentleman presented with multiple complex medical issues as mentioned earlier, we recommend to continue current medications, management and symptomatic treatment. Otherwise at this time I recommend repeat labs tomorrow and closely follow. Continue with antibiotics. Once again the cultures were checked which are negative so far. Continue the rest of the medications. Guarded prognosis. Further recommendations to follow. MMODL / IJN: [id number] /
--- NOTE | 2018-04-24 01:50 | CONS ---
CONSULTATION This patient has a history of severe ischemic cardiomyopathy, status post AICD placement, history of atrial fibrillation and hypertension. The patient had recurrent episodes of ventricular tachycardia. The patient subsequently was admitted to the hospital. The patient received IV amiodarone. He now remains in atrial fibrillation with a rate of 80 to 90 beats per minute. At present patient denies any chest pain or discomfort. He is lying comfortably in bed. Heart rate is 90 to 100 per minute, blood pressure is 90/78 mmHg. Patient is not symptomatic from that. The patient is afebrile. HEART: First and second heart sounds are normal. LUNGS: Clinically clear to auscultation and percussion. Electrolytes are normal. Creatinine is 1.14. Platelet count is 121,000. ASSESSMENT AND PLAN: This patient has a severe nonischemic cardiomyopathy, history of recurrent ventricular tachycardia which are now controlled with amiodarone. We will continue the current treatment. In view of the patient's labile INR and the patient being on amiodarone, we will consider to start the patient on Eliquis 5 mg b.i.d. MMODL / IJN: [id number] /
[2018-04-24] MEDS: MIDODRINE 5 MG TAB PO SCH ×3 (08:30→17:18)
[2018-04-24] MEDS: FUROSEMIDE 10 MG/ML 10 ML VIAL IV SCH ×2 (08:30→22:22)
[2018-04-24] MEDS: CEFEPIME 1 GM in SODIUM CHLORIDE 0.9% 50 ML IVPB SCH ×2 (08:30→20:23)
[2018-04-24] MEDS: AMIODARONE 200 MG TAB PO SCH ×2 (08:31→20:20)
[2018-04-24] MEDS: METHIMAZOLE 5 MG TAB PO SCH ×2 (08:31→17:18)
[2018-04-24 09:29] LABS: Calcium 7.3 mg/dL (8.4-10.2); HCT 39.8 % (39.0-53.0); HGB 12.2 gm/dL (13.0-17.5); Hypochromasia Moderate; MCH 27.2 pg (25.0-35.0); MCHC 30.6 g/dL (31.0-37.0); MCV 88.7 fL (80.0-100.0); Mean Platelet Volume 7.4; Platelet Count 132 k/uL (150-450); Potassium 3.7 mmol/L (3.5-5.1); Prothrombin Time 17.8 sec (9.0-12.0); RBC 4.48 m/uL (4.30-5.90); RDW 15.1 % (11.5-15.5)
[2018-04-24] MEDS: HYDROCORTISONE 20 MG TAB PO SCH (10:17)
[2018-04-24] MEDS: METOPROLOL SUCCINATE (ER) 25 MG TAB.ER.24H PO SCH ×2 (10:17→20:20)
--- NOTE | 2018-04-24 11:00 | PN ---
PROGRESS NOTE DATE OF SERVICE: April 24, 2018. This is a 57-year-old male who has a history of syncope. The syncope was thought to be related to underlying ventricular tachycardia. The patient has an AICD in place, but apparently it did not discharge. He has a severe cardiomyopathy with ejection fraction of less than 20%. The patient also presented with hypotension. He was thought to possibly have sepsis from his underlying cellulitis. He did have elevated lactic acid. There also may be a component of adrenal insufficiency. His cortisol level was only 18. He also has a history of acute renal failure, shock liver, thyroid dysfunction, atrial fibrillation with RVR, hypertension, history of chronic tobacco dependence, and bilateral lower extremity cellulitis. Currently, Mr. Valero is on 3 L nasal cannula. He is getting a 0.9 IV at 20 mL an hour. He has been weaned off the norepinephrine. The patient was apparently going to be discharged to a floor bed, but there was no beds available. His cortisol level was 18. We have maximized his midodrine at 10 mg 3 times a day. We are going to go ahead and start him empirically on Cortef at 20 mg in the a.m. and 10 mg in the p.m. I will see how he responds. Blood pressures been hanging right around low-to-mid 80s systolic. With that though, he is awake and alert. He otherwise is feeling well. Denies any pain, shortness of breath, difficulty breathing, coughing, wheezing, or phlegm production. Current vital signs are reviewed. Temperature is 98.3, heart rate 97, respiratory 16, blood pressure 97/74, mean 81. 3 L saturation is 100%. His blood pressures have ranged as low as 73 systolic. Appears in no acute distress. Awake and alert. HEENT examination is grossly unremarkable. Mucous membranes are moist. No oral lesions. Nasal O2 in place. Neck is supple. Full range of motion. No adenopathy or thyromegaly. Neck veins are flat. Cardiovascular examination reveals regular rhythm and rate. Heart sounds are distant. Soft systolic murmur is heard. S1, S2 normal. Lungs reveal mostly clear breath sounds. A few scattered rhonchi. No wheezes or crackles. Abdomen is soft. Bowel sounds are heard. Extremities are intact. Legs are wrapped. Skin without rash. Neurologic examination is brief but nonfocal. LABS: Reviewed. White count 10, hemoglobin 12.2, hematocrit 39.8, platelet count 132,000. PT/INR were 17.8 and 2.0 respectively. Sodium 133, potassium 3.7, chloride 92, CO2 34, anion gap is 7, BUN and creatinine were 32, 1.10. His labs are reviewed. His most recent AST is 79 and ALT is 606. These have both come down very nicely over the last couple of days. Microbiologic studies have been negative. The patient has not had a chest x-ray. ASSESSMENT: 1. Syncope, of unclear etiology. It may be related to underlying ventricular tachycardia, although the patient did not receive a discharge from his AICD. The patient does have a history of severe nonischemic cardiomyopathy. 2. Cardiomyopathy, with an ejection fraction of less than 20%. 3. Hypotension, which may relate to underlying sepsis, and/or cardiomyopathy. The hypotension appears to be chronic in nature. 4. Renal failure. 5. Shock liver. 6. Thyroid dysfunction. 7. Atrial fibrillation with RVR. 8. History of hypertension. 9. History of chronic tobacco dependence. 10.Bilateral lower extremity cellulitis with possible underlying sepsis. 11.Rule out adrenal insufficiency. PLAN: The patient potentially could be discharged out of the unit today. He has been weaned off the norepinephrine. His microbiologic studies are negative. The patient's INR is 2. Because of a cortisol level of 18, the patient was started empirically on Cortef 20 in the morning, 10 in the evening. He is maximized on midodrine 10 mg 3 times a day. He remains on Maxipime per my partner, which was started a few days back. No additional recommendations are made. We will continue to follow. Prognosis is guarded. Additional recommendations and suggestions are forthcoming. Critical care time is 33 minutes. MMODL / IJN: [id number] /
[2018-04-24] MEDS: SODIUM CHLORIDE 0.9% 1,000 ML IV SCH (12:17)
--- NOTE | 2018-04-24 14:06 | P.PN ---
Subjective Progress Note Date: 04/24/18 Principal diagnosis: Patient is seen in follow-up for acute kidney injury. Renal function improved since admission. Creatinine stable at 1.18 yesterday . Patient's currently maintained on Lasix 40 mg IV BID, urine output is 1800 mL. Patient has systolic CHF with ejection fraction of less than 20% with mild to moderate tricuspid regurgitation. He is nonoliguric. He remains on oxygen. Denies any dizziness chest pain. Appetite is good Currently awake and alert. Denies chest pain or shortness of breath. Oral intake is fair. I increase his IV Lasix yesterday to 80 mg twice a day to see if his edema can be reduced without compromising his renal function. His urine output has not increased significantly is in the 1.8-1.9 L over the last 2 days. His Wagoner catheter was discontinued and therefore it may not been accurate urinary output documentation . He is known with atrial fibrillation, cardiomyopathy, ejection fractions 20% on a recent echocardiogram on 04/19/2018 AICD, heart catheterization. Objective - Vital Signs Vital signs: Vital Signs Temp 98.3 F 04/24/18 07:00 Pulse 97 04/24/18 07:00 Resp 16 04/24/18 07:00 BP 97/74 04/24/18 07:00 Pulse Ox 100 04/24/18 07:00 Intake & Output 04/23/18 04/24/18 04/24/18 18:59 06:59 18:59 Intake Total 340 Output Total 650 1325 1125 Balance -650 -985 -1125 Intake: IV 50 Cefepime 1 gm In Sodium 50 Chloride 0.9% 50 ml @ 100 mls/hr IVPB ONCE STA Rx# :[id number] Oral 50 Tube Feeding 240 Output: Urine 650 1325 1125 Other: Voiding Method Indwelling Catheter Urinal Urinal On examination is awake alert oriented comfortable. He says he was able to walk without any difficulties no dizziness. HEENT exam no JVP neck is supple no facial asymmetry Lungs are clear to auscultation good air entry bilaterally Heart sounds are unremarkable no murmur rub gallop Abdomen soft nontender Extremity exam was 2-3+ edema of the thighs. His arms also have significant edema Neurologically awake alert oriented - Labs CBC & Chem 7: 04/24/18 08:57 04/24/18 08:57 Labs: Abnormal Lab Results - Last 24 Hours (Table) 04/24/18 04/24/18 04/24/18 Range/Units 08:57 08:57 08:57 Hgb 12.2 L (13.0-17.5) gm/dL MCHC 30.6 L (31.0-37.0) g/dL Plt Count 132 L (150-450) k/uL PT 17.8 H (9.0-12.0) sec INR 2.0 H (<1.2) Sodium 133 L (137-145) mmol/L Chloride 92 L (98-107) mmol/L Carbon Dioxide 34 H (22-30) mmol/L BUN 32 H (9-20) mg/dL Glucose 143 H (74-99) mg/dL Calcium 7.3 L (8.4-10.2) mg/dL Assessment and Plan Assessment: 1. Acute kidney injury, secondary to cardiorenal syndrome, cardiomyopathy ejection fraction 20%. Responding to IV Lasix 40 twice a day but urine output was 1800 mL. Lasix was increased to 80 IV every 12 dated 04/23/2018, urine output is about the same that patient feels he is making more urine. His Wagoner catheter has been discontinued intake and output chart may not be accurate. We will go by the weight. 2. Mild hyponatremia secondary to diuretics, sodium improved to 133 with increase Lasix dose. 3. Significant edema 3. Atrial fibrillation. 4. Mild anemia hemoglobin is 12.5. Plan- 1. Will continue Lasix to 80 twice a day and see how he responds with his sodium and his creatinine.
--- NOTE | 2018-04-24 14:52 | PN ---
PROGRESS NOTE This patient has a history of cardiomyopathy. Patient was admitted with syncope and recurrent of ventricular tachycardia. The patient remains in atrial fibrillation with a rate of 90-100 per minute. He is comfortable. Denies any shortness of breath. He has been ambulating in the room. Blood pressure is 97/74 mmHg. First and second heart sounds are heard. Lungs are clinically clear to auscultation and percussion. Patient's INR is 2.0, hemoglobin is 12.2. Electrolytes are normal creatinine is 1.1. We will continue the current medications. MMODL / IJN: [id number] /
[2018-04-24] MEDS ORDERED: WARFARIN 5 MG TAB PO ONE (18:00)
--- NOTE | 2018-04-24 18:16 | PN ---
PROGRESS NOTE DATE OF SERVICE: 04/24/2018 This 57-year-old gentleman admitted with multiple issues including severe sepsis, pneumonia, cellulitis, also had tachycardia. The patient also is being closely monitored in ICU at this time. Multiple consultants are following the patient including Cardiology, Pulmonology, and Nephrology. The patient has history of nonischemic cardiomyopathy. The patient has been planned to be started on Eliquis at this time. PAST MEDICAL HISTORY: Reviewed. REVIEW OF SYSTEMS: CARDIOVASCULAR: As mentioned. RESPIRATORY: As mentioned. GI: No nausea. : No dysuria. NERVOUS SYSTEM: As mentioned earlier. MEDICATIONS: Reviewed and include: 1. Cordarone 400 mg p.o. b.i.d. 2. Cepacol p.r.n. 3. Cefepime. 4. Thorazine 25 mg q.6h p.r.n. 5. Lasix 80 mg IV b.i.d. 6. Cortef 20 mg. 7. Cortef 10 mg q.h.s. 8. Tapazole 5 mg p.o. t.i.d. 9. Toprol-XL 50 mg p.o. b.i.d. 10.ProAmatine 10 mg t.i.d. 11.Narcan p.r.n. PHYSICAL EXAM: Patient is alert, oriented x3. Pulse is 97, blood pressure 97/74, respiration 16, temperature 98.2, pulse ox 100 percent on 3 L. HEENT: Conjunctivae normal. NECK: No jugular venous distention. CARDIOVASCULAR: S1, S2. RESPIRATORY: Breath sounds diminished in the bases. A few scattered rhonchi and crackles. ABDOMEN: Soft, nontender. LEGS: Right leg cellulitis. NERVOUS SYSTEM: No focal deficits. LABS: WBC 10, hemoglobin 12.2, INR is 2. Sodium is 133. ASSESSMENT: 1. Severe sepsis, possible right side pneumonia and also possibly gram-negative, also right lower cellulitis with septic shock. Cultures are negative so far. 2. Syncope possibly secondary to cardiac arrhythmia, possible ventricular tachycardia. 3. Left ventricular thrombus, status post RIVERA. 4. Hypotension secondary to sepsis and infection, status post pressor support. 5. Coumadin monitoring and mild coagulopathy. 6. Hyperthyroidism possibly drug induced. 7. Nonischemic cardiomyopathy. Ejection fraction less than 20% with chronic systolic dysfunction. 8. Automated implantable cardioverter defibrillator reprogrammed. 9. Troponin 0.16 indeterminate. 10.Acute renal failure multifactorial secondary to acute tubular necrosis, cardiorenal syndrome. 11.Elevated LFTs, possible acute hepatitis multifactorial, possibly related to both hypotension and sepsis. 12.Remote history of nicotine dependence. 13.Hypervolemic hyponatremia, stable. 14.FULL CODE. RECOMMENDATIONS AND DISCUSSION: I recommend to continue current management, continue monitoring and symptomatic treatment. We will monitor the patient closely. Continue with current medications. Continue the antibiotics. Prognosis guarded because of multiple complex medical issues. See orders for details. MMODL / IJN: [id number] /
--- NOTE | 2018-04-24 18:46 | P.CONS ---
History of Present Illness - Reason for Consult Consult date: 04/24/18 Dysphagia Requesting physician: Portia Harrison - Chief Complaint Syncope - History of Present Illness 57-year-old male with multiple medical comorbidities including atrial fibrillation, nonischemic cardiomyopathy status post recent AICD placement, hypertension and cellulitis who presented to the hospital for evaluation after an episode of passing out. The patient is currently in the ICU receiving medical therapy and has complained of dysphagia which has made it difficult for him to eat predominantly solid foods. The patient this is not a new complaint and he is been suffering with intermittent dysphagia for approximately 1 year since having a RIVERA with the cardiology service 1 year ago. The patient reports that the dysphagia is predominantly to solids and has occurred on and off during this time. However during his hospitalization he has had increasing symptoms. He is currently tolerating a full liquid diet. He denies any prior episodes of food impaction. He denies any investigation with upper endoscopy in the past. He had a video swallowing evaluation which was essentially negative with no deficits found. The patient was also found to have elevated liver enzymes during his hospitalization likely secondary to hypotension with both a hepatocellular and a cholestatic pattern which have continued to improve during his hospitalization. He had an acute viral hepatitis panel which was found to be negative. Review of Systems REVIEW OF SYSTEMS: CARDIO: Denies any chest pain or palpitations. PULMONARY: Denies any shortness of breath or wheezing. GENITOURINARY: No dysuria or hematuria. MUSCULOSKELETAL: No weakness reported. SKIN: Denies any new rashes or lesions, jaundice or pallor. PSYCHIATRIC: Denies any depression or anxiety. NEUROLOGY: Denies headache, denies any new focal deficits. EARS: No tinnitus, discharge or new hearing loss. NOSE: No discharge or congestion. EYES: No pain in eyes or change in vision. CONSTITUTIONAL: No recent weight loss. No fever, chills, night sweats. Past Medical History Past Medical History: Atrial Fibrillation, Hypertension History of Any Multi-Drug Resistant Organisms: None Reported Past Surgical History: AICD, Heart Catheterization Past Anesthesia/Blood Transfusion Reactions: No Reported Reaction Type of Cardiac Device: AICD Device Placement Date:: 2016 Past Psychological History: No Psychological Hx Reported Smoking Status: Former smoker Past Alcohol Use History: None Reported Past Drug Use History: None Reported - Past Family History Father Family Medical History: No Reported History Mother Family Medical History: No Reported History Medications and Allergies Home Medications Medication Instructions Recorded Confirmed Type Lisinopril [Zestril] 2.5 mg PO DAILY #30 tab 03/30/18 04/16/18 Rx Spironolactone [Aldactone] 25 mg PO DAILY #30 tab 03/30/18 04/16/18 Rx Warfarin [Coumadin] 1 mg PO DAILY@1800 #5 tab 03/30/18 04/16/18 Rx Amiodarone [Cordarone] 200 mg PO DIRECTED 04/16/18 04/16/18 History Digoxin [Digitek] 125 mcg PO DIRECTED 04/16/18 04/16/18 History Furosemide [Lasix] 40 mg PO DIRECTED 04/16/18 04/16/18 History Metoprolol Succinate [Toprol XL] 25 mg PO DAILY 04/16/18 04/16/18 History Metoprolol Tartrate [Lopressor] 100 mg PO DIRECTED 04/16/18 04/16/18 History Allergies Allergy/AdvReac Type Severity Reaction Status Date / Time Iodinated Contrast- Oral and AdvReac Unknown Unknown Verified 04/16/18 11:17 IV Dye Physical Exam Vitals: Vital Signs Temp Pulse Resp BP Pulse Ox 04/24/18 15:00 98.3 F 135 H 16 90/79 96 04/24/18 07:00 98.3 F 97 16 97/74 100 04/24/18 00:00 84 12 04/23/18 23:00 98.1 F 84 12 73/62 99 04/23/18 20:38 98.5 F 110 H 12 90/63 99 Intake and Output 04/24/18 04/24/18 04/24/18 06:59 14:59 22:59 Intake Total 500 Output Total 525 1125 Balance -525 -625 Intake: Oral 500 Output: Urine 525 1125 Other: Voiding Method Urinal Urinal Urinal On physical examination, patient appears comfortable in no apparent distress. HEAD: Normocephalic, atraumatic. EYES: No scleral icterus. No conjunctival injection. MOUTH: No lesions, tongue midline. NECK: Trachea midline, no gross abnormalities. CHEST: Clear to auscultation with no wheezing or rhonchi appreciated. HEART: Irregularly irregular. ABDOMEN: Soft, obese. Bowel sounds are positive. No organomegaly. No guarding or rigidity. EXTREMITIES: Bilateral pedal edema. SKIN: No rashes, no jaundice. NEUROLOGIC: Alert and oriented x3. No focal deficits. Results CBC & Chem 7: 04/24/18 08:57 04/24/18 16:20 Labs: Abnormal Lab Results - Last 24 Hours (Table) 04/24/18 04/24/18 04/24/18 Range/Units 08:57 08:57 08:57 Hgb 12.2 L (13.0-17.5) gm/dL MCHC 30.6 L (31.0-37.0) g/dL Plt Count 132 L (150-450) k/uL PT 17.8 H (9.0-12.0) sec INR 2.0 H (<1.2) Sodium 133 L (137-145) mmol/L Chloride 92 L (98-107) mmol/L Carbon Dioxide 34 H (22-30) mmol/L BUN 32 H (9-20) mg/dL Glucose 143 H (74-99) mg/dL Calcium 7.3 L (8.4-10.2) mg/dL Assessment and Plan (1) Dysphagia Narrative/Plan: Solid food dysphagia of one year duration, unknown etiology, may was represent esophagitis, stricture, motility disorder or other etiology. Current Visit: Yes Status: Acute Code(s): R13.10 - DYSPHAGIA, UNSPECIFIED SNOMED Code(s): 12204849 (2) Elevated liver enzymes Narrative/Plan: Improved since presentation, likely secondary to ischemic hepatitis and are currently trending down. Viral hepatitis panel was negative. Current Visit: Yes Status: Acute Code(s): R74.8 - ABNORMAL LEVELS OF OTHER SERUM ENZYMES SNOMED Code(s): 654050176 (3) Atrial fibrillation Current Visit: Yes Status: Acute Code(s): I48.91 - UNSPECIFIED ATRIAL FIBRILLATION SNOMED Code(s): 21093296 (4) Sepsis Current Visit: Yes Status: Acute Code(s): A41.9 - SEPSIS, UNSPECIFIED ORGANISM SNOMED Code(s): 73347624 Plan: Supportive care Currently on full liquid diet, diet as tolerated Zantac twice a day added Video swallow reviewed Patient offered an upper endoscopy, however given current anticoagulation he would be at high risk for any stricture dilation if this was found or other intervention in addition his multiple cardiac comorbidities make him high risk for anesthesia which has been explained to him at length and at this time he would like to defer upper endoscopy Thank you for allowing us to participate in the care of this patient, we will continue to follow
[2018-04-24] MEDS: HYDROCORTISONE 10 MG TAB PO SCH (22:22)
[2018-04-24] MEDS: FAMOTIDINE 20 MG/2 ML VIAL IV SCH (22:22)
--- NOTE | 2018-04-24 22:58 | PN ---
PROGRESS NOTE DATE OF SERVICE: 04/24/2018. REASON FOR FOLLOWUP: Bilateral lower extremity cellulitis. INTERVAL HISTORY: The patient is currently afebrile. He is breathing more comfortably. Denies having any chest pain or shortness of breath. No cough. No abdominal pain. No pain in the leg area. EXAMINATION: Blood pressure 107/72 with a pulse of 135, temperature 98.1. General description is a middle-aged male lying in bed in no distress. Respiratory system, unlabored breathing. Clear to auscultation anteriorly. Heart S1, S2. Regular rate and rhythm. The legs are currently wrapped with drainage on the dressing. LABS: Hemoglobin 12.1, white count 10.0 with a BUN of 32, creatinine 1.10. DIAGNOSTIC IMPRESSION AND PLAN: Patient with bilateral with cellulitis, right greater than left. At this time the patient is to continue with cefepime to which the patient has clinically responded. Local care to continue with Aquacel Silver dressing. Continue with supportive care. MMODL / IJN: [id number] /
[2018-04-25] MEDS: METHIMAZOLE 5 MG TAB PO SCH ×4 (01:11→21:34)
[2018-04-25] MEDS: FUROSEMIDE 10 MG/ML 10 ML VIAL IV SCH ×2 (08:58→21:34)
--- NOTE | 2018-04-25 09:16 | P.PN ---
Subjective Progress Note Date: 04/25/18 Principal diagnosis: dysphagia 57-year-old gentleman admitted with acute sepsis pneumonia cellulitis history of atrial fibrillation maintained on warfarin reevaluated today in regards to dysphagiaand elevated liver enzymes. Esophagram ordered today. Still reports a globus sensation in posterior pharynx region when consuming liquids or solids. Denies emesis hematemesis medical easy or melena. INR pending yesterday 2.0. CMP pending LFTs improved yesterday to TB 2.3. AST 79. ALT 606. AP 70. Objective - Vital Signs Vital signs: Vital Signs Temp 98.3 F 04/25/18 03:51 Pulse 96 04/25/18 03:51 Resp 18 04/25/18 03:51 BP 101/57 04/25/18 03:51 Pulse Ox 96 04/25/18 03:51 Intake & Output 04/24/18 04/25/18 04/25/18 18:59 06:59 18:59 Intake Total 500 240 Output Total 1125 Balance -625 240 Weight 106.5 kg Intake: Oral 500 240 Output: Urine 1125 Other: Voiding Method Urinal Urinal - Exam General appearance: The patient is alert, oriented, in no acute distress. HET: Head is normocephalic and atraumatic. Pupils are equal and reactive. Oropharynx is clear without lesions. Neck: Supple without lymphadenopathy. Trachea midline. Heart: S1 S2. Lungs: slight diminishment in bilateral pieces.No crackles or wheezes are heard. Abdomen: Soft, nontender, nondistended with bowel sounds. No peritoneal signs. No palpable organomegaly or masses. Extremities: Normal skin color and turgor. No cyanosis, rash, ulceration, clubbing, or edema. Radial and pedal pulses are 2/4 bilaterally. Neurological: No focal deficits. Strength and sensation are grossly intact. - Labs CBC & Chem 7: 04/24/18 08:57 04/24/18 16:20 Labs: Abnormal Lab Results - Last 24 Hours (Table) 04/24/18 04/24/18 04/24/18 Range/Units 08:57 08:57 08:57 Hgb 12.2 L (13.0-17.5) gm/dL MCHC 30.6 L (31.0-37.0) g/dL Plt Count 132 L (150-450) k/uL PT 17.8 H (9.0-12.0) sec INR 2.0 H (<1.2) Sodium 133 L (137-145) mmol/L Chloride 92 L (98-107) mmol/L Carbon Dioxide 34 H (22-30) mmol/L BUN 32 H (9-20) mg/dL Glucose 143 H (74-99) mg/dL Calcium 7.3 L (8.4-10.2) mg/dL Assessment and Plan (1) Dysphagia Narrative/Plan: persistent dysphagia predominantly with solids etiology unclear possible stricture disease possible motility disorder. Current Visit: Yes Status: Acute Code(s): R13.10 - DYSPHAGIA, UNSPECIFIED SNOMED Code(s): 74999686 (2) Elevated liver enzymes Narrative/Plan: likely secondary to ischemic hepatitis improving. Current Visit: Yes Status: Acute Code(s): R74.8 - ABNORMAL LEVELS OF OTHER SERUM ENZYMES SNOMED Code(s): 587515293 (3) Warfarin-induced coagulopathy Current Visit: Yes Status: Acute Code(s): D68.32 - HEMORRHAGIC DISORD D/T EXTRINSIC CIRCULATING ANTICOAGULANTS; T45.515A - ADVERSE EFFECT OF ANTICOAGULANTS, INITIAL ENCOUNTER SNOMED Code(s): 01478076 (4) Sepsis Current Visit: Yes Status: Acute Code(s): A41.9 - SEPSIS, UNSPECIFIED ORGANISM SNOMED Code(s): 01659247 (5) Atrial fibrillation Current Visit: Yes Status: Acute Code(s): I48.91 - UNSPECIFIED ATRIAL FIBRILLATION SNOMED Code(s): 52281570 Plan: 1. Patient is hesitant about proceeding with endoscopic exam. Will review esophagram results further recommendations forthcoming. We'll continue to follow. Assessment and plan a care discussed with Dr. Self
[2018-04-25] MEDS: METOPROLOL SUCCINATE (ER) 25 MG TAB.ER.24H PO SCH ×2 (09:21→21:33)
[2018-04-25] MEDS: AMIODARONE 200 MG TAB PO SCH ×2 (09:22→21:33)
[2018-04-25] MEDS: HYDROCORTISONE 20 MG TAB PO SCH (09:23)
[2018-04-25] MEDS: MIDODRINE 5 MG TAB PO SCH ×3 (09:26→16:44)
[2018-04-25] MEDS ORDERED: DIGOXIN 250 MCG/ML 2 ML AMP IVP ONE (09:30)
[2018-04-25] MEDS: FAMOTIDINE 20 MG/2 ML VIAL IV SCH ×2 (09:31→21:33)
[2018-04-25] MEDS: CEFEPIME 1 GM in SODIUM CHLORIDE 0.9% 50 ML IVPB SCH ×2 (09:38→21:43)
--- NOTE | 2018-04-25 09:47 | P.PN ---
Subjective Progress Note Date: 04/25/18 This is a 57-year-old gentleman with history of ischemic cardiac myopathy, status post AICD implantation who is admitted to the hospital with an episode of syncope. He had an episode of ventricular tachycardia at a rate of 210. Patient was programmed to monitor only and did not receive any therapy. Since admission patient is noted to have significant cellulitis of the legs and possible sepsis. Patient is hypotensive on Levophed. He is going in and out of flutter sinus rhythm and also fibrillation and having brief episodes of ventricular tachycardia which are nonsustained. Patient does seem to be frail and weak and mildly short of breath. His lab work showed severe elevation of the liver enzymes which are coming down. His troponin is mildly elevated. He is also has acute renal failure and is being followed by echocardiography tech. He is also being seen by ID specialist. Patient's echocardiogram apparently also showed a thrombus at the apex and also mass in the right atrium. Dr. Armas is planning to do RIVERA examination tomorrow. Meanwhile, we'll continue with current medical therapy. I will also discuss with [facility] to see why he was not programmed for any therapy. 04/19/2018: This patient's seems to be much more stable. Denies any chest pain. Denies any shortness of breath. His urine output is good. His creatinine is improving. His liver functions are improving. He is going to have a RIVERA examination today. He still on Levophed and IV Lasix drip. Hasn't had any sustained arrhythmias. Having episodes of atrial fibrillation, short runs of nonsustained V. tach. Lungs appeared to be clear. We'll continue his current medical therapy. I will speak with a [facility] [facility] [employer] and see if he can program therapies for V. tach. That may be reasonable why that was are not programmed before. We'll may talk to his industrial maintenance repairer also. We'll may discontinue IV Lasix drip and start him on Lasix IV push. 04/25/2018 04/20/2018: Patient is sitting up in the chair and seemed to be in no acute distress. However, his blood pressures running low and patient was initiated on Levophed. Patient continues to be atypical fibrillation with mildly rapid ventricular response. Patient is on amiodarone. Will his liver enzymes are coming down. His BUN/creatinine are improving and his urine output remains good. He is on Toprol-XL for rate control along with amiodarone. He used to be on digoxin. However, patient was having recurrent runs of V. tach. I will stay away from Lanoxin. We did reprogram the defibrillator and discussed with his industrial maintenance repairer's office. Therapies were programmed for V. tach at 200. A new monitor done for V. tach at 160 was programmed. Patient will continue rest of the medication. 04/21/2018: The patient appears to more stable. In atrial fibrillation with moderately rapid ventricular response. His blood pressure is around 90 systolic. He is off Levophed. Having some difficulty with swallowing which is being evaluated. His renal functions have improved. Liver function tests are also showed improvement. Lungs appeared to be clear. Heart is irregular. We' ll continue current medical therapy and increase activity. Will transfer patient to telemetry unit. 04/22/2018: This patient is clinically stable. He is in atrial fibrillation with the heart rate is in the 90 to 100 range. Denies any chest pain or shortness of breath. His liver function tests are improving. His kidney function test are improving. Lungs show few rales at the right base. Patient is afebrile. Patient could be transferred to telemetry unit. Possible discharge within next 24-48 hours 04/25/2018: This patient is admitted to the hospital for syncope and evidence of sustained ventricular tachycardia. Patient also has evidence of cellulitis. He also had evidence of liver enzyme elevations from ischemic episode and renal failure. His renal function is improving creatinine is within normal limits. Patient is much better. Patient is having some difficulty swallowing which is being evaluated. He is in atrial fibrillation with relatively fast ventricular response. Would add a small dose of Lanoxin and, 0.125 mg daily. Patient will have a Lanoxin level drawn in 3 days. Otherwise patient seemed to be clinically stable. Patient will continue current medical therapy. Objective - Vital Signs Vital signs: Vital Signs Temp 98.3 F 04/25/18 03:51 Pulse 96 04/25/18 03:51 Resp 18 04/25/18 03:51 BP 101/57 04/25/18 03:51 Pulse Ox 96 04/25/18 03:51 Intake & Output 04/24/18 04/25/18 04/25/18 18:59 06:59 18:59 Intake Total 500 240 Output Total 1125 Balance -625 240 Weight 106.5 kg Intake: Oral 500 240 Output: Urine 1125 Other: Voiding Method Urinal Urinal - Exam GENERAL EXAM: Patient is alert and oriented and doesn't appear to be in any acute distress HEENT: Normocephalic. Normal reaction of pupils, equal size, normal range of extraocular motion. No erythema or exudates in the throat. NECK: No masses, no nuchal rigidity. CHEST: No chest wall deformity. LUNGS: Diminished breath sounds. HEART: S1 and S2 normal with no audible mumurs or gallops. Regular rhythm, femorals equal on both sides.. ABDOMEN: No hepatosplenomegaly, normal bowel sounds, no guarding or rigidity. SKIN: No rashes CENTRAL NERVOUS SYSTEM: No focal deficits. EXTREMITIES: Both legs are wrapped - Labs CBC & Chem 7: 04/24/18 08:57 04/24/18 16:20 Assessment and Plan (1) Ventricular tachycardia Current Visit: Yes Status: Acute Code(s): I47.2 - VENTRICULAR TACHYCARDIA SNOMED Code(s): 45353176 (2) Ischemic cardiomyopathy Current Visit: Yes Status: Acute Code(s): I25.5 - ISCHEMIC CARDIOMYOPATHY SNOMED Code(s): 795405235 (3) Sepsis Current Visit: Yes Status: Acute Code(s): A41.9 - SEPSIS, UNSPECIFIED ORGANISM SNOMED Code(s): 67299799 (4) Atrial fibrillation Current Visit: Yes Status: Acute Code(s): I48.91 - UNSPECIFIED ATRIAL FIBRILLATION SNOMED Code(s): 80150284 (5) Syncope Current Visit: Yes Status: Acute Code(s): R55 - SYNCOPE AND COLLAPSE SNOMED Code(s): 268008469 Plan: Patient seemed to be overall stable from Cardec standpoint except patient still has atrial fibrillation with relatively rapid ventricular response. Patient is still on amiodarone and beta shane. I'm going to add a small dose of digoxin and get a digoxin level III days. He is being also evaluated for swallowing difficulties.
[2018-04-25] MEDS: chlorproMAZINE 25 MG TAB PO PRN ×2 (10:47→23:36)
[2018-04-25 10:55] LABS: HCT 41.3 % (39.0-53.0); Hypochromasia Slight; MCH 27.7 pg (25.0-35.0); MCHC 31.4 g/dL (31.0-37.0); Platelet Count 185 k/uL (150-450); RBC 4.69 m/uL (4.30-5.90); RDW 15.6 % (11.5-15.5); WBC 13.4 k/uL (3.8-10.6)
--- NOTE | 2018-04-25 10:59 | P.PN ---
Subjective Progress Note Date: 04/25/18 Principal diagnosis: Current episodes of syncope secondary to ventricular tachycardia and cardiomyopathy with LV dysfunction This is a very pleasant 57-year-old gentleman who follows with Dr. Doe as his primary care physician. He has a history of severe nonischemic cardiomyopathy with an ejection fraction less than 20% status post AICD placement, atrial fibrillation, hypertension. He follows with admin dir Dr. Monroe at [facility]. He had recently been admitted here earlier this same month for an episode of near syncope. He did have syncope and ventricular tachycardia while here and was seen in the intensive care unit for the same. He presented here again early this morning after waking up on the floor. He states he was sitting up at his computer and suddenly passed out. He has no idea how long he was down for. He is unsure whether he hit his head or had any other injuries. He denied any preceding chest pain, shortness breath, dizziness or lightheadedness. No pre-warning. He denies any loss of urine. Computed tomography scan of the brain revealed no acute intracranial abnormality. Chest x-ray shows some chronic changes in the right lower lobe improved compared to previous. Moderate cardiomegaly. No acute heart failure. Troponin 0.068, 0.084, 0.107. ProBNP 15,100 area TSH 6.22, T4 2 0.74. White count 9.2. Hemoglobin 12.7. INR 1.8. Creatinine 1.28. Lactic acid up from 3.0-11.6. He does have lower extremity edema with redness and weeping and possible cellulitis. He is hypotensive currently on norepinephrine at 15 mcg/ m. He's been initiated on vancomycin and cefepime. He is seen today in consultation in the intensive care unit. He is currently resting comfortably in bed. He is awake and alert in no acute distress. He denies any chest pain, palpitations lightheadedness or dizziness. He remains in atrial fibrillation with a controlled ventricular response. He is currently on a Cardizem drip at 10 mg per hour. Previously the patient had refused amiodarone based on potential side effects. He also does have a history of noncompliance prior to his previous admission. He denies any recent fever, chills or night sweats. No cough or congestion. He is maintaining good O2 saturations in the high 90s on 2 L/m per nasal cannula. He's been afebrile since admission. Patient was reevaluated today on 04/17/2018, remains in the intensive care unit , asymptomatic, however his labs were noted to be quite abnormal today including leukocytosis with WBC count of 15.3, INR of 4.0, potassium was 6.2 earlier and it is now 5.7, patient received Kayexalate. Renal functioning is worsening, BUN is 40 creatinine is 2.78. He was seen by nephrology for his acute kidney injury, felt to be most likely cardiorenal in nature. His BNP level was noted to be elevated. And his troponins 0.107 on presentation. Chest x-ray which I reviewed is suggestive of mild pulmonary edema, with left pleural effusion, and right basilar atelectasis. Hence I recommended a dose of Lasix to be given 1 today. Patient again has very poor LV function ejection fraction is no more than 20%. Patient is now on 4 L nasal cannula, his respiratory rate is between 16 and 24, O2 saturation is 97% on 4 L. The patient is seen today 04/18/2018 in follow-up in the intensive care unit. He is awake and alert in no acute distress. He is currently sitting up in a chair at the bedside. He denies any worsening shortness of breath, cough or congestion. No chest pain, palpitations lightheadedness or dizziness. He is maintaining O2 saturations in the upper 90s on 4 L/m nasal cannula. He is afebrile. Back in sinus rhythm. Borderline hypotension. Echocardiogram revealed severely impaired left ventricular systolic function with ejection fraction less than 20%. There is also moderately impaired right ventricular systolic function. There is a possible tumor/mass/thrombus seen in the right atrium. RIVERA is being considered. Blood and urine cultures reveal no growth to date. White count 17.5. Hemoglobin 12.2. INR 4.0. Creatinine 2.67. Lactic 1.7. AST 3559, ALT 4406. He is currently on cefepime. Remains on norepinephrine at 6 mcg/m. He is also on a Lasix drip at 10 mg per hour. Currently in a -1500 ML balance. On 04/19/2018 patient seen in follow-up in the intensive care unit, he is awake and alert, sitting up in the recliner, in no acute distress. Denies any chest pain or dyspnea. Remains in Afib on monitor, a controlled rate. He is on 3 L per nasal cannula, pulse ox is 96%, maintenance IV is 0.9 at 10, Lasix at 10 mg per hour, liters if it is at 10 mics per minute. He is nonoliguric, he is producing large amount of urine, averaging 252 320 ML per hour. He is in -3800 mL fluid balance over the last 24 hours. Negative 7.2 kg in the last 48 hours. Lung sounds are positive for crackles over posterior bases. Is working on incentive spirometry. Bilateral lower extremities are covered with Seferino wrap's, and the swelling is decreasing. Afebrile. Urine and blood cultures remain negative. On 04/22/2018 patient seen in follow-up in the intensive care unit. Awake and alert, oriented 3, no acute distress. Lung sounds are clear to auscultation, pulse ox on 3 L per nasal cannula is 97%, afebrile, hemodynamically stable. Patient is a selective care overflow. Remains in atrial fibrillation, with a controlled rate. Patient is are even and nonlabored, no specific complaints, patient is nonoliguric, he is tolerating oral diet, urine and blood cultures are negative. Chest x-rays today. Today's labs have been reviewed, the WBCs 10.0, hemoglobin is 12.6, INR is 1.7, sodium is 133, potassium 3.7, chloride is 94, CO2 is 31, BUN is 41 and creatinine 1.20. He continues on oral Lasix, he is on cefepime. No fever no chills. On 04/23/2018 patient seen in follow-up in the intensive care unit, he is awaiting a bed for selective care unit. Overnight patient did not have any acute events, vital signs are stable, currently on 3 L per nasal cannula his pulse ox is 98%, no fever, no chills, A. fib with a controlled rate on the monitor. No IVs. Ultrasound remain negative. Lung sounds are clear to auscultation. Today's labs have been reviewed, WBCs 9.5, hemoglobin is 12.5, INR is 1.8, sodium is 131, potassium is 4.4, chloride is 93, CO2 is 31, B1 is 39 , creatinine is 1.18, liver enzymes are improving. On 04/25/2018 patient seen in follow-up in the intensive care unit, he is awake and alert, in no acute distress, room air pulse ox is 98%, patient means in atrial fibrillation, and the rate is tachycardic, ranging from 120-140 BPM, there are some paced beats, possibly override pacing beats. Patient is afebrile , bilateral lower extremities are less swollen, less red, patient remains on antibiotic coverage including cefepime. No cough, no chest congestion, no fever or chills, bloody urine cultures remained negative. Cardiology is following, and patient is on oral amiodarone, and digoxin was added today for rate control. Patient is having some swallowing difficulty, and GI service is following and patient is scheduled for an esophagram today. Otherwise clinically he remains stable, labs have been reviewed, potassium only was done, and is 3.9 today, we'll repeat the rest of the blood work today. Yesterday patient's INR was therapeutic at 2.0. Patient is in negative fluid balance, he remains on Lasix 80 mg IV every 12 hours per nephrology. Off levo fed. Maintenance IV fluids 0.9 normal saline at a rate of 20 ML per hour. Patient is on Toprol-XL 50 mg twice daily. Objective - Vital Signs Vital signs: Vital Signs Temp 98.2 F 04/25/18 08:00 Pulse 107 H 04/25/18 08:00 Resp 17 04/25/18 08:00 BP 101/78 04/25/18 08:00 Pulse Ox 98 04/25/18 08:00 Intake & Output 04/24/18 04/25/18 04/25/18 18:59 06:59 18:59 Intake Total 500 240 Output Total 1125 Balance -625 240 Weight 106.5 kg Intake: Oral 500 240 Output: Urine 1125 Other: Voiding Method Urinal Urinal - Exam GENERAL EXAM: Alert, comfortable in no apparent distress. On room air HEAD: Normocephalic. EYES: Normal reaction of pupils, equal size. NOSE: Clear with pink turbinates. THROAT: No erythema or exudates. NECK: No masses, no JVD. CHEST: No chest wall deformity. LUNGS: Equal air entry with a few bibasilar crackles in the posterior bases more so on the right. Diminished. CVS: S1 and S2 normal with a systolic murmur. Irregular rhythm. ABDOMEN: No hepatosplenomegaly, normal bowel sounds, no guarding or rigidity. SPINE: No scoliosis or deformity SKIN: Redness edema and weeping of the lower extremities CENTRAL NERVOUS SYSTEM: No focal deficits, tone is normal in all 4 extremities. EXTREMITIES: There is 1+ peripheral edema, bilateral lower extremities are covered with Seferino wrap's. Patient is noted to have left upper extremity edema - Labs CBC & Chem 7: 04/24/18 08:57 04/24/18 16:20 Assessment and Plan Plan: Assessment: #1 Syncopal episode of unclear etiology, secondary to ventricular tachycardia, no shock from device. The patient does have severe nonischemic cardiomyopathy with ejection fraction less than 20%. Status post AICD placement. #2 Hypotension requiring pressor support with elevated lactic acid and sepsis secondary to suspected lower extremity cellulitis. No clear evidence of pneumonia on the chest x-ray. No leukocytosis. #3 Possible intracardiac thrombus, patient is status post RIVERA which showed possible thrombus in the left ventricular apex #4 Mild acute renal failure, creatinine 1.25 with proteinuria, improving #5 Shock liver secondary to above, improving #6 Abnormal thyroid levels, on methimazole #7 Atrial fibrillation with a rapid ventricular response. Anticoagulated with warfarin. Current INR 2.0. #8 History of hypertension. #9 History of chronic tobacco dependence. #10 bilateral lower extremity cellulitis, with local wound treatments and cefepime Plan: Continue current plan of treatment, will obtain repeat labs today, patient denies any dyspnea or chest pain, remains in A. fib and the rate is still poorly controlled, cardiology is following, patient is on beta blockers, oral amiodarone, and digoxin has been started. Coumadin for anticoagulation, sounds are positive for a few bibasilar crackles. Antibiotics per ID service recommendation, patient remains on cefepime for bilateral extremity cellulitis. We'll continue to follow. I performed a history & physical examination of the patient and discussed their management with my nurse practitioner, Svitlana Burgess. I reviewed the nurse practitioner's note and agree with the documented findings and plan of care. Lung sounds are bibasilar crackles. The findings and the impression was discussed with the patient. I attest to the documentation by the nurse practitioner. Time with Patient: Less than 30
[2018-04-25 11:07] LABS: Albumin 2.5 g/dL (3.5-5.0); Calcium 7.7 mg/dL (8.4-10.2); Potassium 3.6 mmol/L (3.5-5.1); Total Protein 5.4 g/dL (6.3-8.2)
[2018-04-25 11:14] LABS: INR 2.2 (<1.2)
[2018-04-25] MEDS ORDERED: Potassium Replacement Protocol 1 EACH MISC MISCELLANE PRN (11:52)
[2018-04-25] MEDS: POTASSIUM BICARBONATE/CIT AC 20 MEQ TABLET.EFF NG-TUBE SCH ×2 (12:51→13:37)
--- NOTE | 2018-04-25 18:17 | PN ---
PROGRESS NOTE DATE OF SERVICE: 04/25/2018 This 57-year-old gentleman who was admitted with multiple medical issues including severe sepsis with right-sided pneumonia. Patient also had right leg cellulitis also. The patient also had syncope. Patient also had left ventricular thrombus status post RIVERA. Currently patient is on Coumadin of 5 mg. 5 mg of Coumadin was given yesterday. INR is 2.2 today. Cardiology is following the patient closely. The AST/ALT has improved much. Creatinine is 1.31 today. PAST MEDICAL HISTORY: Reviewed. REVIEW OF SYSTEMS: CARDIOVASCULAR: No angina of palpitations. Respiration: As mentioned earlier. GI as mentioned earlier. no dysuria. CURRENT MEDICATIONS ARE: 1. Cordarone 400 mg p.o. b.i.d. 2. Cepacol q.4h p.r.n. 3. Cefepime 1 gm b.i.d. 4. Thorazine 25 mg q.6h p.r.n. 5. Lanoxin 125 mcg p.o. 6. Pepcid 20 mg b.i.d. 7. Lasix 80 mg b.i.d. 8. Cortef 20 mg p.o. daily. 9. Cortef 10 mg q.h.s. 10.Tapazole 5 mg p.o. t.i.d. 11.Toprol-XL 50 mg p.o. b.i.d. 12.Midodrine 10 mg a.c. t.i.d. 13.Magnesium, potassium replacement protocols. PHYSICAL EXAM: Patient is alert, oriented x3. Pulse is 108, blood pressure 129/92, respiration 18, temperature 98.6, pulse ox 98% on room air. HEENT: Conjunctivae normal. Oral mucosa moist. Neck is no jugular venous distention. No carotid bruit. No lymph node enlargement. Cardiovascular: S1, S2. Respirations: Breath sounds diminished in the bases. No rhonchi. No crackles. ABDOMEN: Soft, nontender. Legs no edema. No swelling. NERVOUS SYSTEM: No focal deficits. LAB: WGC 13.4. INR is 2.2. Sodium is 131 and total bilirubin is 2. AST is 49, ALT is 405, which is showing diminished trends. ASSESSMENT: 1. Severe sepsis, possible right sided pneumonia possibly gram-negative right lower lobe cellulitis and septic shock and severe sepsis. Cultures negative so far. 2. Syncope possibly secondary to cardiac arrhythmia possible ventricular tachycardia. 3. Left ventricular thrombus status post RIVERA on Coumadin currently. 4. Coumadin monitoring. 5. Hypotension secondary to sepsis infection status post pressor support. 6. Hyperthyroidism, possibly drug induced. 7. Nonischemic cardiomyopathy, ejection fraction less than 20%, chronic systolic dysfunction. 8. Automated implantable cardioverter defibrillator reprogrammed. 9. Troponin 0.016 indeterminate. 10.Acute tubular necrosis with acute renal failure possibly multifactorial possibly cardiorenal syndrome. 11.Elevated LFTs, possible acute hepatitis, multifactorial possibly related to both hypotension and sepsis. 12.Remote history of nicotine dependence. 13.Hypovolemic hyponatremia, stable. 14.FULL CODE. RECOMMENDATIONS AND DISCUSSION: I recommend to continue current medications, monitoring management and symptomatic treatments. Otherwise, at this time, continue IV antibiotics. Monitor PT, INR closely. Monitor creatinine closely. Avoid nephrotoxic agents. Overall prognosis guarded. We will continue to monitor the patient closely. Further recommendations to follow. MMJASONL / IJN: [id number] /
--- NOTE | 2018-04-25 19:53 | PN ---
PROGRESS NOTE The patient is seen for followup for acute kidney injury mainly cardiorenal. His serum creatinine is 1.3 today from 1.1 yesterday. It peaked at about 2.7 mg/dL. Currently, patient is maintained on diuretics in the form of Lasix 80 mg q.12 hours. He states he is feeling better. He continues to have edema, but he is breathing better. Patient is also maintained on midodrine. PHYSICAL EXAMINATION: This morning, blood pressure was 102/92, heart rate 108 per minute. He is afebrile. Examination of the heart: S1, S2. Examination of the lungs: Bilateral breath sounds are heard. Decreased breath sounds bases. Abdomen is soft, nontender. Bilateral lower extremities are wrapped. There is evidence of edema bilaterally. GROUP THERAPIST exam is grossly intact. LABS: Reveals sodium of 131, potassium 3.6, BUN 37, serum creatinine 1.3, hemoglobin 13.0 g/dL. ASSESSMENT: 1. Acute kidney injury, cardiorenal, maintained on Lasix. I will continue the current dose and we can decrease it tomorrow. Serum creatinine is slightly higher. 2. Chronic atrial fibrillation. 3. Hypervolemic, hyponatremia. Expect improvement with the diuresis. PLAN: Continue at current dose of Lasix. Repeat labs in a.m. No nephrotoxic agents on board. MMODL / IJN: [id number] /
[2018-04-25 20:16] LABS: Glucose,Whole Blood 120 mg/dL (75-99)
[2018-04-25] MEDS: SODIUM CHLORIDE 0.9% 1,000 ML IV SCH (20:26)
[2018-04-25] MEDS: HYDROCORTISONE 10 MG TAB PO SCH (21:33)
[2018-04-25] MEDS ORDERED: METOPROLOL SUCCINATE (ER) 25 MG TAB.ER.24H PO STA (23:13)
--- NOTE | 2018-04-25 23:52 | PN ---
PROGRESS NOTE DATE OF SERVICE: 04/25/2018. REASON FOR FOLLOWUP: Bilateral leg cellulitis. INTERVAL HISTORY: The patient is afebrile. He has been breathing comfortably. Denies significant chest pain. Occasional cough. No abdominal pain. No pain to the leg area. EXAMINATION: Blood pressure 107/82 with a pulse of 108, temperature 98.3, he is 99% on room air. GENERAL DESCRIPTION: A middle-aged male lying in bed in no distress. RESPIRATORY SYSTEM: Unlabored breathing. Decreased breath sounds at the bases. No wheeze. HEART: Heart S1, S2. Regular rate and rhythm. ABDOMEN: Soft, no tenderness. LABS: Hemoglobin is 13, white count 13.4, BUN of 37 and creatinine 1.7. DIAGNOSTIC IMPRESSION AND PLAN: Patient with bilateral lower extremity cellulitis, right greater than left. The patient seemed to be responding to cefepime, continue with that in addition to the local wound care to the legs with Aquacel Silver dressing and Seferino wrap. Continue supportive care. MMODL / IJN: [id number] /
[2018-04-26 05:45] LABS: Basophils % (A) 0 %; Eosinophils # (A) 0.2 k/uL (0-0.7); Eosinophils % (A) 1 %; HCT 35.4 % (39.0-53.0); Hypochromasia Slight; Lymphocytes # (A) 1.4 k/uL (1.0-4.8); Lymphocytes % (A) 11 %; MCH 27.7 pg (25.0-35.0); MCHC 31.1 g/dL (31.0-37.0); Mean Platelet Volume 7.2; Monocytes # (A) 0.9 k/uL (0-1.0); Monocytes % (A) 8 %; Neutrophils # (A) 9.3 k/uL (1.3-7.7); Neutrophils % (A) 78 %; Platelet Count 170 k/uL (150-450); RBC 3.97 m/uL (4.30-5.90); RDW 15.6 % (11.5-15.5); WBC 11.9 k/uL (3.8-10.6)
[2018-04-26 06:08] LABS: Albumin 2.1 g/dL (3.5-5.0); Calcium 7.3 mg/dL (8.4-10.2); Magnesium 1.9 mg/dL (1.6-2.3); Phosphorus 3.7 mg/dL (2.5-4.5); Potassium 3.6 mmol/L (3.5-5.1); Total Bilirubin 1.7 mg/dL (0.2-1.3); Total Protein 4.4 g/dL (6.3-8.2)
--- NOTE | 2018-04-26 08:24 | XR ---
EXAMINATION TYPE: XR chest 1V DATE OF EXAM: 04/26/2018 COMPARISON: 04/17/2018 HISTORY: Shortness of breath TECHNIQUE: Single frontal view of the chest is obtained. FINDINGS: Right-sided infiltrate stable. Cardiac device seen with cardiomegaly. No pneumothorax. Art hropathy of the shoulders. Interstitium stable. IMPRESSION: Right lower lobe infiltrate stable
--- NOTE | 2018-04-26 08:48 | P.PN ---
Subjective Progress Note Date: 04/26/18 This is a 57-year-old gentleman with history of ischemic cardiac myopathy, status post AICD implantation who is admitted to the hospital with an episode of syncope. He had an episode of ventricular tachycardia at a rate of 210. Patient was programmed to monitor only and did not receive any therapy. Since admission patient is noted to have significant cellulitis of the legs and possible sepsis. Patient is hypotensive on Levophed. He is going in and out of flutter sinus rhythm and also fibrillation and having brief episodes of ventricular tachycardia which are nonsustained. Patient does seem to be frail and weak and mildly short of breath. His lab work showed severe elevation of the liver enzymes which are coming down. His troponin is mildly elevated. He is also has acute renal failure and is being followed by tank stave assembler. He is also being seen by ID specialist. Patient's echocardiogram apparently also showed a thrombus at the apex and also mass in the right atrium. Dr. Armas is planning to do RIVERA examination tomorrow. Meanwhile, we'll continue with current medical therapy. I will also discuss with [facility] to see why he was not programmed for any therapy. 04/19/2018: This patient's seems to be much more stable. Denies any chest pain. Denies any shortness of breath. His urine output is good. His creatinine is improving. His liver functions are improving. He is going to have a RIVERA examination today. He still on Levophed and IV Lasix drip. Hasn't had any sustained arrhythmias. Having episodes of atrial fibrillation, short runs of nonsustained V. tach. Lungs appeared to be clear. We'll continue his current medical therapy. I will speak with a [facility] and see if he can program therapies for V. tach. That may be reasonable why that was are not programmed before. We'll may talk to his forwarder operator also. We'll may discontinue IV Lasix drip and start him on Lasix IV push. 04/25/2018 04/20/2018: Patient is sitting up in the chair and seemed to be in no acute distress. However, his blood pressures running low and patient was initiated on Levophed. Patient continues to be atypical fibrillation with mildly rapid ventricular response. Patient is on amiodarone. Will his liver enzymes are coming down. His BUN/creatinine are improving and his urine output remains good. He is on Toprol-XL for rate control along with amiodarone. He used to be on digoxin. However, patient was having recurrent runs of V. tach. I will stay away from Lanoxin. We did reprogram the defibrillator and discussed with his forwarder operator's office. Therapies were programmed for V. tach at 200. A new monitor done for V. tach at 160 was programmed. Patient will continue rest of the medication. 04/21/2018: The patient appears to more stable. In atrial fibrillation with moderately rapid ventricular response. His blood pressure is around 90 systolic. He is off Levophed. Having some difficulty with swallowing which is being evaluated. His renal functions have improved. Liver function tests are also showed improvement. Lungs appeared to be clear. Heart is irregular. We' ll continue current medical therapy and increase activity. Will transfer patient to telemetry unit. 04/22/2018: This patient is clinically stable. He is in atrial fibrillation with the heart rate is in the 90 to 100 range. Denies any chest pain or shortness of breath. His liver function tests are improving. His kidney function test are improving. Lungs show few rales at the right base. Patient is afebrile. Patient could be transferred to telemetry unit. Possible discharge within next 24-48 hours 04/25/2018: This patient is admitted to the hospital for syncope and evidence of sustained ventricular tachycardia. Patient also has evidence of cellulitis. He also had evidence of liver enzyme elevations from ischemic episode and renal failure. His renal function is improving creatinine is within normal limits. Patient is much better. Patient is having some difficulty swallowing which is being evaluated. He is in atrial fibrillation with relatively fast ventricular response. Would add a small dose of Lanoxin and, 0.125 mg daily. Patient will have a Lanoxin level drawn in 3 days. Otherwise patient seemed to be clinically stable. Patient will continue current medical therapy. 04/26/2018: Patient remains stable from Cardec standpoint. Require some extra beta shane dose last night. Today his heart rate is in the 70s and 80s. Has had some short burst of nonsustained V. tach, asymptomatic. The lungs are clear. Heart is regular. He is being evaluated for difficulty swallowing. From Cardec standpoint patient can continue current medical therapy. When medically cleared him up. Patient could be discharged home. Follow-up with his own forwarder operator Objective - Vital Signs Vital signs: Vital Signs Temp 98.3 F 04/26/18 08:00 Pulse 72 04/26/18 08:00 Resp 19 04/26/18 08:00 BP 96/80 04/26/18 08:00 Pulse Ox 99 04/26/18 08:00 Intake & Output 04/25/18 04/26/18 04/26/18 18:59 06:59 18:59 Intake Total 935 Output Total 1925 950 Balance -990 -950 Weight 106.5 kg 102.3 kg Intake: Oral 935 Output: Urine 1925 950 Other: Voiding Method Urinal Urinal - Exam GENERAL EXAM: Patient is alert and oriented and doesn't appear to be in any acute distress HEENT: Normocephalic. Normal reaction of pupils, equal size, normal range of extraocular motion. No erythema or exudates in the throat. NECK: No masses, no nuchal rigidity. CHEST: No chest wall deformity. LUNGS: Diminished breath sounds. HEART: S1 and S2 normal with no audible mumurs or gallops. Regular rhythm, femorals equal on both sides.. ABDOMEN: No hepatosplenomegaly, normal bowel sounds, no guarding or rigidity. SKIN: No rashes CENTRAL NERVOUS SYSTEM: No focal deficits. EXTREMITIES: Both legs are wrapped - Labs CBC & Chem 7: 04/26/18 04:45 04/26/18 04:45 Labs: Abnormal Lab Results - Last 24 Hours (Table) 04/25/18 04/25/18 04/25/18 Range/Units 10:26 10:26 10:26 WBC 13.4 H (3.8-10.6) k/uL RBC (4.30-5.90) m/uL Hgb (13.0-17.5) gm/dL Hct (39.0-53.0) % RDW 15.6 H (11.5-15.5) % Neutrophils # (1.3-7.7) k/uL PT 20.0 H (9.0-12.0) sec INR 2.2 H (<1.2) Sodium 131 L (137-145) mmol/L Chloride 91 L (98-107) mmol/L Carbon Dioxide 34 H (22-30) mmol/L BUN 37 H (9-20) mg/dL Creatinine 1.31 H (0.66-1.25) mg/dL POC Glucose (mg/dL) (75-99) mg/dL Calcium 7.7 L (8.4-10.2) mg/dL Total Bilirubin 2.0 H (0.2-1.3) mg/dL ALT 405 H (21-72) U/L Total Protein 5.4 L (6.3-8.2) g/dL Albumin 2.5 L (3.5-5.0) g/dL 04/25/18 04/26/18 04/26/18 Range/Units 20:14 04:45 04:45 WBC 11.9 H (3.8-10.6) k/uL RBC 3.97 L (4.30-5.90) m/uL Hgb 11.0 L (13.0-17.5) gm/dL Hct 35.4 L (39.0-53.0) % RDW 15.6 H (11.5-15.5) % Neutrophils # 9.3 H (1.3-7.7) k/uL PT (9.0-12.0) sec INR (<1.2) Sodium 132 L (137-145) mmol/L Chloride 90 L (98-107) mmol/L Carbon Dioxide 36 H (22-30) mmol/L BUN 37 H (9-20) mg/dL Creatinine 1.34 H (0.66-1.25) mg/dL POC Glucose (mg/dL) 120 H (75-99) mg/dL Calcium 7.3 L (8.4-10.2) mg/dL Total Bilirubin 1.7 H (0.2-1.3) mg/dL ALT 274 H (21-72) U/L Total Protein 4.4 L (6.3-8.2) g/dL Albumin 2.1 L (3.5-5.0) g/dL Assessment and Plan (1) Ventricular tachycardia Current Visit: Yes Status: Acute Code(s): I47.2 - VENTRICULAR TACHYCARDIA SNOMED Code(s): 42845251 (2) Ischemic cardiomyopathy Current Visit: Yes Status: Acute Code(s): I25.5 - ISCHEMIC CARDIOMYOPATHY SNOMED Code(s): 265599883 (3) Sepsis Current Visit: Yes Status: Acute Code(s): A41.9 - SEPSIS, UNSPECIFIED ORGANISM SNOMED Code(s): 34398074 (4) Atrial fibrillation Current Visit: Yes Status: Acute Code(s): I48.91 - UNSPECIFIED ATRIAL FIBRILLATION SNOMED Code(s): 61628600 (5) Syncope Current Visit: Yes Status: Acute Code(s): R55 - SYNCOPE AND COLLAPSE SNOMED Code(s): 825470575 Plan: Continue current cardiac medications. Get digoxin level on Wednesday. Increase activity as tolerated. Possible discharge when medically cleared
--- NOTE | 2018-04-26 09:44 | FL ---
EXAMINATION TYPE: FL esophagus cervic/pharynx DATE OF EXAM: 04/26/2018 HISTORY: Difficulty swallowing COMPARISON: NONE TECHNIQUE: A double contrast esophagram is performed utilizing air and barium. FINDINGS: 134 intraoperative images. 4 minutes fluoroscopy time. Cervical esophagus shows a somewhat narrowed AP diameter of the lateral exam. Some laryngeal penetrat ion is noted, no jessica aspiration. Transient laryngeal penetration noted but was not described on drew or modified barium swallow. No gastroesophageal reflux was identified. Poor stripping wave is seen. IMPRESSION: Suspect some transient laryngeal penetration. Suggestion of some narrowing in the AP dim ension of the cervical esophagus. No jessica aspiration. Additional findings above.
[2018-04-26] MEDS: FUROSEMIDE 10 MG/ML 10 ML VIAL IV SCH ×2 (10:10→23:01)
[2018-04-26] MEDS: METOPROLOL SUCCINATE (ER) 25 MG TAB.ER.24H PO SCH ×2 (10:10→20:47)
[2018-04-26] MEDS: AMIODARONE 200 MG TAB PO SCH ×2 (10:10→20:47)
[2018-04-26] MEDS: MIDODRINE 5 MG TAB PO SCH ×3 (10:10→17:15)
[2018-04-26] MEDS: METHIMAZOLE 5 MG TAB PO SCH ×3 (10:11→23:00)
[2018-04-26] MEDS: FAMOTIDINE 20 MG/2 ML VIAL IV SCH ×2 (10:11→20:47)
[2018-04-26] MEDS: DIGOXIN 125 MCG TAB PO SCH (10:12)
[2018-04-26] MEDS: HYDROCORTISONE 20 MG TAB PO SCH (10:12)
[2018-04-26] MEDS: CEFEPIME 1 GM in SODIUM CHLORIDE 0.9% 50 ML IVPB SCH ×2 (10:17→20:52)
--- NOTE | 2018-04-26 11:32 | P.PN ---
Subjective Progress Note Date: 04/26/18 Principal diagnosis: Current episodes of syncope secondary to ventricular tachycardia and cardiomyopathy with LV dysfunction This is a very pleasant 57-year-old gentleman who follows with Dr. Doe as his primary care physician. He has a history of severe nonischemic cardiomyopathy with an ejection fraction less than 20% status post AICD placement, atrial fibrillation, hypertension. He follows with associate professor of theology Dr. Monroe at [facility]. He had recently been admitted here earlier this same month for an episode of near syncope. He did have syncope and ventricular tachycardia while here and was seen in the intensive care unit for the same. He presented here again early this morning after waking up on the floor. He states he was sitting up at his computer and suddenly passed out. He has no idea how long he was down for. He is unsure whether he hit his head or had any other injuries. He denied any preceding chest pain, shortness breath, dizziness or lightheadedness. No pre-warning. He denies any loss of urine. Computed tomography scan of the brain revealed no acute intracranial abnormality. Chest x-ray shows some chronic changes in the right lower lobe improved compared to previous. Moderate cardiomegaly. No acute heart failure. Troponin 0.068, 0.084, 0.107. ProBNP 15,100 area TSH 6.22, T4 2 0.74. White count 9.2. Hemoglobin 12.7. INR 1.8. Creatinine 1.28. Lactic acid up from 3.0-11.6. He does have lower extremity edema with redness and weeping and possible cellulitis. He is hypotensive currently on norepinephrine at 15 mcg/ m. He's been initiated on vancomycin and cefepime. He is seen today in consultation in the intensive care unit. He is currently resting comfortably in bed. He is awake and alert in no acute distress. He denies any chest pain, palpitations lightheadedness or dizziness. He remains in atrial fibrillation with a controlled ventricular response. He is currently on a Cardizem drip at 10 mg per hour. Previously the patient had refused amiodarone based on potential side effects. He also does have a history of noncompliance prior to his previous admission. He denies any recent fever, chills or night sweats. No cough or congestion. He is maintaining good O2 saturations in the high 90s on 2 L/m per nasal cannula. He's been afebrile since admission. Patient was reevaluated today on 04/17/2018, remains in the intensive care unit , asymptomatic, however his labs were noted to be quite abnormal today including leukocytosis with WBC count of 15.3, INR of 4.0, potassium was 6.2 earlier and it is now 5.7, patient received Kayexalate. Renal functioning is worsening, BUN is 40 creatinine is 2.78. He was seen by nephrology for his acute kidney injury, felt to be most likely cardiorenal in nature. His BNP level was noted to be elevated. And his troponins 0.107 on presentation. Chest x-ray which I reviewed is suggestive of mild pulmonary edema, with left pleural effusion, and right basilar atelectasis. Hence I recommended a dose of Lasix to be given 1 today. Patient again has very poor LV function ejection fraction is no more than 20%. Patient is now on 4 L nasal cannula, his respiratory rate is between 16 and 24, O2 saturation is 97% on 4 L. The patient is seen today 04/18/2018 in follow-up in the intensive care unit. He is awake and alert in no acute distress. He is currently sitting up in a chair at the bedside. He denies any worsening shortness of breath, cough or congestion. No chest pain, palpitations lightheadedness or dizziness. He is maintaining O2 saturations in the upper 90s on 4 L/m nasal cannula. He is afebrile. Back in sinus rhythm. Borderline hypotension. Echocardiogram revealed severely impaired left ventricular systolic function with ejection fraction less than 20%. There is also moderately impaired right ventricular systolic function. There is a possible tumor/mass/thrombus seen in the right atrium. RIVERA is being considered. Blood and urine cultures reveal no growth to date. White count 17.5. Hemoglobin 12.2. INR 4.0. Creatinine 2.67. Lactic 1.7. AST 3559, ALT 4406. He is currently on cefepime. Remains on norepinephrine at 6 mcg/m. He is also on a Lasix drip at 10 mg per hour. Currently in a -1500 ML balance. On 04/19/2018 patient seen in follow-up in the intensive care unit, he is awake and alert, sitting up in the recliner, in no acute distress. Denies any chest pain or dyspnea. Remains in Afib on monitor, a controlled rate. He is on 3 L per nasal cannula, pulse ox is 96%, maintenance IV is 0.9 at 10, Lasix at 10 mg per hour, liters if it is at 10 mics per minute. He is nonoliguric, he is producing large amount of urine, averaging 252 320 ML per hour. He is in -3800 mL fluid balance over the last 24 hours. Negative 7.2 kg in the last 48 hours. Lung sounds are positive for crackles over posterior bases. Is working on incentive spirometry. Bilateral lower extremities are covered with Seferino wrap's, and the swelling is decreasing. Afebrile. Urine and blood cultures remain negative. On 04/22/2018 patient seen in follow-up in the intensive care unit. Awake and alert, oriented 3, no acute distress. Lung sounds are clear to auscultation, pulse ox on 3 L per nasal cannula is 97%, afebrile, hemodynamically stable. Patient is a selective care overflow. Remains in atrial fibrillation, with a controlled rate. Patient is are even and nonlabored, no specific complaints, patient is nonoliguric, he is tolerating oral diet, urine and blood cultures are negative. Chest x-rays today. Today's labs have been reviewed, the WBCs 10.0, hemoglobin is 12.6, INR is 1.7, sodium is 133, potassium 3.7, chloride is 94, CO2 is 31, BUN is 41 and creatinine 1.20. He continues on oral Lasix, he is on cefepime. No fever no chills. On 04/23/2018 patient seen in follow-up in the intensive care unit, he is awaiting a bed for selective care unit. Overnight patient did not have any acute events, vital signs are stable, currently on 3 L per nasal cannula his pulse ox is 98%, no fever, no chills, A. fib with a controlled rate on the monitor. No IVs. Ultrasound remain negative. Lung sounds are clear to auscultation. Today's labs have been reviewed, WBCs 9.5, hemoglobin is 12.5, INR is 1.8, sodium is 131, potassium is 4.4, chloride is 93, CO2 is 31, B1 is 39 , creatinine is 1.18, liver enzymes are improving. On 04/25/2018 patient seen in follow-up in the intensive care unit, he is awake and alert, in no acute distress, room air pulse ox is 98%, patient means in atrial fibrillation, and the rate is tachycardic, ranging from 120-140 BPM, there are some paced beats, possibly override pacing beats. Patient is afebrile , bilateral lower extremities are less swollen, less red, patient remains on antibiotic coverage including cefepime. No cough, no chest congestion, no fever or chills, bloody urine cultures remained negative. Cardiology is following, and patient is on oral amiodarone, and digoxin was added today for rate control. Patient is having some swallowing difficulty, and GI service is following and patient is scheduled for an esophagram today. Otherwise clinically he remains stable, labs have been reviewed, potassium only was done, and is 3.9 today, we'll repeat the rest of the blood work today. Yesterday patient's INR was therapeutic at 2.0. Patient is in negative fluid balance, he remains on Lasix 80 mg IV every 12 hours per nephrology. Off levo fed. Maintenance IV fluids 0.9 normal saline at a rate of 20 ML per hour. Patient is on Toprol-XL 50 mg twice daily. On 04/26/2018 patient seen in follow-up in the intensive care unit, he bed in the stepdown unit. He is awake and alert, in no acute distress, no dyspnea, no chest pain, in A. fib with a more controlled rate on today's exam. A combination of oral amiodarone, oral digoxin, and beta blockers. Afebrile, room air pulse ox is 99%, hemodynamically stable, his labs have been reviewed, the PVCs on 0.9, hemoglobin is 11.0, sodium is 132, chloride is 90, CO2 36, and renal profile is stable, with BUN of 37 creatinine of 1.34, patient remains on antibiotic coverage in the form of Fortaz bilateral extremity cellulitis, he continues on IV Lasix at 80 mg IV every 12 hours, nephrology is following. He had esophagram this morning, and showed some transient laryngeal penetration, and suggestion of some narrowing in the AP dimension of the cervical esophagus, no jessica aspiration. On today's exam patient is swallowing better, less dysphagia. Objective - Vital Signs Vital signs: Vital Signs Temp 98.3 F 04/26/18 08:00 Pulse 72 04/26/18 08:00 Resp 19 04/26/18 08:00 BP 96/80 04/26/18 08:00 Pulse Ox 99 04/26/18 08:00 Intake & Output 04/25/18 04/26/18 04/26/18 18:59 06:59 18:59 Intake Total 935 Output Total 1925 950 525 Balance -990 -950 -525 Weight 106.5 kg 102.3 kg Intake: Oral 935 Output: Urine 1925 950 525 Other: Voiding Method Urinal Urinal - Exam GENERAL EXAM: Alert, comfortable in no apparent distress. On room air HEAD: Normocephalic. EYES: Normal reaction of pupils, equal size. NOSE: Clear with pink turbinates. THROAT: No erythema or exudates. NECK: No masses, no JVD. CHEST: No chest wall deformity. LUNGS: Equal air entry with a few bibasilar crackles in the posterior bases more so on the right. Diminished. CVS: S1 and S2 normal with a systolic murmur. Irregular rhythm. ABDOMEN: No hepatosplenomegaly, normal bowel sounds, no guarding or rigidity. SPINE: No scoliosis or deformity SKIN: Redness edema and weeping of the lower extremities CENTRAL NERVOUS SYSTEM: No focal deficits, tone is normal in all 4 extremities. EXTREMITIES: There is 1+ peripheral edema, bilateral lower extremities are covered with Seferino wrap's. Patient is noted to have left upper extremity edema - Labs CBC & Chem 7: 04/26/18 04:45 04/26/18 04:45 Labs: Abnormal Lab Results - Last 24 Hours (Table) 04/25/18 04/26/18 04/26/18 Range/Units 20:14 04:45 04:45 WBC 11.9 H (3.8-10.6) k/uL RBC 3.97 L (4.30-5.90) m/uL Hgb 11.0 L (13.0-17.5) gm/dL Hct 35.4 L (39.0-53.0) % RDW 15.6 H (11.5-15.5) % Neutrophils # 9.3 H (1.3-7.7) k/uL Sodium 132 L (137-145) mmol/L Chloride 90 L (98-107) mmol/L Carbon Dioxide 36 H (22-30) mmol/L BUN 37 H (9-20) mg/dL Creatinine 1.34 H (0.66-1.25) mg/dL POC Glucose (mg/dL) 120 H (75-99) mg/dL Calcium 7.3 L (8.4-10.2) mg/dL Total Bilirubin 1.7 H (0.2-1.3) mg/dL ALT 274 H (21-72) U/L Total Protein 4.4 L (6.3-8.2) g/dL Albumin 2.1 L (3.5-5.0) g/dL Assessment and Plan Plan: Assessment: #1 Syncopal episode of unclear etiology, secondary to ventricular tachycardia, no shock from device. The patient does have severe nonischemic cardiomyopathy with ejection fraction less than 20%. Status post AICD placement. #2 Hypotension requiring pressor support with elevated lactic acid and sepsis secondary to suspected lower extremity cellulitis. No clear evidence of pneumonia on the chest x-ray. No leukocytosis. #3 Possible intracardiac thrombus, patient is status post RIVERA which showed possible thrombus in the left ventricular apex #4 Mild acute renal failure, creatinine 1.25 with proteinuria, improving #5 Shock liver secondary to above, improving #6 Abnormal thyroid levels, on methimazole #7 Atrial fibrillation with a rapid ventricular response. Anticoagulated with warfarin. Current INR 2.0. #8 History of hypertension. #9 History of chronic tobacco dependence. #10 bilateral lower extremity cellulitis, with local wound treatments and cefepime Plan: Patient remains stable from pulmonary perspective, vital signs are stable, he is on room air, maintaining good oxygenation. No chest pain, no dyspnea, no fever no chills, continues on Fortaz for bilateral extremity cellulitis. Renal profile is relatively stable, patient remains on IV diuretics, and negative fluid balance, increase activity as tolerated, continue encouraging incentive spirometry use, no recurrence of arrhythmia. His A. fib is better controlled on today's exam. Awaiting a bed on selective care unit today. I performed a history & physical examination of the patient and discussed their management with my nurse practitioner, Svitlana Burgess. I reviewed the nurse practitioner's note and agree with the documented findings and plan of care. Lung sounds are few crackles. The findings and the impression was discussed with the patient. I attest to the documentation by the nurse practitioner. Time with Patient: Less than 30
[2018-04-26 14:44] VITALS: BMI 32.3
--- NOTE | 2018-04-26 16:15 | PN ---
PROGRESS NOTE DATE OF SERVICE: 04/26/2018 This 57-year-old gentleman who was admitted with multiple medical issues had severe sepsis. The patient had right-sided pneumonia, possibly gram-negative, with right lower limb cellulitis also. The patient had syncope related to cardiac arrhythmia. The patient is being closely monitored in ICU at this time. Patient also had a left inguinal thrombus and is on anticoagulants at this time. The patient also recently had difficulties in swallowing, and his barium swallow showed some suggestion of narrowing of the dimension of the cervical esophagus. The patient is being closely monitored at this time. No chest pain. No palpitations. No fever. Past medical history reviewed. REVIEW OF SYSTEMS: CARDIOVASCULAR SYSTEM: No angina, palpitations. RESPIRATORY SYSTEM: As mentioned earlier. GI: As mentioned earlier. : No dysuria or retention. NERVOUS SYSTEM: No numbness, weakness. CURRENT MEDICATIONS: Reviewed. They include: 1. Cordarone 400 mg b.i.d. 2. Cepacol 1 mg p.r.n. 3. Cefepime 1 gram b.i.d. 4. Thorazine 25 mg q.6. 5. Lanoxin 125 mcg p.o. daily. 6. Pepcid 20 mg daily. 7. Lasix 80 mg b.i.d. 8. Cortef 20 mg p.o. daily. 9. Cortef 10 mg at bedtime. 10.Tapazole 5 mg p.o. t.i.d. 11.Toprol XL 50 mg b.i.d. 12.ProAmatine. PHYSICAL EXAMINATION: Patient is alert, oriented x3. Pulse 87, blood pressure 91/73, respiration 18, temperature 97.6, pulse ox 94% on room air. HEENT: Conjunctivae normal. NECK: No jugular venous distention. CARDIOVASCULAR SYSTEM: S1, S2 muffled. RESPIRATORY SYSTEM: Breath sounds diminished at the bases. A few scattered rhonchi and crackles. ABDOMEN: Soft, non-tender. No mass palpable. LEGS: No edema. No swelling. NERVOUS SYSTEM: No focal deficit. LABS: WBC 11.9, hemoglobin 11. Sodium is 132, creatinine 1.34. ASSESSMENT: 1. Severe sepsis, possibly right-sided pneumonia, possibly right lower leg cellulitis with severe sepsis and septic shock and negative cultures. 2. Syncope, possibly secondary to cardiac arrhythmia and possible ventricular tachycardia. 3. Left ventricular thrombus, status post pulmonary embolism, on Coumadin currently. 4. Coumadin monitoring. 5. Hypertension secondary to sepsis infection, status post pressor support. 6. 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 7. Nonischemic cardiomyopathy, ejection fraction less than 20%, chronic systolic dysfunction. 8. Automated implantable cardioverter defibrillator reprogrammed. 9. Troponin 0.016, indeterminate. 10.Acute tubular necrosis with acute renal failure, possibly multifactorial, possibly cardiorenal syndrome. 11.Elevated liver function tests, possible acute hepatitis, multifactorial, possibly related to both hypotension and sepsis. 12.Remote history of nicotine dependence. 13.Hypovolemic hyponatremia, stable. 14.Dysphagia with some suspected esophageal stenosis, partial. 15.FULL CODE. RECOMMENDATIONS AND DISCUSSION: I recommend to continue current medication, continue symptomatic treatment. Continue with the dysphagia diet. Continue the rest of the medications. Guarded prognosis because of multiple complex medical issues.. Otherwise, repeat labs. Follow closely with multiple consultants. Guarded prognosis. Further recommendations to follow. MMODL / IJN: [id number] /
[2018-04-26] MEDS: HYDROCORTISONE 10 MG TAB PO SCH (20:47)
[2018-04-26] MEDS: SODIUM CHLORIDE 0.9% 1,000 ML IV SCH (20:51)
--- NOTE | 2018-04-26 21:18 | PN ---
PROGRESS NOTE The patient is seen for followup for acute kidney injury mainly cardiorenal. He is currently maintained on IV Lasix. The patient's weight has decreased. He has been voiding well. 24 hour urine output documented at 2.8 L. PHYSICAL EXAMINATION: On examination today, blood pressure was 91/73, heart rate of 85 per minute. Patient is afebrile. Examination of the heart S1, S2. Examination of lungs bilateral breath sounds are heard. Abdomen is soft, nontender. Examination of lower extremity shows edema 1+ bilaterally. COMPOUNDER HELPER exam is grossly intact. LAB: Shows sodium 132, potassium 3.6, BUN 37, serum creatinine 1.34, hemoglobin 11.0. ASSESSMENT: 1. Acute kidney injury mainly cardiorenal. Renal function stable with creatinine staying at about 1.3 over the past 2 days. The patient has good urine output. I will continue with current dose of Lasix. 2. Hypervolemic hyponatremia, improving with diuresis. 3. Chronic atrial fibrillation. 4. Cardiomyopathy with ejection fraction 20% with severe global hypokinesis. 5. Left ventricular apical thrombus. Maintained on anticoagulation. 6. Shock liver. PLAN: Continue current dose of Lasix. Repeat UA as previous. UA had 2+ protein and patient will need follow up as outpatient if the proteinuria persists. MMODL / IJN: [id number] /
--- NOTE | 2018-04-26 22:30 | PN ---
PROGRESS NOTE DATE OF SERVICE: 04/26/2018. REASON FOR FOLLOWUP: Bilateral lower extremity cellulitis. INTERVAL HISTORY: The patient is afebrile, has been transferred out of the ICU. The patient denies having any chest pain or shortness of breath. Occasional cough. No abdominal pain, no diarrhea. EXAMINATION: Blood pressure is 91/73 with a pulse of 87, temperature 97.6, he is 96% on room air. GENERAL DESCRIPTION: A middle-aged male lying in bed in no distress. RESPIRATORY SYSTEM: Unlabored breathing. Clear to auscultation anteriorly. HEART: S1, S2. Regular rate and rhythm noted. LABS: Hemoglobin is 11, white count 11.9, BUN of 37, creatinine 1.34. DIAGNOSTIC IMPRESSION AND PLAN: Patient with bilateral lower extremity cellulitis in this patient who has diffuse swelling and redness. The patient is currently covered with cefepime, we will continue for now, switching to oral antibiotic on discharge. Continue local care with Aquacel Silver dressing and an Seferino wrap to keep the swelling down. Continue supportive care. MMODL / IJN: [id number] /
--- NOTE | 2018-04-27 08:06 | P.PN ---
Subjective Progress Note Date: 04/27/18 Principal diagnosis: dysphagia Tolerating modified diet. No complaints. Cervix failure next esophagram yesterday reported some transient laryngeal penetration suggestive of some narrowing in the AP dimension of the cervical esophagus no jessica aspiration. Objective - Vital Signs Vital signs: Vital Signs Temp 97.9 F 04/27/18 05:19 Pulse 80 04/27/18 05:19 Resp 17 04/27/18 05:19 BP 112/74 04/27/18 05:19 Pulse Ox 100 04/27/18 05:19 Intake & Output 04/26/18 04/27/18 04/27/18 18:59 06:59 18:59 Intake Total 720 Output Total 925 540 Balance -925 180 Weight 102.3 kg Intake: Oral 720 Output: Urine 925 540 Other: Voiding Method Urinal Urinal # Voids 840 - Exam General appearance: The patient is alert, oriented, in no acute distress. HET: Head is normocephalic and atraumatic. Pupils are equal and reactive. Oropharynx is clear without lesions. Neck: Supple without lymphadenopathy. Trachea midline. Heart: S1 S2. Lungs: slight diminishment in bilateral pieces.No crackles or wheezes are heard. Abdomen: Soft, nontender, nondistended with bowel sounds. No peritoneal signs. No palpable organomegaly or masses. Extremities: Normal skin color and turgor. No cyanosis, rash, ulceration, clubbing, or edema. Radial and pedal pulses are 2/4 bilaterally. Neurological: No focal deficits. Strength and sensation are grossly intact. - Labs CBC & Chem 7: 04/26/18 04:45 04/26/18 04:45 Assessment and Plan (1) Dysphagia Narrative/Plan: persistent dysphagia predominantly with solids etiology unclear esophagram reported suspected transient laryngeal penetration and suggestion of some narrowing in AP dimension of the cervical esophagus tolerating modified chopped diet. Current Visit: Yes Status: Acute Code(s): R13.10 - DYSPHAGIA, UNSPECIFIED SNOMED Code(s): 10461140 (2) Elevated liver enzymes Current Visit: Yes Status: Acute Code(s): R74.8 - ABNORMAL LEVELS OF OTHER SERUM ENZYMES SNOMED Code(s): 705519459 (3) Warfarin-induced coagulopathy Current Visit: Yes Status: Acute Code(s): D68.32 - HEMORRHAGIC DISORD D/T EXTRINSIC CIRCULATING ANTICOAGULANTS; T45.515A - ADVERSE EFFECT OF ANTICOAGULANTS, INITIAL ENCOUNTER SNOMED Code(s): 57989460 (4) Sepsis Current Visit: Yes Status: Acute Code(s): A41.9 - SEPSIS, UNSPECIFIED ORGANISM SNOMED Code(s): 92362674 (5) Atrial fibrillation Current Visit: Yes Status: Acute Code(s): I48.91 - UNSPECIFIED ATRIAL FIBRILLATION SNOMED Code(s): 92830927 Plan: 1. Continue with modified diet. Follow-up in the outpatient setting after discharge in 2-3 weeks for reevaluation. Inpatient endoscopic exams not planned at this time. Continue with present medical therapy. We'll follow as needed. Assessment and plan a care discussed with Dr. Self
[2018-04-27] MEDS: AMIODARONE 200 MG TAB PO SCH ×3 (08:25→21:10)
[2018-04-27] MEDS: METHIMAZOLE 5 MG TAB PO SCH ×3 (08:25→21:09)
[2018-04-27] MEDS: DIGOXIN 125 MCG TAB PO SCH (08:25)
[2018-04-27] MEDS: METOPROLOL SUCCINATE (ER) 25 MG TAB.ER.24H PO SCH ×4 (08:25→21:10)
[2018-04-27] MEDS: FUROSEMIDE 10 MG/ML 10 ML VIAL IV SCH (08:25)
[2018-04-27] MEDS: FAMOTIDINE 20 MG/2 ML VIAL IV SCH ×2 (08:25→21:10)
[2018-04-27] MEDS: HYDROCORTISONE 20 MG TAB PO SCH (08:25)
[2018-04-27 09:05] LABS: INR 2.5 (<1.2); Prothrombin Time 22.5 sec (9.0-12.0)
--- NOTE | 2018-04-27 10:19 | XR ---
EXAMINATION TYPE: XR chest 1V DATE OF EXAM: 04/27/2018 COMPARISON: Prior chest x-ray 04/26/2018 HISTORY: Right lower lobe consolidation TECHNIQUE: Single frontal view of the chest is obtained. FINDINGS: Airspace disease somewhat improved in the right lower hemithorax. No evident pneumothorax or pleural effusion. Heart remains enlarged. Pacemaker is stable. There is contrast material within t he colon. IMPRESSION: There is some improvement in basilar airspace disease, additional follow-up recommended.
[2018-04-27] MEDS: FUROSEMIDE 40 MG TAB PO SCH ×2 (10:46→16:01)
[2018-04-27] MEDS: SODIUM CHLORIDE 0.9% 1,000 ML IV SCH (10:47)
[2018-04-27] MEDS: CEFEPIME 1 GM in SODIUM CHLORIDE 0.9% 50 ML IVPB SCH (11:35)
[2018-04-27] MEDS: MIDODRINE 5 MG TAB PO SCH ×3 (11:36→16:01)
[2018-04-27 12:15] LABS: Appearance,Urine Clear (Clear); Bilirubin,Urine Negative (Negative); Blood,Urine Negative (Negative); Color,Urine Yellow; Glucose,Urine (UA) Negative (Negative); Ketones,Urine Negative (Negative); Leukocyte Esterase,Urine Negative (Negative); Nitrite,Urine Negative (Negative); Protein,Urine Negative (Negative); Specific Gravity,Urine 1.006 (1.001-1.035)
--- NOTE | 2018-04-27 13:16 | P.PN ---
Subjective This is a pleaseant 57-year-old male past medical history significant for non-ischemic cardiomyopathy, s/p AICD placement, chronic persistent atrial fibrillation on correction anticoagulation with coumadin, hypertension, chronic systolic heart failure and chronic nicotine dependence. He follows regularly with Dr. Monroe out of [facility]. He has been admitted here with lower extremity cellulitis and atrial fibrillation with rapid ventricular response. Initially on admission he was on amiodarone 200 mg daily. However he had a significant elevation in his liver enzymes as well as TSH. Therefore amiodarone was discontinued initially and has since been resumed. Pt states he has attempted a cardioversion in the past and was unsuccessful. He denies symptoms of chest pain, shortness of breath, dizziness or palpitations. He is seen and examined resting comfortably in bed in no acute distress. Blood pressure 145/98 heart rate 56. Laboratory data reviewed INR today 2.5, TSH 2.5. Chest x-ray obtained this morning reveals interval improvement. GENERAL: Well-appearing, well-nourished and in no acute distress. NECK: Supple without JVD or thyromegaly. LUNGS: Breath sounds clear to auscultation bilaterally. Respiration equal and unlabored. No wheezes, rales or rhonchi. Diminished bilaterally. HEART: Irregular rate and rhythm with systolic ejection murmur at the apex, no rubs or gallops. S1 and S2 heard. EXTREMITIES: Normal range of motion, bilateral lower extremity janie wraps in place. No clubbing or cyanosis. Peripheral pulses intact. ASSESSMENT Chronic persistent atrial fibrillation, was on coumadin prior to admission. Coumadin has been held since admission secondary to supratherapeutic INR Supratherapeutic INR, today was 2.5 on no therapy since 04/16 Lower extremity cellulitis Sepsis secondary to cellulitis Left ventricular thrombus noted on RIVERA in the apex of the LV Acute renal failure Elevated liver enzymes Leukocytosis Syncope with evidence of non-sustained VT, no shocks delivered due to threshold settings on AICD, adjustments have been made to give therapy at rate of 160 Ventricular tachycardia Non-ischemic cardiomyopathy. Recent cath records have been reviewed by Dr. Armas Chronic systolic heart failure s/p AICD placement. Currently euvolemic, EF less than 20%. Chornic nicotine dependence PLAN Decrease amiodarone to 200 mg BID for 7 days, then 200 mg daily thereafter. Increase lopressor to 50 mg TID. Due to the interaction with coumdain and amiodarone and difficulty dosing, coverage for NOAC requested, Eliquis is covered 100% with no copay. Repeat INR tomorrow, if less than 2 Eliquis can be started at 5 mg BID. Repeat CMP tomorrow. Check TSH. Will follow up on digoxin level tomorrow. Smoking cessation discussed. Further recommendations to follow based on clinical course. Nurse Practitioner note has been reviewed, I agree with a documented findings and plan of care. Patient was seen and examined. Objective - Vital Signs Vital signs: Vital Signs Temp 97.9 F 04/27/18 05:19 Pulse 80 04/27/18 05:19 Resp 17 04/27/18 05:19 BP 112/74 04/27/18 05:19 Pulse Ox 100 04/27/18 05:19 Intake & Output 04/26/18 04/27/18 04/27/18 18:59 06:59 18:59 Intake Total 720 240 Output Total 925 540 Balance -925 180 240 Weight 102.3 kg Intake: Oral 720 240 Output: Urine 925 540 Other: Voiding Method Urinal Urinal Urinal # Voids 840 - Labs CBC & Chem 7: 04/26/18 04:45 04/26/18 04:45 Labs: Abnormal Lab Results - Last 24 Hours (Table) 04/27/18 Range/Units 08:29 PT 22.5 H (9.0-12.0) sec INR 2.5 H (<1.2)
--- NOTE | 2018-04-27 14:13 | P.PN ---
Subjective This is a pleasant 57 years old male with past medical history of atrial fibrillation and hypertension presents with severe sepsis most likely a right- sided pneumonia secondary to gram-negative bacteria with the right lower limb cellulitis. Also patient has suspicion of syncope secondary to cardiac arrhythmia. She was transferred out of the ICU recently. Patient is on anticoagulation for inguinal left sides thrombosis. Swallow evaluation is been done.: Patient denies chest pain or dyspnea Objective - Vital Signs Vital signs: Vital Signs Temp 97.8 F 04/27/18 12:40 Pulse 56 L 04/27/18 12:40 Resp 16 04/27/18 12:40 BP 145/98 04/27/18 12:40 Pulse Ox 98 04/27/18 12:40 Intake & Output 04/26/18 04/27/18 04/27/18 18:59 06:59 18:59 Intake Total 720 690 Output Total 925 540 400 Balance -925 180 290 Weight 102.3 kg Intake: Intake, IV Titration 50 Amount Cefepime 1 gm In Sodium 50 Chloride 0.9% 50 ml @ 100 mls/hr IVPB Q12HR [facility] Rx #:[id number] Oral 720 640 Output: Urine 925 540 400 Other: Voiding Method Urinal Urinal Urinal # Voids 840 - Exam GENERAL: The patient is alert and oriented x3, not in any acute distress. Well developed, well nourished. HEENT: Pupils are round and equally reacting to light. EOMI. No scleral icterus. No conjunctival pallor. Normocephalic, atraumatic. No pharyngeal erythema. No thyromegaly. CARDIOVASCULAR: S1 and S2 present. No murmurs, rubs, or gallops. PULMONARY: Chest is clear to auscultation, no wheezing or crackles. ABDOMEN: Soft, nontender, nondistended, normoactive bowel sounds. No palpable organomegaly. MUSCULOSKELETAL: No joint swelling or deformity. EXTREMITIES: No cyanosis, clubbing, or pedal edema. NEUROLOGICAL: Gross neurological examination did not reveal any focal deficits. SKIN: No rashes. - Labs CBC & Chem 7: 04/26/18 04:45 04/26/18 04:45 Labs: Abnormal Lab Results - Last 24 Hours (Table) 04/27/18 Range/Units 08:29 PT 22.5 H (9.0-12.0) sec INR 2.5 H (<1.2) Assessment and Plan Assessment: Severe sepsis, secondary to right-sided pneumonia and right lower extremity cellulitis. Syncope secondary to cardiac arrhythmia The ventricular thrombus, on anticoagulation Essential hypertension Hyperthyroidism Acute kidney injury Elevated liver enzymes and test. Plan: This is a pleasant 57 years old male who presents because of severe sepsis secondary to pneumonia and cellulitis. Continue with antibiotics. Many consultants are following the patient.Labs and medication were reviewed.. Continue same treatment. Continue with symptomatic treatment. Resume home medication. Monitor lytes and vitals. DVT and GI prophylaxis. Further recommendations of the clinical course of the patient DVT prophylaxis: Patient INR is 2.5 GI Prophylaxis: Pepcid PT/OT: Pending Prognosis is guarded
--- NOTE | 2018-04-27 16:08 | P.PN ---
Subjective Progress Note Date: 04/27/18 Principal diagnosis: Recurrent episodes of syncope secondary to ventricular tachycardia and cardiomyopathy with LV dysfunction. This is a very pleasant 57-year-old gentleman who follows with Dr. Doe as his primary care physician. He has a history of severe nonischemic cardiomyopathy with an ejection fraction less than 20% status post AICD placement, atrial fibrillation, hypertension. He follows with autopsy assistant Dr. Monroe at [facility]. He had recently been admitted here earlier this same month for an episode of near syncope. He did have syncope and ventricular tachycardia while here and was seen in the intensive care unit for the same. He presented here again early this morning after waking up on the floor. He states he was sitting up at his computer and suddenly passed out. He has no idea how long he was down for. He is unsure whether he hit his head or had any other injuries. He denied any preceding chest pain, shortness breath, dizziness or lightheadedness. No pre-warning. He denies any loss of urine. Computed tomography scan of the brain revealed no acute intracranial abnormality. Chest x-ray shows some chronic changes in the right lower lobe improved compared to previous. Moderate cardiomegaly. No acute heart failure. Troponin 0.068, 0.084, 0.107. ProBNP 15,100 area TSH 6.22, T4 2 0.74. White count 9.2. Hemoglobin 12.7. INR 1.8. Creatinine 1.28. Lactic acid up from 3.0-11.6. He does have lower extremity edema with redness and weeping and possible cellulitis. He is hypotensive currently on norepinephrine at 15 mcg/ m. He's been initiated on vancomycin and cefepime. He is seen today in consultation in the intensive care unit. He is currently resting comfortably in bed. He is awake and alert in no acute distress. He denies any chest pain, palpitations lightheadedness or dizziness. He remains in atrial fibrillation with a controlled ventricular response. He is currently on a Cardizem drip at 10 mg per hour. Previously the patient had refused amiodarone based on potential side effects. He also does have a history of noncompliance prior to his previous admission. He denies any recent fever, chills or night sweats. No cough or congestion. He is maintaining good O2 saturations in the high 90s on 2 L/m per nasal cannula. He's been afebrile since admission. Patient was reevaluated today on 04/17/2018, remains in the intensive care unit , asymptomatic, however his labs were noted to be quite abnormal today including leukocytosis with WBC count of 15.3, INR of 4.0, potassium was 6.2 earlier and it is now 5.7, patient received Kayexalate. Renal functioning is worsening, BUN is 40 creatinine is 2.78. He was seen by nephrology for his acute kidney injury, felt to be most likely cardiorenal in nature. His BNP level was noted to be elevated. And his troponins 0.107 on presentation. Chest x-ray which I reviewed is suggestive of mild pulmonary edema, with left pleural effusion, and right basilar atelectasis. Hence I recommended a dose of Lasix to be given 1 today. Patient again has very poor LV function ejection fraction is no more than 20%. Patient is now on 4 L nasal cannula, his respiratory rate is between 16 and 24, O2 saturation is 97% on 4 L. The patient is seen today 04/18/2018 in follow-up in the intensive care unit. He is awake and alert in no acute distress. He is currently sitting up in a chair at the bedside. He denies any worsening shortness of breath, cough or congestion. No chest pain, palpitations lightheadedness or dizziness. He is maintaining O2 saturations in the upper 90s on 4 L/m nasal cannula. He is afebrile. Back in sinus rhythm. Borderline hypotension. Echocardiogram revealed severely impaired left ventricular systolic function with ejection fraction less than 20%. There is also moderately impaired right ventricular systolic function. There is a possible tumor/mass/thrombus seen in the right atrium. RIVERA is being considered. Blood and urine cultures reveal no growth to date. White count 17.5. Hemoglobin 12.2. INR 4.0. Creatinine 2.67. Lactic 1.7. AST 3559, ALT 4406. He is currently on cefepime. Remains on norepinephrine at 6 mcg/m. He is also on a Lasix drip at 10 mg per hour. Currently in a -1500 ML balance. On 04/19/2018 patient seen in follow-up in the intensive care unit, he is awake and alert, sitting up in the recliner, in no acute distress. Denies any chest pain or dyspnea. Remains in Afib on monitor, a controlled rate. He is on 3 L per nasal cannula, pulse ox is 96%, maintenance IV is 0.9 at 10, Lasix at 10 mg per hour, liters if it is at 10 mics per minute. He is nonoliguric, he is producing large amount of urine, averaging 252 320 ML per hour. He is in -3800 mL fluid balance over the last 24 hours. Negative 7.2 kg in the last 48 hours. Lung sounds are positive for crackles over posterior bases. Is working on incentive spirometry. Bilateral lower extremities are covered with Seferino wrap's, and the swelling is decreasing. Afebrile. Urine and blood cultures remain negative. Pulmonary/critical care progress note dated 04/20/2018 This is a 57-year-old male who was admitted with a diagnosis of syncope. The syncope was thought to be possibly related to ventricular tachycardia. He does have an AICD placed. It is not discharge. He has a history of cardiomyopathy with an ejection fraction of 20%. In addition, he had hypotension thought to be related to underlying sepsis from cellulitis. He did have an elevated lactic acid. In addition, he has a history of renal insufficiency, shock liver atrial fibrillation hypertension and chronic tobacco dependence. In addition, he has a history of hypothyroidism. His cortisol level was adequate. The patient was off of norepinephrine but was started back on 1 g of norepinephrine this morning by the nurse. It is running at 1 mcg/m. He is getting a saline IV at 20 mL an hour and is also on nasal O2 at 3 L. The patient feels okay. Still a little somnolent and lethargic but he does arouse appropriately. The patient obviously cannot leave the ICU still being on the norepinephrine. I did have the nurse increase the midodrine from 5 mg 3 times a day to 10 mg a times a day. Microbiologic studies remained negative. The patient is seen again today 04/21/2018 in follow-up in the intensive care unit. He is currently awake and alert in no acute distress. He is maintaining good O2 saturations in the 90s on 2 L/m per nasal cannula. His 0.9 normal saline at KVO 2 sites. His norepinephrine has been on for 24 hours now. Microbiology is negative. He remains in atrial fibrillation with a varying ventricular response. Remains on amiodarone and metoprolol. He denies any chest pain, palpitations lightheadedness or dizziness. White count 10.4. Hemoglobin 12.5. Platelet count 139,000. INR 2.1. Creatinine 1.17. AST 165, ALT 1238. Receiving Lasix 40 mg IV push every 12 hours. He remains in a negative balance. On 04/22/2018 patient seen in follow-up in the intensive care unit. Awake and alert, oriented 3, no acute distress. Lung sounds are clear to auscultation, pulse ox on 3 L per nasal cannula is 97%, afebrile, hemodynamically stable. Patient is a selective care overflow. Remains in atrial fibrillation, with a controlled rate. Patient is are even and nonlabored, no specific complaints, patient is nonoliguric, he is tolerating oral diet, urine and blood cultures are negative. Chest x-rays today. Today's labs have been reviewed, the WBCs 10.0, hemoglobin is 12.6, INR is 1.7, sodium is 133, potassium 3.7, chloride is 94, CO2 is 31, BUN is 41 and creatinine 1.20. He continues on oral Lasix, he is on cefepime. No fever no chills. On 04/23/2018 patient seen in follow-up in the intensive care unit, he is awaiting a bed for selective care unit. Overnight patient did not have any acute events, vital signs are stable, currently on 3 L per nasal cannula his pulse ox is 98%, no fever, no chills, A. fib with a controlled rate on the monitor. No IVs. Ultrasound remain negative. Lung sounds are clear to auscultation. Today's labs have been reviewed, WBCs 9.5, hemoglobin is 12.5, INR is 1.8, sodium is 131, potassium is 4.4, chloride is 93, CO2 is 31, B1 is 39 , creatinine is 1.18, liver enzymes are improving. On 04/25/2018 patient seen in follow-up in the intensive care unit, he is awake and alert, in no acute distress, room air pulse ox is 98%, patient means in atrial fibrillation, and the rate is tachycardic, ranging from 120-140 BPM, there are some paced beats, possibly override pacing beats. Patient is afebrile , bilateral lower extremities are less swollen, less red, patient remains on antibiotic coverage including cefepime. No cough, no chest congestion, no fever or chills, bloody urine cultures remained negative. Cardiology is following, and patient is on oral amiodarone, and digoxin was added today for rate control. Patient is having some swallowing difficulty, and GI service is following and patient is scheduled for an esophagram today. Otherwise clinically he remains stable, labs have been reviewed, potassium only was done, and is 3.9 today, we'll repeat the rest of the blood work today. Yesterday patient's INR was therapeutic at 2.0. Patient is in negative fluid balance, he remains on Lasix 80 mg IV every 12 hours per nephrology. Off levo fed. Maintenance IV fluids 0.9 normal saline at a rate of 20 ML per hour. Patient is on Toprol-XL 50 mg twice daily. On 04/26/2018 patient seen in follow-up in the intensive care unit, he bed in the stepdown unit. He is awake and alert, in no acute distress, no dyspnea, no chest pain, in A. fib with a more controlled rate on today's exam. A combination of oral amiodarone, oral digoxin, and beta blockers. Afebrile, room air pulse ox is 99%, hemodynamically stable, his labs have been reviewed, the PVCs on 0.9, hemoglobin is 11.0, sodium is 132, chloride is 90, CO2 36, and renal profile is stable, with BUN of 37 creatinine of 1.34, patient remains on antibiotic coverage in the form of Fortaz bilateral extremity cellulitis, he continues on IV Lasix at 80 mg IV every 12 hours, nephrology is following. He had esophagram this morning, and showed some transient laryngeal penetration, and suggestion of some narrowing in the AP dimension of the cervical esophagus, no jessica aspiration. On today's exam patient is swallowing better, less dysphagia. On 04/22/2018 patient seen in follow-up in the intensive care unit. Awake and alert, oriented 3, no acute distress. Lung sounds are clear to auscultation, pulse ox on 3 L per nasal cannula is 97%, afebrile, hemodynamically stable. Patient is a selective care overflow. Remains in atrial fibrillation, with a controlled rate. Patient is are even and nonlabored, no specific complaints, patient is nonoliguric, he is tolerating oral diet, urine and blood cultures are negative. Chest x-rays today. Today's labs have been reviewed, the WBCs 10.0, hemoglobin is 12.6, INR is 1.7, sodium is 133, potassium 3.7, chloride is 94, CO2 is 31, BUN is 41 and creatinine 1.20. He continues on oral Lasix, he is on cefepime. No fever no chills. On 04/23/2018 patient seen in follow-up in the intensive care unit, he is awaiting a bed for [facility] care [facility]. Overnight patient did not have any acute events, vital signs are stable, currently on 3 L per nasal cannula his pulse ox is 98%, no fever, no chills, A. fib with a controlled rate on the monitor. No IVs. Ultrasound remain negative. Lung sounds are clear to auscultation. Today's labs have been reviewed, WBCs 9.5, hemoglobin is 12.5, INR is 1.8, sodium is 131, potassium is 4.4, chloride is 93, CO2 is 31, B1 is 39 , creatinine is 1.18, liver enzymes are improving. On 04/25/2018 patient seen in follow-up in the intensive care unit, he is awake and alert, in no acute distress, room air pulse ox is 98%, patient means in atrial fibrillation, and the rate is tachycardic, ranging from 120-140 BPM, there are some paced beats, possibly override pacing beats. Patient is afebrile , bilateral lower extremities are less swollen, less red, patient remains on antibiotic coverage including cefepime. No cough, no chest congestion, no fever or chills, bloody urine cultures remained negative. Cardiology is following, and patient is on oral amiodarone, and digoxin was added today for rate control. Patient is having some swallowing difficulty, and GI service is following and patient is scheduled for an esophagram today. Otherwise clinically he remains stable, labs have been reviewed, potassium only was done, and is 3.9 today, we'll repeat the rest of the blood work today. Yesterday patient's INR was therapeutic at 2.0. Patient is in negative fluid balance, he remains on Lasix 80 mg IV every 12 hours per nephrology. Off levo fed. Maintenance IV fluids 0.9 normal saline at a rate of 20 ML per hour. Patient is on Toprol-XL 50 mg twice daily. On 04/26/2018 patient seen in follow-up in the intensive care unit, he bed in the stepdown unit. He is awake and alert, in no acute distress, no dyspnea, no chest pain, in A. fib with a more controlled rate on today's exam. A combination of oral amiodarone, oral digoxin, and beta blockers. Afebrile, room air pulse ox is 99%, hemodynamically stable, his labs have been reviewed, the PVCs on 0.9, hemoglobin is 11.0, sodium is 132, chloride is 90, CO2 36, and renal profile is stable, with BUN of 37 creatinine of 1.34, patient remains on antibiotic coverage in the form of Fortaz bilateral extremity cellulitis, he continues on IV Lasix at 80 mg IV every 12 hours, nephrology is following. He had esophagram this morning, and showed some transient laryngeal penetration, and suggestion of some narrowing in the AP dimension of the cervical esophagus, no jessica aspiration. On today's exam patient is swallowing better, less dysphagia. Patient is seen again today 04/27/2018 in follow-up on the regular medical floor. He is currently resting quite comfortably in bed. He denies any shortness of breath, cough or congestion. He is maintaining good O2 saturations in the 90s on room air. Today's chest x-ray shows improvement in the basilar airspace disease. No chest pain, palpitations, lightheadedness or dizziness. INR 2.5. Objective - Vital Signs Vital signs: Vital Signs Temp 97.8 F 04/27/18 12:40 Pulse 56 L 04/27/18 12:40 Resp 16 04/27/18 12:40 BP 145/98 04/27/18 12:40 Pulse Ox 98 04/27/18 12:40 Intake & Output 04/26/18 04/27/18 04/27/18 18:59 06:59 18:59 Intake Total 720 690 Output Total 925 540 400 Balance -925 180 290 Weight 102.3 kg Intake: Intake, IV Titration 50 Amount Cefepime 1 gm In Sodium 50 Chloride 0.9% 50 ml @ 100 mls/hr IVPB Q12HR [facility] Rx #:[id number] Oral 720 640 Output: Urine 925 540 400 Other: Voiding Method Urinal Urinal Urinal # Voids 840 - Exam GENERAL EXAM: Alert, comfortable in no apparent distress. On room air. HEAD: Normocephalic. EYES: Normal reaction of pupils, equal size. NOSE: Clear with pink turbinates. THROAT: No erythema or exudates. NECK: No masses, no JVD. CHEST: No chest wall deformity. LUNGS: Equal air entry with crackles in the posterior bases more so on the right. Diminished. CVS: S1 and S2 normal with a systolic murmur. Irregular rhythm. ABDOMEN: No hepatosplenomegaly, normal bowel sounds, no guarding or rigidity. SPINE: No scoliosis or deformity SKIN: Redness edema and weeping of the lower extremities CENTRAL NERVOUS SYSTEM: No focal deficits, tone is normal in all 4 extremities. EXTREMITIES: There is 2-3+ peripheral edema. Chronic changes of chronic venous stasis. Redness and weeping. - Labs CBC & Chem 7: 04/26/18 04:45 04/26/18 04:45 Labs: Abnormal Lab Results - Last 24 Hours (Table) 04/27/18 Range/Units 08:29 PT 22.5 H (9.0-12.0) sec INR 2.5 H (<1.2) Assessment and Plan Assessment: Impression: #1 Syncopal episode of unclear etiology, secondary to ventricular tachycardia, no shock from device. The patient does have severe nonischemic cardiomyopathy with ejection fraction less than 20%. Status post AICD placement. #2 Hypotension requiring pressor support with elevated lactic acid and sepsis secondary to suspected lower extremity cellulitis. No clear evidence of pneumonia on the chest x-ray. No leukocytosis. #3 Mild acute renal failure, creatinine improved to 1.34. . #4 Shock liver secondary to above. #5 Abnormal thyroid levels. #6 Atrial fibrillation with a rapid ventricular response. Anticoagulated with warfarin. Current INR 2.5. #7 History of hypertension. #8 History of chronic tobacco dependence. Plan: The patient was seen and evaluated by Dr. Goyal. The patient is stable from the pulmonary standpoint. We'll follow him on as-needed basis. I, the cosigning physician, performed a history & physical examination of the patient. Lungs sounds with faint crackles in the posterior bases. Maintaining good O2 saturations in the 90s on room air. I discussed the assessment and plan of care with my nurse practitioner, Makeda Nunez. I attest to the above progress note as dictated by her.
--- NOTE | 2018-04-27 20:34 | PN ---
PROGRESS NOTE DATE OF SERVICE: 04/27/2018 REASON FOR FOLLOWUP: Bilateral lower extremity cellulitis. INTERVAL HISTORY: The patient is afebrile. He has been breathing more comfortably. Denies significant chest pain or cough. No abdominal pain or pain to the leg area. PHYSICAL EXAMINATION: Blood pressure 145/98 with a pulse of 56, temperature 97.8. He is 98% on 3 L nasal cannula. General description is a middle-aged male lying in bed in no distress. RESPIRATORY SYSTEM: Unlabored breathing. Clear to auscultation anteriorly. HEART: S1, S2. Regular rate and rhythm. ABDOMEN: Soft. No tenderness. Overall leg swelling has much improved. The wounds have dried up. Patient has more dry scaly skin. LABS: Hemoglobin is 11, white count 11.9, BUN of 37, creatinine 1.34. DIAGNOSTIC IMPRESSION AND PLAN: Patient with bilateral lower extremity cellulitis, right greater than left, with some superficial ulceration. Underlying cellulitis has been treated. Wound has healed up. RN has been advised moisturizing cream to the legs followed by Seferino wrap. also to discontinue antibiotic, as underlying infection has been adequately treated. Will monitor the patient closely off antibiotic. Continue with supportive care. MMODL / IJN: [id number] /
[2018-04-27] MEDS: HYDROCORTISONE 10 MG TAB PO SCH (21:10)
[2018-04-28 08:16] LABS: INR 2.3 (<1.2); Prothrombin Time 22.3 sec (9.0-12.0)
[2018-04-28 08:22] LABS: Albumin 2.2 g/dL (3.5-5.0); Calcium 7.5 mg/dL (8.4-10.2); Potassium 3.6 mmol/L (3.5-5.1); Total Bilirubin 1.6 mg/dL (0.2-1.3); Total Protein 4.8 g/dL (6.3-8.2)
--- NOTE | 2018-04-28 08:37 | P.PN ---
Subjective Progress Note Date: 04/28/18 This is a pleasant 57-year-old gentleman with past medical history significant for nonischemic cardiomyopathy, status post AICD placement, chronic atrial fibrillation, previously on long-term anticoagulant with Coumadin, hypertension, chronic systolic heart failure and chronic nicotine dependence. Previous attempted cardioversion in the past that was unsuccessful. He follows regularly with Dr. Monroe out of [facility]. He was initially admitted here with lower extremity cellulitis and atrial fibrillation with rapid ventricular response. Initially on admission he was on amiodarone 200 mg daily. He had significant elevation in his liver enzymes as well as TSH and therefore amiodarone was discontinued but has since been resumed. Laboratory value available this morning includes an INR of 2.3, CMP is pending. Upon examination, patient resting comfortably in bed. He denies complaints of chest discomfort, shortness of breath, orthopnea, PND, dizziness, lightheadedness, palpitations. Heart rate is fairly well controlled today. Objective - Vital Signs Vital signs: Vital Signs Temp 97.7 F 04/28/18 05:04 Pulse 68 04/28/18 05:04 Resp 16 04/28/18 05:04 BP 93/66 04/28/18 05:04 Pulse Ox 96 04/28/18 05:04 Intake & Output 04/27/18 04/28/18 04/28/18 18:59 06:59 18:59 Intake Total 690 1120 Output Total 400 200 Balance 290 920 Intake: Intake, IV Titration 50 Amount Cefepime 1 gm In Sodium 50 Chloride 0.9% 50 ml @ 100 mls/hr IVPB Q12HR [facility] Rx #:[id number] Oral 640 880 Tube Feeding 240 Output: Urine 400 200 Other: Voiding Method Urinal # Voids 1 - Exam PHYSICAL EXAMINATION: HEENT: Head is atraumatic, normocephalic. Pupils equal, round. Neck is supple. There is no elevated jugular venous pressure. HEART EXAMINATION: Heart sounds irregularly irregular, S1 and S2 with a systolic ejection murmur at the apex. CHEST EXAMINATION: Lungs are clear to auscultation and diminished bilaterally. No chest wall tenderness is noted on palpation or with deep breathing. ABDOMEN: Soft, nontender. Bowel sounds are heard. No organomegaly noted. EXTREMITIES: 2+ peripheral pulses no evidence of peripheral edema and Seferino wraps noted to bilateral lower extremities. NEUROLOGIC patient is awake, alert and oriented x3. . - Labs CBC & Chem 7: 04/26/18 04:45 04/26/18 04:45 Labs: Abnormal Lab Results - Last 24 Hours (Table) 04/27/18 04/28/18 Range/Units 08:29 07:23 PT 22.5 H 22.3 H (9.0-12.0) sec INR 2.5 H 2.3 H (<1.2) Assessment and Plan Assessment: #1 Chronic atrial fibrillation, was on coumadin prior to admission. Coumadin has been held since admission secondary to supratherapeutic INR Supratherapeutic INR, today was 2.3 on no therapy since 04/16 #2 Lower extremity cellulitis #3 Sepsis secondary to cellulitis #4 Left ventricular thrombus noted on RIVERA in the apex of the LV #5 Acute renal failure, improved #6 Elevated liver enzymes, improving #7 Leukocytosis #8 Syncope with evidence of non-sustained VT, no shocks delivered due to threshold settings on AICD, adjustments have been made to give therapy at rate of 160 #9 Ventricular tachycardia #10 Non-ischemic cardiomyopathy #11 Chronic systolic heart failure s/p AICD placement, EF less than 20%. #12 Chronic nicotine dependence Plan: Continue amiodarone 200 mg twice a day for a total of 7 days then decrease to 200 mg daily. Continue current dose of beta shane. Start Eliquis once INR is less than 2. Continue to monitor INR, renal function and liver enzymes. We will continue to follow the patient provide further recommendations accordingly. PROFESSIONAL [employer]PER note has been reviewed, I agree with a documented findings and plan of care. Patient was seen and examined.
[2018-04-28] MEDS: FAMOTIDINE 20 MG/2 ML VIAL IV SCH ×2 (08:52→21:26)
[2018-04-28] MEDS: MIDODRINE 5 MG TAB PO SCH ×3 (08:53→17:03)
[2018-04-28] MEDS: HYDROCORTISONE 20 MG TAB PO SCH (08:53)
[2018-04-28] MEDS: METHIMAZOLE 5 MG TAB PO SCH ×3 (08:53→21:26)
[2018-04-28 08:57] LABS: Digoxin 0.5 ng/mL
[2018-04-28] MEDS: FUROSEMIDE 40 MG TAB PO SCH ×2 (09:35→15:23)
[2018-04-28] MEDS: AMIODARONE 200 MG TAB PO SCH ×2 (09:37→21:26)
[2018-04-28] MEDS: METOPROLOL SUCCINATE (ER) 25 MG TAB.ER.24H PO SCH ×3 (10:33→21:25)
--- NOTE | 2018-04-28 11:00 | P.PN ---
Subjective This is a pleasant 57 years old male with past medical history of atrial fibrillation and hypertension presents with severe sepsis most likely a right- sided pneumonia secondary to gram-negative bacteria with the right lower limb cellulitis. Also patient has suspicion of syncope secondary to cardiac arrhythmia. She was transferred out of the ICU recently. Patient is on anticoagulation for inguinal left sides thrombosis. Swallow evaluation is been done.: Patient denies chest pain or dyspnea 04/28/18 Patient denies chest pain or dyspnea. He is tolerating diet well. Has good bowel movement. He is feeling fine. He has cough. INR today is 2.3. Lorcet less than 2 we will restart Eliquis. Digoxin level is 0.5 and TSH is 2.5. WBC is 11.9 K. Creatinine is 1.2 within normal limits. Total bilirubin is slightly trending down to 1.6 and ALT to 197. The rectus looks stable Objective - Vital Signs Vital signs: Vital Signs Temp 97.7 F 04/28/18 05:04 Pulse 85 04/28/18 10:32 Resp 16 04/28/18 05:04 BP 108/74 04/28/18 10:32 Pulse Ox 96 04/28/18 05:04 Intake & Output 04/27/18 04/28/18 04/28/18 18:59 06:59 18:59 Intake Total 690 1120 Output Total 400 200 Balance 290 920 Intake: Intake, IV Titration 50 Amount Cefepime 1 gm In Sodium 50 Chloride 0.9% 50 ml @ 100 mls/hr IVPB Q12HR [facility] Rx #:[id number] Oral 640 880 Tube Feeding 240 Output: Urine 400 200 Other: Voiding Method Urinal # Voids 1 - Exam GENERAL: The patient is alert and oriented x3, not in any acute distress. Well developed, well nourished. HEENT: Pupils are round and equally reacting to light. EOMI. No scleral icterus. No conjunctival pallor. Normocephalic, atraumatic. No pharyngeal erythema. No thyromegaly. CARDIOVASCULAR: S1 and S2 present. No murmurs, rubs, or gallops. PULMONARY: Chest is clear to auscultation, no wheezing or crackles. ABDOMEN: Soft, nontender, nondistended, normoactive bowel sounds. No palpable organomegaly. MUSCULOSKELETAL: No joint swelling or deformity. EXTREMITIES: No cyanosis, clubbing, or pedal edema. NEUROLOGICAL: Gross neurological examination did not reveal any focal deficits. SKIN: No rashes. - Labs CBC & Chem 7: 04/26/18 04:45 04/28/18 07:23 Labs: Abnormal Lab Results - Last 24 Hours (Table) 04/28/18 04/28/18 Range/Units 07:23 07:23 PT 22.3 H (9.0-12.0) sec INR 2.3 H (<1.2) Sodium 134 L (137-145) mmol/L Chloride 92 L (98-107) mmol/L Carbon Dioxide 39 H (22-30) mmol/L BUN 28 H (9-20) mg/dL Calcium 7.5 L (8.4-10.2) mg/dL Total Bilirubin 1.6 H (0.2-1.3) mg/dL ALT 197 H (21-72) U/L Total Protein 4.8 L (6.3-8.2) g/dL Albumin 2.2 L (3.5-5.0) g/dL Assessment and Plan Assessment: Severe sepsis, secondary to right-sided pneumonia and right lower extremity cellulitis. Syncope secondary to cardiac arrhythmia The ventricular thrombus, on anticoagulation Essential hypertension Hyperthyroidism Acute kidney injury Elevated liver enzymes and test. Plan: This is a pleasant 57 years old male who presents because of severe sepsis secondary to pneumonia and cellulitis. Continue with antibiotics. Many consultants are following the patient.Labs and medication were reviewed.. Continue same treatment. Continue with symptomatic treatment. Resume home medication. Monitor lytes and vitals. DVT and GI prophylaxis. Further recommendations of the clinical course of the patient DVT prophylaxis: Patient INR is 2.5 GI Prophylaxis: Pepcid PT/OT: Pending Prognosis is guarded
[2018-04-28] MEDS ORDERED: POTASSIUM CHLORIDE ER 20 MEQ TAB.ER PO STA (12:53)
--- NOTE | 2018-04-28 12:53 | P.PN ---
Subjective Patient is seen in follow-up for acute kidney injury. Renal function improved since admission. Creatinine stable at 1.22 today. Patient's currently maintained on Lasix 40 mg po BID. Patient has systolic CHF with ejection fraction of less than 20% with mild to moderate tricuspid regurgitation. He is nonoliguric. Currently awake and alert. Denies chest pain or shortness of breath. Oral intake is fair. Vital signs are stable. General: The patient appeared well nourished and normally developed. HEENT: Head exam is unremarkable. Neck is without jugular venous distension. LUNGS: Breath sounds decreased. HEART: Rate and Rhythm are regular. First and second heart sounds normal. No murmurs, rubs or gallops. ABDOMEN: Abdominal exam reveals normal bowel sounds. Non-tender and non- distended. No evidence of peritonitis. EXTREMITITES: Trace edema. Objective - Vital Signs Vital signs: Vital Signs Temp 97.7 F 04/28/18 05:04 Pulse 85 04/28/18 10:32 Resp 16 04/28/18 05:04 BP 108/74 04/28/18 10:32 Pulse Ox 96 04/28/18 05:04 Intake & Output 04/27/18 04/28/18 04/28/18 18:59 06:59 18:59 Intake Total 690 1120 Output Total 400 200 300 Balance 290 920 -300 Intake: Intake, IV Titration 50 Amount Cefepime 1 gm In Sodium 50 Chloride 0.9% 50 ml @ 100 mls/hr IVPB Q12HR [facility] Rx #:[id number] Oral 640 880 Tube Feeding 240 Output: Urine 400 200 300 Other: Voiding Method Urinal Urinal # Voids 1 - Labs CBC & Chem 7: 04/26/18 04:45 04/28/18 07:23 Labs: Abnormal Lab Results - Last 24 Hours (Table) 04/28/18 04/28/18 Range/Units 07:23 07:23 PT 22.3 H (9.0-12.0) sec INR 2.3 H (<1.2) Sodium 134 L (137-145) mmol/L Chloride 92 L (98-107) mmol/L Carbon Dioxide 39 H (22-30) mmol/L BUN 28 H (9-20) mg/dL Calcium 7.5 L (8.4-10.2) mg/dL Total Bilirubin 1.6 H (0.2-1.3) mg/dL ALT 197 H (21-72) U/L Total Protein 4.8 L (6.3-8.2) g/dL Albumin 2.2 L (3.5-5.0) g/dL Assessment and Plan Plan: Assessment: 1. Nonoliguric acute kidney injury secondary to ATN secondary to cardiorenal syndrome. Creatinine stable at 1.22 today. Baseline creatinine near 1. 2. Volume overload. Improved. 3. Hypotension related to underlying cardiac status maintained on midodrine. 4. Systolic CHF with ejection fraction of less than 20% with mild to moderate tricuspid regurgitation. 5. Hypervolemic hyponatremia. Stable. 6. Mild hypokalemia from diuresis. 7. Atrial fibrillation maintained on metoprolol and amiodarone. Cardiology following. 8. Possible thrombus in the left ventricular apex. Plan: Maintain Lasix 40 mg orally twice daily. Maintain midodrine. Replace potassium. 40 mg once today. Anticipate discharge soon. Patient to follow-up as an outpatient in the next 1- 2 weeks.
[2018-04-28] MEDS: SODIUM CHLORIDE 0.9% 1,000 ML IV SCH (13:20)
[2018-04-28] MEDS ORDERED: POTASSIUM BICARBONATE/CIT AC 20 MEQ TABLET.EFF PO STA (13:24)
[2018-04-28 15:42] LABS: Glucose,Whole Blood 112 mg/dL (75-99)
[2018-04-28] MEDS ORDERED: DEXTROSE 5% IN WATER 100 ML with AMIODARONE 150 MG IV ONE (15:52)
[2018-04-28] MEDS ORDERED: AMIODARONE 450 MG in DEXTROSE 5% IN WATER 250 ML IV SCH ×2 (16:00)
--- NOTE | 2018-04-28 16:50 | PN ---
PROGRESS NOTE DATE OF SERVICE: 04/28/2018. REASON FOR FOLLOWUP: Bilateral lower extremity cellulitis with right leg wound. INTERVAL HISTORY: The patient was seen on rounds this morning. The patient has been afebrile. He was breathing comfortably. No chest pain. No shortness of breath or cough. No abdominal pain. No cough. No diarrhea. No pain to the right leg area. EXAMINATION: Blood pressure 105/75, pulse of 53, temperature 97.6. He is 96% on room air. General description is a middle-aged male lying in bed in no distress. Respiratory system: Unlabored breathing. Clear to auscultation anteriorly. Heart S1, S2. Regular rate and rhythm. Abdomen soft. No tenderness. Legs are currently wrapped. No obvious drainage on the dressing. LABS: BUN of 28, creatinine 1.22. DIAGNOSTIC IMPRESSION AND PLAN: Patient with bilateral lower extremity cellulitis. The patient did have a right leg venous stasis ulcer and lung cellulitis and also had healed up. The patient is currently off antibiotic therapy. We will continue local care with moisturizing cream and Seferino wrap to keep the swelling down. No need for systemic antibiotic therapy. Continue supportive care. MMODL / IJN: [id number] /
[2018-04-28] MEDS: HYDROCORTISONE 10 MG TAB PO SCH (21:25)
[2018-04-29 05:47] LABS: Anisocytosis Slight; HCT 40.6 % (39.0-53.0); HGB 12.3 gm/dL (13.0-17.5); Hypochromasia Moderate; MCH 27.7 pg (25.0-35.0); MCHC 30.3 g/dL (31.0-37.0); MCV 91.3 fL (80.0-100.0); Mean Platelet Volume 6.6; Platelet Count 261 k/uL (150-450); RBC 4.44 m/uL (4.30-5.90); RDW 16.2 % (11.5-15.5); WBC 14.2 k/uL (3.8-10.6)
[2018-04-29 05:56] LABS: INR 2.2 (<1.2); Prothrombin Time 21.8 sec (9.0-12.0)
[2018-04-29 06:00] LABS: Calcium 7.7 mg/dL (8.4-10.2)
[2018-04-29] MEDS: MIDODRINE 5 MG TAB PO SCH ×3 (08:08→17:27)
[2018-04-29] MEDS: METOPROLOL SUCCINATE (ER) 25 MG TAB.ER.24H PO SCH ×3 (08:08→22:07)
[2018-04-29] MEDS: HYDROCORTISONE 20 MG TAB PO SCH (08:09)
[2018-04-29] MEDS: FUROSEMIDE 40 MG TAB PO SCH ×2 (08:09→17:26)
[2018-04-29] MEDS: AMIODARONE 200 MG TAB PO SCH ×2 (08:09→22:08)
[2018-04-29] MEDS: METHIMAZOLE 5 MG TAB PO SCH ×3 (08:10→22:08)
[2018-04-29] MEDS: FAMOTIDINE 20 MG/2 ML VIAL IV SCH ×2 (08:10→22:08)
[2018-04-29] MEDS: SODIUM CHLORIDE 0.9% 1,000 ML IV SCH (09:40)
--- NOTE | 2018-04-29 17:42 | P.PN ---
Subjective This is a pleasant 57 years old male with past medical history of atrial fibrillation and hypertension presents with severe sepsis most likely a right- sided pneumonia secondary to gram-negative bacteria with the right lower limb cellulitis. Also patient has suspicion of syncope secondary to cardiac arrhythmia. She was transferred out of the ICU recently. Patient is on anticoagulation for inguinal left sides thrombosis. Swallow evaluation is been done.: Patient denies chest pain or dyspnea 04/28/18 Patient denies chest pain or dyspnea. He is tolerating diet well. Has good bowel movement. He is feeling fine. He has cough. INR today is 2.3. Lorcet less than 2 we will restart Eliquis. Digoxin level is 0.5 and TSH is 2.5. WBC is 11.9 K. Creatinine is 1.2 within normal limits. Total bilirubin is slightly trending down to 1.6 and ALT to 197. Vitals looks stable 04/29/2018 Patient was seen and examined by me in the ICU today. As transverse because he developed A. fib with RVR. And he needed an amiodarone drip which could be provided on the floor. His amiodarone was adjusted to 400 mg twice a day by cardiology team. He is off amiodarone drip now His heart rate is controlled now at 92. And patient was sent back to the floor. He still have leukocytosis. And an INR is 2.2 . Sodium at 133. Potassium 4.0. Creatinine 1.2. Objective - Vital Signs Vital signs: Vital Signs Temp 97.1 F L 04/29/18 14:29 Pulse 92 04/29/18 16:00 Resp 16 04/29/18 16:00 BP 114/75 04/29/18 14:29 Pulse Ox 94 L 04/29/18 14:29 Intake & Output 04/28/18 04/29/18 04/29/18 18:59 06:59 18:59 Intake Total 400 420 Output Total 477 019 9776 Balance -700 -410 -580 Weight 100.2 kg Intake: Oral 400 420 Output: Urine 644 002 6386 Stool 400 0 Other: Voiding Method Urinal Urinal Urinal # Voids 1 # Bowel Movements 1 1 - Exam GENERAL: The patient is alert and oriented x3, not in any acute distress. Well developed, well nourished. HEENT: Pupils are round and equally reacting to light. EOMI. No scleral icterus. No conjunctival pallor. Normocephalic, atraumatic. No pharyngeal erythema. No thyromegaly. CARDIOVASCULAR: S1 and S2 present. No murmurs, rubs, or gallops. PULMONARY: Chest is clear to auscultation, no wheezing or crackles. ABDOMEN: Soft, nontender, nondistended, normoactive bowel sounds. No palpable organomegaly. MUSCULOSKELETAL: No joint swelling or deformity. EXTREMITIES: No cyanosis, clubbing, or pedal edema. NEUROLOGICAL: Gross neurological examination did not reveal any focal deficits. SKIN: No rashes. - Labs CBC & Chem 7: 04/29/18 05:11 04/29/18 05:07 Labs: Abnormal Lab Results - Last 24 Hours (Table) 04/29/18 04/29/18 04/29/18 Range/Units 05:07 05:07 05:11 WBC 14.2 H (3.8-10.6) k/uL Hgb 12.3 L (13.0-17.5) gm/dL MCHC 30.3 L (31.0-37.0) g/dL RDW 16.2 H (11.5-15.5) % PT 21.8 H (9.0-12.0) sec INR 2.2 H (<1.2) Sodium 133 L (137-145) mmol/L Chloride 92 L (98-107) mmol/L Carbon Dioxide 35 H (22-30) mmol/L BUN 30 H (9-20) mg/dL Calcium 7.7 L (8.4-10.2) mg/dL Assessment and Plan Assessment: Severe sepsis, secondary to right-sided pneumonia and right lower extremity cellulitis. Syncope secondary to cardiac arrhythmia The ventricular thrombus, on anticoagulation Essential hypertension Hyperthyroidism Acute kidney injury Elevated liver enzymes and test. Chronic A. fib with RVR Plan: This is a pleasant 57 years old male who presents because of severe sepsis secondary to pneumonia and cellulitis. Continue with antibiotics. Many consultants are following the patient.Labs and medication were reviewed.. Continue same treatment. Continue with symptomatic treatment. Resume home medication. Monitor lytes and vitals. DVT and GI prophylaxis. Further recommendations of the clinical course of the patient DVT prophylaxis: Patient INR is 2.5 GI Prophylaxis: Pepcid PT/OT: Pending Prognosis is guarded
--- NOTE | 2018-04-29 19:42 | PN ---
PROGRESS NOTE Patient was seen this morning. He is comfortable. He denies any significant complaints. On examination this morning, blood pressure was 112/63, heart rate 94 per minute. Patient is afebrile. EXAMINATION OF THE HEART: S1, S2. EXAMINATION OF LUNGS: Bilateral breath sounds are heard. ABDOMEN: Soft, non-tender. Examination of lower extremities shows significant edema bilaterally with both legs wrapped. 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 Labs show sodium 133, potassium 4.0, BUN 30, serum creatinine 1.2, hemoglobin 12.3 g/dL. ASSESSMENT: 1. Acute kidney injury, mainly cardiorenal. Renal function has been stable. Patient is maintained on oral Lasix. He continues to have significant edema. I will increase the dose to 60 mg b.i.d. and I will add low-dose Zaroxolyn as well. 2. Severe cardiomyopathy, ejection fraction about 20%. 3. Congestive heart failure, systolic, acute on top of chronic. 4. Atrial fibrillation, on metoprolol and amiodarone. 5. Possible thrombus in the left ventricle, maintained on anticoagulation. PLAN: Increase Lasix to 60 mg b.i.d. and add Zaroxolyn if no significant improvement in diuresis. MMODL / IJN: [id number] /
[2018-04-29] MEDS: HYDROCORTISONE 10 MG TAB PO SCH (23:00)
--- NOTE | 2018-04-29 23:44 | PN ---
PROGRESS NOTE DATE OF SERVICE: 04/29/2018. REASON FOR FOLLOWUP: 1. Lower extremity wound cellulitis. 2. Leukocytosis. INTERVAL HISTORY: The patient went back to the ICU because of his atrial fibrillation with RVR. This seemed to have improved. The patient denies having any chest pain. No shortness of breath. Occasional cough. No abdominal pain. No diarrhea. EXAMINATION: Blood pressure is 114/75 with a pulse of 58, temperature 97.9. He is 95% on room air. General description is a middle aged male up in the bed in no distress. Respiratory system: Unlabored breathing, decreased intensive breath sounds. No wheeze. Heart S1, S2. Regular rate and rhythm. Abdomen: Soft, no tenderness. Legs are currently wrapped up. No obvious drainage on the dressing. LABS: Hemoglobin is 12.8, white count 14.2, BUN of 30, creatinine is 1.21. DIAGNOSTIC IMPRESSION AND PLAN: 1. Patient with bilateral extremity cellulitis and wound that has been adequately treated. Continue local wound care with Seferino wrap to keep the swelling down along with . 2. The patient with elevated white count more likely steroid effect. Will monitor closely off antibiotic therapy. 3. Continue supportive care. MMODL / IJN: [id number] /
[2018-04-30 07:08] LABS: Anisocytosis Slight; Basophils % (A) 0 %; Eosinophils # (A) 0.2 k/uL (0-0.7); Eosinophils % (A) 1 %; HGB 11.8 gm/dL (13.0-17.5); Hypochromasia Moderate; Lymphocytes # (A) 1.4 k/uL (1.0-4.8); Lymphocytes % (A) 11 %; MCH 28.4 pg (25.0-35.0); MCHC 31.1 g/dL (31.0-37.0); MCV 91.3 fL (80.0-100.0); Monocytes # (A) 0.9 k/uL (0-1.0); Monocytes % (A) 7 %; Neutrophils # (A) 9.4 k/uL (1.3-7.7); Neutrophils % (A) 79 %; Platelet Count 255 k/uL (150-450); RBC 4.16 m/uL (4.30-5.90); RDW 16.5 % (11.5-15.5)
[2018-04-30 07:16] LABS: Prothrombin Time 19.2 sec (9.0-12.0)
[2018-04-30 07:26] LABS: Albumin 2.2 g/dL (3.5-5.0); Calcium 7.7 mg/dL (8.4-10.2); Total Bilirubin 1.8 mg/dL (0.2-1.3); Total Protein 4.9 g/dL (6.3-8.2)
[2018-04-30] MEDS: FUROSEMIDE 40 MG TAB PO SCH (07:52)
--- NOTE | 2018-04-30 08:52 | P.PN ---
Subjective Patient is seen in follow-up for acute kidney injury. Renal function improved since admission. Creatinine down to 1.11 today. Patient's currently maintained on Lasix 60 mg po BID. Patient has systolic CHF with ejection fraction of less than 20% with mild to moderate tricuspid regurgitation. He is nonoliguric. Currently awake and alert. Denies chest pain or shortness of breath. Oral intake is fair. Vital signs are stable. General: The patient appeared well nourished and normally developed. HEENT: Head exam is unremarkable. Neck is without jugular venous distension. LUNGS: Breath sounds decreased. HEART: Rate and Rhythm are regular. First and second heart sounds normal. No murmurs, rubs or gallops. ABDOMEN: Abdominal exam reveals normal bowel sounds. Non-tender and non- distended. No evidence of peritonitis. EXTREMITITES: Trace edema. Objective - Vital Signs Vital signs: Vital Signs Temp 98 F 04/30/18 04:00 Pulse 66 04/30/18 04:00 Resp 16 04/30/18 04:00 BP 130/90 04/30/18 04:00 Pulse Ox 93 L 04/30/18 04:00 Intake & Output 04/29/18 04/30/18 04/30/18 18:59 06:59 18:59 Intake Total 660 Output Total 1000 Balance -340 Intake: Oral 660 Output: Urine 1000 Stool 0 Other: Voiding Method Urinal # Voids 1 # Bowel Movements 1 - Labs CBC & Chem 7: 04/30/18 06:25 04/30/18 06:25 Labs: Abnormal Lab Results - Last 24 Hours (Table) 04/30/18 04/30/18 04/30/18 Range/Units 06:25 06:25 06:25 WBC 12.0 H (3.8-10.6) k/uL RBC 4.16 L (4.30-5.90) m/uL Hgb 11.8 L (13.0-17.5) gm/dL Hct 38.0 L (39.0-53.0) % RDW 16.5 H (11.5-15.5) % Neutrophils # 9.4 H (1.3-7.7) k/uL PT 19.2 H (9.0-12.0) sec INR 2.0 H (<1.2) Sodium 134 L (137-145) mmol/L Chloride 94 L (98-107) mmol/L Carbon Dioxide 36 H (22-30) mmol/L BUN 27 H (9-20) mg/dL Calcium 7.7 L (8.4-10.2) mg/dL Total Bilirubin 1.8 H (0.2-1.3) mg/dL ALT 128 H (21-72) U/L Total Protein 4.9 L (6.3-8.2) g/dL Albumin 2.2 L (3.5-5.0) g/dL Assessment and Plan Plan: Assessment: 1. Nonoliguric acute kidney injury secondary to ATN secondary to cardiorenal syndrome. Creatinine down to 1.11 today. Baseline creatinine near 1. 2. Volume overload. Improving. Weight trending down. 3. Hypotension related to underlying cardiac status maintained on midodrine. 4. Systolic CHF with ejection fraction of less than 20% with mild to moderate tricuspid regurgitation. 5. Hypervolemic hyponatremia. Stable. 6. Mild hypokalemia from diuresis. Improved post replacement. 7. Atrial fibrillation maintained on metoprolol and amiodarone. Cardiology following. 8. Possible thrombus in the left ventricular apex. Plan: Maintain Lasix 60 mg orally twice daily. Maintain midodrine.
[2018-04-30] MEDS: MIDODRINE 5 MG TAB PO SCH ×3 (09:09→17:43)
[2018-04-30] MEDS: AMIODARONE 200 MG TAB PO SCH ×2 (09:10→22:12)
[2018-04-30] MEDS: FUROSEMIDE 20 MG TAB PO SCH ×2 (09:10→15:34)
[2018-04-30] MEDS: HYDROCORTISONE 20 MG TAB PO SCH (09:11)
[2018-04-30] MEDS: METHIMAZOLE 5 MG TAB PO SCH ×3 (09:11→22:14)
[2018-04-30] MEDS: FAMOTIDINE 20 MG/2 ML VIAL IV SCH ×2 (09:11→22:14)
[2018-04-30] MEDS: METOPROLOL SUCCINATE (ER) 25 MG TAB.ER.24H PO SCH ×3 (09:12→22:13)
--- NOTE | 2018-04-30 10:46 | P.PN ---
Subjective This is a pleasant 57 years old male with past medical history of atrial fibrillation and hypertension presents with severe sepsis most likely a right- sided pneumonia secondary to gram-negative bacteria with the right lower limb cellulitis. Also patient has suspicion of syncope secondary to cardiac arrhythmia. She was transferred out of the ICU recently. Patient is on anticoagulation for inguinal left sides thrombosis. Swallow evaluation is been done.: Patient denies chest pain or dyspnea 04/28/18 Patient denies chest pain or dyspnea. He is tolerating diet well. Has good bowel movement. He is feeling fine. He has cough. INR today is 2.3. Lorcet less than 2 we will restart Eliquis. Digoxin level is 0.5 and TSH is 2.5. WBC is 11.9 K. Creatinine is 1.2 within normal limits. Total bilirubin is slightly trending down to 1.6 and ALT to 197. Vitals looks stable 04/29/2018 Patient was seen and examined by me in the ICU today. As transverse because he developed A. fib with RVR. And he needed an amiodarone drip which could be provided on the floor. His amiodarone was adjusted to 400 mg twice a day by cardiology team. He is off amiodarone drip now His heart rate is controlled now at 92. And patient was sent back to the floor. He still have leukocytosis. And an INR is 2.2 . Sodium at 133. Potassium 4.0. Creatinine 1.2. 04/30/2018 Patient is seen and examined today and the general medical floor. His line in bed comfortable with no chest pain, mildly dyspneic. However patient's breathing quietly. No abdominal pain or change in bowel movements. Last bowel movement was formed. No urinary abnormality as per patient. Bilateral leg swelling which were wrapped in Seferino bandage. His Lasix was increased yesterday to 60 mg 3 times a day. Patient continue with amiodarone at higher doses and his heart rate is between 66-82. Blood pressure is 1:30/90. His saturation 93 % on room air. We still waiting for the INR to come below to so we can start him on Eliquis. INR today is 2.0. Sodium is 134. Potassium 4.0. And creatinine is 1.11. Objective - Vital Signs Vital signs: Vital Signs Temp 98 F 04/30/18 04:00 Pulse 66 04/30/18 04:00 Resp 16 04/30/18 04:00 BP 130/90 04/30/18 04:00 Pulse Ox 93 L 04/30/18 04:00 Intake & Output 04/29/18 04/30/18 04/30/18 18:59 06:59 18:59 Intake Total 660 Output Total 1000 Balance -340 Intake: Oral 660 Output: Urine 1000 Stool 0 Other: Voiding Method Urinal # Voids 1 # Bowel Movements 1 - Exam GENERAL: The patient is alert and oriented x3, not in any acute distress. Well developed, well nourished. HEENT: Pupils are round and equally reacting to light. EOMI. No scleral icterus. No conjunctival pallor. Normocephalic, atraumatic. No pharyngeal erythema. No thyromegaly. CARDIOVASCULAR: S1 and S2 present. No murmurs, rubs, or gallops. PULMONARY: Chest is clear to auscultation, no wheezing or crackles. ABDOMEN: Soft, nontender, nondistended, normoactive bowel sounds. No palpable organomegaly. MUSCULOSKELETAL: No joint swelling or deformity. EXTREMITIES: No cyanosis, clubbing, or pedal edema. NEUROLOGICAL: Gross neurological examination did not reveal any focal deficits. SKIN: No rashes. - Labs CBC & Chem 7: 04/30/18 06:25 04/30/18 06:25 Labs: Abnormal Lab Results - Last 24 Hours (Table) 04/30/18 04/30/18 04/30/18 Range/Units 06:25 06:25 06:25 WBC 12.0 H (3.8-10.6) k/uL RBC 4.16 L (4.30-5.90) m/uL Hgb 11.8 L (13.0-17.5) gm/dL Hct 38.0 L (39.0-53.0) % RDW 16.5 H (11.5-15.5) % Neutrophils # 9.4 H (1.3-7.7) k/uL PT 19.2 H (9.0-12.0) sec INR 2.0 H (<1.2) Sodium 134 L (137-145) mmol/L Chloride 94 L (98-107) mmol/L Carbon Dioxide 36 H (22-30) mmol/L BUN 27 H (9-20) mg/dL Calcium 7.7 L (8.4-10.2) mg/dL Total Bilirubin 1.8 H (0.2-1.3) mg/dL ALT 128 H (21-72) U/L Total Protein 4.9 L (6.3-8.2) g/dL Albumin 2.2 L (3.5-5.0) g/dL Assessment and Plan Assessment: Severe sepsis, secondary to right-sided pneumonia and right lower extremity cellulitis. Syncope secondary to cardiac arrhythmia The ventricular thrombus, on anticoagulation Essential hypertension Hyperthyroidism Acute kidney injury Elevated liver enzymes and test. Chronic A. fib with RVR Plan: This is a pleasant 57 years old male who presents because of severe sepsis secondary to pneumonia and cellulitis. Continue with antibiotics. Many consultants are following the patient.Labs and medication were reviewed.. Continue same treatment. Continue with symptomatic treatment. Resume home medication. Monitor lytes and vitals. DVT and GI prophylaxis. Further recommendations of the clinical course of the patient DVT prophylaxis: Patient INR is 2.5 GI Prophylaxis: Pepcid PT/OT: Pending Prognosis is guarded
--- NOTE | 2018-04-30 17:19 | PN ---
PROGRESS NOTE Mr. Valero is a gentleman with atrial fibrillation, paroxysmal in nature. He is doing much better today. The current plan is to switch him from Coumadin to Eliquis. INR is 2.0, so we are going to wait until the INR comes down before starting Coumadin. This is the plan by the hospitalist. From a cardiac standpoint, he is in atrial fibrillation. Rate control is good. Resting comfortably. Has probably nonischemic cardiomyopathy. Vital signs are stable. There is JVD of 1 cm. S1, S2 heard normally. Irregular rhythm noted. Short systolic murmur noted. Lungs are clear. Abdomen and lower extremity exam is unchanged. MMODL / IJN: [id number] /
[2018-04-30] MEDS: HYDROCORTISONE 10 MG TAB PO SCH (22:13)
--- NOTE | 2018-05-01 00:04 | PN ---
PROGRESS NOTE DATE OF SERVICE: 04/30/2018. REASON FOR FOLLOWUP: 1. Bilateral lower extremity cellulitis. 2. Leukocytosis. INTERVAL HISTORY: The patient is currently afebrile. He has been breathing comfortably. Denies having any chest pain or shortness of breath. Occasional cough. No abdominal pain. No diarrhea and no pain to the neck area. EXAMINATION: Blood pressure is 97/62 with a pulse of 78, temperature of 97.6. He is 96% on room air. General description is a middle-aged male up in the bed in no distress. Respiratory system: Unlabored breathing with decreased breath sounds at the bases. No wheezing. Heart S1, S2. Regular rate and rhythm. Abdomen soft, nontender. LEGS: Currently wrapped up. No obvious drainage on the dressing. LABS: Hemoglobin 11.8, white count of 12, BUN of 27, creatinine is 1.11. DIAGNOSTIC IMPRESSION AND PLAN: Patient with bilateral lower extremity cellulitis on the right leg that has been adequately treated . Will hold on any further MMODL / IJN: [id number] /
[2018-05-01 05:57] VITALS: RESP 16
[2018-05-01 07:20] LABS: Anisocytosis Slight; Basophils % (A) 0 %; Eosinophils # (A) 0.1 k/uL (0-0.7); Eosinophils % (A) 1 %; HCT 38.5 % (39.0-53.0); HGB 11.7 gm/dL (13.0-17.5); Hypochromasia Slight; Lymphocytes # (A) 1.8 k/uL (1.0-4.8); Lymphocytes % (A) 16 %; MCH 27.3 pg (25.0-35.0); MCHC 30.5 g/dL (31.0-37.0); MCV 89.4 fL (80.0-100.0); Mean Platelet Volume 7.1; Monocytes # (A) 0.8 k/uL (0-1.0); Monocytes % (A) 7 %; Neutrophils # (A) 8.3 k/uL (1.3-7.7); Neutrophils % (A) 73 %; Platelet Count 304 k/uL (150-450); RBC 4.31 m/uL (4.30-5.90); RDW 16.2 % (11.5-15.5); WBC 11.3 k/uL (3.8-10.6)
[2018-05-01 07:38] LABS: Albumin 2.3 g/dL (3.5-5.0); Calcium 7.7 mg/dL (8.4-10.2); Total Bilirubin 1.6 mg/dL (0.2-1.3)
[2018-05-01] MEDS: MIDODRINE 5 MG TAB PO SCH ×3 (08:25→16:47)
[2018-05-01] MEDS: FUROSEMIDE 20 MG TAB PO SCH ×2 (08:26→16:46)
[2018-05-01] MEDS: METOPROLOL SUCCINATE (ER) 25 MG TAB.ER.24H PO SCH ×2 (08:26→16:46)
[2018-05-01] MEDS: HYDROCORTISONE 20 MG TAB PO SCH (08:26)
[2018-05-01] MEDS: METHIMAZOLE 5 MG TAB PO SCH ×2 (08:26→16:46)
[2018-05-01] MEDS: AMIODARONE 200 MG TAB PO SCH (08:27)
[2018-05-01] MEDS: FAMOTIDINE 20 MG/2 ML VIAL IV SCH (08:27)
--- NOTE | 2018-05-01 08:49 | P.PN ---
Subjective Patient is seen in follow-up for acute kidney injury. Renal function improved since admission. Creatinine down to 1.06 today. Patient's currently maintained on Lasix 60 mg po BID. Patient has systolic CHF with ejection fraction of less than 20% with mild to moderate tricuspid regurgitation. He is nonoliguric. Currently awake and alert. Denies chest pain or shortness of breath. Oral intake is fair. No changes overnight. No active complaints at this time. Vital signs are stable. General: The patient appeared well nourished and normally developed. HEENT: Head exam is unremarkable. Neck is without jugular venous distension. LUNGS: Breath sounds decreased. HEART: Rate and Rhythm are regular. First and second heart sounds normal. No murmurs, rubs or gallops. ABDOMEN: Abdominal exam reveals normal bowel sounds. Non-tender and non- distended. No evidence of peritonitis. EXTREMITITES: Trace edema. Objective - Vital Signs Vital signs: Vital Signs Temp 98.4 F 05/01/18 05:00 Pulse 61 05/01/18 05:00 Resp 16 05/01/18 05:00 BP 119/70 05/01/18 05:00 Pulse Ox 99 05/01/18 05:00 Intake & Output 04/30/18 05/01/18 05/01/18 18:59 06:59 18:59 Output Total 100 Balance -100 Weight 100.2 kg Output: Urine 100 Stool 0 Other: Voiding Method Urinal # Voids 2 1 - Labs CBC & Chem 7: 05/01/18 06:26 05/01/18 06:26 Labs: Abnormal Lab Results - Last 24 Hours (Table) 05/01/18 05/01/18 Range/Units 06:26 06:26 WBC 11.3 H (3.8-10.6) k/uL Hgb 11.7 L (13.0-17.5) gm/dL Hct 38.5 L (39.0-53.0) % MCHC 30.5 L (31.0-37.0) g/dL RDW 16.2 H (11.5-15.5) % Neutrophils # 8.3 H (1.3-7.7) k/uL Sodium 134 L (137-145) mmol/L Chloride 94 L (98-107) mmol/L Carbon Dioxide 36 H (22-30) mmol/L BUN 25 H (9-20) mg/dL Calcium 7.7 L (8.4-10.2) mg/dL Total Bilirubin 1.6 H (0.2-1.3) mg/dL ALT 118 H (21-72) U/L Total Protein 5.0 L (6.3-8.2) g/dL Albumin 2.3 L (3.5-5.0) g/dL Assessment and Plan Plan: Assessment: 1. Nonoliguric acute kidney injury secondary to ATN secondary to cardiorenal syndrome. Creatinine down to 1.06 today. Baseline creatinine near 1. 2. Volume overload. Improving. Weight trending down. 3. Hypotension related to underlying cardiac status maintained on midodrine. 4. Systolic CHF with ejection fraction of less than 20% with mild to moderate tricuspid regurgitation. 5. Hypervolemic hyponatremia. Stable. 6. Mild hypokalemia from diuresis. Improved post replacement. 7. Atrial fibrillation maintained on metoprolol and amiodarone. Cardiology following. 8. Possible thrombus in the left ventricular apex. Plan: Maintain Lasix 60 mg orally twice daily. Maintain midodrine. Stable to be discharged home from nephrology standpoint. Patient will need to follow-up as an outpatient in the next 1-2 weeks.
[2018-05-01 10:25] LABS: INR 1.7 (<1.2)
[2018-05-01 10:26] LABS: Prothrombin Time 17.2 sec (9.0-12.0)
[2018-05-01 12:06] VITALS: BP 108/61; PULSE 93; TEMP 98.1
--- NOTE | 2018-05-01 16:49 | PN ---
PROGRESS NOTE DATE OF SERVICE: 05/01/2018. REASON FOR FOLLOWUP: 1. Mild right lower extremity cellulitis. 2. Leukocytosis. INTERVAL HISTORY: The patient is currently afebrile, has been breathing comfortably. He denies having any chest pain or shortness of breath or abdominal pain. No pain to the lower extremity. EXAMINATION: Blood pressure 108/61 with a pulse of 93, temperature 98.1. He is 93% on room air. General description is a middle aged male up in the chair in no distress respiratory system. Respiratory system: Unlabored breathing with decreased breath sounds in the bases. No wheeze. Heart S1, S2. Regular rate and rhythm. Abdomen soft, no tenderness. LABS: White count 11.3 with a BUN of 25, creatinine 1.06. Blood cultures have been negative. DIAGNOSTIC IMPRESSION AND PLAN: 1. Patient with bilateral lower extremity cellulitis, right greater than the left and underlying cellulitis has been adequately treated. The patient is currently off antibiotic therapy. 2. The patient with elevated white count more likely steroid effect that has subsequently came down to almost normal. No need for antibiotic on discharge. 3. Continue supportive care. MMODL / IJN: [id number] /
--- NOTE | 2018-05-02 00:12 | P.DS ---
Providers Date of admission: 04/16/18 02:45 Attending physician: Portia Harrison Consults: 04/16/18 02:34 Consult Physician Routine Consulting Provider: [facility] Consult Reason/Comments: Atrial Fib with RVR, Syncope Do you want consulting provider notified?: Yes, Notify in am 04/16/18 08:33 Consult Physician Stat Consulting Provider: Yasir Almanza Consult Reason/Comments: icu transfer sepsis Do you want consulting provider notified?: Yes 04/16/18 09:26 Consult Physician Stat Consulting Provider: Francisca Simmons Consult Reason/Comments: sepsis Do you want consulting provider notified?: Yes 04/16/18 23:29 Consult Physician Routine Consulting Provider: Loli Wheat Consult Reason/Comments: JERSON Do you want consulting provider notified?: Yes Primary care physician: [facility] Course: Discharge diagnoses: Severe sepsis, secondary to bilateral lower extremity cellulitis. Syncope secondary to cardiac arrhythmia The ventricular thrombus, on anticoagulation History of Essential hypertension. Blood pressure controlled Hypotension, treated with medial drain Nonischemic cardiomyopathy. Ejection fraction less than 20% status post AICD CD placement Hyperthyroidism. On therapy Acute kidney injury. Resolved Elevated liver enzymes and test. Improving significantly Chronic A. fib with RVR. Maintained on metoprolol and amiodarone Abnormal function test, asymptomatic. Recommend recheck thyroid function test as an outpatient and patient agrees. Hospital course This is a pleasant 57 years old male with past medical history of atrial fibrillation and hypertension presents with severe sepsis most likely a right- sided pneumonia secondary to gram-negative bacteria with the right lower limb cellulitis. Also patient has suspicion of syncope secondary to cardiac arrhythmia. he was transferred to the ICU for short stay. Patient is on anticoagulation for inguinal left sides thrombosis and atrial fibrillation. Swallow evaluation is been done.: Patient denies chest pain or dyspnea. Patient has been evaluated by several consultants during hospital stay including cardiology, nephrology, infectious disease and pulmonary/critical care team. On admission patient has acute kidney injury which is improved. Valve Maker recommended discharge patient on Lasix 60 mg twice daily and follow -up as an outpatient in 1-2 weeks. patient has been adequately treated for his lower extremity cellulitis and no need for any further antibiotics as per infectious disease team. Leukocytosis is trending down. Patient instructed to follow up with his PCP to check his WBC and he agrees. Patient also has been evaluated by civil project engineer mainly for his atrial fibrillation, continue with metoprolol and amiodarone and discharged and switch Coumadin to Eliquis 5 mg twice a day which can be started tomorrow. Call copay is $0 , confirmed with the binder caser per staff. Patient informed with this plan and he agrees. Patient on the day of discharge has no chest pain. No dyspnea. No abdominal pain or change in urine or bowel habits. No fever. No nausea vomiting. Well and is improving. And his get up and go test was normal. Patient himself feel stable to be discharged and he is eager to go home. Today's weekend appointments could not be made for the patient and patient is willing to make appointments for himself. Patient looks reliable. Patient was cleared for discharge by all consultants including cardiology, nephrology, infectious disease and pulmonary team Problems and management plan was discussed with the patient in details and he verbalized understanding and acceptance. Written instructions was provided for the patient to repeat his blood test with including thyroid function tests, liver function tests and WBC. See paper chart Patient was found stable and can discharge home in guarded prognosis however he needs follow-up as an outpatient. Patient instructed to make follow-up appointment and he told me he is in agreement with this plan and is going to do these follow-ups. pt did not want to wait till tomorrow and staff could make appointments for him and said he can do it himself. i informed pt , as of the [place] law , patients with syncope or seizure should not drive for 6 months physical exam Gen.: Patient alert awake and oriented X 3, NOT IN DISTRESS CVS: s1-s2, RRR, no murmur CHEST:bilateral CTA, no wheezing or crepitation Abdomen: Soft, no tenderness, no distention, positive bowel sounds Extremities: No leg edema or induration Time spent more than 35 minutes Patient Condition at Discharge: Critical Plan - Discharge Summary New Discharge Prescriptions: New Amiodarone [Cordarone] 400 mg PO BID #120 tab Apixaban [Eliquis] 5 mg PO BID #60 tab Furosemide [Lasix] 60 mg PO BID@0900,1600 #180 tab Hydrocortisone [Cortef] 10 mg PO HS #30 tab Hydrocortisone [Cortef] 20 mg PO DAILY #30 tab Methimazole [Tapazole] 5 mg PO TID #90 tab Metoprolol Succinate (ER) [Toprol XL] 50 mg PO TID #90 tab.er.24h Midodrine [ProAmatine] 10 mg PO AC-TID #180 tab Discontinued Lisinopril [Zestril] 2.5 mg PO DAILY #30 tab Spironolactone [Aldactone] 25 mg PO DAILY #30 tab Warfarin [Coumadin] 1 mg PO DAILY@1800 #5 tab Amiodarone [Cordarone] 200 mg PO DIRECTED Digoxin [Digitek] 125 mcg PO DIRECTED Furosemide [Lasix] 40 mg PO DIRECTED Metoprolol Succinate [Toprol XL] 25 mg PO DAILY Metoprolol Tartrate [Lopressor] 100 mg PO DIRECTED Discharge Medication List Amiodarone [Cordarone] 400 mg PO BID #120 tab 05/01/18 [Rx] Apixaban [Eliquis] 5 mg PO BID #60 tab 05/01/18 [Rx] Furosemide [Lasix] 60 mg PO BID@0900,1600 #180 tab 05/01/18 [Rx] Hydrocortisone [Cortef] 10 mg PO HS #30 tab 05/01/18 [Rx] Hydrocortisone [Cortef] 20 mg PO DAILY #30 tab 05/01/18 [Rx] Methimazole [Tapazole] 5 mg PO TID #90 tab 05/01/18 [Rx] Metoprolol Succinate (ER) [Toprol XL] 50 mg PO TID #90 tab.er.24h 05/01/18 [Rx] Midodrine [ProAmatine] 10 mg PO AC-TID #180 tab 05/01/18 [Rx] Follow up Appointment(s)/Referral(s): Kaia Self MD [STAFF PHYSICIAN] - 1 Week (Patient to call Dr. Self's office Wednesday to schedule follow up appointment. The office is closed at time of discharge. ) [facility], [NON-STAFF] - Riri Ventura MD [STAFF PHYSICIAN] - 1 Week (Patient to call Dr. Ventura's office Wednesday to schedule follow up appointment. The office is closed at time of discharge. ) Lionel Rene DO [STAFF PHYSICIAN] - 1 Week (Patient to call Dr. Rene's office [place] morning to schedule follow up appointment. The office is closed at time of discharge. ) Francisca Simmons MD [STAFF PHYSICIAN] - 10 Days (Patient to call Dr. Simmons's office Wednesday to schedule follow up apointment. The office is closed at time of discharge. ) Bob Doe DO [Primary Care Provider] - 1-2 days (Patient to call Dr. Doe's office Wednesday to schedule follow up appointment. The office is closed at time of discharge. ) Patient Instructions/Handouts: Metoprolol (By mouth), Furosemide (By mouth), Amiodarone (By mouth), Methimazole (By mouth), Midodrine (By mouth), Hydrocortisone (By mouth), Apixaban (By mouth), A-fib (Atrial Fibrillation) (DC) , Tachycardia (GEN) Activity/Diet/Wound Care/Special Instructions: 1. Activity is limited till you see your doctor. 2 [facility] will call you on discharge 3 cont dysphagia diet, soft foods 4 Follow up with your civil project engineer in [address] Simmons (infection disease) contact info: [phone]. 6 As of the [place] law , patients with syncope or seizure should not drive for 6 months Discharge Disposition: HOME SELF-CARE
== END 2018-05-01 18:45 | disposition home health service (06) | DRG 871 ==
LOC: EC 00:30 → 3SCARD 02:45 → 2SICU 08:42 → 3NMEDONC 04-26 21:36 → 2SICU 04-28 15:53 → 3NMEDONC 04-29 14:00
PROVIDERS: ADMIT Hospitalist; ATTEND Hospitalist
PROC: B246ZZ4 Ultrasonography of Right and Left Heart, Transesophageal (ICD-10-PCS; principal; 2018-04-19 11:00)
DX: A41.9 Sepsis, unspecified organism (principal); I50.23 Acute on chronic systolic (congestive) heart failure; J15.6 Pneumonia due to other Gram-negative bacteria; K72.00 Acute and subacute hepatic failure without coma; N17.0 Acute kidney failure with tubular necrosis; R65.21 Severe sepsis with septic shock; E87.1 Hypo-osmolality and hyponatremia; I47.2 Ventricular tachycardia; L03.115 Cellulitis of right lower limb; L03.116 Cellulitis of left lower limb; J98.11 Atelectasis; I11.0 Hypertensive heart disease with heart failure; E87.5 Hyperkalemia; I08.1 Rheumatic disorders of both mitral and tricuspid valves; I48.2 Chronic atrial fibrillation; I51.3 Intracardiac thrombosis, not elsewhere classified; R13.10 Dysphagia, unspecified; D64.9 Anemia, unspecified; E05.80 Other thyrotoxicosis without thyrotoxic crisis or storm; T46.2X5A Adverse effect of other antidysrhythmic drugs, initial encounter; E66.9 Obesity, unspecified; E87.6 Hypokalemia; I25.5 Ischemic cardiomyopathy; I49.3 Ventricular premature depolarization; T50.2X5A Adverse effect of carbonic-anhydrase inhibitors, benzothiadiazides and other diuretics, initial encounter; R06.6 Hiccough; R77.9 Abnormality of plasma protein, unspecified; I87.8 Other specified disorders of veins; Z79.01 Long term (current) use of anticoagulants; Z79.82 Long term (current) use of aspirin; Z79.899 Other long term (current) drug therapy; Z86.711 Personal history of pulmonary embolism; Z95.810 Presence of automatic (implantable) cardiac defibrillator; Z91.041 Radiographic dye allergy status; Z68.31 Body mass index [BMI] 31.0-31.9, adult; Z87.891 Personal history of nicotine dependence
CPT/HCPCS: 36415; 70450; 71045; 71046; 74210; 74230; 80048; 80053; 80074; 80162; 81001; 81003; 82533; 82550; 82553; 83036; 83605; 83735; 83880; 84100; 84132; 84439; 84443; 84484; 85025; 85027; 85610; 85730; 87040; 87086; 93005; 93306; 93312; 93320; 93325; 96365; 96366; 96368; 96375; 96376; 99291

== ENCOUNTER 2022-03-23 18:36 | Inpatient (IN) | payer OTHER ==
[2022-03-23 19:06] LABS: Basophils % (A) 0 %; Eosinophils # (A) 0.1 k/uL (0-0.7); Eosinophils % (A) 1 %; HCT 43.2 % (39.0-53.0); HGB 13.9 gm/dL (13.0-17.5); Hypochromasia Slight; Lymphocytes % (A) 11 %; MCH 30.5 pg (25.0-35.0); MCHC 32.1 g/dL (31.0-37.0); Mean Platelet Volume 8.6; Monocytes # (A) 0.5 k/uL (0-1.0); Monocytes % (A) 5 %; Neutrophils # (A) 7.2 k/uL (1.3-7.7); Neutrophils % (A) 80 %; Platelet Count 188 k/uL (150-450); RBC 4.55 m/uL (4.30-5.90); RDW 15.6 % (11.5-15.5)
[2022-03-23 19:16] LABS: ALT 21 U/L (4-49); AST 32 U/L (17-59); African American GFR (CKD) >90 (>60 ml/min/1.73 sqM); Albumin 4.3 g/dL (3.5-5.0); Alkaline Phosphatase 96 U/L (38-126); Anion Gap 13 mmol/L; Blood Urea Nitrogen 25 mg/dL (9-20); Calcium 9.2 mg/dL (8.4-10.2); Carbon Dioxide 24 mmol/L (22-30); Chloride 100 mmol/L (98-107); Glucose 110 mg/dL (74-99); Non-African American GFR(CKD) 78 (>60 ml/min/1.73 sqM); Potassium 4.5 mmol/L (3.5-5.1); Sodium 137 mmol/L (137-145); Total Bilirubin 1.1 mg/dL (0.2-1.3); Total Protein 7.1 g/dL (6.3-8.2)
[2022-03-23 19:18] LABS: INR 1.2 (<1.2); Prothrombin Time 12.7 sec (9.0-12.0)
--- NOTE | 2022-03-23 21:51 | ED ---
General Adult HPI - General Chief complaint: Syncope Stated complaint: syncope Time Seen by Provider: 03/23/22 21:41 Source: patient, RN notes reviewed Mode of arrival: ambulatory Limitations: no limitations - History of Present Illness Initial comments: Patient is a pleasant 61-year-old male presenting to the emergency department following syncopal episode. Episode occurred just prior to arrival. A she was working when he got off a ladder because he is feeling lightheaded. Patient then woke up on the ground, with somebody telling him to wake up. Patient states he no longer feels lightheaded. No chest pain. Patient does have a defibrillator. Patient is unclear if this could've fired. No chest pain or dyspnea. Patient has some discomfort of his left shoulder. - Related Data Home Medications Medication Instructions Recorded Confirmed Amiodarone [Cordarone] 50 mg PO DAILY 03/23/22 03/23/22 Ascorbic Acid [Vitamin C] 500 mg PO DAILY 03/23/22 03/23/22 Aspirin EC [Ecotrin Low Dose] 81 mg PO DAILY 03/23/22 03/23/22 Bumetanide [Bumex] 1 mg PO DIRECTED 03/23/22 03/23/22 Garlic 1,000 mg PO DAILY 03/23/22 03/23/22 Metoprolol Succinate (ER) [Toprol 100 mg PO DAILY 03/23/22 03/23/22 Xl] Multivit-Min/Folic/Vit K/Lycop 1 tab PO DAILY 03/23/22 03/23/22 [Men's Multivitamin Tablet] Turmeric Root Extract [Turmeric] 500 mg PO DAILY 03/23/22 03/23/22 Previous Rx's Medication Instructions Recorded Apixaban [Eliquis] 5 mg PO BID #60 tab 05/01/18 Allergies Allergy/AdvReac Type Severity Reaction Status Date / Time Iodinated Contrast Media Allergy Unknown Dyspnea/Cou Verified 03/23/22 22:44 gh Review of Systems ROS Statement: Those systems with pertinent positive or pertinent negative responses have been documented in the HPI. ROS Other: All systems not noted in ROS Statement are negative. Constitutional: Denies: fever Eyes: Denies: eye pain ENT: Denies: ear pain Respiratory: Denies: cough Cardiovascular: Denies: chest pain Endocrine: Denies: fatigue Gastrointestinal: Denies: abdominal pain Genitourinary: Denies: dysuria Musculoskeletal: Reports: as per HPI Skin: Denies: rash Neurological: Reports: as per HPI. Denies: weakness Past Medical History Past Medical History: Atrial Fibrillation, Hypertension History of Any Multi-Drug Resistant Organisms: None Reported Past Surgical History: AICD, Heart Catheterization Past Anesthesia/Blood Transfusion Reactions: No Reported Reaction Type of Cardiac Device: AICD Device Placement Date:: 2016 Past Psychological History: No Psychological Hx Reported Smoking Status: Never smoker Past Alcohol Use History: None Reported Past Drug Use History: None Reported - Past Family History Father Family Medical History: No Reported History Mother Family Medical History: No Reported History General Exam Limitations: no limitations General appearance: alert, in no apparent distress Head exam: Present: atraumatic Eye exam: Present: normal appearance, PERRL, EOMI Neck exam: Present: normal inspection. Absent: tenderness Respiratory exam: Present: normal lung sounds bilaterally Cardiovascular Exam: Present: regular rate, normal rhythm Expanded Peripheral pulses: 2+: Radial (R), Radial (L), Posterior Tibialis (R), Posterior Tibialis (L) GI/Abdominal exam: Present: soft. Absent: tenderness Extremities exam: Present: normal inspection. Absent: pedal edema, calf tenderness Neurological exam: Present: alert, CN II-XII intact. Absent: motor sensory deficit Expanded Neurological exam: Present: protecting the airway Speech: Present: fluid speech Motor strength exam: RUE: 5, LUE: 5, RLE: 5, LLE: 5 Eye Response: (4) open spontaneously Motor Response: (6) obeys commands Verbal Response: (5) oriented Psychiatric exam: Present: normal affect, normal mood Skin exam: Present: normal color Course Vital Signs 03/23/22 03/23/22 03/23/22 18:39 21:46 21:50 Temperature 98.1 F Pulse Rate 54 L 67 Pulse Rate [ 67 Pulse Oximetery ] Respiratory 20 16 Rate Blood Pressure 113/80 121/100 O2 Sat by Pulse 94 L 95 Oximetry 03/23/22 22:03 Temperature Pulse Rate 68 Pulse Rate [ Pulse Oximetery ] Respiratory 16 Rate Blood Pressure 118/94 O2 Sat by Pulse 97 Oximetry EKG Findings - EKG Comments: EKG Findings:: Sinus rhythm rate 98. Frequent PVCs. For screening AV block CT 222. QRS 126. QT 388. QTC 443. Left axis. Nonspecific intraventricular conduction delay. No acute ST change. Medical Decision Making - Medical Decision Making Patient reevaluated and resting comfortably in bed. Patient states he did feel lightheaded prior to episode. Patient does have a AICD from [employer] and this will be interrogated. Case was discussed with Dr. Moncada, who will admit covering hospital call for observation. Cardiology to be consult - Lab Data Result diagrams: 03/23/22 18:45 03/23/22 18:45 Lab Results 03/23/22 03/23/22 03/23/22 Range/Units 18:45 18:45 18:45 WBC 9.0 (3.8-10.6) k/uL RBC 4.55 (4.30-5.90) m/uL Hgb 13.9 (13.0-17.5) gm/dL Hct 43.2 (39.0-53.0) % MCV 95.0 (80.0-100.0) fL MCH 30.5 (25.0-35.0) pg MCHC 32.1 (31.0-37.0) g/dL RDW 15.6 H (11.5-15.5) % Plt Count 188 (150-450) k/uL MPV 8.6 Neutrophils % 80 % Lymphocytes % 11 % Monocytes % 5 % Eosinophils % 1 % Basophils % 0 % Neutrophils # 7.2 (1.3-7.7) k/uL Lymphocytes # 1.0 (1.0-4.8) k/uL Monocytes # 0.5 (0-1.0) k/uL Eosinophils # 0.1 (0-0.7) k/uL Basophils # 0.0 (0-0.2) k/uL Hypochromasia Slight PT 12.7 H (9.0-12.0) sec INR 1.2 H (<1.2) APTT 24.0 (22.0-30.0) sec Sodium 137 (137-145) mmol/L Potassium 4.5 (3.5-5.1) mmol/L Chloride 100 (98-107) mmol/L Carbon Dioxide 24 (22-30) mmol/L Anion Gap 13 mmol/L BUN 25 H (9-20) mg/dL Creatinine 1.02 (0.66-1.25) mg/dL Est GFR (CKD-EPI)AfAm >90 (>60 ml/min/1.73 sqM) Est GFR (CKD-EPI)NonAf 78 (>60 ml/min/1.73 sqM) Glucose 110 H (74-99) mg/dL Calcium 9.2 (8.4-10.2) mg/dL Total Bilirubin 1.1 (0.2-1.3) mg/dL AST 32 (17-59) U/L ALT 21 (4-49) U/L Alkaline Phosphatase 96 (38-126) U/L Troponin I (0.000-0.034) ng/mL Total Protein 7.1 (6.3-8.2) g/dL Albumin 4.3 (3.5-5.0) g/dL 03/23/22 Range/Units 18:45 WBC (3.8-10.6) k/uL RBC (4.30-5.90) m/uL Hgb (13.0-17.5) gm/dL Hct (39.0-53.0) % MCV (80.0-100.0) fL MCH (25.0-35.0) pg MCHC (31.0-37.0) g/dL RDW (11.5-15.5) % Plt Count (150-450) k/uL MPV Neutrophils % % Lymphocytes % % Monocytes % % Eosinophils % % Basophils % % Neutrophils # (1.3-7.7) k/uL Lymphocytes # (1.0-4.8) k/uL Monocytes # (0-1.0) k/uL Eosinophils # (0-0.7) k/uL Basophils # (0-0.2) k/uL Hypochromasia PT (9.0-12.0) sec INR (<1.2) APTT (22.0-30.0) sec Sodium (137-145) mmol/L Potassium (3.5-5.1) mmol/L Chloride (98-107) mmol/L Carbon Dioxide (22-30) mmol/L Anion Gap mmol/L BUN (9-20) mg/dL Creatinine (0.66-1.25) mg/dL Est GFR (CKD-EPI)AfAm (>60 ml/min/1.73 sqM) Est GFR (CKD-EPI)NonAf (>60 ml/min/1.73 sqM) Glucose (74-99) mg/dL Calcium (8.4-10.2) mg/dL Total Bilirubin (0.2-1.3) mg/dL AST (17-59) U/L ALT (4-49) U/L Alkaline Phosphatase (38-126) U/L Troponin I 0.019 (0.000-0.034) ng/mL Total Protein (6.3-8.2) g/dL Albumin (3.5-5.0) g/dL - Radiology Data Radiology results: image reviewed (Debra valenzuela) Disposition Clinical Impression: Syncope Disposition: ADMITTED IP TO THIS HOSP Is patient prescribed a controlled substance at d/c from ED?: No Referrals: None,Stated [Primary Care Provider] - 1-2 days Time of Disposition: 23:14
--- NOTE | 2022-03-23 22:06 | XR ---
EXAMINATION TYPE: XR chest 2V DATE OF EXAM: 03/23/2022 COMPARISON: 04/27/2018 HISTORY: Syncope TECHNIQUE: FINDINGS: Heart is enlarged. No heart failure seen. There is left axillary pacemaker. No evidence of pleural effusion. There are no hilar masses. The bony thorax is intact. IMPRESSION: Mild cardiomegaly. There is clearing of the right lower lobe pneumonia compared to old ex am. No heart failure.
--- NOTE | 2022-03-23 22:08 | XR ---
EXAMINATION TYPE: XR shoulder complete LT DATE OF EXAM: 03/23/2022 COMPARISON: None HISTORY: Shoulder pain TECHNIQUE: 3 views FINDINGS: The glenohumeral joint is intact. There is no sign of fracture nor dislocation. Joint space s are fairly normal. There is left axillary pacemaker. IMPRESSION: Negative left shoulder exam. No fracture.
[2022-03-23] MEDS ORDERED: NALOXONE 0.4 MG/ML 1 ML VIAL IV PRN (23:14)
[2022-03-24] MEDS ORDERED: ACETAMINOPHEN TAB 325 MG TAB PO STA (01:25)
--- NOTE | 2022-03-24 04:13 | P.HPIM ---
History of Present Illness H&P Date: 03/24/22 Chief Complaint: syncope 61-year-old male with A. fib on eliquis status post ICD device Patient was working home climbing a ladder fixing some device on his roof when suddenly he felt unbalanced decided to come down and then he woke up on the ground he thinks that he missed the last 2 or 3 steps, he believes that he was out for couple minutes when he regained consciousness he was feeling fine denies any nausea vomiting denies any headache he doubts that he had his head as he is not hurting he denies any chest pain or trouble breathing denies any palpitations or dizziness or lightheadedness he was only complaining of some showed left shoulder pain which is worse with movement. He denies any similar episodes in the past denies any episodes of exertional dyspnea or chest pain Initial work up in the ED overall was unremarkable He did not feel his ICD firing He denies tobacco smoking was drugs or alcohol Review of Systems Pertinent positives as noted in HPI. All other systems were reviewed and are negative Past Medical History Past Medical History: Atrial Fibrillation, Hypertension History of Any Multi-Drug Resistant Organisms: None Reported Past Surgical History: AICD, Heart Catheterization Past Anesthesia/Blood Transfusion Reactions: No Reported Reaction Type of Cardiac Device: AICD Device Placement Date:: 2016 Past Psychological History: No Psychological Hx Reported Smoking Status: Never smoker Past Alcohol Use History: None Reported Past Drug Use History: None Reported - Past Family History Father Family Medical History: No Reported History Mother Family Medical History: No Reported History Medications and Allergies Home Medications Medication Instructions Recorded Confirmed Type Apixaban [Eliquis] 5 mg PO BID #60 tab 05/01/18 03/23/22 Rx Amiodarone [Cordarone] 50 mg PO DAILY 03/23/22 03/23/22 History Ascorbic Acid [Vitamin C] 500 mg PO DAILY 03/23/22 03/23/22 History Aspirin EC [Ecotrin Low Dose] 81 mg PO DAILY 03/23/22 03/23/22 History Bumetanide [Bumex] 1 mg PO DIRECTED 03/23/22 03/23/22 History Garlic 1,000 mg PO DAILY 03/23/22 03/23/22 History Metoprolol Succinate (ER) [Toprol 100 mg PO DAILY 03/23/22 03/23/22 History Xl] Multivit-Min/Folic/Vit K/Lycop 1 tab PO DAILY 03/23/22 03/23/22 History [Men's Multivitamin Tablet] Turmeric Root Extract [Turmeric] 500 mg PO DAILY 03/23/22 03/23/22 History Allergies Allergy/AdvReac Type Severity Reaction Status Date / Time Iodinated Contrast Media Allergy Unknown Dyspnea/Cou Verified 03/23/22 22:44 gh Physical Exam Vitals: Vital Signs Temp Pulse Pulse Resp BP Pulse Ox 03/24/22 02:23 64 15 120/77 98 03/24/22 00:24 64 17 114/79 97 03/23/22 23:32 66 15 121/74 96 03/23/22 22:03 68 16 118/94 97 03/23/22 21:50 67 03/23/22 21:46 67 16 121/100 95 03/23/22 18:39 98.1 F 54 L 20 113/80 94 L Intake and Output 03/23/22 03/23/22 03/24/22 14:59 22:59 06:59 Other: Weight 95.254 kg Constitutional: No acute distress, conversant, pleasant Eyes: Anicteric sclerae, moist conjunctiva, Pupils equal round reactive to light ENMT: NC/AT Oropharynx clear, no erythema, or exudates Neck: Supple, FROM, no masses, or JVD No carotid bruits No thyromegaly Lungs: Clear to auscultation Clear to percussion Normal respiratory effort, no accessory muscle use Cardiovascular: Heart regular in rate and rhythm, No murmurs, gallops, or rubs No peripheral edema Abdominal: Soft Nontender, no guarding, rebound or rigidity Abdomen moving with respiration Normoactive bowel sounds No hepatomegaly, No splenomegaly No palpable mass Umbilical hernia Skin: Normal temperature, tone, texture, turgor No induration No subcutaneous nodules No rash, lesions No ulcers Extremities: No digital cyanosis No clubbing Pedal pulses intact and symmetrical Radial pulses intact and symmetrical No calf tenderness Psychiatric: Alert and oriented to person, place and time Appropriate affect fair judgement Neuro Muscles Strength 5/5 in all 4 extremities Sensation to light touch grossly present throughout Cranial nerves II-XII grossly intact Lymphatics: no palpable cervical or supraclavicular lymph nodes Results CBC & Chem 7: 03/23/22 18:45 03/23/22 18:45 Labs: Abnormal Lab Results - Last 24 Hours (Table) 03/23/22 03/23/22 03/23/22 Range/Units 18:45 18:45 18:45 RDW 15.6 H (11.5-15.5) % PT 12.7 H (9.0-12.0) sec INR 1.2 H (<1.2) BUN 25 H (9-20) mg/dL Glucose 110 H (74-99) mg/dL Assessment and Plan Assessment: Syncopal episodes teletypesetter monitor Interrogate ICD device Cardiology consult Trend troponins Monitor vital signs Check computed tomography scan of the brain, patient had a fall from ladder while on Ellquis Fall precautions PT eval Neurochecks Hypertension Resume A. fib status post ICD On eliquis Continue amiodarone Full code DVT prophylaxis on eliquis for A. fib
[2022-03-24] MEDS ORDERED: BUMETANIDE 1 MG TAB PO PRN (04:15)
[2022-03-24] MEDS ORDERED: AMIODARONE 50 MG TAB PO SCH (09:00)
[2022-03-24] MEDS: AMIODARONE 100 MG TAB PO SCH (09:49)
[2022-03-24] MEDS: METOPROLOL SUCCINATE (ER) 100 MG TAB.ER.24H PO SCH (09:49)
[2022-03-24] MEDS: ASPIRIN 81 MG PO SCH (09:50)
[2022-03-24] MEDS: APIXABAN 5 MG TAB PO SCH ×2 (09:50→20:15)
--- NOTE | 2022-03-24 10:00 | CT ---
EXAMINATION TYPE: CT brain wo con DATE OF EXAM: 03/24/2022 HISTORY: Fall while on blood thinner, head injury CT DLP: 1201.4 mGycm. Automated Exposure Control for Dose Reduction was Utilized. TECHNIQUE: CT scan of the head is performed without contrast. COMPARISON: CT brain April 16, 2018. FINDINGS: There is no acute intracranial hemorrhage or midline shift identified. There is mild-to-m oderate diffuse ventricular and sulcal prominence consistent with diffuse age-related cerebral atroph y. There is mild to moderate low-attenuation in the periventricular white matter consistent with chr onic small vessel ischemic change. The globes are intact and the visualized sinuses are clear. Sergey varium is intact. IMPRESSION: No acute intracranial hemorrhage or midline shift. Areas mild to moderate diffuse age-re lated cerebral atrophy and chronic small vessel ischemic change redemonstrated. No significant colon e from CT 2018
--- NOTE | 2022-03-24 10:39 | P.CRDCN ---
History of Present Illness History of present illness: HISTORY OF PRESENTING ILLNESS This is a pleasant 61-year-old male past medical history significant for nonischemic cardiomyopathy, status post AICD placement, ventricular tachycardia, hypertension, persistent atrial fibrillation on Eliquis. He follows with Dr. Coy at [facility]. We have been asked to see in consultation for syncope. Patient states that yesterday he was doing work on a ladder, he had some symptoms of dizziness/lightheadedness. He states he was walking down the ladder and felt extremely lightheaded, he missed the last 2 steps, fell on his left shoulder and lost consciousness. He states that he woke up to friend calling his name and regained consciousness. He is unsure how long this episode lasted. He denies any chest pain, palpitations vomiting, shortness of breath. Denies any weakness, speech difficulties, loss of bowel or bladder. Prior to this episode he had no chest pain or shortness of breath. He states he has not had a syncopal episode in years. He denies any feeling of discharge from his device. 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 Most recent medication change was his amiodarone was decreased to 50 mg daily about 2 months ago secondary to side effects of tremors. He denies any recent cardiac workup. No history of CAD, PA, Stroke, or diabetes. He states that he was diagnosed with cardiomyopathy in 2017 when his mother and underwent a cardiac cath at that time which she told he had normal coronary arteries. He was diagnosed with A fib at that time as well. He is a non-smoker. He denies any PND or orthopnea or peripheral edema. No chest pain. DIAGNOSTICS * EKG reveals sinus rhythm, first-degree AV block, frequent PVCs * Telemetry - patient not on telemetry to review * RIVERA in 2018 revealed EF of 20%, biatrial enlargement, dilated left ventricle with severe global hypokinesis, possible thrombus left ventricle apex, mild to moderate mitral and mild tricuspid regurgitation, no evidence of shunting across the intra-arterial septum * Echocardiogram in 2018 revealed EF of less than 20%, severe global hypokinesis, mild mitral regurgitation, mild to moderate tricuspid regurgitation * Chest xray mild cardiomegaly, clearing of right lower lobe pneumonia. * CT brain no acute intracranial hemorrhage or midline shift. There is mild to moderate diffuse age-related cerebral atrophy and chronic small vessel ischemic change redemonstrated * Laboratory reviewed, CBC unremarkable, troponin negative 3, sodium 137, potassium 4.5, BUN 25, serum creatinine 1.0 * Current home medications include amiodarone 50 mg daily, Eliquis 5 mg twice a day, aspirin 81 mg daily, Bumex 1 mg daily/as needed, metoprolol 6000 mg daily, garlic 1,000 mg daily, tumor 500 mg daily REVIEW OF SYSTEMS At the time of my exam: CONSTITUTIONAL: Denies fever or chills. CARDIOVASCULAR: Denies chest pain, shortness of breath, orthopnea, PND or palpitations. RESPIRATORY: Denies cough. GASTROINTESTINAL: Denies abdominal pain, diarrhea, constipation, nausea or vomiting. MUSCULOSKELETAL: Denies myalgias. NEUROLOGIC: Denies numbness, tingling, headacbe or weakness. ENDOCRINE: Denies fatigue, weight change, polydipsia or polyurina. GENITOURINARY: Denies burning, hematuria or urgency with micturation. HEMATOLOGIC: Denies history of anemia or bleeding. PHYSICAL EXAMINATION Blood pressure 110/87, heart 68, afebrile, saturations 98% on room air CONSTITUTIONAL: No apparent distress. HEENT: Head is normocephalic. Pupils are equal, round. Sclerae anicteric. Mucous membranes of the mouth are moist. No JVD. No carotid bruit. CHEST EXAMINATION: Lungs are clear to auscultation. No chest wall tenderness is noted on palpation or with deep breathing. HEART EXAMINATION: irregular rate and rhythm. S1, S2 heard. Systolic murmur at apex. ABDOMEN: Soft, nontender. Positive bowel sounds. EXTREMITIES: 2+ peripheral pulses, no lower extremity edema and no calf tenderness. NEUROLOGIC EXAMINATION: Patient is awake, alert and oriented x3. ASSESSMENT Syncopal episode PVCs History of severe nonischemic cardiomyopathy History of persistent atrial fibrillation on Eliquis Chronic heart failure with reduced ejection fraction History of ventricular tachycardia Hypertension PLAN Obtain 2D echocardiogram and doppler study to assess cardiac structure and function. Obtain records from patient's marine equipment sales engineer Interrogate patient's device Place patient on cardiac telemetry Continue home cardiac medications Further recommendations based on clinical course. Nurse practitioner note has been reviewed by physician. Signing provider agrees with the documented findings, assessment, and plan of care. Past Medical History Past Medical History: Atrial Fibrillation, Hypertension History of Any Multi-Drug Resistant Organisms: None Reported Past Surgical History: AICD, Heart Catheterization Past Anesthesia/Blood Transfusion Reactions: No Reported Reaction Type of Cardiac Device: AICD Device Placement Date:: 2016 Past Psychological History: No Psychological Hx Reported Smoking Status: Never smoker Past Alcohol Use History: None Reported Past Drug Use History: None Reported - Past Family History Father Family Medical History: No Reported History Mother Family Medical History: No Reported History Medications and Allergies Home Medications Medication Instructions Recorded Confirmed Type Apixaban [Eliquis] 5 mg PO BID #60 tab 05/01/18 03/23/22 Rx Amiodarone [Cordarone] 50 mg PO DAILY 03/23/22 03/23/22 History Ascorbic Acid [Vitamin C] 500 mg PO DAILY 03/23/22 03/23/22 History Aspirin EC [Ecotrin Low Dose] 81 mg PO DAILY 03/23/22 03/23/22 History Bumetanide [Bumex] 1 mg PO DIRECTED 03/23/22 03/23/22 History Garlic 1,000 mg PO DAILY 03/23/22 03/23/22 History Metoprolol Succinate (ER) [Toprol 100 mg PO DAILY 03/23/22 03/23/22 History Xl] Multivit-Min/Folic/Vit K/Lycop 1 tab PO DAILY 03/23/22 03/23/22 History [Men's Multivitamin Tablet] Turmeric Root Extract [Turmeric] 500 mg PO DAILY 03/23/22 03/23/22 History Allergies Allergy/AdvReac Type Severity Reaction Status Date / Time Iodinated Contrast Media Allergy Unknown Dyspnea/Cou Verified 03/23/22 22:44 gh Physical Exam Vitals: Vital Signs Temp Pulse Pulse Resp BP Pulse Ox 03/24/22 05:00 68 15 110/87 98 03/24/22 02:23 64 15 120/77 98 03/24/22 00:24 64 17 114/79 97 03/23/22 23:32 66 15 121/74 96 03/23/22 22:03 68 16 118/94 97 03/23/22 21:50 67 03/23/22 21:46 67 16 121/100 95 03/23/22 18:39 98.1 F 54 L 20 113/80 94 L Intake and Output 03/23/22 03/24/22 03/24/22 22:59 06:59 14:59 Other: Weight 95.254 kg Results 03/23/22 18:45 03/23/22 18:45 Cardiac Enzymes 03/23/22 03/23/22 03/24/22 Range/Units 18:45 18:45 01:21 AST 32 (17-59) U/L Troponin I 0.019 0.016 (0.000-0.034) ng/mL 03/24/22 Range/Units 05:27 AST (17-59) U/L Troponin I <0.012 (0.000-0.034) ng/mL Coagulation 03/23/22 Range/Units 18:45 PT 12.7 H (9.0-12.0) sec APTT 24.0 (22.0-30.0) sec CBC 03/23/22 Range/Units 18:45 WBC 9.0 (3.8-10.6) k/uL RBC 4.55 (4.30-5.90) m/uL Hgb 13.9 (13.0-17.5) gm/dL Hct 43.2 (39.0-53.0) % Plt Count 188 (150-450) k/uL Comprehensive Metabolic Panel 03/23/22 Range/Units 18:45 Sodium 137 (137-145) mmol/L Potassium 4.5 (3.5-5.1) mmol/L Chloride 100 (98-107) mmol/L Carbon Dioxide 24 (22-30) mmol/L BUN 25 H (9-20) mg/dL Creatinine 1.02 (0.66-1.25) mg/dL Glucose 110 H (74-99) mg/dL Calcium 9.2 (8.4-10.2) mg/dL AST 32 (17-59) U/L ALT 21 (4-49) U/L Alkaline Phosphatase 96 (38-126) U/L Total Protein 7.1 (6.3-8.2) g/dL Albumin 4.3 (3.5-5.0) g/dL Current Medications Generic Name Dose Route Start Last Admin Trade Name Freq PRN Reason Stop Dose Admin Amiodarone HCl 50 mg 03/24/22 09:00 Amiodarone 50 Mg Tab PO DAILY [facility] Apixaban 5 mg 03/24/22 09:00 Apixaban 5 Mg Tab PO BID [facility] Protocol Aspirin 81 mg 03/24/22 09:00 Aspirin 81 Mg PO DAILY [facility] Bumetanide 1 mg 03/24/22 04:15 Bumetanide 1 Mg Tab PO DAILY PRN Edema Metoprolol Succinate 100 mg 03/24/22 09:00 Metoprolol Succinate (Er) 100 Mg Tab.Er.24h PO DAILY [facility] Naloxone HCl 0.2 mg 03/23/22 23:14 Naloxone 0.4 Mg/Ml 1 Ml Vial IV Q2M PRN Opioid Reversal Intake and Output 03/23/22 03/24/22 03/24/22 22:59 06:59 14:59 Other: Weight 95.254 kg 03/23/22 18:45 03/23/22 18:45
[2022-03-24] MEDS ORDERED: ACETAMINOPHEN TAB 325 MG TAB PO PRN (23:53)
--- NOTE | 2022-03-25 08:52 | P.PN ---
Subjective This is a pleasant 61-year-old male past medical history significant for nonischemic cardiomyopathy, status post AICD placement, ventricular tachycardia, hypertension, persistent atrial fibrillation on Eliquis, s/p Atrial fibrillation ablation in 2019 and prior cardioversions, chronic heart failure with reduced ejection fraction, moderate to severe MR. He follows with Dr. Coy at [facility]. We have been asked to see in consultation for syncope. Patient states that yesterday he was doing work on a ladder, he had some symptoms of diz ziness/lightheadedness. He states he was walking down the ladder and felt extremely lightheaded, he missed the last 2 steps, fell on his left shoulder and lost consciousness. He states that he woke up to friend calling his name and regained consciousness. He is unsure how long this episode lasted. He presented to ER for further evaluation. 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 She denies any symptoms of chest pain and shortness of breath dizziness or lightheadedness. His device interrogation has not been completed. Echocardiogram is pending. Telemetry reviewed patient is maintaining sinus mechanism, frequent PVCs and runs of NSVT, mostly 2-4 beat runs. Vital signs are stable. Acute coronary syndrome has been ruled out PHYSICAL EXAMINATION Blood pressure 107/71, heart rate 91, afebrile, saturations 97% on room air CONSTITUTIONAL: No apparent distress. HEENT: Head is normocephalic Neck SUpple. No JVD. CHEST EXAMINATION: Lungs are clear to auscultation. No chest wall tenderness is noted on palpation or with deep breathing. HEART EXAMINATION: irregular rate and rhythm. S1, S2 heard. Systolic murmur at apex. ABDOMEN: Soft, nontender. Positive bowel sounds. EXTREMITIES: 2+ peripheral pulses, no lower extremity edema and no calf tenderness. NEUROLOGIC EXAMINATION: Patient is awake, alert and oriented x3. ASSESSMENT Syncopal episode PVCs NSVT History of severe nonischemic cardiomyopathy History of persistent atrial fibrillation on Eliquis, history of ablation in 2019 and prior cardioversions Chronic heart failure with reduced ejection fraction History of Moderate to severe mitral regurgitation History of ventricular tachycardia Hypertension PLAN Obtain 2D echocardiogram and doppler study to assess cardiac structure and function. Interrogate patient's device Continue monitor telemetry Continue home cardiac medications Further recommendations based on device interrogation and above workup Nurse practitioner note has been reviewed by physician. Signing provider agrees with the documented findings, assessment, and plan of care. Objective - Vital Signs Vital signs: Vital Signs Temp 97.6 F 03/25/22 06:40 Pulse 91 03/25/22 06:40 Resp 17 03/25/22 06:40 BP 107/71 03/25/22 06:40 Pulse Ox 97 03/25/22 06:40 FiO2 Intake & Output 03/24/22 03/25/22 03/25/22 18:59 06:59 18:59 Weight 95.254 kg Other: # Voids 1 - Labs CBC & Chem 7: 03/23/22 18:45 03/23/22 18:45
[2022-03-25] MEDS: AMIODARONE 100 MG TAB PO SCH (09:52)
[2022-03-25] MEDS: ASPIRIN 81 MG PO SCH (09:53)
[2022-03-25] MEDS: APIXABAN 5 MG TAB PO SCH ×2 (09:53→20:40)
[2022-03-25] MEDS: METOPROLOL SUCCINATE (ER) 100 MG TAB.ER.24H PO SCH (09:54)
--- NOTE | 2022-03-25 11:48 | P.PN ---
Subjective Progress Note Date: 03/25/22 Patient has no new complaints today. Pacemaker was interrogated and demonstrated an episode of V. tach which he was shocked out of. Echocardiogram continues to demonstrate low ejection fraction. 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 fib Objective - Vital Signs Vital signs: Vital Signs Temp 97.6 F 03/25/22 06:40 Pulse 91 03/25/22 06:40 Resp 17 03/25/22 06:40 BP 107/71 03/25/22 06:40 Pulse Ox 97 03/25/22 06:40 FiO2 Intake & Output 03/24/22 03/25/22 03/25/22 18:59 06:59 18:59 Intake Total 118 Balance 118 Weight 95.254 kg Intake: Oral 118 Other: # Voids 1 - Labs CBC & Chem 7: 03/23/22 18:45 03/23/22 18:45
--- NOTE | 2022-03-25 11:49 | CA ---
Transthoracic Echo Report Name: Sung Valero Age: 61 Gender: M : 1960 Exam Date: 03/25/2022 08:58 Exam Location: [facility] Ht (in): 70 Wt (lb): 210 Ordering Physician: Ana Long Attending/Referring Phys: Postdoctoral Research Associate Alana Rodríguez RDCS Procedure CPT: Indications: Syncope Cardiac Hx: Technical Quality: Fair Contrast 1: Total Dose (mL): Contrast 2: Total Dose (mL): MEASUREMENTS (Male / Female) Normal Values 2D ECHO LV Diastolic Diameter PLAX 5.3 cm 4.2 - 5.9 / 3.9 - 5.3 cm LV Systolic Diameter PLAX 4.9 cm IVS Diastolic Thickness 1.4 cm 0.6 - 1.0 / 0.6 - 0.9 cm LVPW Diastolic Thickness 1.2 cm 0.6 - 1.0 / 0.6 - 0.9 cm LV Relative Wall Thickness 0.5 RV Internal Dim ED PLAX 5.5 cm LVOT Diameter 2.3 cm LA Volume 113.8 cm??? 18 - 58 / 22 - 52 cm??? M-MODE Aortic Root Diameter MM 3.9 cm LA Systolic Diameter MM 4.7 cm LA Ao Ratio MM 1.2 AV Cusp Separation MM 2.4 cm DOPPLER AV Peak Velocity 136.8 cm/s AV Peak Gradient 7.5 mmHg AV Mean Velocity 107.9 cm/s AV Mean Gradient 5.3 mmHg AV Velocity Time Integral 23.7 cm AI Peak Velocity 362.7 cm/s AI Peak Gradient 52.6 mmHg AI Pressure Half Time 521.0 ms LVOT Peak Velocity 77.9 cm/s LVOT Peak Gradient 2.4 mmHg LVOT Velocity Time Integral 12.3 cm LVOT Stroke Volume 52.1 cm??? LVOT Stroke Volume Index 24.4 ml/m??? LVOT Cardiac Index 2137.0 cm???/min???m??? AV Area Cont Eq vti 2.2 cm??? AV Area Cont Eq pk 2.4 cm??? MV Peak Velocity 106.5 cm/s MV Peak Gradient 4.5 mmHg MV Mean Velocity 74.3 cm/s MV Mean Gradient 2.4 mmHg MV Velocity Time Integral 20.9 cm MV Area PHT 3.9 cm??? MR Peak Velocity 442.0 cm/s MR Peak Gradient 78.1 mmHg Mitral E Point Velocity 86.6 cm/s Mitral A Point Velocity 0.0 cm/s Mitral E to A Ratio 79881.1 MV Deceleration Time 195.8 ms MV E' Velocity 4.8 cm/s Mitral E to MV E' Ratio 18.1 TR Peak Velocity 327.4 cm/s TR Peak Gradient 42.9 mmHg Right Ventricular Systolic Press 46.6 mmHg FINDINGS Left Ventricle Mildly increased left ventricular wall thickness. Severely reduced global left ventricular systolic function. Left ventricular ejection fraction is estimated at 20-25 %. Abnormal left ventricular diastolic filling pattern. Right Ventricle Moderate right ventricular dilatation. Moderate pulmonary hypertension. Right Atrium Moderate right atrial dilatation. Catheter/pacemaker wire in the right atrial cavity. Left Atrium Severely increased left atrial volume. Mitral Valve Mitral valve thickened. Mild mitral annular calcification. Moderate mitral regurgitation. Aortic Valve Aortic valve sclerosis. No aortic stenosis. Mild aortic regurgitation. Tricuspid Valve [id number] tricuspid regurgitation. Pulmonic Valve Trace pulmonic regurgitation. Pericardium No pericardial effusion. Aorta Normal size aortic root and proximal ascending aorta. CONCLUSIONS Cardiomyopathy with severe LV systolic dysfunction with an ejection fraction of 20-25% Moderate pulmonary hypertension Right atrial enlargement Mild aortic regurgitation Moderate mitral regurgitation Moderate to severe tricuspid regurgitation Previewed by: Dr. Luis Self MD (Electronically Signed) Final Date: 25 March 2022 11:48
[2022-03-25] MEDS: MEXILETINE 200 MG CAP PO SCH ×3 (12:58→20:41)
[2022-03-25] MEDS ORDERED: MEXILETINE 200 MG CAP PO SCH (16:00)
[2022-03-26 07:49] VITALS: BP 112/81; PULSE 54; RESP 17; TEMP 98
[2022-03-26] MEDS: AMIODARONE 100 MG TAB PO SCH (08:30)
[2022-03-26] MEDS: ASPIRIN 81 MG PO SCH (08:30)
[2022-03-26] MEDS: MEXILETINE 200 MG CAP PO SCH (08:30)
[2022-03-26] MEDS: APIXABAN 5 MG TAB PO SCH (08:30)
[2022-03-26] MEDS: METOPROLOL SUCCINATE (ER) 100 MG TAB.ER.24H PO SCH (08:30)
--- NOTE | 2022-03-26 09:10 | P.PN ---
Subjective This is a pleasant 61-year-old male past medical history significant for nonischemic cardiomyopathy, status post AICD placement, ventricular tachycardia, hypertension, persistent atrial fibrillation on Eliquis, s/p Atrial fibrillation ablation in 2019 and prior cardioversions, chronic heart failure with reduced ejection fraction, moderate to severe MR. He follows with Dr. Coy at [facility]. We have been asked to see in consultation for syncope. Patient states that yesterday he was doing work on a ladder, he had some symptoms of diz ziness/lightheadedness. He states he was walking down the ladder and felt extremely lightheaded, he missed the last 2 steps, fell on his left shoulder and lost consciousness. He states that he woke up to friend calling his name and regained consciousness. He is unsure how long this episode lasted. He presented to ER for further evaluation. Records obtained from his electromedical equipment technician Echocardiogram in May 2021 patient with EF 10-20% Cardiac catheterization in 2017 revealed normal coronary arteries 11 Patient seen and examined at bedside, no distress. He denies any symptoms of chest pain and shortness of breath dizziness or lightheadedness. Device interrogation revealed Ventricular tachycardia with appropriate ICD shock. Patient unable to tolerate increase dosing of amiodarone, secondary to patient having side effects of tremors. Mexiletine was added. Echo revealed cardiomyopathy with severe LV dysfunction with an EF of 2025 %, moderate pulmonary hypertension, right atrial enlargement, mild aortic regurgitation, moderate mitral regurgitation, moderate to severe tricuspid regur gitation Telemetry reviewed patient is maintaining sinus mechanism, PVCs and runs of NSVT,but improved. Vital signs are stable. PHYSICAL EXAMINATION Vitals reviewed CONSTITUTIONAL: No apparent distress. HEENT: Head is normocephalic Neck SUpple. No JVD. CHEST EXAMINATION: Lungs are clear to auscultation. No chest wall tenderness is noted on palpation or with deep breathing. HEART EXAMINATION: Regular rate and rhythm. S1, S2 heard. Systolic murmur at apex. ABDOMEN: Soft, nontender. Positive bowel sounds. EXTREMITIES: 2+ peripheral pulses, no lower extremity edema and no calf tenderness. NEUROLOGIC EXAMINATION: Patient is awake, alert and oriented x3. ASSESSMENT Syncopal episode Ventricular tachycardia with appropriate ICD shock PVCs NSVT History of severe nonischemic cardiomyopathy History of persistent atrial fibrillation on Eliquis, history of ablation in 2019 and prior cardioversions Chronic heart failure with reduced ejection fraction History of Moderate to severe mitral regurgitation History of ventricular tachycardia Hypertension PLAN From cardiology perspective, patient is stable to be discharged home today. Continue mexiletine. Continue other home cardiac medications Recommend follow-up with his primary electromedical equipment technician Dr. Coy at [facility] in 1 week. Nurse practitioner note has been reviewed by physician. Signing provider agrees with the documented findings, assessment, and plan of care. Objective - Vital Signs Vital signs: Vital Signs Temp 98 F 03/26/22 07:49 Pulse 54 L 03/26/22 07:49 Resp 17 03/26/22 07:49 BP 112/81 03/26/22 07:49 Pulse Ox 95 03/26/22 07:49 FiO2 Intake & Output 03/25/22 03/26/22 03/26/22 18:59 06:59 18:59 Intake Total 236 Balance 236 Intake: Oral 236 Other: # Voids 2 2 # Bowel Movements 2 2 - Labs CBC & Chem 7: 03/23/22 18:45 03/23/22 18:45
--- NOTE | 2022-03-26 09:34 | P.DS ---
Providers Date of admission: 03/25/22 13:12 Expected date of discharge: 03/26/22 Attending physician: Marie Hudson MD Consults: 03/23/22 23:14 Consult Physician Urgent Consulting Provider: Maicol Elizalde Consult Reason/Comments: syncope Do you want consulting provider notified?: Yes Primary care physician: Stated None Hospital Course: Syncopal episodes Sustained VTach A. fib status post ICD Hypertension 61-year-old male with permanent A. fib on eliquis status post ICD device presented after syncopal episode in which she fell off a ladder. In the emergency room, patient was afebrile, 113/80, heart rate 54, 94% on room air. Initial CBC demonstrated no abnormal findings. Chemistry showed a BUS of 25, creatinine of 1.02, otherwise unremarkable. Liver function tests were unremarkable. Initial troponins when 019, than 0.016, then less than 0.012. Coags were remarkable for mild elevation of INR to 1.2. EKG demonstrated sinus rhythm with first-degree AV block and frequent PVCs, indeterminate intraventricular conduction delay. Chest x-ray was done and demonstrated mild cardiomegaly with no evidence of acute heart failure. Shoulder x-ray was negative for fracture. Brain CT was negative for hemorrhage. Patient was admitted to observation with telemetry for syncope. Cardiology was consulted and facilitated management. Patient underwent echocardiogram which demonstrated fairly reduced ejection fraction at 20-25% with moderate pulmonary hypertension and right atrial enlargement, moderate mitral regurgitation, moderate to severe tricuspid regurgitation. Patient's AICD was interrogated and showed an episode of sustained ventricular tachycardia which was defibrillated during the time of patient's event leading to the hospital. Patient was already maxed out on amiodarone, therefore cardiology decided to initiate mexiletine. Patient did well with no further episodes on telemetry, was discharged home with cardiology follow-up as well as PCP follow-up. I spent 33 minutes coordinating this discharge, discharge date 03/26 Gen: awake, alert HEENT: normocephalic, atraumatic, good hearing acuity, moist mucous membranes Resp: good air exchange, breathing comfortably with no accessory muscle use CVS: good distal perfusion x 4, GI: soft, NTTP, ND : no SPT, no CVAT, hooker catheter not present MSK: no pitting edema, no clubbing Neuro: non-focal, moving all extremities Psych: cooperative, euthymic mood I was present for 100% of the evaluation of the patient today as well as medical decision making, and I agree with the documented findings noted above Patient Condition at Discharge: Good Plan - Discharge Summary Discharge Rx Participant: No New Discharge Prescriptions: New Acetaminophen Tab [Tylenol] 650 mg PO Q4HR PRN tab PRN Reason: Fever And/ Or Pain Mexiletine [Mexitil] 200 mg PO Q8HR #90 cap Mexiletine [Mexitil] 200 mg PO Q8HR #90 cap Continue Apixaban [Eliquis] 5 mg PO BID #60 tab Multivit-Min/Folic/Vit K/Lycop [Men's Multivitamin Tablet] 1 tab PO DAILY Metoprolol Succinate (ER) [Toprol XL] 100 mg PO DAILY Ascorbic Acid [Vitamin C] 500 mg PO DAILY Turmeric Root Extract [Turmeric] 500 mg PO DAILY Amiodarone [Cordarone] 50 mg PO DAILY Garlic 1,000 mg PO DAILY Aspirin EC [Ecotrin Low Dose] 81 mg PO DAILY Changed Bumetanide [BUMEX] 1 mg PO DAILY #0 Discharge Medication List Apixaban [Eliquis] 5 mg PO BID #60 tab 05/01/18 [Rx] Amiodarone [Cordarone] 50 mg PO DAILY 03/23/22 [History] Ascorbic Acid [Vitamin C] 500 mg PO DAILY 03/23/22 [History] Aspirin EC [Ecotrin Low Dose] 81 mg PO DAILY 03/23/22 [History] Garlic 1,000 mg PO DAILY 03/23/22 [History] Metoprolol Succinate (ER) [Toprol XL] 100 mg PO DAILY 03/23/22 [History] Multivit-Min/Folic/Vit K/Lycop [Men's Multivitamin Tablet] 1 tab PO DAILY 03/23/22 [History] Turmeric Root Extract [Turmeric] 500 mg PO DAILY 03/23/22 [History] Acetaminophen Tab [Tylenol] 650 mg PO Q4HR PRN tab 03/25/22 [Rx] Bumetanide [BUMEX] 1 mg PO DAILY #0 03/25/22 [Rx] Mexiletine [Mexitil] 200 mg PO Q8HR #90 cap 03/25/22 [Rx] Mexiletine [Mexitil] 200 mg PO Q8HR #90 cap 03/25/22 [Rx] Follow up Appointment(s)/Referral(s): Jose Coy DO [REFERRING] - 05/01/22 1:30 pm (Office will call patient with earlier appointment once the Dr is notified. ) None,Stated [Primary Care Provider] - 1-2 days Patient Instructions/Handouts: Mexiletine (By mouth), Syncope (DC), Tachycardia (GEN) Discharge Disposition: HOME SELF-CARE
== END 2022-03-26 12:01 | disposition home or self-care (01) | DRG 309 ==
LOC: EC 18:36 → 6NMEDSUR 23:14 → OBSVTOIN 03-25 13:12
PROVIDERS: ADMIT Internal Medicine; ATTEND Internal Medicine
PROC: 4B02XTZ Measurement of Cardiac Defibrillator, External Approach (ICD-10-PCS; principal; 2022-03-25)
DX: I47.20 Ventricular tachycardia, unspecified (principal); I42.8 Other cardiomyopathies; I50.22 Chronic systolic (congestive) heart failure; I11.0 Hypertensive heart disease with heart failure; I37.1 Nonrheumatic pulmonary valve insufficiency; I48.21 Permanent atrial fibrillation; I44.0 Atrioventricular block, first degree; I27.20 Pulmonary hypertension, unspecified; R55 Syncope and collapse; I08.3 Combined rheumatic disorders of mitral, aortic and tricuspid valves; W11.XXXA Fall on and from ladder, initial encounter; Z79.01 Long term (current) use of anticoagulants; Z79.82 Long term (current) use of aspirin; Z86.79 Personal history of other diseases of the circulatory system; Z95.810 Presence of automatic (implantable) cardiac defibrillator; Z91.041 Radiographic dye allergy status
CPT/HCPCS: 36415; 70450; 71046; 80053; 84484; 85025; 85610; 85730; 93005; 93306; 99285